=== PATIENT | female | born 1995 | race Caucasian/White ===

== ENCOUNTER 2018-01-15 12:19 | Emergency (ER) | payer BC, OTHER ==
[2018-01-15 12:23] VITALS: RESP 18
[2018-01-15] MEDS ORDERED: SODIUM CHLORIDE 0.9% 1,000 ML IV STA ×2 (13:16)
[2018-01-15] MEDS ORDERED: diphenhydrAMINE 50 MG/ML 1 ML VIAL IVP STA (13:16)
[2018-01-15] MEDS ORDERED: METOCLOPRAMIDE 5 MG/ML 2 ML VIAL IVP STA (13:16)
--- NOTE | 2018-01-15 13:16 | ED ---
General Adult HPI - General Chief complaint: Nausea/Vomiting/Diarrhea Stated complaint: vomiting Time Seen by Provider: 01/15/18 13:01 Source: patient, RN notes reviewed, old records reviewed Mode of arrival: wheelchair Limitations: no limitations - History of Present Illness Initial comments: Patient's 22-year-old female presents today with chief complaint of nausea and vomiting. She reports that she was diagnosed with gastroparesis and had an outpatient study with her certified peer specialist yesterday. She is here staying with her dad. Patient reports that she's been in the hospital almost daily for nausea and vomiting over the past few months at [facility]. Patient reports that she has been doing well of Reglan by mouth but she could not take this o this week when she was outpatient study. Patient states that she has follow-up with her GI specialist Dr. Hewitt.Patient denies any recent fever, chills, shortness of breath, chest pain, back pain, abdominal pain, numbness or tingling, dysuria or hematuria, constipation or diarrhea, headaches or visual changes, or any other current symptoms - Related Data Home Medications Medication Instructions Recorded Confirmed Metoclopramide [Reglan] 10 mg PO DAILY 06/02/14 01/15/18 Lansoprazole [Prevacid] 30 mg PO DAILY 01/15/18 01/15/18 Ondansetron [Zofran] 4 mg PO Q8HR PRN 01/15/18 01/15/18 Promethazine Suppository 25 mg RECTAL DAILY 01/15/18 01/15/18 [Phenergan] Previous Rx's Medication Instructions Recorded Metoclopramide [Reglan] 10 mg PO TID #12 tab 01/15/18 Ondansetron Odt [Zofran Odt] 4 mg PO Q8HR PRN #12 tab 01/15/18 Allergies Allergy/AdvReac Type Severity Reaction Status Date / Time latex Allergy Unknown Rash/Hives Verified 01/15/18 13:16 Review of Systems ROS Statement: Those systems with pertinent positive or pertinent negative responses have been documented in the HPI. ROS Other: All systems not noted in ROS Statement are negative. Past Medical History Past Medical History: No Reported History Additional Past Medical History / Comment(s): gastoparesis History of Any Multi-Drug Resistant Organisms: None Reported Past Surgical History: No Surgical Hx Reported Additional Past Surgical History / Comment(s): EXPLORATORY LAPAROSCOPY 2009 Past Anesthesia/Blood Transfusion Reactions: No Reported Reaction Past Psychological History: Anxiety Smoking Status: Current every day smoker Past Alcohol Use History: None Reported Past Drug Use History: Marijuana - Past Family History Mother Family Medical History: Diabetes Mellitus General Exam - General Exam Comments Initial Comments: 22-year-old female. Alert and oriented. No significant distress. Limitations: no limitations General appearance: alert, in no apparent distress Head exam: Present: atraumatic, normocephalic, normal inspection Eye exam: Present: normal appearance, PERRL, EOMI. Absent: scleral icterus, conjunctival injection, periorbital swelling ENT exam: Present: normal exam, mucous membranes moist Neck exam: Present: normal inspection. Absent: tenderness, meningismus, lymphadenopathy Respiratory exam: Present: normal lung sounds bilaterally. Absent: respiratory distress, wheezes, rales, rhonchi, stridor Cardiovascular Exam: Present: regular rate, normal rhythm, normal heart sounds. Absent: systolic murmur, diastolic murmur, rubs, gallop, clicks GI/Abdominal exam: Present: soft, normal bowel sounds. Absent: distended, tenderness, guarding, rebound, rigid Extremities exam: Present: normal inspection, full ROM, normal capillary refill. Absent: tenderness, pedal edema, joint swelling, calf tenderness Back exam: Present: normal inspection Neurological exam: Present: alert, oriented X3, CN II-XII intact Psychiatric exam: Present: normal affect, normal mood Skin exam: Present: warm, dry, intact, normal color. Absent: rash Course Vital Signs 01/15/18 12:21 Temperature 98.2 F Pulse Rate 117 H Respiratory 18 Rate Blood Pressure 145/75 O2 Sat by Pulse 99 Oximetry Medical Decision Making - Medical Decision Making Patient is a 22-year-old female. Presents or his arms today acutely nausea and vomiting over the past 24 hours. She's been at [facility] multiple times over the past month for evaluation. She has follow-up with GI specialist for outpatient just yesterday for gastroparesis. Patient states that she came here to be with her dad over the weekend and has had continuous nausea and vomiting. She is concerned for dehydration. At this time Patient was given IV fluids and lab work obtained. She has no rebound tenderness and otherwise appears well. Patient's labwork was reviewed and unremarkable. This image this over the area Reglan Benadryl and fluids. A discussion is follow-up with her PCP and gastro-neurologist. Patient history plan will comply. Return parameters were discussed. - Lab Data Result diagrams: 01/15/18 13:35 01/15/18 13:35 Lab Results 01/15/18 01/15/18 01/15/18 Range/Units 13:35 13:35 14:10 WBC 10.8 H (3.8-10.6) k/uL RBC 4.60 (3.80-5.40) m/uL Hgb 13.3 (11.4-16.0) gm/dL Hct 41.8 (34.0-46.0) % MCV 91.0 (80.0-100.0) fL MCH 29.0 (25.0-35.0) pg MCHC 31.8 (31.0-37.0) g/dL RDW 14.4 (11.5-15.5) % Plt Count 276 (150-450) k/uL Neutrophils % 89 % Lymphocytes % 9 % Monocytes % 1 % Eosinophils % 0 % Basophils % 0 % Neutrophils # 9.6 H (1.3-7.7) k/uL Lymphocytes # 0.9 L (1.0-4.8) k/uL Monocytes # 0.1 (0-1.0) k/uL Eosinophils # 0.0 (0-0.7) k/uL Basophils # 0.0 (0-0.2) k/uL Sodium 142 (137-145) mmol/L Potassium 4.1 (3.5-5.1) mmol/L Chloride 108 H (98-107) mmol/L Carbon Dioxide 19 L (22-30) mmol/L Anion Gap 15 mmol/L BUN 10 (7-17) mg/dL Creatinine 0.53 (0.52-1.04) mg/dL Est GFR (CKD-EPI)AfAm >90 (>60 ml/min/1.73 sqM) Est GFR (CKD-EPI)NonAf >90 (>60 ml/min/1.73 sqM) Glucose 106 H (74-99) mg/dL Calcium 10.1 (8.4-10.2) mg/dL Total Bilirubin 0.5 (0.2-1.3) mg/dL AST 20 (14-36) U/L ALT 22 (9-52) U/L Alkaline Phosphatase 66 (38-126) U/L Total Protein 8.0 (6.3-8.2) g/dL Albumin 4.7 (3.5-5.0) g/dL Amylase 47 (30-110) U/L Lipase 85 (23-300) U/L Urine Color Urine Appearance (Clear) Urine pH (5.0-8.0) Ur Specific [place] (1.001-1.035) Urine Protein (Negative) Urine Glucose (UA) (Negative) Urine Blood (Negative) Urine Nitrite (Negative) Urine Bilirubin (Negative) Urine Urobilinogen (<2.0) mg/dL Ur Leukocyte Esterase (Negative) Urine WBC (0-5) /hpf Ur Squamous Epith Cells (0-4) /hpf Urine Mucus (None) /hpf Urine HCG, Qual Not Detected (Not Detectd) 01/15/18 Range/Units 14:10 WBC (3.8-10.6) k/uL RBC (3.80-5.40) m/uL Hgb (11.4-16.0) gm/dL Hct (34.0-46.0) % MCV (80.0-100.0) fL MCH (25.0-35.0) pg MCHC (31.0-37.0) g/dL RDW (11.5-15.5) % Plt Count (150-450) k/uL Neutrophils % % Lymphocytes % % Monocytes % % Eosinophils % % Basophils % % Neutrophils # (1.3-7.7) k/uL Lymphocytes # (1.0-4.8) k/uL Monocytes # (0-1.0) k/uL Eosinophils # (0-0.7) k/uL Basophils # (0-0.2) k/uL Sodium (137-145) mmol/L Potassium (3.5-5.1) mmol/L Chloride (98-107) mmol/L Carbon Dioxide (22-30) mmol/L Anion Gap mmol/L BUN (7-17) mg/dL Creatinine (0.52-1.04) mg/dL Est GFR (CKD-EPI)AfAm (>60 ml/min/1.73 sqM) Est GFR (CKD-EPI)NonAf (>60 ml/min/1.73 sqM) Glucose (74-99) mg/dL Calcium (8.4-10.2) mg/dL Total Bilirubin (0.2-1.3) mg/dL AST (14-36) U/L ALT (9-52) U/L Alkaline Phosphatase (38-126) U/L Total Protein (6.3-8.2) g/dL Albumin (3.5-5.0) g/dL Amylase (30-110) U/L Lipase (23-300) U/L Urine Color Yellow Urine Appearance Cloudy H (Clear) Urine pH 8.5 H (5.0-8.0) Ur Specific [place] 1.022 (1.001-1.035) Urine Protein 1+ H (Negative) Urine Glucose (UA) Negative (Negative) Urine Blood Negative (Negative) Urine Nitrite Negative (Negative) Urine Bilirubin Negative (Negative) Urine Urobilinogen <2.0 (<2.0) mg/dL Ur Leukocyte Esterase Negative (Negative) Urine WBC 1 (0-5) /hpf Ur Squamous Epith Cells 5 H (0-4) /hpf Urine Mucus Many H (None) /hpf Urine HCG, Qual (Not Detectd) Disposition Clinical Impression: Nausea & vomiting, Dehydration Disposition: HOME SELF-CARE Condition: Good Instructions: Acute Nausea and Vomiting (ED) Additional Instructions: Patient has follow-up with your primary care physician. Return to the emergency department if any alarming signs or symptoms occur. Prescriptions: Metoclopramide [Reglan] 10 mg PO TID #12 tab Ondansetron Odt [Zofran Odt] 4 mg PO Q8HR PRN #12 tab PRN Reason: Nausea Is patient prescribed a controlled substance at d/c from ED?: No Referrals: Nonstaff,Physician [REFERRING] - 1-2 days Time of Disposition: 14:39
[2018-01-15 13:50] LABS: Basophils % (A) 0 %; Eosinophils % (A) 0 %; HCT 41.8 % (34.0-46.0); HGB 13.3 gm/dL (11.4-16.0); Lymphocytes # (A) 0.9 k/uL (1.0-4.8); Lymphocytes % (A) 9 %; MCHC 31.8 g/dL (31.0-37.0); Mean Platelet Volume 7.2; Monocytes # (A) 0.1 k/uL (0-1.0); Monocytes % (A) 1 %; Neutrophils # (A) 9.6 k/uL (1.3-7.7); Neutrophils % (A) 89 %; Platelet Count 276 k/uL (150-450); RDW 14.4 % (11.5-15.5); WBC 10.8 k/uL (3.8-10.6)
[2018-01-15 13:56] LABS: ALT 22 U/L (9-52); AST 20 U/L (14-36); Albumin 4.7 g/dL (3.5-5.0); Alkaline Phosphatase 66 U/L (38-126); Amylase 47 U/L (30-110); Anion Gap 15 mmol/L; Blood Urea Nitrogen 10 mg/dL (7-17); Calcium 10.1 mg/dL (8.4-10.2); Carbon Dioxide 19 mmol/L (22-30); Chloride 108 mmol/L (98-107); Glucose 106 mg/dL (74-99); Lipase 85 U/L (23-300); Potassium 4.1 mmol/L (3.5-5.1); Sodium 142 mmol/L (137-145); Total Bilirubin 0.5 mg/dL (0.2-1.3)
[2018-01-15 14:35] LABS: Appearance,Urine Cloudy (Clear); Bilirubin,Urine Negative (Negative); Blood,Urine Negative (Negative); Color,Urine Yellow; Glucose,Urine (UA) Negative (Negative); Ketones,Urine 3+ (Negative); Leukocyte Esterase,Urine Negative (Negative); Mucus,Urine Many /hpf; Nitrite,Urine Negative (Negative); PH, Urine 8.5 (5.0-8.0); Protein,Urine 1+ (Negative); Specific Gravity,Urine 1.022 (1.001-1.035); Squamous Epithelial Cell,Urine 5 /hpf (0-4); Urobilinogen,Urine <2.0 mg/dL (<2.0); WBC,Urine 1 /hpf (0-5)
[2018-01-15 15:00] VITALS: BP 130/71; PULSE 66; TEMP 98
== END 2018-01-15 15:00 | disposition home or self-care (01) ==
LOC: EC 12:19
DX: E86.0 Dehydration (principal); R11.2 Nausea with vomiting, unspecified; F17.200 Nicotine dependence, unspecified, uncomplicated; Z87.19 Personal history of other diseases of the digestive system; Z79.899 Other long term (current) drug therapy; Z91.040 Latex allergy status
CPT/HCPCS: 36415; 80053; 82150; 83690; 85025; 81001; 81025; 99284; 96374; 96375; 96361; J1200; J2765

== ENCOUNTER 2018-01-16 01:24 | Observation (INO) | payer OTHER ==
[2018-01-16] MEDS ORDERED: SODIUM CHLORIDE 0.9% 1,000 ML IV STA (01:40)
[2018-01-16] MEDS ORDERED: METOCLOPRAMIDE 5 MG/ML 2 ML VIAL IVP STA (01:40)
[2018-01-16] MEDS ORDERED: diphenhydrAMINE 50 MG/ML 1 ML VIAL IVP STA (01:40)
--- NOTE | 2018-01-16 02:11 | ED ---
Nausea/Vomiting/Diarrhea HPI - General Chief complaint: Nausea/Vomiting/Diarrhea Stated complaint: Vomiting Time Seen by Provider: 01/16/18 01:39 Source: patient Mode of arrival: wheelchair Limitations: no limitations - History of Present Illness Initial comments: Edilia is a 22-year-old female with a past medical history of frequent epigastric abdominal pain, nausea and vomiting for which she's been undergoing a thorough evaluation with her public health specialist in [place]. Patient had a previous gastric emptying study which was suggestive of gastroparesis, however due to her inability to complete the test there was no definitive diagnosis. Patient has been off of her Reglan recently for repeat GI emptying study which was completed earlier in this week. Again it was suggestive of gastroparesis however patient again was unable to complete the study and vomited contents of her stomach prior to the repeat evaluation. Patient's GI is concerned that she does have gastroparesis, she is currently on Reglan. Patient reports that she' s been having worsening abdominal pain nausea and vomiting. She was evaluated in our emergency department yesterday treated with IV fluids, IV Reglan with minimal improvement in her symptoms. She reports that she went home and has been attempting to keep down sips of water a small bites of food but has been unsuccessful. Patient returns ER with concern that she is again becoming dehydrated due to persistent nausea vomiting and inability tolerate by mouth intake. - Related Data Home Medications Medication Instructions Recorded Confirmed Metoclopramide [Reglan] 10 mg PO DAILY 06/02/14 01/15/18 Lansoprazole [Prevacid] 30 mg PO DAILY 01/15/18 01/15/18 Ondansetron [Zofran] 4 mg PO Q8HR PRN 01/15/18 01/15/18 Promethazine Suppository 25 mg RECTAL DAILY 01/15/18 01/15/18 [Phenergan] Previous Rx's Medication Instructions Recorded Metoclopramide [Reglan] 10 mg PO TID #12 tab 01/15/18 Ondansetron Odt [Zofran Odt] 4 mg PO Q8HR PRN #12 tab 01/15/18 Allergies Allergy/AdvReac Type Severity Reaction Status Date / Time latex Allergy Unknown Rash/Hives Verified 01/16/18 01:31 Review of Systems ROS Statement: Those systems with pertinent positive or pertinent negative responses have been documented in the HPI. ROS Other: All systems not noted in ROS Statement are negative. Past Medical History Past Medical History: No Reported History Additional Past Medical History / Comment(s): gastoparesis History of Any Multi-Drug Resistant Organisms: None Reported Past Surgical History: No Surgical Hx Reported Additional Past Surgical History / Comment(s): EXPLORATORY LAPAROSCOPY 2010. endoscopy. Past Anesthesia/Blood Transfusion Reactions: No Reported Reaction Past Psychological History: Anxiety Smoking Status: Current every day smoker Past Alcohol Use History: None Reported Past Drug Use History: Marijuana - Past Family History Mother Family Medical History: Diabetes Mellitus General Exam - General Exam Comments Initial Comments: Physical Exam GENERAL: Patient is chronically ill-appearing, pale, actively vomiting on evaluation HENT: Normocephalic, Atraumatic. EYES: PERRL, EOMI PULMONARY: Unlabored respirations. CARDIOVASCULAR: There is a regular rate and rhythm without any murmurs gallops or rubs. ABDOMEN: Minimal discomfort to palpation in epigastrium SKIN: Skin is pale, sickly appearance : Deferred NEUROLOGIC: Patient is alert and oriented x3. Moving all extremities spontaneously MUSCULOSKELETAL: Normal extremities with adequate strength and full range of motion. No lower extremity swelling or edema. No calf tenderness. PSYCHIATRIC: Normal psychiatric evaluation. Limitations: no limitations Limitations: no limitations Course Vital Signs 01/16/18 01:27 Temperature 98.6 F Pulse Rate 98 Respiratory 24 Rate Blood Pressure 124/78 O2 Sat by Pulse 99 Oximetry Medical Decision Making - Medical Decision Making The patient was seen and evaluated history is obtained from patient review of medical record Patient with chronic epigastric abdominal pain, nausea and vomiting undergoing a thorough outpatient evaluation patient was seen and evaluated in our emergency department yesterday treated with IV fluids and IV Reglan was able to be discharged home however since that time she has persistent nausea and vomiting. On initial evaluation the patient is actively vomiting, she is holding a basin of nonbloody vomitus Patient is chronically ill-appearing, sickly appearance plan to rehydrate the patient, treat with Reglan and placed in observation for further monitoring and rehydration - Lab Data Result diagrams: 01/16/18 02:22 01/16/18 02:22 Disposition Clinical Impression: Nausea & vomiting Disposition: ADMITTED IP TO THIS HOSP Condition: Stable Is patient prescribed a controlled substance at d/c from ED?: No
[2018-01-16] MEDS ORDERED: NALOXONE 0.4 MG/ML 1 ML VIAL IV PRN (02:18)
[2018-01-16 02:32] LABS: Basophils % (A) 0 %; Eosinophils # (A) 0.2 k/uL (0-0.7); Eosinophils % (A) 1 %; HCT 37.5 % (34.0-46.0); HGB 12.7 gm/dL (11.4-16.0); Lymphocytes # (A) 1.3 k/uL (1.0-4.8); Lymphocytes % (A) 11 %; MCH 29.8 pg (25.0-35.0); MCHC 33.8 g/dL (31.0-37.0); MCV 88.1 fL (80.0-100.0); Mean Platelet Volume 8.4; Monocytes # (A) 0.2 k/uL (0-1.0); Monocytes % (A) 2 %; Neutrophils # (A) 10.2 k/uL (1.3-7.7); Neutrophils % (A) 85 %; Platelet Count 280 k/uL (150-450); RBC 4.25 m/uL (3.80-5.40); RDW 14.6 % (11.5-15.5); WBC 11.9 k/uL (3.8-10.6)
[2018-01-16 02:43] LABS: ALT 23 U/L (9-52); AST 23 U/L (14-36); Albumin 4.7 g/dL (3.5-5.0); Alkaline Phosphatase 53 U/L (38-126); Anion Gap 14 mmol/L; Blood Urea Nitrogen 11 mg/dL (7-17); Calcium 9.7 mg/dL (8.4-10.2); Carbon Dioxide 20 mmol/L (22-30); Chloride 107 mmol/L (98-107); Glucose 115 mg/dL (74-99); Lipase 57 U/L (23-300); Potassium 4.1 mmol/L (3.5-5.1); Sodium 141 mmol/L (137-145); Total Bilirubin 0.6 mg/dL (0.2-1.3); Total Protein 7.9 g/dL (6.3-8.2)
[2018-01-16] MEDS: SODIUM CHLORIDE 0.9% 1,000 ML IV SCH ×2 (03:09→11:39)
[2018-01-16] MEDS ORDERED: FAMOTIDINE 20 MG/2 ML VIAL IV STA (03:19)
[2018-01-16 04:38] VITALS: BMI 28.3
[2018-01-16] MEDS: ONDANSETRON 4 MG/2 ML VIAL IVP PRN ×2 (04:45→09:48)
[2018-01-16] MEDS: LORazepam 2 MG/ML INJ IV PRN ×2 (04:45→12:29)
[2018-01-16 08:23] VITALS: PULSE 95; RESP 16
[2018-01-16] MEDS ORDERED: PANTOPRAZOLE 40 MG/10 ML VIAL IVP SCH (13:45)
[2018-01-16] MEDS ORDERED: METOCLOPRAMIDE 10 MG TAB PO SCH (16:00)
[2018-01-16 16:07] VITALS: BP 109/69; TEMP 98.2
--- NOTE | 2018-01-16 16:31 | P.HPIM ---
History of Present Illness Patient is a pleasant 42-year-old female with known history of gastroparesis etiology of gastroparesis is unknown had a gastric emptying studies in the past came in with nausea vomiting. Patient is able to call tolerate clear liquid diet patient stopped taking her Reglan for another gastric emptying study after which patient started having this intractable symptoms patient was resumed on 9 Reglan. Patient was later evaluated by gastroenterology with the patient follows as an outpatient. Later in the day patient was doing well wanted to be discharged and patient will be resumed on her home medications and will be discharged. Review of Systems REVIEW OF SYSTEMS: CONSTITUTIONAL: No fever, no malaise, no fatigue. HEENT: No recent visual problems or hearing problems. Denied any sore throat. CARDIOVASCULAR: No chest pain, orthopnea, PND, no palpitations, no syncope. PULMONARY: No shortness of breath, no cough, no hemoptysis. GASTROINTESTINAL: As mentioned in HPI NEUROLOGICAL: No headaches, no weakness, no numbness. HEMATOLOGICAL: Denies any bleeding or petechiae. GENITOURINARY: Denies any burning micturition, frequency, or urgency. MUSCULOSKELETAL/RHEUMATOLOGICAL: Denies any joint pain, swelling, or any muscle pain. ENDOCRINE: Denies any polyuria or polydipsia. The rest of the 14-point review of systems is negative. Past Medical History Past Medical History: No Reported History Additional Past Medical History / Comment(s): gastoparesis History of Any Multi-Drug Resistant Organisms: None Reported Past Surgical History: No Surgical Hx Reported Additional Past Surgical History / Comment(s): EXPLORATORY LAPAROSCOPY 2009. endoscopy 12/2017 Past Anesthesia/Blood Transfusion Reactions: No Reported Reaction Past Psychological History: Anxiety Smoking Status: Current every day smoker Past Alcohol Use History: None Reported Past Drug Use History: Marijuana - Past Family History Mother Family Medical History: Diabetes Mellitus Medications and Allergies Home Medications Medication Instructions Recorded Confirmed Type Lansoprazole [Prevacid] 30 mg PO DAILY 01/15/18 01/16/18 History Metoclopramide [Reglan] 10 mg PO TID #12 tab 01/15/18 01/16/18 Rx Ondansetron [Zofran] 4 mg PO Q8HR PRN 01/15/18 01/16/18 History Promethazine Suppository 25 mg RECTAL DAILY 01/15/18 01/16/18 History [Phenergan] Lactobacillus Acidophilus 460 mg PO DAILY 01/16/18 01/16/18 History [Florajen] Multivitamins, Thera [Multivitamin 1 tab PO DAILY 01/16/18 01/16/18 History (formulary)] Allergies Allergy/AdvReac Type Severity Reaction Status Date / Time latex Allergy Unknown Rash/Hives Verified 01/16/18 12:08 Physical Exam Vitals: Vital Signs Temp Pulse Pulse Resp BP BP Pulse Ox 01/16/18 16:00 98.2 F 95 16 109/69 95 01/16/18 08:00 98.7 F 95 16 108/66 96 01/16/18 04:15 98.4 F 99 18 102/59 96 01/16/18 04:00 18 01/16/18 03:30 98.7 F 83 16 125/68 97 01/16/18 01:27 98.6 F 98 24 124/78 99 Intake and Output 01/16/18 01/16/18 01/16/18 06:59 14:59 22:59 Intake Total 80 Balance 80 Intake: Oral 80 Other: Voiding Method Toilet Toilet # Voids 2 2 Weight 63.503 kg PHYSICAL EXAMINATION: GENERAL: The patient is alert and oriented x3, not in any acute distress. Well developed, well nourished. HEENT: Pupils are round and equally reacting to light. EOMI. No scleral icterus. No conjunctival pallor. Normocephalic, atraumatic. No pharyngeal erythema. No thyromegaly. CARDIOVASCULAR: S1 and S2 present. No murmurs, rubs, or gallops. PULMONARY: Chest is clear to auscultation, no wheezing or crackles. ABDOMEN: Soft, nontender, nondistended, normoactive bowel sounds. No palpable organomegaly. MUSCULOSKELETAL: No joint swelling or deformity. EXTREMITIES: No cyanosis, clubbing, or pedal edema. NEUROLOGICAL: Gross neurological examination did not reveal any focal deficits. SKIN: No rashes. Results CBC & Chem 7: 01/16/18 02:22 01/16/18 02:22 Labs: Abnormal Lab Results - Last 24 Hours (Table) 01/16/18 01/16/18 Range/Units 02:22 02:22 WBC 11.9 H (3.8-10.6) k/uL Neutrophils # 10.2 H (1.3-7.7) k/uL Carbon Dioxide 20 L (22-30) mmol/L Creatinine 0.44 L (0.52-1.04) mg/dL Glucose 115 H (74-99) mg/dL Thrombosis Risk Factor Assmnt - Choose All That Apply Any of the Below Risk Factors Present?: No Assessment and Plan Plan: -Nausea vomiting:: Secondary to gastroparesis if patient's symptoms of her patient will be discharged today. -Nicotine abuse: Counseling was provided
--- NOTE | 2018-01-16 16:32 | P.DS ---
Providers Date of admission: 01/16/18 02:20 Attending physician: Belem Don Consults: 01/16/18 13:38 Consult Physician Routine Consulting Provider: Darcie Herrera Consult Reason/Comments: gastroperesis Do you want consulting provider notified?: Yes Primary care physician: Lico Solano DO Hospital Course: As mentioned in HPI Patient Condition at Discharge: Stable Plan - Discharge Summary New Discharge Prescriptions: No Action Ondansetron [Zofran] 4 mg PO Q8HR PRN PRN Reason: Nausea Lansoprazole [Prevacid] 30 mg PO DAILY Promethazine Suppository [Phenergan] 25 mg RECTAL DAILY Metoclopramide [Reglan] 10 mg PO TID #12 tab Multivitamins, Thera [Multivitamin (formulary)] 1 tab PO DAILY Lactobacillus Acidophilus [Florajen] 460 mg PO DAILY Discharge Medication List Lansoprazole [Prevacid] 30 mg PO DAILY 01/15/18 [History] Metoclopramide [Reglan] 10 mg PO TID #12 tab 01/15/18 [Rx] Ondansetron [Zofran] 4 mg PO Q8HR PRN 01/15/18 [History] Promethazine Suppository [Phenergan] 25 mg RECTAL DAILY 01/15/18 [History] Lactobacillus Acidophilus [Florajen] 460 mg PO DAILY 01/16/18 [History] Multivitamins, Thera [Multivitamin (formulary)] 1 tab PO DAILY 01/16/18 [History ] Follow up Appointment(s)/Referral(s): Lico Solano DO [Primary Care Provider] - 3 Days Discharge Disposition: HOME SELF-CARE
[2018-01-17] MEDS ORDERED: PROMETHAZINE SUPPOSITORY 25 MG SUPP RECTAL SCH (09:00)
== END 2018-01-16 16:48 | disposition home or self-care (01) ==
LOC: EC 01:24 → 3OBS 02:20
PROVIDERS: ADMIT Hospitalist; ATTEND Hospitalist
DX: K31.84 Gastroparesis (principal); F41.9 Anxiety disorder, unspecified; F17.200 Nicotine dependence, unspecified, uncomplicated; Z79.899 Other long term (current) drug therapy; Z91.040 Latex allergy status; Z83.3 Family history of diabetes mellitus
CPT/HCPCS: 96361 ×2; 96375 ×2; 96376; 96374; 99284; 36415; 80053; 83690; 85025; G0378; J2060; J1200; J2765; J2405; C9113

== ENCOUNTER 2018-02-07 13:41 | Emergency (ER) | payer OTHER ==
[2018-02-07] MEDS ORDERED: KETOROLAC 30 MG/ML 1 ML VIAL IVP STA (14:20)
[2018-02-07] MEDS ORDERED: METOCLOPRAMIDE 5 MG/ML 2 ML VIAL IVP STA (14:20)
[2018-02-07] MEDS ORDERED: SODIUM CHLORIDE 0.9% 1,000 ML IV STA (14:20)
[2018-02-07] MEDS ORDERED: diphenhydrAMINE 50 MG/ML 1 ML VIAL IVP STA (14:20)
[2018-02-07] MEDS ORDERED: SODIUM CHLORIDE 0.9% 1,000 ML IV SCH (14:30)
--- NOTE | 2018-02-07 14:44 | ED ---
Nausea/Vomiting/Diarrhea HPI - General Chief complaint: Nausea/Vomiting/Diarrhea Stated complaint: N & V Time Seen by Provider: 02/07/18 13:58 Source: patient, RN notes reviewed, old records reviewed Mode of arrival: ambulatory Limitations: no limitations - History of Present Illness Initial comments: Patient is a 22-year-old female who presents emergency department today for evaluation for gastroparesis. Patient reports having nausea and vomiting of past 2 days. She reports that she's followed up outpatient only with a gastro- neurologist in [place]. Patient states that she's not had close follow-up with her should they gastric neurologist as of the country. Patient states she' s been taking Zofran and Reglan with little relief of her nausea and pain. Patient states that she's been having some diarrhea. She denies any chance of at this time. Patient states that she's had no fevers or chills. This pain feels similar to her previous gastroparesis pain. Patient denies any recent fever, chills, shortness of breath, chest pain, back pain, abdominal pain , nausea vomiting, numbness or tingling, dysuria or hematuria, constipation or diarrhea, headaches or visual changes, or any other current symptoms - Related Data Home Medications Medication Instructions Recorded Confirmed Lansoprazole [Prevacid] 30 mg PO DAILY 01/15/18 01/16/18 Ondansetron [Zofran] 4 mg PO Q8HR PRN 01/15/18 01/16/18 Promethazine Suppository 25 mg RECTAL DAILY 01/15/18 01/16/18 [Phenergan] Lactobacillus Acidophilus 460 mg PO DAILY 01/16/18 01/16/18 [Florajen] Multivitamins, Thera [Multivitamin 1 tab PO DAILY 01/16/18 01/16/18 (formulary)] Previous Rx's Medication Instructions Recorded Metoclopramide [Reglan] 10 mg PO TID #12 tab 01/15/18 Allergies Allergy/AdvReac Type Severity Reaction Status Date / Time latex Allergy Unknown Rash/Hives Verified 02/07/18 13:49 Review of Systems ROS Statement: Those systems with pertinent positive or pertinent negative responses have been documented in the HPI. ROS Other: All systems not noted in ROS Statement are negative. Past Medical History Past Medical History: No Reported History Additional Past Medical History / Comment(s): gastoparesis History of Any Multi-Drug Resistant Organisms: None Reported Past Surgical History: No Surgical Hx Reported Additional Past Surgical History / Comment(s): EXPLORATORY LAPAROSCOPY 2009. endoscopy 12/2017 Past Anesthesia/Blood Transfusion Reactions: No Reported Reaction Past Psychological History: Anxiety Smoking Status: Current every day smoker Past Alcohol Use History: None Reported Past Drug Use History: Marijuana - Past Family History Mother Family Medical History: Diabetes Mellitus General Exam - General Exam Comments Initial Comments: Rogelio is a 22-year-old female. Alert and oriented. Patient appears in no significant distress. Limitations: no limitations General appearance: alert, in no apparent distress Head exam: Present: atraumatic, normocephalic, normal inspection Eye exam: Present: normal appearance, PERRL, EOMI. Absent: scleral icterus, conjunctival injection, periorbital swelling ENT exam: Present: normal exam, mucous membranes moist Neck exam: Present: normal inspection. Absent: tenderness, meningismus, lymphadenopathy Respiratory exam: Present: normal lung sounds bilaterally. Absent: respiratory distress, wheezes, rales, rhonchi, stridor Cardiovascular Exam: Present: regular rate, normal rhythm, normal heart sounds. Absent: systolic murmur, diastolic murmur, rubs, gallop, clicks GI/Abdominal exam: Present: soft, normal bowel sounds. Absent: distended, tenderness, guarding, rebound, rigid Extremities exam: Present: normal inspection, full ROM, normal capillary refill. Absent: tenderness, pedal edema, joint swelling, calf tenderness Back exam: Present: normal inspection Neurological exam: Present: alert, oriented X3, CN II-XII intact Psychiatric exam: Present: normal affect, normal mood Skin exam: Present: warm, dry, intact, normal color. Absent: rash Course Vital Signs 02/07/18 13:47 Temperature 98.5 F Pulse Rate 102 H Respiratory 16 Rate Blood Pressure 122/89 O2 Sat by Pulse 99 Oximetry Medical Decision Making - Medical Decision Making Patient is 22-year-old female presents emergency department today with episode of gastroparesis. Patient's labwork was reviewed today and unremarkable. Patient continues to complain of nausea after Zofran and Reglan Benadryl. She complains of acid reflux like pain. She is given GI cocktail and Protonix. Patient has no CVA tenderness. Abdomen soft. Vital signs are stable. At this time Patient was given 2 L bolus discuss close follow-up with primary care physician. Return parameters were discussed. - Lab Data Result diagrams: 02/07/18 14:44 02/07/18 14:44 Lab Results 02/07/18 02/07/18 02/07/18 Range/Units 14:44 14:44 14:44 WBC 7.7 (3.8-10.6) k/uL RBC 4.32 (3.80-5.40) m/uL Hgb 12.9 (11.4-16.0) gm/dL Hct 38.8 (34.0-46.0) % MCV 89.9 (80.0-100.0) fL MCH 29.9 (25.0-35.0) pg MCHC 33.3 (31.0-37.0) g/dL RDW 14.7 (11.5-15.5) % Plt Count 282 (150-450) k/uL Neutrophils % 78 % Lymphocytes % 16 % Monocytes % 4 % Eosinophils % 1 % Basophils % 0 % Neutrophils # 6.0 (1.3-7.7) k/uL Lymphocytes # 1.3 (1.0-4.8) k/uL Monocytes # 0.3 (0-1.0) k/uL Eosinophils # 0.1 (0-0.7) k/uL Basophils # 0.0 (0-0.2) k/uL Sodium 139 (137-145) mmol/L Potassium 4.2 (3.5-5.1) mmol/L Chloride 107 (98-107) mmol/L Carbon Dioxide 22 (22-30) mmol/L Anion Gap 10 mmol/L BUN 8 (7-17) mg/dL Creatinine 0.53 (0.52-1.04) mg/dL Est GFR (CKD-EPI)AfAm >90 (>60 ml/min/1.73 sqM) Est GFR (CKD-EPI)NonAf >90 (>60 ml/min/1.73 sqM) Glucose 93 (74-99) mg/dL Calcium 9.5 (8.4-10.2) mg/dL Total Bilirubin 0.4 (0.2-1.3) mg/dL AST 17 (14-36) U/L ALT 18 (9-52) U/L Alkaline Phosphatase 58 (38-126) U/L Total Protein 7.6 (6.3-8.2) g/dL Albumin 4.4 (3.5-5.0) g/dL Amylase 42 (30-110) U/L Lipase 62 (23-300) U/L Urine Color Yellow Urine Appearance Cloudy H (Clear) Urine pH 7.5 (5.0-8.0) Ur Specific [place] 1.018 (1.001-1.035) Urine Protein Trace H (Negative) Urine Glucose (UA) Negative (Negative) Urine Ketones 2+ H (Negative) Urine Blood Negative (Negative) Urine Nitrite Negative (Negative) Urine Bilirubin Negative (Negative) Urine Urobilinogen 2.0 (<2.0) mg/dL Ur Leukocyte Esterase Trace H (Negative) Urine RBC 8 H (0-5) /hpf Urine WBC 2 (0-5) /hpf Ur Squamous Epith Cells 7 H (0-4) /hpf Urine Mucus Many H (None) /hpf Disposition Clinical Impression: Nausea & vomiting, Dehydration Disposition: HOME SELF-CARE Condition: Good Instructions: Acute Nausea and Vomiting (ED) Additional Instructions: Patient advised to follow-up with primary care physician. Return to emergency department if any alarming signs or symptoms occur. Is patient prescribed a controlled substance at d/c from ED?: No Referrals: Lico Solano DO [Primary Care Provider] - 1-2 days Time of Disposition: 16:22
[2018-02-07 14:57] LABS: Basophils % (A) 0 %; Eosinophils # (A) 0.1 k/uL (0-0.7); Eosinophils % (A) 1 %; HCT 38.8 % (34.0-46.0); HGB 12.9 gm/dL (11.4-16.0); Lymphocytes # (A) 1.3 k/uL (1.0-4.8); Lymphocytes % (A) 16 %; MCH 29.9 pg (25.0-35.0); MCHC 33.3 g/dL (31.0-37.0); MCV 89.9 fL (80.0-100.0); Mean Platelet Volume 7.3; Monocytes # (A) 0.3 k/uL (0-1.0); Monocytes % (A) 4 %; Neutrophils % (A) 78 %; Platelet Count 282 k/uL (150-450); RBC 4.32 m/uL (3.80-5.40); RDW 14.7 % (11.5-15.5); WBC 7.7 k/uL (3.8-10.6)
[2018-02-07 15:05] LABS: Appearance,Urine Cloudy (Clear); Bilirubin,Urine Negative (Negative); Blood,Urine Negative (Negative); Color,Urine Yellow; Glucose,Urine (UA) Negative (Negative); Ketones,Urine 2+ (Negative); Leukocyte Esterase,Urine Trace (Negative); Mucus,Urine Many /hpf; Nitrite,Urine Negative (Negative); PH, Urine 7.5 (5.0-8.0); Protein,Urine Trace (Negative); RBC,Urine 8 /hpf (0-5); Specific Gravity,Urine 1.018 (1.001-1.035); Squamous Epithelial Cell,Urine 7 /hpf (0-4); WBC,Urine 2 /hpf (0-5)
[2018-02-07 15:08] LABS: ALT 18 U/L (9-52); AST 17 U/L (14-36); Albumin 4.4 g/dL (3.5-5.0); Alkaline Phosphatase 58 U/L (38-126); Amylase 42 U/L (30-110); Anion Gap 10 mmol/L; Blood Urea Nitrogen 8 mg/dL (7-17); Calcium 9.5 mg/dL (8.4-10.2); Carbon Dioxide 22 mmol/L (22-30); Chloride 107 mmol/L (98-107); Glucose 93 mg/dL (74-99); Lipase 62 U/L (23-300); Potassium 4.2 mmol/L (3.5-5.1); Sodium 139 mmol/L (137-145); Total Bilirubin 0.4 mg/dL (0.2-1.3); Total Protein 7.6 g/dL (6.3-8.2)
[2018-02-07] MEDS ORDERED: PANTOPRAZOLE 40 MG/10 ML VIAL IVP STA (15:41)
[2018-02-07] MEDS ORDERED: MAG HYDROX/AL HYDROX/SIMETH 30 ML, HYOSCYAMINE ELIXIR 10 ML, CIMETIDINE HCL 300 MG, LID... PO STA ×4 (15:41)
[2018-02-07 16:49] VITALS: BP 99/52; PULSE 76; RESP 18; TEMP 99.5
== END 2018-02-07 16:51 | disposition home or self-care (01) ==
LOC: EC 13:41
DX: E86.0 Dehydration (principal); R11.2 Nausea with vomiting, unspecified; R19.7 Diarrhea, unspecified; K31.84 Gastroparesis; F17.200 Nicotine dependence, unspecified, uncomplicated; Z91.040 Latex allergy status; Z79.899 Other long term (current) drug therapy; Z53.8 Procedure and treatment not carried out for other reasons
CPT/HCPCS: 36415; 80053; 82150; 83690; 85025; 81001; 99284; 96374; 96375 ×3; 96361; J1200; J2765; J1885; C9113

== ENCOUNTER 2018-02-10 11:37 | Emergency (ER) | payer OTHER ==
[2018-02-10] MEDS ORDERED: METOCLOPRAMIDE 5 MG/ML 2 ML VIAL IVP STA (12:17)
[2018-02-10] MEDS: diphenhydrAMINE 50 MG/ML 1 ML VIAL IVP STA ×2 (12:41→13:16)
[2018-02-10 13:17] LABS: Basophils # (A) 0.1 k/uL (0-0.2); Basophils % (A) 0 %; Eosinophils % (A) 0 %; HCT 42.8 % (34.0-46.0); HGB 13.9 gm/dL (11.4-16.0); Lymphocytes # (A) 1.6 k/uL (1.0-4.8); Lymphocytes % (A) 13 %; MCH 29.8 pg (25.0-35.0); MCHC 32.5 g/dL (31.0-37.0); MCV 91.8 fL (80.0-100.0); Mean Platelet Volume 7.8; Monocytes # (A) 0.3 k/uL (0-1.0); Monocytes % (A) 2 %; Neutrophils # (A) 9.5 k/uL (1.3-7.7); Neutrophils % (A) 82 %; Platelet Count 327 k/uL (150-450); RBC 4.66 m/uL (3.80-5.40); RDW 14.5 % (11.5-15.5); WBC 11.6 k/uL (3.8-10.6)
[2018-02-10 13:23] LABS: Appearance,Urine Clear (Clear); Bilirubin,Urine Negative (Negative); Blood,Urine Large (Negative); Color,Urine Yellow; Glucose,Urine (UA) Negative (Negative); Ketones,Urine 2+ (Negative); Leukocyte Esterase,Urine Trace (Negative); Mucus,Urine Many /hpf; Nitrite,Urine Negative (Negative); Protein,Urine Trace (Negative); RBC,Urine >182 /hpf (0-5); Urobilinogen,Urine <2.0 mg/dL (<2.0); WBC,Urine 5 /hpf (0-5)
[2018-02-10 13:25] LABS: ALT 18 U/L (9-52); AST 18 U/L (14-36); Alkaline Phosphatase 69 U/L (38-126); Anion Gap 12 mmol/L; Blood Urea Nitrogen 9 mg/dL (7-17); Calcium 10.2 mg/dL (8.4-10.2); Carbon Dioxide 22 mmol/L (22-30); Chloride 107 mmol/L (98-107); Glucose 102 mg/dL (74-99); Potassium 4.7 mmol/L (3.5-5.1); Sodium 141 mmol/L (137-145); Total Bilirubin 0.5 mg/dL (0.2-1.3); Total Protein 8.4 g/dL (6.3-8.2)
--- NOTE | 2018-02-10 13:53 | ED ---
Nausea/Vomiting/Diarrhea HPI - General Chief complaint: Nausea/Vomiting/Diarrhea Stated complaint: vomiting Time Seen by Provider: 02/10/18 12:05 Source: patient Mode of arrival: ambulatory Limitations: no limitations - History of Present Illness Initial comments: 22-year-old female past medical history of gastroparesis and GERD presenting today for chief complaint of nausea and vomiting. Patient states that she was recently seen here for the same complaint, she states that since discharge she is able to tolerate by mouth intake and liquid form however she was unable to tolerate solids. She states that this has been going on for months and she has been evaluated extensively by gastroenterology, Dr. Glenda Hewitt. She had an endoscopy on the with findings concerning for gastroparesis. Patient states that her gastric emptying study that was performed a few days later revealed gastroparesis. Patient was started on Zofran and Reglan for her nausea and vomiting. Patient states that she does have a scheduled appointment with her tube buffer on Thursday, February 12, however she has not been able to keep down her Reglan today to control her nausea and vomiting. Patient states that she took 2 Zofran this morning which did not alleviate her symptoms. Patient does state that she has chronic diarrhea, however since she' s been taking her Reglan her stools performed. Patient denies any hematemesis, melena, hematochezia, fever, chills, night sweats, abdominal pain, chest pain, or shortness of breath. Patient does admit to some mild lower pelvic pain, however she states that she just her menstruation yesterday and this is consistent with her menses. Pt denies sexual activity, vaginal discharge or abdnormal vaginal bleeding. Pt denies . Upon arrival to the emergency department pt is stable VS within acceptable limits. Pt did have 1 episode of vomiting since arrival, no noted blood. - Related Data Home Medications Medication Instructions Recorded Confirmed Lansoprazole [Prevacid] 30 mg PO DAILY 01/15/18 02/10/18 Ondansetron [Zofran] 4 mg PO Q8HR PRN 01/15/18 02/10/18 Previous Rx's Medication Instructions Recorded Metoclopramide [Reglan] 10 mg PO TID #12 tab 01/15/18 Allergies Allergy/AdvReac Type Severity Reaction Status Date / Time latex Allergy Unknown Rash/Hives Verified 02/10/18 12:20 Review of Systems ROS Statement: Those systems with pertinent positive or pertinent negative responses have been documented in the HPI. ROS Other: All systems not noted in ROS Statement are negative. Constitutional: Denies: fever, night sweats ENT: Denies: ear pain, throat pain Respiratory: Denies: cough, dyspnea, wheezes, hemoptysis, stridor Cardiovascular: Denies: chest pain, palpitations, dyspnea on exertion Endocrine: Denies: fatigue Gastrointestinal: Reports: nausea, vomiting, diarrhea (on and off for months- none currently). Denies: abdominal pain, constipation, hematemesis, melena, hematochezia Genitourinary: Denies: urgency, dysuria, frequency, hematuria, discharge, abnormal menses Musculoskeletal: Denies: back pain Skin: Denies: rash, lesions Neurological: Denies: headache, weakness, numbness, paresthesias, confusion Past Medical History Past Medical History: GERD/Reflux Additional Past Medical History / Comment(s): gastoparesis History of Any Multi-Drug Resistant Organisms: None Reported Past Surgical History: No Surgical Hx Reported Additional Past Surgical History / Comment(s): EXPLORATORY LAPAROSCOPY 2009. endoscopy 12/2017 Past Anesthesia/Blood Transfusion Reactions: No Reported Reaction Past Psychological History: Anxiety Smoking Status: Current every day smoker Past Alcohol Use History: None Reported Past Drug Use History: Marijuana - Past Family History Mother Family Medical History: Diabetes Mellitus General Exam - General Exam Comments Initial Comments: General: The patient is awake and alert, in no distress, and does not appear acutely ill. Eye: Pupils are equal, round and reactive to light, extra-ocular movements are intact. No nystagmus. There is normal conjunctiva bilaterally. No signs of icterus. Ears, nose, mouth and throat: There are moist mucous membranes and no oral lesions. Neck: The neck is supple, there is no tenderness or JVD. Cardiovascular: There is a regular rate and rhythm. No murmur, rub or gallop is appreciated. Respiratory: Lungs are clear to auscultation, respirations are non-labored, breath sounds are equal. No wheezes, stridor, rales, or rhonchi. Gastrointestinal: No noted diaphoresis, jaundice, pallor, protecting postures or squirming. Symmetrical pigmentation of abdomen without signs of inflammation, scars, or striae. Umbilicus mildline, inverted without swelling. No dilated veins. No noted abdominal distention. No visible masses. No peristalsis, aortic pulsations , or ventral hernia. Bowel sounds audible in all 4 quadrants, unremarkable. No friction rubs or venous hums. No epigastic, hepatic or abdominal bruits. No tenderness to light or deep palpation. Liver edge, not palpable. Spleen edge, right and left kidney not palpable. Superior bladder margin non-tender. Special Testing: Negative [place], [place], McBurney, Josue, cutaneous hyperesthesia. Iliopsoas and obturator tests negative bilaterally. Negative Heel Jar test. No CVA tenderness. Digital rectal exam deferred. Negative sanford turners or cullens sign Musculoskeletal: Normal ROM, no tenderness. Strength 5/5. Sensation intact. Pulses equal bilaterally 2+. Neurological: A&O x 3. CN II-XII intact, There are no obvious motor or sensory deficits. Coordination appears grossly intact. Speech is normal. Skin: Skin is warm and dry and no rashes or lesions are noted. Psychiatric: Cooperative, appropriate mood & affect, normal judgment. Limitations: no limitations Course Vital Signs 02/10/18 02/10/18 11:39 14:30 Temperature 98.7 F 98.0 F Pulse Rate 89 74 Respiratory 16 18 Rate Blood Pressure 120/78 149/87 O2 Sat by Pulse 100 96 Oximetry Medical Decision Making - Medical Decision Making 22-year-old female history of gastroparesis who she is following closely with gastroenterology. I spoke with patient's gastrologist Dr. Hewitt who stated that patient should start drinking boost/ensure if she is able to tolerate PO intake. Pt was given reglan/benadryl IVP, pt tolerated PO water. Pt given IV fluid replacement. Pt appears well, nontoxic. Labs unremarkable. UA as noted above however pt is currently menstruating. Pt given reglan, zofran and benadryl for nausea. Pt requested protonix because she didnt take her GERD medication today. After discussing case with Dr. Palma we feel pt is stable for d /c she appears hydrated on exam, labs unremarkable. Pt states she has tolerated PO gatoraide at home. Pt discharged in stable condition. - Lab Data Result diagrams: 02/10/18 12:36 02/10/18 12:36 Lab Results 02/10/18 02/10/18 02/10/18 Range/Units 12:36 12:36 12:36 WBC 11.6 H (3.8-10.6) k/uL RBC 4.66 (3.80-5.40) m/uL Hgb 13.9 (11.4-16.0) gm/dL Hct 42.8 (34.0-46.0) % MCV 91.8 (80.0-100.0) fL MCH 29.8 (25.0-35.0) pg MCHC 32.5 (31.0-37.0) g/dL RDW 14.5 (11.5-15.5) % Plt Count 327 (150-450) k/uL Neutrophils % 82 % Lymphocytes % 13 % Monocytes % 2 % Eosinophils % 0 % Basophils % 0 % Neutrophils # 9.5 H (1.3-7.7) k/uL Lymphocytes # 1.6 (1.0-4.8) k/uL Monocytes # 0.3 (0-1.0) k/uL Eosinophils # 0.0 (0-0.7) k/uL Basophils # 0.1 (0-0.2) k/uL Sodium 141 (137-145) mmol/L Potassium 4.7 (3.5-5.1) mmol/L Chloride 107 (98-107) mmol/L Carbon Dioxide 22 (22-30) mmol/L Anion Gap 12 mmol/L BUN 9 (7-17) mg/dL Creatinine 0.62 (0.52-1.04) mg/dL Est GFR (CKD-EPI)AfAm >90 (>60 ml/min/1.73 sqM) Est GFR (CKD-EPI)NonAf >90 (>60 ml/min/1.73 sqM) Glucose 102 H (74-99) mg/dL Calcium 10.2 (8.4-10.2) mg/dL Total Bilirubin 0.5 (0.2-1.3) mg/dL AST 18 (14-36) U/L ALT 18 (9-52) U/L Alkaline Phosphatase 69 (38-126) U/L Total Protein 8.4 H (6.3-8.2) g/dL Albumin 5.0 (3.5-5.0) g/dL Urine Color Urine Appearance (Clear) Urine pH (5.0-8.0) Ur Specific [place] (1.001-1.035) Urine Protein (Negative) Urine Glucose (UA) (Negative) Urine Ketones (Negative) Urine Blood (Negative) Urine Nitrite (Negative) Urine Bilirubin (Negative) Urine Urobilinogen (<2.0) mg/dL Ur Leukocyte Esterase (Negative) Urine RBC (0-5) /hpf Urine WBC (0-5) /hpf Urine Mucus (None) /hpf Urine HCG, Qual Not Detected (Not Detectd) 02/10/18 Range/Units 12:36 WBC (3.8-10.6) k/uL RBC (3.80-5.40) m/uL Hgb (11.4-16.0) gm/dL Hct (34.0-46.0) % MCV (80.0-100.0) fL MCH (25.0-35.0) pg MCHC (31.0-37.0) g/dL RDW (11.5-15.5) % Plt Count (150-450) k/uL Neutrophils % % Lymphocytes % % Monocytes % % Eosinophils % % Basophils % % Neutrophils # (1.3-7.7) k/uL Lymphocytes # (1.0-4.8) k/uL Monocytes # (0-1.0) k/uL Eosinophils # (0-0.7) k/uL Basophils # (0-0.2) k/uL Sodium (137-145) mmol/L Potassium (3.5-5.1) mmol/L Chloride (98-107) mmol/L Carbon Dioxide (22-30) mmol/L Anion Gap mmol/L BUN (7-17) mg/dL Creatinine (0.52-1.04) mg/dL Est GFR (CKD-EPI)AfAm (>60 ml/min/1.73 sqM) Est GFR (CKD-EPI)NonAf (>60 ml/min/1.73 sqM) Glucose (74-99) mg/dL Calcium (8.4-10.2) mg/dL Total Bilirubin (0.2-1.3) mg/dL AST (14-36) U/L ALT (9-52) U/L Alkaline Phosphatase (38-126) U/L Total Protein (6.3-8.2) g/dL Albumin (3.5-5.0) g/dL Urine Color Yellow Urine Appearance Clear (Clear) Urine pH 8.0 (5.0-8.0) Ur Specific [place] 1.020 (1.001-1.035) Urine Protein Trace H (Negative) Urine Glucose (UA) Negative (Negative) Urine Ketones 2+ H (Negative) Urine Blood Large H (Negative) Urine Nitrite Negative (Negative) Urine Bilirubin Negative (Negative) Urine Urobilinogen <2.0 (<2.0) mg/dL Ur Leukocyte Esterase Trace H (Negative) Urine RBC >182 H (0-5) /hpf Urine WBC 5 (0-5) /hpf Urine Mucus Many H (None) /hpf Urine HCG, Qual (Not Detectd) Disposition Clinical Impression: Nausea & vomiting Disposition: HOME SELF-CARE Condition: Good Instructions: Gastroparesis (ED) Additional Instructions: Please use medication as discussed. Please follow-up with Dr. Hewitt as scheduled for this Thursday. Please return to emergency room if the symptoms increase or worsen or for any other concerns, as discussed. Please drink ensure/ boost supplements as instructed by tube buffer. Is patient prescribed a controlled substance at d/c from ED?: No Referrals: Lico Solano DO [Primary Care Provider] - 1-2 days Time of Disposition: 13:56
[2018-02-10] MEDS: PANTOPRAZOLE 40 MG TABLET PO STA ×2 (14:20→14:22)
[2018-02-10] MEDS ORDERED: ONDANSETRON ODT 4 MG TAB PO STA (14:26)
[2018-02-10] MEDS ORDERED: PANTOPRAZOLE 40 MG TABLET PO STA (14:26)
[2018-02-10 14:31] VITALS: BP 149/87; PULSE 74; RESP 18; TEMP 98
[2018-02-10] MEDS ORDERED: ONDANSETRON 4 MG/2 ML VIAL IVP STA (14:49)
== END 2018-02-10 15:20 | disposition home or self-care (01) ==
LOC: EC 11:37
DX: R11.2 Nausea with vomiting, unspecified (principal); R10.2 Pelvic and perineal pain; K21.9 Gastro-esophageal reflux disease without esophagitis; F17.200 Nicotine dependence, unspecified, uncomplicated; Z91.040 Latex allergy status; Z79.899 Other long term (current) drug therapy
CPT/HCPCS: 36415; 80053; 85025; 81001; 81025; 99284; 96374; 96375 ×2; J2765; J2405

== ENCOUNTER 2018-03-12 00:27 | Observation (INO) | payer OTHER ==
[2018-03-12] MEDS ORDERED: diphenhydrAMINE 50 MG/ML 1 ML VIAL IVP STA (00:51)
[2018-03-12] MEDS ORDERED: ONDANSETRON 4 MG/2 ML VIAL IVP STA ×2 (00:51→02:01)
[2018-03-12] MEDS ORDERED: SODIUM CHLORIDE 0.9% 1,000 ML IV STA (00:51)
[2018-03-12] MEDS ORDERED: METOCLOPRAMIDE 5 MG/ML 2 ML VIAL IVP STA (00:51)
[2018-03-12] MEDS ORDERED: PANTOPRAZOLE 40 MG/10 ML VIAL IVP STA (00:52)
[2018-03-12 01:38] LABS: Basophils % (A) 0 %; Eosinophils % (A) 0 %; HGB 12.8 gm/dL (11.4-16.0); Lymphocytes # (A) 1.6 k/uL (1.0-4.8); Lymphocytes % (A) 13 %; MCV 90.6 fL (80.0-100.0); Mean Platelet Volume 8.3; Monocytes # (A) 0.4 k/uL (0-1.0); Monocytes % (A) 3 %; Neutrophils # (A) 10.8 k/uL (1.3-7.7); Neutrophils % (A) 84 %; Platelet Count 267 k/uL (150-450); RBC 4.42 m/uL (3.80-5.40); RDW 14.6 % (11.5-15.5); WBC 12.9 k/uL (3.8-10.6)
--- NOTE | 2018-03-12 01:41 | CT ---
EXAMINATION TYPE: CT brain wo con DATE OF EXAM: 03/12/2018 COMPARISON: None HISTORY: nausea/vomitting CT DLP: 1089.4 mGycm. Automated Exposure Control for Dose Reduction was Utilized. TECHNIQUE: CT scan of the head is performed without contrast. FINDINGS: Ventricles and sulci appear normal. There is no mass effect nor midline shift. There is no sign of intracranial hemorrhage. There is mucosal thickening in the maxillary and ethmoid sinuses. Ca lvarium is intact. IMPRESSION: Negative CT scan of the brain. Sinusitis.
[2018-03-12 01:55] LABS: ALT 24 U/L (9-52); AST 18 U/L (14-36); Albumin 4.6 g/dL (3.5-5.0); Alkaline Phosphatase 63 U/L (38-126); Amylase 35 U/L (30-110); Anion Gap 15 mmol/L; Blood Urea Nitrogen 8 mg/dL (7-17); Calcium 9.5 mg/dL (8.4-10.2); Carbon Dioxide 19 mmol/L (22-30); Chloride 106 mmol/L (98-107); Glucose 114 mg/dL (74-99); Lipase 30 U/L (23-300); Potassium 3.9 mmol/L (3.5-5.1); Sodium 140 mmol/L (137-145); Total Bilirubin 0.4 mg/dL (0.2-1.3); Total Protein 7.7 g/dL (6.3-8.2)
[2018-03-12 02:13] LABS: Appearance,Urine Cloudy (Clear); Bilirubin,Urine Negative (Negative); Blood,Urine Negative (Negative); Color,Urine Yellow; Glucose,Urine (UA) Negative (Negative); Ketones,Urine 4+ (Negative); Leukocyte Esterase,Urine Negative (Negative); Mucus,Urine Many /hpf; Nitrite,Urine Negative (Negative); Protein,Urine 1+ (Negative); RBC,Urine 5 /hpf (0-5); Specific Gravity,Urine 1.027 (1.001-1.035); Squamous Epithelial Cell,Urine 6 /hpf (0-4); WBC,Urine 2 /hpf (0-5)
[2018-03-12] MEDS ORDERED: SODIUM CHLORIDE 0.9% 1,000 ML IV ONE (02:25)
--- NOTE | 2018-03-12 03:22 | ED ---
Nausea/Vomiting/Diarrhea HPI - General Source: patient Mode of arrival: ambulatory Limitations: no limitations <Ting Ramos - Last Filed: 03/12/18 03:03> <Michael Stoddard - Last Filed: 03/12/18 06:29> - General Chief complaint: Nausea/Vomiting/Diarrhea Stated complaint: Vomiting Time Seen by Provider: 03/12/18 00:36 - History of Present Illness Initial comments: 22-year-old female patient with history of gastroparesis and cyclic vomiting syndrome presents to the emergency department today for 2 day history of nausea and vomiting. Patient follows with Dr. Hartman outpatient for gastroenterology. States that she did recently have an appointment, states that he feels her symptoms are related to gastroparesis however recommended she see a neurologist for computed tomography scan of the brain to rule out neurologic causes of vomiting. Patient states that for the last 2 days she has been unable to keep down any food or fluids. States she has had several episodes of vomiting daily. States that she does have Zofran, Reglan, and Nexium at home but she is unable to keep down his medications. States that she is having some abdominal discomfort but feels it is more muscular related to frequent episodes of vomiting. She denies any ear or chills. States she has had some nasal congestion and cough and her children are sick with upper respiratory symptoms. She denies any hematuria, dysuria, urinary frequency, urinary urgency. She denies any back pain, vaginal bleeding, or vaginal discharge. Denies any chance of . Patient denies any recent rash, fever, chills, shortness breath, chest pain, numbness, tingling, dizziness, weakness, hematuria, dysuria, urinary urgency, urinary frequency, headache, visual changes, or any other complaints. (Ting Ramos) - Related Data Home Medications Medication Instructions Recorded Confirmed Lansoprazole [Prevacid] 30 mg PO DAILY 01/15/18 03/12/18 Ondansetron [Zofran] 4 mg PO Q8HR PRN 01/15/18 03/12/18 Previous Rx's Medication Instructions Recorded Metoclopramide [Reglan] 10 mg PO TID #12 tab 01/15/18 Allergies Allergy/AdvReac Type Severity Reaction Status Date / Time latex Allergy Unknown Rash/Hives Verified 03/12/18 00:34 Review of Systems ROS Other: All systems not noted in ROS Statement are negative. <Ting Ramos - Last Filed: 03/12/18 03:03> ROS Other: All systems not noted in ROS Statement are negative. <Michael Stoddard - Last Filed: 03/12/18 06:29> ROS Statement: Those systems with pertinent positive or pertinent negative responses have been documented in the HPI. Past Medical History Past Medical History: GERD/Reflux Additional Past Medical History / Comment(s): gastoparesis History of Any Multi-Drug Resistant Organisms: None Reported Past Surgical History: No Surgical Hx Reported Additional Past Surgical History / Comment(s): EXPLORATORY LAPAROSCOPY 2009. endoscopy 12/2017 Past Anesthesia/Blood Transfusion Reactions: No Reported Reaction Past Psychological History: Anxiety Smoking Status: Current every day smoker Past Alcohol Use History: None Reported Past Drug Use History: Marijuana - Past Family History Mother Family Medical History: Diabetes Mellitus <Ting Ramos - Last Filed: 03/12/18 03:03> General Exam Limitations: no limitations <Ting Ramos - Last Filed: 03/12/18 03:03> Vital Signs 03/12/18 03/12/18 03/12/18 00:31 01:01 02:00 Temperature 98.4 F 100.3 F H Pulse Rate 100 93 Respiratory 18 20 Rate Blood Pressure 150/81 139/75 O2 Sat by Pulse 96 97 Oximetry 03/12/18 03/12/18 03/12/18 02:51 04:00 06:00 Temperature 99 F 98.1 F 98 F Pulse Rate 87 70 72 Respiratory 18 20 20 Rate Blood Pressure 123/76 103/55 106/76 O2 Sat by Pulse 98 100 98 Oximetry Medical Decision Making - Lab Data Result diagrams: 03/12/18 00:57 03/12/18 00:57 <Ting Ramos - Last Filed: 03/12/18 03:03> - Lab Data Result diagrams: 03/12/18 00:57 03/12/18 00:57 <Michael Stoddard - Last Filed: 03/12/18 06:29> - Medical Decision Making I saw this patient in conjunction with the physician store administrative assistant. I performed independent history and physical exam. Agree with case management. (Michael Stoddard) - Lab Data Lab Results 03/12/18 03/12/1818 Range/Units 00:27 00:57 00:57 WBC 12.9 H (3.8-10.6) k/uL RBC 4.42 (3.80-5.40) m/uL Hgb 12.8 (11.4-16.0) gm/dL Hct 40.0 (34.0-46.0) % MCV 90.6 (80.0-100.0) fL MCH 29.0 (25.0-35.0) pg MCHC 32.0 (31.0-37.0) g/dL RDW 14.6 (11.5-15.5) % Plt Count 267 (150-450) k/uL Neutrophils % 84 % Lymphocytes % 13 % Monocytes % 3 % Eosinophils % 0 % Basophils % 0 % Neutrophils # 10.8 H (1.3-7.7) k/uL Lymphocytes # 1.6 (1.0-4.8) k/uL Monocytes # 0.4 (0-1.0) k/uL Eosinophils # 0.0 (0-0.7) k/uL Basophils # 0.0 (0-0.2) k/uL Sodium 140 (137-145) mmol/L Potassium 3.9 (3.5-5.1) mmol/L Chloride 106 (98-107) mmol/L Carbon Dioxide 19 L (22-30) mmol/L Anion Gap 15 mmol/L BUN 8 (7-17) mg/dL Creatinine 0.55 (0.52-1.04) mg/dL Est GFR (CKD-EPI)AfAm >90 (>60 ml/min/1.73 sqM) Est GFR (CKD-EPI)NonAf >90 (>60 ml/min/1.73 sqM) Glucose 114 H (74-99) mg/dL Plasma Lactic Acid Ede (0.7-2.0) mmol/L Calcium 9.5 (8.4-10.2) mg/dL Total Bilirubin 0.4 (0.2-1.3) mg/dL AST 18 (14-36) U/L ALT 24 (9-52) U/L Alkaline Phosphatase 63 (38-126) U/L Total Protein 7.7 (6.3-8.2) g/dL Albumin 4.6 (3.5-5.0) g/dL Amylase 35 (30-110) U/L Lipase 30 (23-300) U/L Urine Color Urine Appearance (Clear) Urine pH (5.0-8.0) Ur Specific [place] (1.001-1.035) Urine Protein (Negative) Urine Glucose (UA) (Negative) Urine Ketones (Negative) Urine Blood (Negative) Urine Nitrite (Negative) Urine Bilirubin (Negative) Urine Urobilinogen (<2.0) mg/dL Ur Leukocyte Esterase (Negative) Urine RBC (0-5) /hpf Urine WBC (0-5) /hpf Ur Squamous Epith Cells (0-4) /hpf Urine Mucus (None) /hpf Urine HCG, Qual (Not Detectd) Influenza Type A RNA Not Detected (Not Detectd) Influenza Type B (PCR) Not Detected (Not Detectd) 03/12/18 03/12/18 03/12/18 Range/Units 00:57 01:55 01:55 WBC (3.8-10.6) k/uL RBC (3.80-5.40) m/uL Hgb (11.4-16.0) gm/dL Hct (34.0-46.0) % MCV (80.0-100.0) fL MCH (25.0-35.0) pg MCHC (31.0-37.0) g/dL RDW (11.5-15.5) % Plt Count (150-450) k/uL Neutrophils % % Lymphocytes % % Monocytes % % Eosinophils % % Basophils % % Neutrophils # (1.3-7.7) k/uL Lymphocytes # (1.0-4.8) k/uL Monocytes # (0-1.0) k/uL Eosinophils # (0-0.7) k/uL Basophils # (0-0.2) k/uL Sodium (137-145) mmol/L Potassium (3.5-5.1) mmol/L Chloride (98-107) mmol/L Carbon Dioxide (22-30) mmol/L Anion Gap mmol/L BUN (7-17) mg/dL Creatinine (0.52-1.04) mg/dL Est GFR (CKD-EPI)AfAm (>60 ml/min/1.73 sqM) Est GFR (CKD-EPI)NonAf (>60 ml/min/1.73 sqM) Glucose (74-99) mg/dL Plasma Lactic Acid Ede 1.5 (0.7-2.0) mmol/L Calcium (8.4-10.2) mg/dL Total Bilirubin (0.2-1.3) mg/dL AST (14-36) U/L ALT (9-52) U/L Alkaline Phosphatase (38-126) U/L Total Protein (6.3-8.2) g/dL Albumin (3.5-5.0) g/dL Amylase (30-110) U/L Lipase (23-300) U/L Urine Color Yellow Urine Appearance Cloudy H (Clear) Urine pH 6.0 (5.0-8.0) Ur Specific [place] 1.027 (1.001-1.035) Urine Protein 1+ H (Negative) Urine Glucose (UA) Negative (Negative) Urine Ketones 4+ H (Negative) Urine Blood Negative (Negative) Urine Nitrite Negative (Negative) Urine Bilirubin Negative (Negative) Urine Urobilinogen 2.0 (<2.0) mg/dL Ur Leukocyte Esterase Negative (Negative) Urine RBC 5 (0-5) /hpf Urine WBC 2 (0-5) /hpf Ur Squamous Epith Cells 6 H (0-4) /hpf Urine Mucus Many H (None) /hpf Urine HCG, Qual Not Detected (Not Detectd) Influenza Type A RNA (Not Detectd) Influenza Type B (PCR) (Not Detectd) Disposition <Ting Ramos - Last Filed: 03/12/18 03:03> Is patient prescribed a controlled substance at d/c from ED?: No <Michael Stoddard - Last Filed: 03/12/18 06:29> Clinical Impression: Intractable vomiting Disposition: ADMITTED IP TO THIS HOSP Condition: Fair Referrals: Lico Solano DO [Primary Care Provider] - 1-2 days
[2018-03-12] MEDS ORDERED: DEXTROSE 5%-0.45% NACL 1,000 ML IV ONE (03:46)
[2018-03-12] MEDS ORDERED: TRIMETHOBENZAMIDE 100 MG/ML 2 ML VIAL IM STA (03:51)
[2018-03-12] MEDS ORDERED: DEXTROSE 5%-0.45% NACL 1,000 ML IV STA (05:26)
[2018-03-12] MEDS ORDERED: NALOXONE 0.4 MG/ML 1 ML VIAL IV PRN (06:25)
[2018-03-12] MEDS ORDERED: PROCHLORPERAZINE SUPPOSITORY 25 MG SUPP RECTAL PRN (06:25)
[2018-03-12] MEDS ORDERED: PROCHLORPERAZINE 5 MG TAB PO PRN (06:25)
[2018-03-12] MEDS: SODIUM CHLORIDE 0.9% 1,000 ML IV SCH ×2 (07:00→18:19)
[2018-03-12] MEDS ORDERED: PANTOPRAZOLE 40 MG TABLET PO SCH (07:30)
[2018-03-12 08:19] VITALS: BMI 26.2
[2018-03-12] MEDS: ONDANSETRON 4 MG/2 ML VIAL IVP PRN ×2 (10:16→18:14)
--- NOTE | 2018-03-12 11:49 | P.CONS ---
History of Present Illness - Reason for Consult Consult date: 03/12/18 Nausea vomiting Requesting physician: Belem Don - Chief Complaint Nausea vomiting - History of Present Illness 22-year-old female with a history of GERD, anxiety, nicotine cigarette dependency, cannabinoid usage, gastroparesis cyclic vomiting syndrome followed by district gauger Dr. Hernández admitted with intractable nausea vomiting. Denies gross hematemesis hematochezia melena. Patient unclear as to why she is a history of gastric paresis. She underwent EGD evaluation in [place] and [facility] with evidence of retained food in the stomach. She maintains her nausea vomiting with Zofran and PPI therapy. Nausea vomiting has been ongoing for the last 5 days. White count 12.9. Hemoglobin 12.8. BUN 8. Creatinine 0.5. LFTs amylase lipase within normal limits. HCG not detected. Influenza not detected. CT brain negative. Review of Systems Constitutional: Denies fever, chills, sweats, weight gain, or loss. HEENT: Negative for migraines, blurred vision or loss, earaches, drainage, tinnitus, oral mucosal lesions, dysphagia, or odynophagia. CARDIAC: Negative for chest pain, arrhythmias, or palpitation. RESPIRATORY: Negative for shortness of breath, hemoptysis, cough, or sputum production. GI: See HPI for pertinent findings. : Negative for hematuria, urgency, frequency, polyuria, or dysuria. GYNc: Denies possibility of . Negative vaginal discharge. MUSCULOSKELETAL: Negative for muscle aches, swelling, arthritis, and arthralgias. NEUROLOGIC: Negative for stroke or TIA. ENDOCRINE: Negative for thyroid problems. SKIN: Negative for rash or itching. PSYCHIATRIC: Negative history for depression and anxiety Past Medical History Past Medical History: GERD/Reflux Additional Past Medical History / Comment(s): gastoparesis History of Any Multi-Drug Resistant Organisms: None Reported Past Surgical History: No Surgical Hx Reported Additional Past Surgical History / Comment(s): EXPLORATORY LAPAROSCOPY 2009. endoscopy 12/2017 Past Anesthesia/Blood Transfusion Reactions: No Reported Reaction Past Psychological History: Anxiety Smoking Status: Current every day smoker Past Alcohol Use History: None Reported Past Drug Use History: Marijuana Additional Drug Use History / Comment(s): No marijuana use for the last 30 days - Past Family History Mother Family Medical History: Diabetes Mellitus Medications and Allergies Home Medications Medication Instructions Recorded Confirmed Type Lansoprazole [Prevacid] 30 mg PO DAILY 01/15/18 03/12/18 History Metoclopramide [Reglan] 10 mg PO TID #12 tab 01/15/18 03/12/18 Rx Ondansetron [Zofran] 4 mg PO Q8HR PRN 01/15/18 03/12/18 History Allergies Allergy/AdvReac Type Severity Reaction Status Date / Time latex Allergy Unknown Rash/Hives Verified 03/12/18 06:39 Physical Exam Vitals: Vital Signs Temp Pulse Pulse Resp BP BP Pulse Ox 03/12/18 08:00 69 16 03/12/18 06:51 98.2 F 69 16 106/67 98 03/12/18 06:00 98 F 72 20 106/76 98 03/12/18 04:00 98.1 F 70 20 103/55 100 03/12/18 02:51 99 F 87 18 123/76 98 03/12/18 02:00 93 20 139/75 97 03/12/18 01:01 100.3 F H 03/12/18 00:31 98.4 F 100 18 150/81 96 Intake and Output 03/11/18 03/12/18 03/12/18 22:59 06:59 14:59 Other: Voiding Method Toilet Weight 59.2 kg 58.967 kg General appearance: The patient is alert, oriented, in no acute distress. HET: Head is normocephalic and atraumatic. Pupils are equal and reactive. Oropharynx is clear without lesions. Neck: Supple without lymphadenopathy. Trachea midline. Heart: S1 S2. Regular rate and rhythm. Lungs: No crackles or wheezes are heard. Abdomen: Soft, nontender, nondistended with bowel sounds. No peritoneal signs. No palpable organomegaly or masses. Extremities: Normal skin color and turgor. No cyanosis, rash, ulceration, clubbing, or edema. Radial and pedal pulses are 2/4 bilaterally. Neurological: No focal deficits. Strength and sensation are grossly intact. Results CBC & Chem 7: 03/12/18 00:57 03/12/18 00:57 Labs: Abnormal Lab Results - Last 24 Hours (Table) 03/12/18 03/12/18 03/12/18 Range/Units 00:57 00:57 01:55 WBC 12.9 H (3.8-10.6) k/uL Neutrophils # 10.8 H (1.3-7.7) k/uL Carbon Dioxide 19 L (22-30) mmol/L Glucose 114 H (74-99) mg/dL Urine Appearance Cloudy H (Clear) Urine Protein 1+ H (Negative) Urine Ketones 4+ H (Negative) Ur Squamous Epith Cells 6 H (0-4) /hpf Urine Mucus Many H (None) /hpf Assessment and Plan (1) Cyclic vomiting syndrome Narrative/Plan: 22-year-old female with a history of cyclic vomiting syndrome gastroparesis followed by district gauger in the outpatient setting status post EGD November 2017 at [facility] with evidence of Gastroparesis retained food products. Current Visit: Yes Status: Acute Code(s): G43.A0 - CYCLICAL VOMITING, NOT INTRACTABLE SNOMED Code(s): 43157487 (2) Cigarette nicotine dependence Current Visit: Yes Status: Acute Code(s): F17.210 - NICOTINE DEPENDENCE, CIGARETTES, UNCOMPLICATED SNOMED Code(s): 50766261 (3) GERD (gastroesophageal reflux disease) Current Visit: Yes Status: Acute Code(s): K21.9 - GASTRO-ESOPHAGEAL REFLUX DISEASE WITHOUT ESOPHAGITIS SNOMED Code(s): 276211712 (4) Gastroparesis Current Visit: No Status: Acute Code(s): K31.84 - GASTROPARESIS SNOMED Code(s): 221555563 Plan: 1. Continue with PPI therapy IV twice daily. Scopolamine patch. Compazine suppositories 25 mg twice a day. Inpatient endoscopic exams not planned at this time. Patient was advised to follow her district gauger after discharge. Thank you for this kind referral and the opportunity to participate in the care of your patient. This consultation was discussed with Dr. Herrera. The impression and plan of care have been directed as dictated.
[2018-03-12] MEDS ORDERED: SCOPOLAMINE 1.5MG/72HR PATCH TRANSDERM SCH (12:00)
[2018-03-12] MEDS: PROCHLORPERAZINE SUPPOSITORY 25 MG SUPP RECTAL PRN (12:44)
--- NOTE | 2018-03-12 13:41 | P.HPIM ---
History of Present Illness 18-year-old female with history of gastroparesis and cyclical vomiting syndrome given with complaints of multiple episodes of nausea vomiting. Patient had any fever chills patient had any significant abdominal pain except for some discomfort from retching. Patient is presently on proton pump inhibitor had nausea vomiting has been going on for 5 days and patient is on 100 mL of normal saline creatinine and BUN within normal limits okay but does have some acidosis secondary to hyperchloremia Review of Systems REVIEW OF SYSTEMS: CONSTITUTIONAL: No fever, no malaise, no fatigue. HEENT: No recent visual problems or hearing problems. Denied any sore throat. CARDIOVASCULAR: No chest pain, orthopnea, PND, no palpitations, no syncope. PULMONARY: No shortness of breath, no cough, no hemoptysis. GASTROINTESTINAL: No diarrhea, NEUROLOGICAL: No headaches, no weakness, no numbness. HEMATOLOGICAL: Denies any bleeding or petechiae. GENITOURINARY: Denies any burning micturition, frequency, or urgency. MUSCULOSKELETAL/RHEUMATOLOGICAL: Denies any joint pain, swelling, or any muscle pain. ENDOCRINE: Denies any polyuria or polydipsia. The rest of the 14-point review of systems is negative. Past Medical History Past Medical History: GERD/Reflux Additional Past Medical History / Comment(s): gastoparesis History of Any Multi-Drug Resistant Organisms: None Reported Past Surgical History: No Surgical Hx Reported Additional Past Surgical History / Comment(s): EXPLORATORY LAPAROSCOPY 2009. endoscopy 12/2017 Past Anesthesia/Blood Transfusion Reactions: No Reported Reaction Past Psychological History: Anxiety Smoking Status: Current every day smoker Past Alcohol Use History: None Reported Past Drug Use History: Marijuana Additional Drug Use History / Comment(s): No marijuana use for the last 30 days - Past Family History Mother Family Medical History: Diabetes Mellitus Medications and Allergies Home Medications Medication Instructions Recorded Confirmed Type Lansoprazole [Prevacid] 30 mg PO DAILY 01/15/18 03/12/18 History Metoclopramide [Reglan] 10 mg PO TID #12 tab 01/15/18 03/12/18 Rx Ondansetron [Zofran] 4 mg PO Q8HR PRN 01/15/18 03/12/18 History Allergies Allergy/AdvReac Type Severity Reaction Status Date / Time latex Allergy Unknown Rash/Hives Verified 03/12/18 06:39 Physical Exam Vitals: Vital Signs Temp Pulse Pulse Resp BP BP Pulse Ox 03/12/18 12:00 69 16 03/12/18 08:00 69 16 03/12/18 06:51 98.2 F 69 16 106/67 98 03/12/18 06:00 98 F 72 20 106/76 98 03/12/18 04:00 98.1 F 70 20 103/55 100 03/12/18 02:51 99 F 87 18 123/76 98 03/12/18 02:00 93 20 139/75 97 03/12/18 01:01 100.3 F H 03/12/18 00:31 98.4 F 100 18 150/81 96 Intake and Output 03/11/18 03/12/18 03/12/18 22:59 06:59 14:59 Other: Voiding Method Toilet Weight 59.2 kg 58.967 kg PHYSICAL EXAMINATION: GENERAL: The patient is alert and oriented x3, patient is in distress because of nausea HEENT: Pupils are round and equally reacting to light. EOMI. No scleral icterus. No conjunctival pallor. Normocephalic, atraumatic. No pharyngeal erythema. No thyromegaly. CARDIOVASCULAR: S1 and S2 present. No murmurs, rubs, or gallops. PULMONARY: Chest is clear to auscultation, no wheezing or crackles. ABDOMEN: Soft, nontender, nondistended, normoactive bowel sounds. No palpable organomegaly. MUSCULOSKELETAL: No joint swelling or deformity. EXTREMITIES: No cyanosis, clubbing, or pedal edema. NEUROLOGICAL: Gross neurological examination did not reveal any focal deficits. SKIN: No rashes. Results CBC & Chem 7: 03/12/18 00:57 03/12/18 00:57 Labs: Abnormal Lab Results - Last 24 Hours (Table) 03/12/18 03/12/18 03/12/18 Range/Units 00:57 00:57 01:55 WBC 12.9 H (3.8-10.6) k/uL Neutrophils # 10.8 H (1.3-7.7) k/uL Carbon Dioxide 19 L (22-30) mmol/L Glucose 114 H (74-99) mg/dL Urine Appearance Cloudy H (Clear) Urine Protein 1+ H (Negative) Urine Ketones 4+ H (Negative) Ur Squamous Epith Cells 6 H (0-4) /hpf Urine Mucus Many H (None) /hpf Thrombosis Risk Factor Assmnt - Choose All That Apply Any of the Below Risk Factors Present?: Yes Each Factor Represents 1 point: Obesity (BMI >25) Other Risk Factors: No Other congenital or acquired thrombophilia - If yes, enter type in comment: No Thrombosis Risk Factor Assessment Total Risk Factor Score: 1 Thrombosis Risk Factor Assessment Level: Low Risk Assessment and Plan Plan: -Gastroparesis: Nondiabetic gastroparesis patient appears to have cyclical vomiting syndrome as well symptomatic management patient on multiple medications for nausea vomiting continue with IV fluids. I'll also add promotility agent -Non-anion gap metabolic acidosis secondary to hyperchloremia continue with IV fluids because of nausea vomiting . -Nicotine dependence: Counseling was provided
[2018-03-12] MEDS: METOCLOPRAMIDE 5 MG/ML 2 ML VIAL IVP SCH ×3 (14:57→22:53)
[2018-03-12] MEDS: PANTOPRAZOLE 40 MG/10 ML VIAL IVP SCH (20:10)
[2018-03-13] MEDS: PROCHLORPERAZINE SUPPOSITORY 25 MG SUPP RECTAL PRN ×2 (01:52→14:42)
[2018-03-13] MEDS: ONDANSETRON 4 MG/2 ML VIAL IVP PRN ×3 (04:02→18:49)
[2018-03-13] MEDS: METOCLOPRAMIDE 5 MG/ML 2 ML VIAL IVP SCH ×3 (05:56→17:52)
[2018-03-13] MEDS: SODIUM CHLORIDE 0.9% 1,000 ML IV SCH ×3 (05:56→17:52)
[2018-03-13] MEDS: PANTOPRAZOLE 40 MG/10 ML VIAL IVP SCH (08:50)
--- NOTE | 2018-03-13 12:46 | PN ---
PROGRESS NOTE DATE OF DICTATION: 03/13/2018 Patient is a 22-year-old pleasant white female admitted to the hospital with severe nausea and vomiting for the last few days' duration. She has been having intermittent episodes since November of this year. She is followed by Dr. Hewitt in [place] for cyclic vomiting syndrome/gastroparesis and has been maintained on Zofran, Reglan as well as Prevacid on an outpatient basis. Since being in the hospital she has been receiving Compazine, Reglan and Zofran alternating with each other and still remains symptomatic. This morning she has intense nausea. She is not been able to tolerate any liquids yet and has vague abdominal pain. PHYSICAL EXAMINATION: She appears comfortable, no apparent distress. VITAL SIGNS: Stable. Blood pressure 131/74, pulse rate 72, temperature 98.2. HEENT EXAMINATION: Unremarkable. Conjunctivae pink, sclerae anicteric, oral cavity no lesions. NECK: No JVD or lymph node enlargement. Chest was clear to auscultation. HEART: Regular rate and rhythm. ABDOMEN: Soft. Bowel sounds are positive. No organomegaly. EXTREMITIES: No pedal edema. SKIN: No rashes. NEUROLOGIC: Alert and oriented x3. No focal deficits. LABS: Labs from yesterday showed WBC 12.9, but the rest of the labs were within normal limits. IMPRESSION: This is a lady with history of cyclical vomiting syndrome and gastroparesis who presents to the hospital with persistent nausea and vomiting for the last few days' duration. Currently on IV Protonix twice daily, Compazine every 8 hours as needed, Zofran every 8 hours as needed, as well as Reglan 10 mg every 6 hours. She still remains symptomatic. RECOMMENDATIONS: 1. Continue with antiemetics and PPIs. 2. Clear liquid diet. 3. No need for any endoscopic intervention. 4. Will follow her closely during her hospital stay. MMODL / IJN: [id number] /
[2018-03-13] MEDS ORDERED: NICOTINE 14MG/24HR PATCH TRANSDERM SCH (14:30)
--- NOTE | 2018-03-13 15:30 | P.PN ---
Subjective 22-year-old admitted for gastroparesis and 6 cyclical vomiting syndrome continues to have significant symptoms no changes in medications are being made continue with IV fluids and the antinausea medications including Reglan. Order basic metabolic profile tomorrow Constitutional: Denied any fatigue denied any fever. Cardio vascular: denied any chest pain, palpitations Gastrointestinal as mentioned in HPI Pulmonary: Denied any shortness of breath cough Neurologic denied any new focal deficits All inpatient medications were reviewed and appropriate changes in these medications as dictated in the interval history and assessment and plan. Objective - Vital Signs Vital signs: Vital Signs Temp 97.8 F 03/13/18 08:00 Pulse 61 03/13/18 08:00 Resp 18 03/13/18 08:00 BP 164/77 03/13/18 08:00 Pulse Ox 100 03/13/18 08:00 Intake & Output 03/12/18 03/13/18 03/13/18 18:59 06:59 18:59 Intake Total 118 1600 200 Output Total 60 Balance 118 1540 200 Weight 58.967 kg Intake: Intake, IV Titration 1600 Amount Sodium Chloride 0.9% 1, 1600 000 ml @ 100 mls/hr IV . Q10H [facility] Rx#:[id number] Oral 118 200 Output: Emesis 60 Other: Voiding Method Toilet Toilet Toilet # Voids 2 2 - Exam PHYSICAL EXAMINATION: GENERAL: The patient is alert and oriented x3, patient is in distress because of nausea HEENT: Pupils are round and equally reacting to light. EOMI. No scleral icterus. No conjunctival pallor. Normocephalic, atraumatic. No pharyngeal erythema. No thyromegaly. CARDIOVASCULAR: S1 and S2 present. No murmurs, rubs, or gallops. PULMONARY: Chest is clear to auscultation, no wheezing or crackles. ABDOMEN: Soft, nontender, nondistended, normoactive bowel sounds. No palpable organomegaly. MUSCULOSKELETAL: No joint swelling or deformity. EXTREMITIES: No cyanosis, clubbing, or pedal edema. NEUROLOGICAL: Gross neurological examination did not reveal any focal deficits. SKIN: No rashes. - Labs CBC & Chem 7: 03/12/18 00:57 12 00:57 Labs: Microbiology - Last 24 Hours (Table) 03/12/18 00:57 Blood Culture - Preliminary Blood No Growth after 24 hours Assessment and Plan Plan: -Gastroparesis: Nondiabetic gastroparesis patient appears to have cyclical vomiting syndrome as well symptomatic management patient on multiple medications for nausea vomiting continue with IV fluids. I'll also add promotility agent -Non-anion gap metabolic acidosis secondary to hyperchloremia continue with IV fluids because of nausea vomiting . -Nicotine dependence: Counseling was provided
[2018-03-13 16:08] VITALS: BP 130/73; PULSE 66; RESP 16; TEMP 98.4
== END 2018-03-13 19:50 | disposition left against medical advice (07) ==
LOC: EC 00:27 → 1SOBS 06:25
PROVIDERS: ADMIT Hospitalist; ATTEND Hospitalist
DX: K31.84 Gastroparesis (principal); G43.A0 Cyclical vomiting, in migraine, not intractable; E87.2 Acidosis; E87.8 Other disorders of electrolyte and fluid balance, not elsewhere classified; K21.9 Gastro-esophageal reflux disease without esophagitis; F41.9 Anxiety disorder, unspecified; R09.81 Nasal congestion; R05 Cough; F17.210 Nicotine dependence, cigarettes, uncomplicated; E66.9 Obesity, unspecified; Z68.26 Body mass index [BMI] 26.0-26.9, adult; Z79.899 Other long term (current) drug therapy; Z91.040 Latex allergy status; Z83.3 Family history of diabetes mellitus
CPT/HCPCS: 96361 ×2; 96376 ×2; 96372; 96374; 96375; 99285; 36415; 80053; 82150; 83605; 83690; 85025; 81001; 81025; 87040; 87502; 70450; G0378 ×2; S4990; J1200; J2765 ×2; J3250; J2405 ×2; C9113 ×2

== ENCOUNTER 2018-03-31 20:39 | Observation (INO) | payer OTHER ==
[2018-03-31] MEDS ORDERED: SODIUM CHLORIDE 0.9% 500 ML 500 ML IV STA (22:17)
[2018-03-31] MEDS ORDERED: ONDANSETRON 4 MG/2 ML VIAL IVP STA (22:17)
--- NOTE | 2018-03-31 22:49 | ED ---
Nausea/Vomiting/Diarrhea HPI - General Chief complaint: Nausea/Vomiting/Diarrhea Stated complaint: Vomiting Time Seen by Provider: 03/31/18 22:17 Source: patient Mode of arrival: ambulatory Limitations: no limitations - History of Present Illness Initial comments: This patient is a 22-year-old woman, she states she has history of suspected gastroparesis, and she presents with 2 days of nausea and vomiting. She states this is typical of the flareups that she gets. She has tried treating at home with her medications but continues to have vomiting and is not tolerating any oral intake. The patient denies any associated abdominal pain. No fever or chills. No other symptoms. She does state that her urination has decreased and she thinks she is getting a bit dehydrated. Patient is not having diarrhea , she states her last bowel movement was probably 3-4 days ago. MD complaint: nausea, vomiting Onset/Timin -: days(s) Description of Vomiting: watery Associated Abdominal Pain: No Associated Symptoms: denies other symptoms - Related Data Home Medications Medication Instructions Recorded Confirmed Lansoprazole [Prevacid] 30 mg PO DAILY 01/15/18 03/31/18 Ondansetron [Zofran] 4 mg PO Q8HR PRN 01/15/18 03/31/18 Metoclopramide [Reglan] 10 mg PO TID PRN 03/31/18 03/31/18 Allergies Allergy/AdvReac Type Severity Reaction Status Date / Time latex Allergy Unknown Rash/Hives Verified 03/31/18 22:19 Review of Systems ROS Statement: Those systems with pertinent positive or pertinent negative responses have been documented in the HPI. ROS Other: All systems not noted in ROS Statement are negative. Constitutional: Denies: fever, chills, weakness Respiratory: Denies: cough, dyspnea Cardiovascular: Denies: chest pain, palpitations, syncope Gastrointestinal: Reports: nausea, vomiting. Denies: abdominal pain, diarrhea, constipation, melena, hematochezia Genitourinary: Denies: dysuria, hematuria Musculoskeletal: Denies: back pain Skin: Denies: rash Neurological: Denies: headache, weakness, numbness Past Medical History Past Medical History: GERD/Reflux Additional Past Medical History / Comment(s): gastoparesis? History of Any Multi-Drug Resistant Organisms: None Reported Past Surgical History: No Surgical Hx Reported Additional Past Surgical History / Comment(s): EXPLORATORY LAPAROSCOPY 2009. endoscopy 12/2017 Past Anesthesia/Blood Transfusion Reactions: No Reported Reaction Past Psychological History: Anxiety Smoking Status: Current every day smoker Past Alcohol Use History: None Reported Past Drug Use History: Marijuana - Past Family History Mother Family Medical History: Diabetes Mellitus General Exam Limitations: no limitations General appearance: alert, in no apparent distress Head exam: Present: atraumatic, normocephalic Eye exam: Present: normal appearance. Absent: scleral icterus, conjunctival injection ENT exam: Present: mucous membranes dry Respiratory exam: Present: normal lung sounds bilaterally. Absent: respiratory distress, wheezes, rales, rhonchi, stridor Cardiovascular Exam: Present: regular rate, normal rhythm, normal heart sounds. Absent: systolic murmur, diastolic murmur, rubs, gallop GI/Abdominal exam: Present: soft. Absent: distended, tenderness, guarding, rebound, rigid, mass Extremities exam: Present: normal inspection, normal capillary refill. Absent: pedal edema, calf tenderness Back exam: Present: normal inspection. Absent: CVA tenderness (R), CVA tenderness (L) Neurological exam: Present: alert Skin exam: Present: warm, dry, intact, normal color. Absent: rash Course Vital Signs 03/31/18 03/31/18 04/01/18 21:18 23:50 01:25 Temperature 98.2 F 97.9 F Pulse Rate 70 88 91 Respiratory 16 20 20 Rate Blood Pressure 119/74 114/64 130/88 O2 Sat by Pulse 98 99 97 Oximetry 04/01/18 04/01/18 03:00 04:46 Temperature 98.6 F Pulse Rate 62 73 Respiratory 20 18 Rate Blood Pressure 119/74 111/72 O2 Sat by Pulse 99 93 L Oximetry Medical Decision Making - Lab Data Result diagrams: 03/31/18 23:15 03/31/18 23:15 Lab Results 03/31/18 03/31/18 03/31/18 Range/Units 23:09 23:09 23:15 WBC (3.8-10.6) k/uL RBC (3.80-5.40) m/uL Hgb (11.4-16.0) gm/dL Hct (34.0-46.0) % MCV (80.0-100.0) fL MCH (25.0-35.0) pg MCHC (31.0-37.0) g/dL RDW (11.5-15.5) % Plt Count (150-450) k/uL Neutrophils % % Lymphocytes % % Monocytes % % Eosinophils % % Basophils % % Neutrophils # (1.3-7.7) k/uL Lymphocytes # (1.0-4.8) k/uL Monocytes # (0-1.0) k/uL Eosinophils # (0-0.7) k/uL Basophils # (0-0.2) k/uL Sodium 138 (137-145) mmol/L Potassium 3.6 (3.5-5.1) mmol/L Chloride 96 L (98-107) mmol/L Carbon Dioxide 26 (22-30) mmol/L Anion Gap 16 mmol/L BUN 11 (7-17) mg/dL Creatinine 0.44 L (0.52-1.04) mg/dL Est GFR (CKD-EPI)AfAm >90 (>60 ml/min/1.73 sqM) Est GFR (CKD-EPI)NonAf >90 (>60 ml/min/1.73 sqM) Glucose 101 H (74-99) mg/dL Calcium 10.2 (8.4-10.2) mg/dL Total Bilirubin 0.7 (0.2-1.3) mg/dL AST 20 (14-36) U/L ALT 16 (9-52) U/L Alkaline Phosphatase 55 (38-126) U/L Total Protein 8.4 H (6.3-8.2) g/dL Albumin 5.1 H (3.5-5.0) g/dL Amylase 49 (30-110) U/L Lipase 59 (23-300) U/L Urine Color Yellow Urine Appearance Cloudy H (Clear) Urine pH 6.5 (5.0-8.0) Ur Specific [place] 1.030 (1.001-1.035) Urine Protein 2+ H (Negative) Urine Glucose (UA) Negative (Negative) Urine Ketones 4+ H (Negative) Urine Blood Small H (Negative) Urine Nitrite Negative (Negative) Urine Bilirubin Negative (Negative) Urine Urobilinogen 3.0 (<2.0) mg/dL Ur Leukocyte Esterase Negative (Negative) Urine RBC 13 H (0-5) /hpf Urine WBC 3 (0-5) /hpf Ur Squamous Epith Cells 1 (0-4) /hpf Urine Mucus Many H (None) /hpf Urine HCG, Qual Not Detected (Not Detectd) 03/31/18 Range/Units 23:15 WBC 15.4 H (3.8-10.6) k/uL RBC 4.63 (3.80-5.40) m/uL Hgb 14.4 (11.4-16.0) gm/dL Hct 41.3 (34.0-46.0) % MCV 89.2 (80.0-100.0) fL MCH 31.0 (25.0-35.0) pg MCHC 34.8 (31.0-37.0) g/dL RDW 14.6 (11.5-15.5) % Plt Count 247 (150-450) k/uL Neutrophils % 82 % Lymphocytes % 12 % Monocytes % 5 % Eosinophils % 0 % Basophils % 0 % Neutrophils # 12.6 H (1.3-7.7) k/uL Lymphocytes # 1.9 (1.0-4.8) k/uL Monocytes # 0.7 (0-1.0) k/uL Eosinophils # 0.1 (0-0.7) k/uL Basophils # 0.0 (0-0.2) k/uL Sodium (137-145) mmol/L Potassium (3.5-5.1) mmol/L Chloride (98-107) mmol/L Carbon Dioxide (22-30) mmol/L Anion Gap mmol/L BUN (7-17) mg/dL Creatinine (0.52-1.04) mg/dL Est GFR (CKD-EPI)AfAm (>60 ml/min/1.73 sqM) Est GFR (CKD-EPI)NonAf (>60 ml/min/1.73 sqM) Glucose (74-99) mg/dL Calcium (8.4-10.2) mg/dL Total Bilirubin (0.2-1.3) mg/dL AST (14-36) U/L ALT (9-52) U/L Alkaline Phosphatase (38-126) U/L Total Protein (6.3-8.2) g/dL Albumin (3.5-5.0) g/dL Amylase (30-110) U/L Lipase (23-300) U/L Urine Color Urine Appearance (Clear) Urine pH (5.0-8.0) Ur Specific [place] (1.001-1.035) Urine Protein (Negative) Urine Glucose (UA) (Negative) Urine Ketones (Negative) Urine Blood (Negative) Urine Nitrite (Negative) Urine Bilirubin (Negative) Urine Urobilinogen (<2.0) mg/dL Ur Leukocyte Esterase (Negative) Urine RBC (0-5) /hpf Urine WBC (0-5) /hpf Ur Squamous Epith Cells (0-4) /hpf Urine Mucus (None) /hpf Urine HCG, Qual (Not Detectd) Disposition Clinical Impression: Cyclic vomiting syndrome, Intractable vomiting, Gastroparesis Disposition: ADMITTED IP TO THIS [facility] Condition: Fair Referrals: Lico Solano DO [Primary Care Provider] - 1-2 days
[2018-03-31] MEDS ORDERED: PROMETHAZINE INJ 25 MG in SODIUM CHLORIDE 0.9% 50 ML IVPB ONE (23:00)
[2018-03-31 23:25] LABS: Appearance,Urine Cloudy (Clear); Bilirubin,Urine Negative (Negative); Blood,Urine Small (Negative); Color,Urine Yellow; Glucose,Urine (UA) Negative (Negative); Ketones,Urine 4+ (Negative); Leukocyte Esterase,Urine Negative (Negative); Mucus,Urine Many /hpf; Nitrite,Urine Negative (Negative); PH, Urine 6.5 (5.0-8.0); Protein,Urine 2+ (Negative); RBC,Urine 13 /hpf (0-5); Squamous Epithelial Cell,Urine 1 /hpf (0-4); WBC,Urine 3 /hpf (0-5)
[2018-03-31 23:57] LABS: Basophils % (A) 0 %; Eosinophils # (A) 0.1 k/uL (0-0.7); Eosinophils % (A) 0 %; HCT 41.3 % (34.0-46.0); HGB 14.4 gm/dL (11.4-16.0); Lymphocytes # (A) 1.9 k/uL (1.0-4.8); Lymphocytes % (A) 12 %; MCHC 34.8 g/dL (31.0-37.0); MCV 89.2 fL (80.0-100.0); Monocytes # (A) 0.7 k/uL (0-1.0); Monocytes % (A) 5 %; Neutrophils # (A) 12.6 k/uL (1.3-7.7); Neutrophils % (A) 82 %; Platelet Count 247 k/uL (150-450); RBC 4.63 m/uL (3.80-5.40); RDW 14.6 % (11.5-15.5); WBC 15.4 k/uL (3.8-10.6)
[2018-04-01 00:05] LABS: ALT 16 U/L (9-52); AST 20 U/L (14-36); Albumin 5.1 g/dL (3.5-5.0); Alkaline Phosphatase 55 U/L (38-126); Amylase 49 U/L (30-110); Anion Gap 16 mmol/L; Blood Urea Nitrogen 11 mg/dL (7-17); Calcium 10.2 mg/dL (8.4-10.2); Carbon Dioxide 26 mmol/L (22-30); Chloride 96 mmol/L (98-107); Glucose 101 mg/dL (74-99); Lipase 59 U/L (23-300); Potassium 3.6 mmol/L (3.5-5.1); Sodium 138 mmol/L (137-145); Total Bilirubin 0.7 mg/dL (0.2-1.3); Total Protein 8.4 g/dL (6.3-8.2)
[2018-04-01] MEDS ORDERED: DEXTROSE 5%-0.45% NACL 1,000 ML IV ONE ×2 (00:08→03:51)
[2018-04-01] MEDS ORDERED: TRIMETHOBENZAMIDE 100 MG/ML 2 ML VIAL IM STA (03:51)
[2018-04-01] MEDS ORDERED: PROCHLORPERAZINE 5 MG TAB PO ONE (04:00)
[2018-04-01] MEDS ORDERED: NALOXONE 0.4 MG/ML 1 ML VIAL IV PRN (05:43)
[2018-04-01] MEDS ORDERED: PROCHLORPERAZINE SUPPOSITORY 25 MG SUPP RECTAL PRN (05:43)
[2018-04-01] MEDS ORDERED: PANTOPRAZOLE 40 MG TABLET PO SCH (07:30)
[2018-04-01] MEDS: DEXTROSE 5%-0.45% NACL 1,000 ML IV SCH ×2 (08:57→20:47)
[2018-04-01] MEDS: ONDANSETRON 4 MG/2 ML VIAL IVP PRN ×2 (12:45→20:32)
[2018-04-01 13:09] VITALS: BMI 26.2
[2018-04-01] MEDS: TRIMETHOBENZAMIDE 300 MG CAP PO SCH ×2 (17:40→17:44)
[2018-04-01] MEDS: PANTOPRAZOLE 40 MG/10 ML VIAL IVP SCH (20:33)
--- NOTE | 2018-04-01 22:13 | P.CONS ---
History of Present Illness - Reason for Consult Consult date: 04/01/18 Gastroparesis Requesting physician: Omari E Sheet - Chief Complaint Nausea and vomiting - History of Present Illness 22-year-old female with a medical history significant for gastroesophageal reflux disease, idiopathic gastroparesis, tobacco dependency and marijuana use who presents to the hospital with complaints of nausea and vomiting but the patient she had 2 days of nausea and vomiting prior to presentation, productive of non-bloody, nonbilious emesis. The patient believes that this recent episode began in relation to her menses, but has required multiple hospitalizations in the past for similar complaints. The patient follows up with the gastroenterology service in the outpatient setting and reports that her condition was diagnosed this past summer when an EGD showed retained food in the gastric emptying study showed 84% retained food at 4 hours. She is on treatment with Prevacid for PPI therapy, Reglan and Zofran in the outpatient setting. She came to the hospital on this admission due to decreased oral intake in association with her nausea and vomiting. The patient does use marijuana but as stated in the past that she began using is for treatment of gastroparesis which are ready existed and not prior to the symptoms developing. She denies any hematemesis, melena, hematochezia or change in bowel habits. No abdominal pain reported. Review of Systems REVIEW OF SYSTEMS: CARDIO: Denies any chest pain or palpitations. PULMONARY: Denies any shortness of breath or wheezing. GENITOURINARY: No dysuria or hematuria. MUSCULOSKELETAL: No weakness reported. SKIN: Denies any new rashes or lesions, jaundice or pallor. PSYCHIATRIC: Denies any depression or anxiety. NEUROLOGY: Denies headache, denies any new focal deficits. EARS: No tinnitus, discharge or new hearing loss. NOSE: No discharge or congestion. EYES: No pain in eyes or change in vision. CONSTITUTIONAL: No recent weight loss. No fever, chills, night sweats. Past Medical History Past Medical History: GERD/Reflux Additional Past Medical History / Comment(s): gastoparesis? History of Any Multi-Drug Resistant Organisms: None Reported Past Surgical History: No Surgical Hx Reported Additional Past Surgical History / Comment(s): EXPLORATORY LAPAROSCOPY 2009. endoscopy 12/2017 Past Anesthesia/Blood Transfusion Reactions: No Reported Reaction Past Psychological History: Anxiety Smoking Status: Current every day smoker Past Alcohol Use History: None Reported Past Drug Use History: Marijuana - Past Family History Mother Family Medical History: Diabetes Mellitus Medications and Allergies Home Medications Medication Instructions Recorded Confirmed Type Lansoprazole [Prevacid] 30 mg PO DAILY 01/15/18 03/31/18 History Ondansetron [Zofran] 4 mg PO Q8HR PRN 01/15/18 03/31/18 History Metoclopramide [Reglan] 10 mg PO TID PRN 03/31/18 03/31/18 History Allergies Allergy/AdvReac Type Severity Reaction Status Date / Time latex Allergy Unknown Rash/Hives Verified 04/01/18 10:46 Physical Exam Vitals: Vital Signs Temp Pulse Pulse Resp BP BP Pulse Ox 04/01/18 20:25 98.5 F 82 24 116/76 95 04/01/18 16:33 98.8 F 80 16 113/74 97 04/01/18 11:35 98.1 F 97 16 114/84 96 04/01/18 07:20 97.7 F 74 19 126/82 97 04/01/18 06:46 98.6 F 92 18 107/75 94 L 04/01/18 04:46 98.6 F 73 18 111/72 93 L 04/01/18 03:00 62 20 119/74 99 04/01/18 01:25 91 20 130/88 97 03/31/18 23:50 97.9 F 88 20 114/64 99 Intake and Output 04/01/18 04/01/18 04/01/18 06:59 14:59 22:59 Output Total 200 Balance -200 Output: Emesis 200 Other: # Voids 3 # Emeses 1 Weight 58.967 kg On physical examination, patient appears comfortable in no apparent distress. HEAD: Normocephalic, atraumatic. EYES: No scleral icterus. No conjunctival injection. MOUTH: No lesions, tongue midline. NECK: Trachea midline, no gross abnormalities. CHEST: Clear to auscultation with no wheezing or rhonchi appreciated. HEART: Regular rate and rhythm. ABDOMEN: Soft, obese. Bowel sounds are positive. No organomegaly. No guarding or rigidity. EXTREMITIES: No pedal edema. SKIN: No rashes, no jaundice. NEUROLOGIC: Alert and oriented x3. No focal deficits. Results CBC & Chem 7: 03/31/18 23:15 03/31/18 23:15 Labs: Abnormal Lab Results - Last 24 Hours (Table) 03/31/18 03/31/18 03/31/18 Range/Units 23:09 23:15 23:15 WBC 15.4 H (3.8-10.6) k/uL Neutrophils # 12.6 H (1.3-7.7) k/uL Chloride 96 L (98-107) mmol/L Creatinine 0.44 L (0.52-1.04) mg/dL Glucose 101 H (74-99) mg/dL Total Protein 8.4 H (6.3-8.2) g/dL Albumin 5.1 H (3.5-5.0) g/dL Urine Appearance Cloudy H (Clear) Urine Protein 2+ H (Negative) Urine Ketones 4+ H (Negative) Urine Blood Small H (Negative) Urine RBC 13 H (0-5) /hpf Urine Mucus Many H (None) /hpf Assessment and Plan (1) Gastroparesis Narrative/Plan: The patient notes a history of gastroparesis made after retained food was found on upper endoscopy and gastric emptying study was significant for a 4% retained food 4 hours. She follows up in the outpatient setting with the gastroenterology service and is currently maintained on treatment with Zofran, Prevacid and Reglan. She presents to the hospital with 2 days of intractable nausea and vomiting with associated decreased oral intake. Current Visit: Yes Status: Acute Code(s): K31.84 - GASTROPARESIS SNOMED Code(s): 089323897 (2) Intractable vomiting Current Visit: Yes Status: Acute Code(s): R11.10 - VOMITING, UNSPECIFIED SNOMED Code(s): 010423821 (3) Cigarette nicotine dependence Current Visit: No Status: Acute Code(s): F17.210 - NICOTINE DEPENDENCE, CIGARETTES, UNCOMPLICATED SNOMED Code(s): 93917564 (4) GERD (gastroesophageal reflux disease) Current Visit: No Status: Acute Code(s): K21.9 - GASTRO-ESOPHAGEAL REFLUX DISEASE WITHOUT ESOPHAGITIS SNOMED Code(s): 113168055 Plan: Supportive care Diet as tolerated Continue fluid hydration Continue antiemetic therapy with Zofran and Tigan Continue Protonix twice daily Thank you for allowing us to participate in the care of this patient we will continue to follow
[2018-04-02] MEDS: TRIMETHOBENZAMIDE 300 MG CAP PO SCH ×5 (03:13→22:30)
[2018-04-02] MEDS: ONDANSETRON 4 MG/2 ML VIAL IVP PRN ×2 (04:42→12:29)
[2018-04-02 07:15] LABS: Basophils % (A) 0 %; Eosinophils # (A) 0.1 k/uL (0-0.7); Eosinophils % (A) 1 %; HCT 37.5 % (34.0-46.0); HGB 12.3 gm/dL (11.4-16.0); Lymphocytes # (A) 2.7 k/uL (1.0-4.8); Lymphocytes % (A) 36 %; MCH 29.5 pg (25.0-35.0); MCHC 32.8 g/dL (31.0-37.0); MCV 90.2 fL (80.0-100.0); Mean Platelet Volume 8.3; Monocytes # (A) 0.5 k/uL (0-1.0); Monocytes % (A) 7 %; Neutrophils # (A) 3.9 k/uL (1.3-7.7); Neutrophils % (A) 54 %; Platelet Count 197 k/uL (150-450); RBC 4.15 m/uL (3.80-5.40); RDW 14.6 % (11.5-15.5); WBC 7.3 k/uL (3.8-10.6)
[2018-04-02 07:37] LABS: Anion Gap 8 mmol/L; Blood Urea Nitrogen 4 mg/dL (7-17); Carbon Dioxide 27 mmol/L (22-30); Chloride 104 mmol/L (98-107); Glucose 101 mg/dL (74-99); Potassium 3.1 mmol/L (3.5-5.1); Sodium 139 mmol/L (137-145)
[2018-04-02] MEDS: DEXTROSE 5%-0.45% NACL 1,000 ML IV SCH ×2 (09:36→22:30)
[2018-04-02] MEDS: PANTOPRAZOLE 40 MG/10 ML VIAL IVP SCH ×2 (09:36→20:37)
[2018-04-02] MEDS: HEPARIN SODIUM,PORCINE 5,000 UNIT/ML 1 ML VIAL SQ SCH ×2 (09:38→20:37)
[2018-04-02] MEDS ORDERED: POTASSIUM CHLORIDE 20 MEQ in WATER FOR INJECTION 1 100ML.BAG IVPB STA (11:41)
--- NOTE | 2018-04-02 11:43 | P.PN ---
Subjective The whole encounter including physical examination done in the presence of the aidvivien Yanez This is a pleasant 22 years old female with past medical history of GERD, possible cyclic vomiting syndrome/gastroparesis and she follow up with Dr. Hewitt in [place] with Zofran, Reglan as well as Prevacid. Presents with the same think of recurrent nausea and vomiting for the last 4 days, she follows about 20 times per day and stop to some low blood in her vomitus, she complains from some sore throat but she denies abdominal pain or tenderness. She does not have bowel movements over the last 3 days and she is not passing flatus. She's been recently hospitalized from earlier this month for the same complaint however she signed leaving AMA. She was treated at that time with Protonix twice a day, Compazine every 8 hours when necessary and Zofran every 8 hours when necessary as well as Reglan 10 mg every 6 hours . On admission she has mild leukocytosis of 15.4 K, compared to 12.9 k earlier this month. Vitas looks stable. Patient received antiemetic medication and fluids in the emergency room. continue with D5NS at 75 ml/hr Patient states she has menstrual period currently. 04/02/2018 Patient still has nausea and vomiting but it's improving, she vomited 2-3 times last night however she was able to keep some water down his she's only on liquid diet. Patient is passing gases only with no bowel movement. GI evaluation is appreciated. We will increase the frequency of tigan to 4 times daily , we will add erythromycin her WBC is back to normal at 7.3K. She has low potassium at 3.1, replace potassium and check magnesium level Objective - Vital Signs Vital signs: Vital Signs Temp 98.4 F 04/02/18 07:00 Pulse 76 04/02/18 07:00 Resp 12 04/02/18 08:00 BP 99/62 04/02/18 07:00 Pulse Ox 97 04/02/18 07:00 Intake & Output 04/01/18 04/02/18 04/02/18 18:59 06:59 18:59 Intake Total 600 Output Total 200 Balance 400 Intake: Intake, IV Titration 600 Amount Dextrose 5%-0.45% NaCl 1, 600 000 ml @ 75 mls/hr IV . [id number] [facility] Rx#:[id number] Output: Emesis 200 Other: # Voids 3 1 # Emeses 1 - Exam GENERAL: The patient is alert and oriented x3, not in any acute distress. Well developed, well nourished. HEENT: Pupils are round and equally reacting to light. EOMI. No scleral icterus. No conjunctival pallor. Normocephalic, atraumatic. No pharyngeal erythema. No thyromegaly. CARDIOVASCULAR: S1 and S2 present. No murmurs, rubs, or gallops. PULMONARY: Chest is clear to auscultation, no wheezing or crackles. ABDOMEN: Soft, nontender, nondistended, normoactive bowel sounds. No palpable organomegaly. MUSCULOSKELETAL: No joint swelling or deformity. EXTREMITIES: No cyanosis, clubbing, or pedal edema. NEUROLOGICAL: Gross neurological examination did not reveal any focal deficits. SKIN: No rashes. - Labs CBC & Chem 7: 04/02/18 06:55 04/02/18 06:55 Labs: Abnormal Lab Results - Last 24 Hours (Table) 04/02/18 Range/Units 06:55 Potassium 3.1 L (3.5-5.1) mmol/L BUN 4 L (7-17) mg/dL Glucose 101 H (74-99) mg/dL Assessment and Plan Assessment: Possible cyclic vomiting syndrome/gastroparesis , recurrent History of GERD Dehydration Leukocytosis Plan: This is a pleasant 22 years old female who presents with recurrent nausea vomiting, continue with IV fluids, continue with antiemetic and antiacid medication. Call GI consult. Labs and medication were reviewed.. Continue same treatment. Continue with symptomatic treatment. Resume home medication. Monitor lytes and vitals. DVT and GI prophylaxis. Further recommendations of the clinical course of the patient DVT prophylaxis: Subcutaneous heparin GI Prophylaxis: Pepcid PT/OT: Pending Prognosis is guarded
[2018-04-02] MEDS: ERYTHROMYCIN 250 MG TAB PO SCH ×2 (12:28→17:26)
[2018-04-02] MEDS: POTASSIUM CHLORIDE ER 20 MEQ TAB.ER PO SCH ×2 (12:36→17:26)
[2018-04-03] MEDS: ERYTHROMYCIN 250 MG TAB PO SCH ×3 (00:38→08:12)
[2018-04-03 07:36] LABS: Anion Gap 7 mmol/L; Blood Urea Nitrogen 4 mg/dL (7-17); Calcium 8.9 mg/dL (8.4-10.2); Carbon Dioxide 26 mmol/L (22-30); Chloride 107 mmol/L (98-107); Glucose 96 mg/dL (74-99); Magnesium 2.1 mg/dL (1.6-2.3); Potassium 3.5 mmol/L (3.5-5.1); Sodium 140 mmol/L (137-145)
[2018-04-03] MEDS ORDERED: POTASSIUM CHLORIDE ER 20 MEQ TAB.ER PO STA (07:46)
[2018-04-03] MEDS: PANTOPRAZOLE 40 MG/10 ML VIAL IVP SCH (08:11)
[2018-04-03] MEDS: HEPARIN SODIUM,PORCINE 5,000 UNIT/ML 1 ML VIAL SQ SCH (08:11)
[2018-04-03] MEDS: TRIMETHOBENZAMIDE 300 MG CAP PO SCH ×2 (08:12→12:25)
[2018-04-03 08:16] VITALS: RESP 16
--- NOTE | 2018-04-03 11:16 | P.PN ---
Subjective Progress Note Date: 04/02/18 Principal diagnosis: Nausea and vomiting, gastroparesis Patient feeling much better today. Tolerating her diet. No further nausea or vomiting. Objective - Vital Signs Vital signs: Vital Signs Temp 98.1 F 04/02/18 20:06 Pulse 68 04/02/18 20:06 Resp 16 04/02/18 20:06 BP 119/79 04/02/18 20:06 Pulse Ox 96 04/02/18 20:06 Intake & Output 04/02/18 04/02/18 04/03/18 06:59 18:59 06:59 Intake Total 600 950 600 Output Total 200 Balance 400 950 600 Intake: Intake, IV Titration 600 450 Amount Dextrose 5%-0.45% NaCl 1, 600 450 000 ml @ 75 mls/hr IV . [id number] [facility] Rx#:[id number] Oral 500 600 Output: Emesis 200 Other: Voiding Method Toilet # Voids 1 1 # Emeses 1 - Exam On physical examination, patient appears comfortable in no apparent distress. HEAD: Normocephalic, atraumatic. EYES: No scleral icterus. No conjunctival injection. MOUTH: No lesions, tongue midline. NECK: Trachea midline, no gross abnormalities. CHEST: Clear to auscultation with no wheezing or rhonchi appreciated. HEART: Regular rate and rhythm. ABDOMEN: Soft, obese. Bowel sounds are positive. No organomegaly. No guarding or rigidity. EXTREMITIES: No pedal edema. SKIN: No rashes, no jaundice. NEUROLOGIC: Alert and oriented x3. No focal deficits. - Labs CBC & Chem 7: 04/02/18 06:55 04/03/18 06:52 Labs: Abnormal Lab Results - Last 24 Hours (Table) 04/02/18 Range/Units 06:55 Potassium 3.1 L (3.5-5.1) mmol/L BUN 4 L (7-17) mg/dL Glucose 101 H (74-99) mg/dL Assessment and Plan (1) Gastroparesis Narrative/Plan: The patient notes a history of gastroparesis made after retained food was found on upper endoscopy and gastric emptying study was significant for a 4% retained food 4 hours. She follows up in the outpatient setting with the gastroenterology service and is currently maintained on treatment with Zofran, Prevacid and Reglan. She presents to the hospital with 2 days of intractable nausea and vomiting with associated decreased oral intake. Current Visit: Yes Status: Acute Code(s): K31.84 - GASTROPARESIS SNOMED Code(s): 165049671 (2) Intractable vomiting Current Visit: Yes Status: Acute Code(s): R11.10 - VOMITING, UNSPECIFIED SNOMED Code(s): 788075127 (3) Cigarette nicotine dependence Current Visit: No Status: Acute Code(s): F17.210 - NICOTINE DEPENDENCE, CIGARETTES, UNCOMPLICATED SNOMED Code(s): 52511084 (4) GERD (gastroesophageal reflux disease) Current Visit: No Status: Acute Code(s): K21.9 - GASTRO-ESOPHAGEAL REFLUX DISEASE WITHOUT ESOPHAGITIS SNOMED Code(s): 633898728 Plan: Supportive care Diet as tolerated Continue fluid hydration Continue antiemetic therapy with Zofran and Tigan Continue Protonix twice daily Thank you for allowing us to participate in the care of this patient we will continue to follow
[2018-04-03] MEDS: DEXTROSE 5%-0.45% NACL 1,000 ML IV SCH (12:26)
[2018-04-03 14:38] VITALS: BP 110/77; PULSE 72; TEMP 98.5
--- NOTE | 2018-04-03 18:50 | P.DS ---
Providers Date of admission: 04/01/18 05:44 Attending physician: Omari Riley MD Consults: 04/01/18 10:55 Consult Physician Urgent Consulting Provider: Darcie Herrera Consult Reason/Comments: n/v Do you want consulting provider notified?: Yes Primary care physician: Lico Solano DO Hospital Course: This is a pleasant 22 years old female with past medical history of GERD, cyclic vomiting syndrome/gastroparesis and she follow up with Dr. Hewitt in [place] with Zofran, Reglan as well as Prevacid. Presents with the same symptoms of recurrent nausea and vomiting for 4 days, She was treated at that time with Protonix twice a day, Compazine every 8 hours when necessary and Zofran every 8 hours when necessary as well as Reglan 10 mg every 6 hours . With partial improvement, patient felt better after I didn't Tigan and erythromycin. On the day of discharge did not have vomiting for 24 hours , she was able to tolerate diet with no more vomiting she has mild nausea which she states that's persistence always there. No abdominal pain and she hasn't passing gases. Abdominal exam was completely soft and benign. Patient was happy and smiling that her symptoms been controlled and resolved. And since morning patient wanted to leave. Patient kept laughter known for monitoring and she remained stable. Discussed the case with the GI team and they cleared her for discharge for more pills of Tigan and PPI which she states she have it at home. Prescription for Tigan is a provided for the patient. Also On admission she has mild leukocytosis of 15.4 K, came down to normal at 7.3K. Vitas looks stable. Her dehydration was improved with IV fluids and creatinine within discharge is 0.51 Problems and management plan was discussed with the patient and she verbalized understanding and acceptance Patient found stable and can be discharged home however she needs follow-up as an outpatient. Patient agrees to call and make appointments with her PCP and GI as recommended in one week Gen: patient is a AAOx3, no distress CVS: S1-S2, RRR, no murmur Lungs: B/L CTA, no wheezing Abdomen: soft, no distention, no tenderness, positive bowel sounds Extremity: no leg edema or induration Time spent more than 35 minutes Patient Condition at Discharge: Fair Plan - Discharge Summary Discharge Rx Participant: No New Discharge Prescriptions: New Pantoprazole Sodium [Protonix] 40 mg PO BID-W/MEALS 10 Days #30 tablet. Trimethobenzamide [Tigan] 300 mg PO QID PRN 7 Days #25 cap PRN Reason: Nausea And Vomiting Discontinued Ondansetron [Zofran] 4 mg PO Q8HR PRN PRN Reason: Nausea Lansoprazole [Prevacid] 30 mg PO DAILY Metoclopramide [Reglan] 10 mg PO TID PRN PRN Reason: Nausea Discharge Medication List Pantoprazole Sodium [Protonix] 40 mg PO BID-W/MEALS 10 Days #30 tablet. [Rx] Trimethobenzamide [Tigan] 300 mg PO QID PRN 7 Days #25 cap 04/03/18 [Rx] Follow up Appointment(s)/Referral(s): Lico Solano DO [Primary Care Provider] - 1-2 days Pasquale Maynard MD [STAFF PHYSICIAN] - 1 Week (gastro-enterologist ) Activity/Diet/Wound Care/Special Instructions: resume previous diet , as tolerated activity as tolerated Discharge Disposition: HOME SELF-CARE
== END 2018-04-03 15:12 | disposition home or self-care (01) ==
LOC: EC 20:39 → 6PED 04-01 05:44 → 4SSUR 04-02 05:26
PROVIDERS: ADMIT Internal Medicine; ATTEND Internal Medicine
DX: G43.A0 Cyclical vomiting, in migraine, not intractable (principal); K21.9 Gastro-esophageal reflux disease without esophagitis; F17.210 Nicotine dependence, cigarettes, uncomplicated; E86.0 Dehydration; D72.829 Elevated white blood cell count, unspecified; K31.84 Gastroparesis; F41.9 Anxiety disorder, unspecified; Z83.3 Family history of diabetes mellitus; Z79.899 Other long term (current) drug therapy; Z91.040 Latex allergy status
CPT/HCPCS: 96376 ×3; 96361 ×4; 96365; 96366; 96375 ×2; 96372; 99285; 36415; 80053; 80048 ×2; 82150; 83690; 83735 ×2; 85025 ×2; 81001; 81025; G0378 ×3; S0183; J2550; J3250; J3480; J2405 ×3; C9113 ×3

== ENCOUNTER 2018-04-20 19:33 | Inpatient (IN) | payer OTHER ==
[2018-04-20] MEDS ORDERED: SODIUM CHLORIDE 0.9% 2,000 ML IV STA (20:07)
[2018-04-20] MEDS ORDERED: diphenhydrAMINE 50 MG/ML 1 ML VIAL IVP STA (20:07)
[2018-04-20] MEDS ORDERED: PANTOPRAZOLE 40 MG/10 ML VIAL IVP STA (20:08)
[2018-04-20] MEDS ORDERED: PROMETHAZINE INJ 25 MG in SODIUM CHLORIDE 0.9% 50 ML IVPB STA (20:11)
--- NOTE | 2018-04-20 20:23 | ED ---
Nausea/Vomiting/Diarrhea HPI - General Source: patient, RN notes reviewed Mode of arrival: wheelchair Limitations: no limitations <Guillermo Shrestha - Last Filed: 04/20/18 22:07> <Meet Grey - Last Filed: 04/20/18 22:10> - General Chief complaint: Nausea/Vomiting/Diarrhea Stated complaint: Vomiting Time Seen by Provider: 04/20/18 20:02 - History of Present Illness Initial comments: 22-year-old female presents emergency Department chief complaint nausea vomiting. Patient states she's had this recurrent issue since December. Patient states they've been a bleeding she has gastroparesis. Patient states that she has diffuse abdominal discomfort. Patient states she's had problems with her electrolytes from the nausea vomiting in the past. She has been admitted several times. Patient's had a prior EGD. Patient states she is on Prevacid and Tigan at home. Patient states that while Reglan was not helping in the past. (Guillermo Shrestha) - Related Data Previous Rx's Medication Instructions Recorded Pantoprazole Sodium [Protonix] 40 mg PO BID-W/MEALS 10 Days #30 04/03/18 tablet. Trimethobenzamide [Tigan] 300 mg PO QID PRN 7 Days #25 cap 04/03/18 Allergies Allergy/AdvReac Type Severity Reaction Status Date / Time latex Allergy Unknown Rash/Hives Verified 04/20/18 20:29 Review of Systems ROS Other: All systems not noted in ROS Statement are negative. <Guillermo Shrestha - Last Filed: 04/20/18 22:07> ROS Other: All systems not noted in ROS Statement are negative. <Meet Grey - Last Filed: 04/20/18 22:10> ROS Statement: Those systems with pertinent positive or pertinent negative responses have been documented in the HPI. Past Medical History Past Medical History: GERD/Reflux Additional Past Medical History / Comment(s): gastoparesis?, History of Any Multi-Drug Resistant Organisms: None Reported Past Surgical History: No Surgical Hx Reported Additional Past Surgical History / Comment(s): EXPLORATORY LAPAROSCOPY 2009. endoscopy 12/2017 Past Anesthesia/Blood Transfusion Reactions: No Reported Reaction Past Psychological History: Anxiety Smoking Status: Current every day smoker Past Alcohol Use History: None Reported Past Drug Use History: Marijuana - Past Family History Mother Family Medical History: Diabetes Mellitus <Guillermo Shrestha - Last Filed: 04/20/18 22:07> General Exam Limitations: no limitations General appearance: alert, in no apparent distress Head exam: Present: atraumatic, normocephalic, normal inspection Neck exam: Present: normal inspection. Absent: tenderness, meningismus, lymphadenopathy Respiratory exam: Present: normal lung sounds bilaterally. Absent: respiratory distress, wheezes, rales, rhonchi, stridor Cardiovascular Exam: Present: regular rate, normal rhythm, normal heart sounds. Absent: systolic murmur, diastolic murmur, rubs, gallop, clicks GI/Abdominal exam: Present: soft, normal bowel sounds. Absent: distended, tenderness, guarding, rebound, rigid Back exam: Absent: CVA tenderness (R), CVA tenderness (L) Skin exam: Present: warm, dry, intact, normal color. Absent: rash <Guillermo Shrestha - Last Filed: 04/20/18 22:07> Vital Signs 04/20/18 19:51 Temperature 97.5 F L Pulse Rate 84 Respiratory 18 Rate Blood Pressure 133/84 O2 Sat by Pulse 97 Oximetry Medical Decision Making - Lab Data Result diagrams: 04/20/18 20:02 04/20/18 20:02 <Guillermo Shrestha - Last Filed: 04/20/18 22:07> - Lab Data Result diagrams: 04/20/18 20:02 04/20/18 20:02 <Meet Grey - Last Filed: 04/20/18 22:10> - Medical Decision Making 22-year-old female presented for nausea vomiting. Patient has chronic issues with this has been diagnosed with gastroparesis. She may have cyclic vomiting syndrome related to marijuana use as she does admit to marijuana use. Patient has been given 2 L of fluid, Phenergan, Zofran, Ativan, Benadryl, Protonix and continues to have emesis in the room. Patient will be admitted for IV hydration for dehydration and intractable nausea vomiting (Guillermo Shrestha) Case was discussed with practitioner fermin. Patient has recurrent symptoms despite multiple medications. Results reviewed. Chart reviewed. I do agree with PA findings. This includes all diagnostic interpretations and treatment plan. Case was discussed in detail with Dr. Pratt, covering for hospital call , who will admit he does not want any consults at this time. (Meet Grey) - Lab Data Lab Results 04/20/18 04/20/18 04/20/18 Range/Units 20:02 20:02 21:10 WBC 13.7 H (3.8-10.6) k/uL RBC 4.68 (3.80-5.40) m/uL Hgb 14.2 (11.4-16.0) gm/dL Hct 42.8 (34.0-46.0) % MCV 91.4 (80.0-100.0) fL MCH 30.4 (25.0-35.0) pg MCHC 33.2 (31.0-37.0) g/dL RDW 14.9 (11.5-15.5) % Plt Count 211 (150-450) k/uL Neutrophils % 91 % Lymphocytes % 6 % Monocytes % 2 % Eosinophils % 0 % Basophils % 0 % Neutrophils # 12.6 H (1.3-7.7) k/uL Lymphocytes # 0.9 L (1.0-4.8) k/uL Monocytes # 0.2 (0-1.0) k/uL Eosinophils # 0.0 (0-0.7) k/uL Basophils # 0.0 (0-0.2) k/uL Sodium 143 (137-145) mmol/L Potassium 4.1 (3.5-5.1) mmol/L Chloride 107 (98-107) mmol/L Carbon Dioxide 21 L (22-30) mmol/L Anion Gap 15 mmol/L BUN 10 (7-17) mg/dL Creatinine 0.58 (0.52-1.04) mg/dL Est GFR (CKD-EPI)AfAm >90 (>60 ml/min/1.73 sqM) Est GFR (CKD-EPI)NonAf >90 (>60 ml/min/1.73 sqM) Glucose 129 H (74-99) mg/dL Calcium 9.9 (8.4-10.2) mg/dL Magnesium 2.0 (1.6-2.3) mg/dL Total Bilirubin 0.6 (0.2-1.3) mg/dL AST 16 (14-36) U/L ALT 17 (9-52) U/L Alkaline Phosphatase 52 (38-126) U/L Total Protein 7.9 (6.3-8.2) g/dL Albumin 5.0 (3.5-5.0) g/dL Lipase 35 (23-300) U/L Urine Color Yellow Urine Appearance Cloudy H (Clear) Urine pH 6.0 (5.0-8.0) Ur Specific [place] 1.026 (1.001-1.035) Urine Protein 1+ H (Negative) Urine Glucose (UA) Negative (Negative) Urine Ketones 4+ H (Negative) Urine Blood Trace H (Negative) Urine Nitrite Negative (Negative) Urine Bilirubin Negative (Negative) Urine Urobilinogen 2.0 (<2.0) mg/dL Ur Leukocyte Esterase Negative (Negative) Urine RBC 6 H (0-5) /hpf Urine WBC <1 (0-5) /hpf Ur Squamous Epith Cells 8 H (0-4) /hpf Urine Mucus Moderate H (None) /hpf Disposition <Guillermo Shrestha - Last Filed: 04/20/18 22:07> <Meet Grey - Last Filed: 04/20/18 22:10> Clinical Impression: Intractable vomiting, Cyclic vomiting syndrome, Dehydration Disposition: ADMITTED IP TO THIS [facility] Condition: Fair Referrals: Lico Solano DO [Primary Care Provider] - 1-2 days
[2018-04-20 20:26] LABS: Basophils % (A) 0 %; Eosinophils % (A) 0 %; HCT 42.8 % (34.0-46.0); HGB 14.2 gm/dL (11.4-16.0); Lymphocytes # (A) 0.9 k/uL (1.0-4.8); Lymphocytes % (A) 6 %; MCH 30.4 pg (25.0-35.0); MCHC 33.2 g/dL (31.0-37.0); MCV 91.4 fL (80.0-100.0); Mean Platelet Volume 8.4; Monocytes # (A) 0.2 k/uL (0-1.0); Monocytes % (A) 2 %; Neutrophils # (A) 12.6 k/uL (1.3-7.7); Neutrophils % (A) 91 %; Platelet Count 211 k/uL (150-450); RBC 4.68 m/uL (3.80-5.40); RDW 14.9 % (11.5-15.5); WBC 13.7 k/uL (3.8-10.6)
[2018-04-20 20:38] LABS: ALT 17 U/L (9-52); AST 16 U/L (14-36); Alkaline Phosphatase 52 U/L (38-126); Anion Gap 15 mmol/L; Blood Urea Nitrogen 10 mg/dL (7-17); Calcium 9.9 mg/dL (8.4-10.2); Carbon Dioxide 21 mmol/L (22-30); Chloride 107 mmol/L (98-107); Glucose 129 mg/dL (74-99); Lipase 35 U/L (23-300); Potassium 4.1 mmol/L (3.5-5.1); Sodium 143 mmol/L (137-145); Total Bilirubin 0.6 mg/dL (0.2-1.3); Total Protein 7.9 g/dL (6.3-8.2)
[2018-04-20] MEDS ORDERED: LORazepam 2 MG/ML INJ IV STA (21:08)
[2018-04-20] MEDS ORDERED: ONDANSETRON 4 MG/2 ML VIAL IVP STA (21:09)
[2018-04-20 21:32] LABS: Appearance,Urine Cloudy (Clear); Bilirubin,Urine Negative (Negative); Blood,Urine Trace (Negative); Color,Urine Yellow; Glucose,Urine (UA) Negative (Negative); Ketones,Urine 4+ (Negative); Leukocyte Esterase,Urine Negative (Negative); Mucus,Urine Moderate /hpf; Nitrite,Urine Negative (Negative); Protein,Urine 1+ (Negative); RBC,Urine 6 /hpf (0-5); Specific Gravity,Urine 1.026 (1.001-1.035); Squamous Epithelial Cell,Urine 8 /hpf (0-4); WBC,Urine <1 /hpf (0-5)
[2018-04-20] MEDS ORDERED: NALOXONE 0.4 MG/ML 1 ML VIAL IV PRN (22:08)
[2018-04-20 22:57] VITALS: BMI 25.2
[2018-04-20] MEDS: SODIUM CHLORIDE 0.9% 1,000 ML IV SCH (23:11)
[2018-04-21] MEDS ORDERED: TRIMETHOBENZAMIDE 300 MG CAP PO PRN (00:23)
--- NOTE | 2018-04-21 00:33 | P.HPIM ---
History of Present Illness H&P Date: 04/21/18 Chief Complaint: Intractable nausea vomiting 22-year-old female with history of GERD and cyclical vomiting syndrome. Patient has been suffering from attacks of cyclical vomiting syndrome since December 2017 where she had an EGD done. Over the past 2 days she noticed loose bowel movements and repeated vomiting, denies any fevers or chills reports some abdominal discomfort more of generalized colicky discomfort 5-6 out of 10 in severity no specific aggravating or relieving factors nonradiating. She described as her vomiting is yellowish to clear liquids stomach contents nonbloody nonbilious. She also reported some loose bowel movement denies any sick contacts or recent traveling. She reports that she is compliant with her medications at home Tigan and Protonix. However she continues to smoke marijuana and cigarettes. She was diagnosed with gastroparesis in the past Presented the hospital due to intractable nausea and vomiting and inability to keep anything down with decreased by mouth intake and decreased urine output. Denies any hematuria or dysuria, denies any chest pain trouble breathing, denies any focal neurologic deficits Review of Systems Pertinent positives as noted in HPI. All other systems were reviewed and are negative Past Medical History Past Medical History: GERD/Reflux Additional Past Medical History / Comment(s): gastoparesis?, History of Any Multi-Drug Resistant Organisms: None Reported Past Surgical History: No Surgical Hx Reported Additional Past Surgical History / Comment(s): EXPLORATORY LAPAROSCOPY 2009. endoscopy 12/2017 Past Anesthesia/Blood Transfusion Reactions: No Reported Reaction Past Psychological History: Anxiety Smoking Status: Current every day smoker Past Alcohol Use History: None Reported Past Drug Use History: Marijuana - Past Family History Mother Family Medical History: Diabetes Mellitus Medications and Allergies Home Medications Medication Instructions Recorded Confirmed Type Pantoprazole Sodium [Protonix] 40 mg PO BID-W/MEALS 10 Days #30 04/03/18 Rx tablet. Trimethobenzamide [Tigan] 300 mg PO QID PRN 7 Days #25 cap 04/03/18 04/20/18 Rx Allergies Allergy/AdvReac Type Severity Reaction Status Date / Time latex Allergy Unknown Rash/Hives Verified 04/20/18 20:29 Physical Exam Vitals: Vital Signs Temp Pulse Resp BP Pulse Ox 04/20/18 22:21 77 16 99/79 98 04/20/18 19:51 97.5 F L 84 18 133/84 97 Intake and Output 04/20/18 04/20/18 04/21/18 14:59 22:59 06:59 Other: Weight 56.69 kg Constitutional: No acute distress, conversant, pleasant Eyes: Anicteric sclerae, moist conjunctiva, no lid-lag Pupils equal round reactive to light ENMT: NC/AT Oropharynx clear, no erythema, exudates Neck: Supple, FROM, no masses, or JVD No carotid bruits No thyromegaly Lungs: Clear to auscultation Clear to percussion Normal respiratory effort, no accessory muscle use Cardiovascular: Heart regular in rate and rhythm, No murmurs, gallops, or rubs No peripheral edema Abdominal: Soft Nontender, no guarding, rebound or rigidity Abdomen moving with respiration Normoactive bowel sounds No hepatomegaly, No splenomegaly No palpable mass No abdominal wall hernia noted Skin: Normal temperature, tone, texture, turgor No induration No subcutaneous nodules No rash, lesions No ulcers Extremities: No digital cyanosis No clubbing Pedal pulses intact and symmetrical Radial pulses intact and symmetrical No calf tenderness Psychiatric: Alert and oriented to person, place and time Appropriate affect fair judgment Neuro Muscles Strength 5/5 in all 4 extremities Sensation to light touch grossly present throughout Cranial nerves II-XII grossly intact No focal sensory deficits Lymphatics: no palpable cervical or supraclavicular , or inguinal lymph nodes Results CBC & Chem 7: 04/20/18 20:02 04/20/18 20:02 Labs: Abnormal Lab Results - Last 24 Hours (Table) 04/20/18 04/20/18 04/20/18 Range/Units 20:02 20:02 21:10 WBC 13.7 H (3.8-10.6) k/uL Neutrophils # 12.6 H (1.3-7.7) k/uL Lymphocytes # 0.9 L (1.0-4.8) k/uL Carbon Dioxide 21 L (22-30) mmol/L Glucose 129 H (74-99) mg/dL Urine Appearance Cloudy H (Clear) Urine Protein 1+ H (Negative) Urine Ketones 4+ H (Negative) Urine Blood Trace H (Negative) Urine RBC 6 H (0-5) /hpf Ur Squamous Epith Cells 8 H (0-4) /hpf Urine Mucus Moderate H (None) /hpf Thrombosis Risk Factor Assmnt - Choose All That Apply Any of the Below Risk Factors Present?: No Assessment and Plan Assessment: 22-year-old female with history of GERD, gastroparesis, cyclical vomiting syndrome admitted as observation with anticipated length of stay less than 48 hours due to intractable nausea vomiting for symptomatic control. Patient suspected to have cyclical vomiting syndrome versus gastroenteritis. Plan: Intractable nausea and vomiting secondary to cyclical vomiting syndrome versus gastroenteritis History of gastroparesis History of GERD Supportive care Continue with Tigan, Zofran Protonic IV fluid hydration Symptomatic control Clear liquid diet Leukocytosis most likely secondary to above No focus of infection at this time Continue to monitor Tobacco smoking abuse Patient counseled to quit smoking Nicotine replacement therapy Marijuana smoking this could be in part resulting in cyclical vomiting syndrome attacks Patient counseled to attempt to quit DVT prophylaxis heparin subcu 3 times a day Surrogate decision-maker: Patient CODE STATUS: Full code Discussed with: Patient, ER, RN Anticipated discharge: <[address]: Home A total of 55 minutes was spent on the care of this complex patient more than 50 % of the time was spent in counseling and care coordination.
[2018-04-21] MEDS: ONDANSETRON 4 MG/2 ML VIAL IVP PRN ×2 (03:27→10:18)
[2018-04-21] MEDS ORDERED: PANTOPRAZOLE 40 MG TABLET PO SCH (07:30)
[2018-04-21] MEDS: HEPARIN SODIUM,PORCINE 5,000 UNIT/ML 1 ML VIAL SQ SCH ×3 (08:53→23:06)
[2018-04-21] MEDS: SODIUM CHLORIDE 0.9% 1,000 ML IV SCH ×3 (08:54→23:10)
[2018-04-21] MEDS ORDERED: PANTOPRAZOLE 40 MG/10 ML VIAL IV SCH (09:00)
[2018-04-21] MEDS: PANTOPRAZOLE 40 MG/10 ML VIAL IVP SCH ×2 (09:10→21:21)
[2018-04-21 10:03] LABS: Basophils % (A) 0 %; Eosinophils % (A) 0 %; HCT 38.6 % (34.0-46.0); HGB 12.6 gm/dL (11.4-16.0); Lymphocytes # (A) 1.6 k/uL (1.0-4.8); Lymphocytes % (A) 13 %; MCH 30.2 pg (25.0-35.0); MCHC 32.7 g/dL (31.0-37.0); MCV 92.4 fL (80.0-100.0); Mean Platelet Volume 8.8; Monocytes # (A) 0.4 k/uL (0-1.0); Monocytes % (A) 3 %; Neutrophils % (A) 83 %; Platelet Count 163 k/uL (150-450); RBC 4.18 m/uL (3.80-5.40); RDW 14.9 % (11.5-15.5); WBC 12.1 k/uL (3.8-10.6)
[2018-04-21 10:20] LABS: ALT 17 U/L (9-52); AST 14 U/L (14-36); Albumin 4.3 g/dL (3.5-5.0); Alkaline Phosphatase 48 U/L (38-126); Anion Gap 11 mmol/L; Blood Urea Nitrogen 3 mg/dL (7-17); Carbon Dioxide 20 mmol/L (22-30); Chloride 108 mmol/L (98-107); Glucose 108 mg/dL (74-99); Potassium 3.7 mmol/L (3.5-5.1); Sodium 139 mmol/L (137-145); Total Bilirubin 0.6 mg/dL (0.2-1.3); Total Protein 6.8 g/dL (6.3-8.2)
--- NOTE | 2018-04-21 11:05 | P.PN ---
Subjective Progress Note Date: 04/21/18 The patient was seen and examined at the bedside. She continues to have nausea with vomiting and has been unable to tolerate food. She denied any fever, chills , dizziness, cough, chest pain, or dizziness. Objective - Vital Signs Vital signs: Vital Signs Temp 98.1 F 04/21/18 06:57 Pulse 87 04/21/18 06:57 Resp 16 04/21/18 06:57 BP 109/58 04/21/18 06:57 Pulse Ox 99 04/21/18 06:57 Intake & Output 04/20/18 04/21/18 04/21/18 18:59 06:59 18:59 Weight 56.69 kg - Exam General: Non-toxic, in NAD, appears stated age HEENT: NC/AT, anicteric sclerae, moist conjunctiva, no lid-lag, PERRLA Cardiovascular: S1/S2 wnl, no murmurs, rubs, or gallops Lungs: Clear to auscultation, normal respiratory effort, no accessory muscle use Abdominal: Soft, mild epigastric tenderness, non-distended, no guarding, rebound , or rigidity Skin: Warm, dry Extremities: No edema or contractures Psychiatric: Alert and oriented to person, place and time, appropriate affect, Intact judgment Neuro: CN II-XII grossly intact, Strength 5/5 in all 4 extremities, Speech intact, Sensation to light touch grossly intact throughout - Labs CBC & Chem 7: 04/21/18 09:24 04/21/18 09:24 Labs: Abnormal Lab Results - Last 24 Hours (Table) 04/20/18 04/20/18 04/20/18 Range/Units 20:02 20:02 21:10 WBC 13.7 H (3.8-10.6) k/uL Neutrophils # 12.6 H (1.3-7.7) k/uL Lymphocytes # 0.9 L (1.0-4.8) k/uL Chloride (98-107) mmol/L Carbon Dioxide 21 L (22-30) mmol/L BUN (7-17) mg/dL Creatinine (0.52-1.04) mg/dL Glucose 129 H (74-99) mg/dL Urine Appearance Cloudy H (Clear) Urine Protein 1+ H (Negative) Urine Ketones 4+ H (Negative) Urine Blood Trace H (Negative) Urine RBC 6 H (0-5) /hpf Ur Squamous Epith Cells 8 H (0-4) /hpf Urine Mucus Moderate H (None) /hpf 04/21/18 04/21/18 Range/Units 09:24 09:24 WBC 12.1 H (3.8-10.6) k/uL Neutrophils # 10.0 H (1.3-7.7) k/uL Lymphocytes # (1.0-4.8) k/uL Chloride 108 H (98-107) mmol/L Carbon Dioxide 20 L (22-30) mmol/L BUN 3 L (7-17) mg/dL Creatinine 0.48 L (0.52-1.04) mg/dL Glucose 108 H (74-99) mg/dL Urine Appearance (Clear) Urine Protein (Negative) Urine Ketones (Negative) Urine Blood (Negative) Urine RBC (0-5) /hpf Ur Squamous Epith Cells (0-4) /hpf Urine Mucus (None) /hpf Assessment and Plan Plan: Intractable nausea and vomiting, couldn't complete gastric emptying study in the past -Pt notes she was previously smoking marijuana but quit for 2 months but continued getting her symptoms -Episodes occur twice a month and last a few days at a time -Will consult GI -C/w supportive care with IV hydration -C/w Zofran, Tigan -Clear liquid diet Leukocytosis, likely reactive -Improved Tobacco abuse -Nicotine patch Marijuana abuse -Counseled patient on importance of quitting DVT//GI prophylaxis - Heparin - Protonix Discussed with: patient Anticipated discharge date: 04/23/[address]: Home A total of 35 minutes was spent on the care of this complex patient more than 50 % of the time was spent in counseling and care coordination.
--- NOTE | 2018-04-21 13:28 | P.CONS ---
History of Present Illness - Reason for Consult Consult date: 04/21/18 Nausea vomiting history of cyclic vomiting syndrome Requesting physician: Sabas Owusu - Chief Complaint Nausea vomiting - History of Present Illness 22-year-old female with a past medical history of gastroparesis cyclic vomiting syndrome followed by a specialist [facility] admitted with intractable nausea vomiting. No fever chills hematemesis hematochezia melena. EGD December 2017 unremarkable per patient report performed at [place]. Patient takes Tigan PPI therapy and marijuana at home to control her symptoms. White count 12.1-13.7. Hemoglobin 12.6-14.7. Sodium 139. Potassium 3.7. LFTs lipase within normal limits. Vomiting has subsided today but nausea is intermittent. Mild midepigastric discomfort. Review of Systems Constitutional: Denies fever, chills, sweats, weight gain, or loss. HEENT: Negative for migraines, blurred vision or loss, earaches, drainage, tinnitus, oral mucosal lesions, dysphagia, or odynophagia. CARDIAC: Negative for chest pain, arrhythmias, or palpitation. RESPIRATORY: Negative for shortness of breath, hemoptysis, cough, or sputum production. GI: See HPI for pertinent findings. : Negative for hematuria, urgency, frequency, polyuria, or dysuria. GYNc: Denies possibility of . Negative vaginal discharge. MUSCULOSKELETAL: Negative for muscle aches, swelling, arthritis, and arthralgias. NEUROLOGIC: Negative for stroke or TIA. ENDOCRINE: Negative for thyroid problems. SKIN: Negative for rash or itching. PSYCHIATRIC: Negative history for depression and anxietye Past Medical History Past Medical History: GERD/Reflux Additional Past Medical History / Comment(s): gastoparesis?, History of Any Multi-Drug Resistant Organisms: None Reported Past Surgical History: No Surgical Hx Reported Additional Past Surgical History / Comment(s): EXPLORATORY LAPAROSCOPY 2009. endoscopy 12/2017 Past Anesthesia/Blood Transfusion Reactions: No Reported Reaction Past Psychological History: Anxiety Smoking Status: Current every day smoker Past Alcohol Use History: None Reported Past Drug Use History: Marijuana - Past Family History Mother Family Medical History: Diabetes Mellitus Medications and Allergies Home Medications Medication Instructions Recorded Confirmed Type Pantoprazole Sodium [Protonix] 40 mg PO BID-W/MEALS 10 Days #30 04/03/18 Rx tablet. Trimethobenzamide [Tigan] 300 mg PO QID PRN 7 Days #25 cap 04/03/18 04/20/18 Rx Allergies Allergy/AdvReac Type Severity Reaction Status Date / Time latex Allergy Unknown Rash/Hives Verified 04/20/18 20:29 Physical Exam Vitals: Vital Signs Temp Pulse Pulse Resp BP BP Pulse Ox 04/21/18 06:57 98.1 F 87 16 109/58 99 04/20/18 22:21 77 16 99/79 98 04/20/18 19:51 97.5 F L 84 18 133/84 97 Intake and Output 04/20/18 04/21/18 04/21/18 22:59 06:59 14:59 Other: Weight 56.69 kg General appearance: The patient is alert, oriented, in no acute distress. HET: Head is normocephalic and atraumatic. Pupils are equal and reactive. Oropharynx is clear without lesions. Neck: Supple without lymphadenopathy. Trachea midline. Heart: S1 S2. Regular rate and rhythm. Lungs: No crackles or wheezes are heard. Abdomen: Soft, nontender, nondistended with bowel sounds. No peritoneal signs. No palpable organomegaly or masses. Extremities: Normal skin color and turgor. No cyanosis, rash, ulceration, clubbing, or edema. Radial and pedal pulses are 2/4 bilaterally. Neurological: No focal deficits. Strength and sensation are grossly intact. Results CBC & Chem 7: 04/21/18 09:24 04/21/18 09:24 Labs: Abnormal Lab Results - Last 24 Hours (Table) 04/20/18 04/20/18 04/20/18 Range/Units 20:02 20:02 21:10 WBC 13.7 H (3.8-10.6) k/uL Neutrophils # 12.6 H (1.3-7.7) k/uL Lymphocytes # 0.9 L (1.0-4.8) k/uL Chloride (98-107) mmol/L Carbon Dioxide 21 L (22-30) mmol/L BUN (7-17) mg/dL Creatinine (0.52-1.04) mg/dL Glucose 129 H (74-99) mg/dL Urine Appearance Cloudy H (Clear) Urine Protein 1+ H (Negative) Urine Ketones 4+ H (Negative) Urine Blood Trace H (Negative) Urine RBC 6 H (0-5) /hpf Ur Squamous Epith Cells 8 H (0-4) /hpf Urine Mucus Moderate H (None) /hpf 04/21/18 04/21/18 Range/Units 09:24 09:24 WBC 12.1 H (3.8-10.6) k/uL Neutrophils # 10.0 H (1.3-7.7) k/uL Lymphocytes # (1.0-4.8) k/uL Chloride 108 H (98-107) mmol/L Carbon Dioxide 20 L (22-30) mmol/L BUN 3 L (7-17) mg/dL Creatinine 0.48 L (0.52-1.04) mg/dL Glucose 108 H (74-99) mg/dL Urine Appearance (Clear) Urine Protein (Negative) Urine Ketones (Negative) Urine Blood (Negative) Urine RBC (0-5) /hpf Ur Squamous Epith Cells (0-4) /hpf Urine Mucus (None) /hpf Assessment and Plan (1) Cyclic vomiting syndrome Narrative/Plan: Exacerbation of cyclic vomiting syndrome possible underlying gastroenteritis Current Visit: Yes Status: Acute Code(s): G43.A0 - CYCLICAL VOMITING, NOT INTRACTABLE SNOMED Code(s): 12401575 (2) Intractable vomiting Current Visit: Yes Status: Acute Code(s): R11.10 - VOMITING, UNSPECIFIED SNOMED Code(s): 816167090 (3) Gastroparesis Current Visit: No Status: Acute Code(s): K31.84 - GASTROPARESIS SNOMED Code(s): 830899684 Plan: 1. Zofran 4 mg every 6 hours. 2. Tigan 300 mg 4 times a day as needed. 3. Compazine suppositories 25 mg twice daily. 4. Clear liquid diet and advance as tolerated. 5. Inpatient endoscopic exams not planned at this time EGD December 2017 and [facility] reported as normal. Thank you for this kind referral and the opportunity to participate in the care of your patient. This consultation was discussed with Dr. Maynard. The impression and plan of care have been directed as dictated.
[2018-04-21] MEDS: PROCHLORPERAZINE SUPPOSITORY 25 MG SUPP RECTAL PRN (14:49)
[2018-04-21] MEDS: ONDANSETRON 4 MG/2 ML VIAL IVP SCH ×2 (16:20→23:06)
[2018-04-22] MEDS: ONDANSETRON 4 MG/2 ML VIAL IVP SCH ×4 (05:17→23:31)
[2018-04-22] MEDS: SODIUM CHLORIDE 0.9% 1,000 ML IV SCH ×3 (05:19→23:32)
[2018-04-22] MEDS: TRIMETHOBENZAMIDE 100 MG/ML 2 ML VIAL IM PRN (09:01)
[2018-04-22] MEDS: HEPARIN SODIUM,PORCINE 5,000 UNIT/ML 1 ML VIAL SQ SCH ×3 (09:01→23:31)
[2018-04-22] MEDS: PROCHLORPERAZINE SUPPOSITORY 25 MG SUPP RECTAL PRN (09:04)
[2018-04-22] MEDS: PANTOPRAZOLE 40 MG/10 ML VIAL IVP SCH ×2 (09:26→20:22)
--- NOTE | 2018-04-22 14:21 | P.PN ---
Subjective Progress Note Date: 04/22/18 Principal diagnosis: intractable nausea vomiting history of cyclic vomiting syndrome Few emesis today but improved from yesterday. HCG not detected. Afebrile. Denies abdominal pain. Objective - Vital Signs Vital signs: Vital Signs Temp 98.3 F 04/22/18 07:00 Pulse 71 04/22/18 07:00 Resp 16 04/22/18 09:00 BP 130/83 04/22/18 07:00 Pulse Ox 96 04/22/18 07:00 Intake & Output 04/21/18 04/22/18 04/22/18 18:59 06:59 18:59 Intake Total 1225 Output Total 5 Balance -5 1225 Weight 56.69 kg Intake: Intake, IV Titration 1125 Amount Sodium Chloride 0.9% 1, 1125 000 ml @ 125 mls/hr IV . Q8H TRISTAN Rx#:[id number] Oral 100 Output: Emesis 5 Other: Voiding Method Toilet # Voids 1 0 # Emeses 1 - Exam General appearance: The patient is alert, oriented, in no acute distress. HET: Head is normocephalic and atraumatic. Pupils are equal and reactive. Oropharynx is clear without lesions. Neck: Supple without lymphadenopathy. Trachea midline. Heart: S1 S2. Regular rate and rhythm. Lungs: No crackles or wheezes are heard. Abdomen: Soft, nontender, nondistended with bowel sounds. No peritoneal signs. No palpable organomegaly or masses. Extremities: Normal skin color and turgor. No cyanosis, rash, ulceration, clubbing, or edema. Radial and pedal pulses are 2/4 bilaterally. Neurological: No focal deficits. Strength and sensation are grossly intact. - Labs CBC & Chem 7: 04/21/18 09:24 04/21/18 09:24 Assessment and Plan (1) Cyclic vomiting syndrome Narrative/Plan: Exacerbation of cyclic vomiting syndrome possible underlying gastroenteritis Current Visit: Yes Status: Acute Code(s): G43.A0 - CYCLICAL VOMITING, NOT INTRACTABLE SNOMED Code(s): 73165302 (2) Intractable vomiting Current Visit: Yes Status: Acute Code(s): R11.10 - VOMITING, UNSPECIFIED SNOMED Code(s): 854790031 (3) Gastroparesis Current Visit: No Status: Acute Code(s): K31.84 - GASTROPARESIS SNOMED Code(s): 245184915 Plan: 1. Zofran 4 mg every 6 hours. Scopolamine patch provided. 2. Tigan 300 mg 4 times a day as needed. 3. Compazine suppositories 25 mg twice daily. 4. Clear liquid diet and advance as tolerated. 5. Inpatient endoscopic exams not planned at this time EGD December 2017 and [facility] reported as normal. Assessment and plan a care discussed with Dr. Maynard
[2018-04-22] MEDS ORDERED: SCOPOLAMINE 1.5MG/72HR PATCH TRANSDERM SCH (15:00)
--- NOTE | 2018-04-22 17:04 | P.PN ---
Subjective Progress Note Date: 04/22/18 The patient was seen and examined at the bedside. She continues to have nausea with vomiting and has been unable to tolerate food other than small amounts of liquids. She denied fever, chills, chest pain, SOB, or dysuria. Objective - Vital Signs Vital signs: Vital Signs Temp 97.4 F L 04/22/18 15:00 Pulse 57 L 04/22/18 15:00 Resp 16 04/22/18 15:00 BP 128/81 04/22/18 15:00 Pulse Ox 96 04/22/18 15:00 Intake & Output 04/21/18 04/22/18 04/22/18 18:59 06:59 18:59 Intake Total 1225 Output Total 5 Balance -5 1225 Weight 56.69 kg Intake: Intake, IV Titration 1125 Amount Sodium Chloride 0.9% 1, 1125 000 ml @ 125 mls/hr IV . Q8H TRISTAN Rx#:[id number] Oral 100 Output: Emesis 5 Other: Voiding Method Toilet # Voids 1 0 3 # Emeses 1 - Exam General: Non-toxic, in NAD, appears stated age HEENT: NC/AT, anicteric sclerae, moist conjunctiva, no lid-lag, PERRLA Cardiovascular: S1/S2 wnl, no murmurs, rubs, or gallops Lungs: Clear to auscultation, normal respiratory effort, no accessory muscle use Abdominal: Soft, mild epigastric tenderness, non-distended, no guarding, rebound , or rigidity Skin: Warm, dry Extremities: No edema or contractures Psychiatric: Alert and oriented to person, place and time, appropriate affect, Intact judgment Neuro: CN II-XII grossly intact, Strength 5/5 in all 4 extremities, Speech intact, Sensation to light touch grossly intact throughout - Labs CBC & Chem 7: 04/21/18 09:24 04/21/18 09:24 Assessment and Plan Plan: Intractable nausea and vomiting, couldn't complete gastric emptying study in the past -GI recs appreciated -C/w supportive care with IV hydration -C/w Zofran, Tigan, Scopolamine patch -Clear liquid diet Leukocytosis, likely reactive -Improved Tobacco abuse -Nicotine patch Marijuana abuse -Counseled patient on importance of quitting DVT//GI prophylaxis - Heparin - Protonix Discussed with: patient Anticipated discharge date: 04/23/[address]: Home A total of 35 minutes was spent on the care of this complex patient more than 50 % of the time was spent in counseling and care coordination.
[2018-04-23] MEDS: TRIMETHOBENZAMIDE 100 MG/ML 2 ML VIAL IM PRN ×3 (04:12→17:06)
[2018-04-23] MEDS: ONDANSETRON 4 MG/2 ML VIAL IVP SCH ×3 (05:34→18:45)
--- NOTE | 2018-04-23 08:13 | P.PN ---
Subjective Progress Note Date: 04/23/18 The patient seen and examined at the bedside. She continues to have nausea with vomiting and has been unable to tolerate anything by mouth. GI is following and recommended scopolamine patch chest yesterday which provided minimal relief as per the patient. The patient otherwise denied fever, chills, chest pain, shortness of breath, diarrhea, or dysuria. Objective - Vital Signs Vital signs: Vital Signs Temp 98.0 F 04/23/18 06:33 Pulse 62 04/23/18 06:33 Resp 18 04/23/18 06:33 BP 122/72 04/23/18 06:33 Pulse Ox 96 04/23/18 06:33 Intake & Output 04/22/18 04/23/18 04/23/18 18:59 06:59 18:59 Intake Total 1000 Balance 1000 Weight 56.69 kg Intake: Oral 1000 Other: Voiding Method Toilet Toilet # Voids 3 1 - Exam General: Non-toxic, in NAD, appears stated age HEENT: NC/AT, anicteric sclerae, moist conjunctiva, no lid-lag, PERRLA Cardiovascular: S1/S2 wnl, no murmurs, rubs, or gallops Lungs: Clear to auscultation, normal respiratory effort, no accessory muscle use Abdominal: Soft, epigastric tenderness, non-distended, no guarding, rebound, or rigidity Skin: Warm, dry Extremities: No edema or contractures Psychiatric: Alert and oriented to person, place and time, appropriate affect, Intact judgment Neuro: CN II-XII grossly intact, Strength 5/5 in all 4 extremities, Speech intact, Sensation to light touch grossly intact throughout - Labs CBC & Chem 7: 04/21/18 09:24 04/21/18 09:24 Assessment and Plan Plan: Intractable nausea and vomiting -GI recs appreciated -C/w supportive care with IV hydration -C/w Zofran, Tigan, Scopolamine patch -Clear liquid diet Leukocytosis, likely reactive -Improved Tobacco abuse -Nicotine patch Marijuana abuse -Counseled patient on importance of quitting DVT//GI prophylaxis - Heparin - Protonix Discussed with: patient Anticipated discharge date: 04/24/[address]: Home A total of 30 minutes was spent on the care of this complex patient more than 50 % of the time was spent in counseling and care coordination.
[2018-04-23] MEDS: PANTOPRAZOLE 40 MG/10 ML VIAL IVP SCH ×2 (08:37→22:08)
[2018-04-23] MEDS: HEPARIN SODIUM,PORCINE 5,000 UNIT/ML 1 ML VIAL SQ SCH ×2 (08:37→17:32)
[2018-04-23] MEDS: SODIUM CHLORIDE 0.9% 1,000 ML IV SCH ×2 (08:37→17:36)
--- NOTE | 2018-04-23 09:27 | P.PN ---
Subjective Progress Note Date: 04/23/18 Principal diagnosis: intractable nausea vomiting history of cyclic vomiting syndrome Still having emesis unable to advance diet. Patient receiving antiemetics around the clock as well as suppositories and scopolamine patch. Afebrile. Denies abdominal pain. Objective - Vital Signs Vital signs: Vital Signs Temp 98.0 F 04/23/18 06:33 Pulse 62 04/23/18 06:33 Resp 18 04/23/18 06:33 BP 122/72 04/23/18 06:33 Pulse Ox 96 04/23/18 06:33 Intake & Output 04/22/18 04/23/18 04/23/18 18:59 06:59 18:59 Intake Total 1000 Balance 1000 Weight 56.69 kg Intake: Oral 1000 Other: Voiding Method Toilet Toilet # Voids 3 1 - Exam General appearance: The patient is alert, oriented, in no acute distress. HET: Head is normocephalic and atraumatic. Pupils are equal and reactive. Oropharynx is clear without lesions. Neck: Supple without lymphadenopathy. Trachea midline. Heart: S1 S2. Regular rate and rhythm. Lungs: No crackles or wheezes are heard. Abdomen: Soft, nontender, nondistended with bowel sounds. No peritoneal signs. No palpable organomegaly or masses. Extremities: Normal skin color and turgor. No cyanosis, rash, ulceration, clubbing, or edema. Radial and pedal pulses are 2/4 bilaterally. Neurological: No focal deficits. Strength and sensation are grossly intact. - Labs CBC & Chem 7: 04/21/18 09:24 04/21/18 09:24 Assessment and Plan (1) Cyclic vomiting syndrome Narrative/Plan: Exacerbation of cyclic vomiting syndrome possible underlying gastroenteritis Current Visit: Yes Status: Acute Code(s): G43.A0 - CYCLICAL VOMITING, NOT INTRACTABLE SNOMED Code(s): 20847250 (2) Intractable vomiting Current Visit: Yes Status: Acute Code(s): R11.10 - VOMITING, UNSPECIFIED SNOMED Code(s): 403664518 (3) Gastroparesis Current Visit: No Status: Acute Code(s): K31.84 - GASTROPARESIS SNOMED Code(s): 229205080 (4) Marijuana use Current Visit: Yes Status: Chronic Code(s): F12.90 - CANNABIS USE, UNSPECIFIED, UNCOMPLICATED SNOMED Code(s): 296041585 Plan: 1. Zofran 4 mg every 6 hours. Will add erythromycin 250 mg 4 times a day; IV on back order will try oral. Patient requesting marinol; defer to attending. 2. Tigan 300 mg 4 times a day as needed. 3. Compazine suppositories 25 mg twice daily. 4. Clear liquid diet and advance as tolerated. 5. Inpatient endoscopic exams not planned at this time EGD December 2017 and [facility] reported as normal. 6. We'll continue to follow closely with you. Assessment and plan a care discussed with Dr. Maynard
[2018-04-23] MEDS: PROCHLORPERAZINE SUPPOSITORY 25 MG SUPP RECTAL PRN (10:08)
[2018-04-23] MEDS: ERYTHROMYCIN 250 MG TAB PO SCH ×3 (11:40→16:16)
--- NOTE | 2018-04-23 14:21 | P.CN ---
Psychiatric Consult - . Consult date: 04/23/18 Consult:: 04/23/18 13:13 Depression Assessment and Plan Assessment: 22-year-old female with history of GERD and cyclical vomiting syndrome. Patient has been suffering from attacks of cyclical vomiting syndrome since December 2017 where she had an EGD done. Over the past 2 days she noticed loose bowel movements and repeated vomiting, denies any fevers or chills reports some abdominal discomfort more of generalized colicky discomfort 5-6 out of 10 in severity no specific aggravating or relieving factors nonradiating. She described as her vomiting is yellowish to clear liquids stomach contents nonbloody nonbilious. She also reported some loose bowel movement denies any sick contacts or recent traveling. She reports that she is compliant with her medications at home Tigan and Protonix. However she continues to smoke marijuana and cigarettes. She was diagnosed with gastroparesis in the past Presented the hospital due to intractable nausea and vomiting and inability to keep anything down with decreased by mouth intake and decreased urine output. Denies any hematuria or dysuria, denies any chest pain trouble breathing, denies any focal neurologic deficits Past Medical History Past Medical History: GERD/Reflux Additional Past Medical History / Comment(s): gastoparesis?, History of Any Multi-Drug Resistant Organisms: None Reported Past Surgical History: No Surgical Hx Reported Additional Past Surgical History / Comment(s): EXPLORATORY LAPAROSCOPY 2009. endoscopy 12/2017 Past Anesthesia/Blood Transfusion Reactions: No Reported Reaction Past Psychological History: Anxiety Smoking Status: Current every day smoker Past Alcohol Use History: None Reported Past Drug Use History: Marijuana - Past Family History Mother Family Medical History: Diabetes Mellitus Medications and Allergies Home Medications Medication Instructions Recorded Confirmed Type Pantoprazole Sodium [Protonix] 40 mg PO BID-W/MEALS 10 Days #30 04/03/18 Rx tablet. Trimethobenzamide [Tigan] 300 mg PO QID PRN 7 Days #25 cap 04/03/18 04/20/18 Rx Allergies Allergy/AdvReac Type Severity Reaction Status Date / Time latex Allergy Unknown Rash/Hives Verified 04/20/18 20:29 Mental Status Examination - this is a 22-year-old female with 2 children age 1 and 4 who comes in complaints of nausea and I was asked to see the patient regarding whether this could be depression versus anxiety versus conversion disorder. She smokes medical marijuana from her friend and feels that is okay. Her insight is somewhat limited. She had depression a year ago and had to have resolved. General Appearance: [ casual, , appears stated age Speech/Language: [spontaneous soft, ] Attitude/Behavior: [cooperative, guarded, irritable, withdrawn, indifferent, other] Mood: [euthymic anxious related to vomiting, Affect: [full range Orientation: [time, person, place situation] Thought Content: [wnl, denies delusions, obsessions, phobias, other] Risk Factors: [Denies suicidal (ideations, plan), and/or Homicidal (ideations, plan), other] Perception: [wnl, denies hallucinations (auditory, visual, tactile), other] Thought Processes: [goal-oriented Concentration/Attention Span: [wnl] [Per observation and interview with the patient] Recent Memory: [wnl,] Remote Memory: [wnl] [past events, as related history] Intelligence: [below average] [based on history, based on vocabulary, syntax, grammar, and content] Judgement: [ fair] [per patient's behavior/history of present illness] Insight: [ fair] [understanding severity of illness/history of present illness] Psychiatric impression: There could be several explanations for this #1 is widely held knowledge that marijuana will decrease nausea however has been shown numerous cases now case presentation at [facility] may be a side effect of the marijuana. #2 adjustment disorder with mixed emotions and feelings #3 history of depression currently not depressed or suicidal Psychiatric recommendation: I have noticed that she has been tried on Compazine you may want to try Thorazine low dose which has always been shown to have antiemetic qualities and decrease anxiety. Thank you for the consult Ney Wong D.O. PhD (1) Intractable vomiting Current Visit: Yes Status: Acute Priority: High Code(s): R11.10 - VOMITING , UNSPECIFIED SNOMED Code(s): 163739127 (2) Marijuana use Current Visit: Yes Status: Chronic Priority: High Code(s): F12.90 - CANNABIS USE, UNSPECIFIED, UNCOMPLICATED SNOMED Code(s): 690767417 Time with Patient: Less than 30
[2018-04-23 15:23] VITALS: RESP 16
[2018-04-23] MEDS ORDERED: CALCIUM CARBONATE 500 MG CHEWABLE PO PRN (17:27)
[2018-04-23 22:49] VITALS: BP 139/68; PULSE 64; TEMP 98.8
== END 2018-04-23 22:56 | disposition left against medical advice (07) | DRG 392 ==
LOC: EC 19:33 → 4MS4W 22:08 → OBSVTOIN 04-22 19:41
PROVIDERS: ADMIT Internal Medicine; ATTEND Internal Medicine
DX: K31.84 Gastroparesis (principal); E86.0 Dehydration; K21.9 Gastro-esophageal reflux disease without esophagitis; F17.210 Nicotine dependence, cigarettes, uncomplicated; F41.9 Anxiety disorder, unspecified; F43.23 Adjustment disorder with mixed anxiety and depressed mood; D72.829 Elevated white blood cell count, unspecified; Z79.899 Other long term (current) drug therapy; Z91.040 Latex allergy status; Z83.3 Family history of diabetes mellitus; Z71.6 Tobacco abuse counseling
CPT/HCPCS: 36415; 80053; 81001; 81025; 83690; 83735; 85025; 96361; 96365; 96375; 99284

== ENCOUNTER 2019-02-24 20:24 | Emergency (ER) | payer OTHER ==
[2019-02-24 20:40] VITALS: RESP 16
[2019-02-24] MEDS ORDERED: diphenhydrAMINE 50 MG/ML 1 ML VIAL IVP STA (20:55)
[2019-02-24] MEDS ORDERED: ONDANSETRON 4 MG/2 ML VIAL IVP STA (20:55)
[2019-02-24] MEDS ORDERED: SODIUM CHLORIDE 0.9% 1,000 ML IV STA (20:55)
--- NOTE | 2019-02-24 21:12 | ED ---
Nausea/Vomiting/Diarrhea HPI - General Chief complaint: Nausea/Vomiting/Diarrhea Stated complaint: vomiting/fever Time Seen by Provider: 02/24/19 20:44 Source: patient, family Mode of arrival: ambulatory Limitations: no limitations - History of Present Illness Initial comments: 23-year-old female patient presents to the emergency department today for gildardo luation of nausea and vomiting. Patient states she has been vomiting for the last 12 hours. States she's been unable to keep down any food or fluids. States she is now dry heaving. Reports vomit is nonbilious and non-bloody. Reports generalized abdominal soreness but denies any cramping or pain. States she has had one to 2 episodes of diarrhea today. Denies any hematochezia or melena. Denies any recent travel or sick contacts. Denies any new medications. Denies fever or chills with this. Patient denies any recent rash, shortness breath, chest pain, back pain, numbness, tingling, dizziness, weakness, hematuria, dysuria, urinary urgency, urinary frequency, headache, visual changes, or any other complaints. - Related Data Previous Rx's Medication Instructions Recorded Pantoprazole Sodium [Protonix] 40 mg PO BID-W/MEALS 10 Days #30 04/03/18 tablet. Trimethobenzamide [Tigan] 300 mg PO QID PRN 7 Days #25 cap 04/03/18 Ondansetron [Zofran ODT] 4 mg PO Q8HR PRN #10 tab 02/24/19 Allergies Allergy/AdvReac Type Severity Reaction Status Date / Time latex Allergy Unknown Rash/Hives Verified 02/24/19 20:38 Review of Systems ROS Statement: Those systems with pertinent positive or pertinent negative responses have been documented in the HPI. ROS Other: All systems not noted in ROS Statement are negative. Past Medical History Past Medical History: GERD/Reflux Additional Past Medical History / Comment(s): gastoparesis?, History of Any Multi-Drug Resistant Organisms: None Reported Past Surgical History: No Surgical Hx Reported Additional Past Surgical History / Comment(s): EXPLORATORY LAPAROSCOPY 2009. endoscopy 12/2017 Past Anesthesia/Blood Transfusion Reactions: No Reported Reaction Past Psychological History: Anxiety Smoking Status: Current every day smoker Past Alcohol Use History: None Reported Past Drug Use History: Marijuana - Past Family History Mother Family Medical History: Diabetes Mellitus General Exam Limitations: no limitations General appearance: alert, in no apparent distress, other (This is a well- developed, well-nourished adult female patient in no acute distress. Vital signs upon presentation are temperature 98.4F, pulse 80, respirations 16, blood pressure 123/78, pulse ox 96% on room air.) Eye exam: Present: normal appearance, PERRL, EOMI. Absent: scleral icterus, conjunctival injection, periorbital swelling ENT exam: Present: normal exam, normal oropharynx, mucous membranes moist Respiratory exam: Present: normal lung sounds bilaterally. Absent: respiratory distress, wheezes, rales, rhonchi, stridor Cardiovascular Exam: Present: regular rate, normal rhythm, normal heart sounds. Absent: systolic murmur, diastolic murmur, rubs, gallop, clicks GI/Abdominal exam: Present: soft, normal bowel sounds. Absent: distended, tenderness, guarding, rebound, rigid Back exam: Absent: CVA tenderness (R), CVA tenderness (L) Neurological exam: Present: alert, oriented X3, CN II-XII intact Psychiatric exam: Present: normal affect, normal mood Skin exam: Present: warm, dry, intact, normal color. Absent: rash Course Vital Signs 02/24/19 20:38 Temperature 98.4 F Pulse Rate 80 Respiratory 16 Rate Blood Pressure 123/78 O2 Sat by Pulse 96 Oximetry Medical Decision Making - Medical Decision Making 23-year-old female patient presents to the emergency department today for evaluation of vomiting 12 hours. Physical examination revealed soft nontender abdomen. Labs reviewed and did reveal elevated white blood cell, or otherwise unremarkable. Urinalysis is negative for infection, hCG negative for . She is afebrile with reassuring vital signs. Patient is feeling improved after receiving antiemetics and fluids here in the emergency department. She'll be discharged home with prescription for Zofran. She is instructed follow up with her primary care physician for recheck in 1-2 days. Return parameters were discussed in detail. She verbalizes understanding and agrees with this plan. - Lab Data Result diagrams: 02/24/19 21:15 02/24/19 21:15 Lab Results 02/24/19 02/24/19 02/24/19 Range/Units 21:15 21:15 21:55 WBC 14.2 H (3.8-10.6) k/uL RBC 4.54 (3.80-5.40) m/uL Hgb 14.6 (11.4-16.0) gm/dL Hct 43.1 (34.0-46.0) % MCV 94.8 (80.0-100.0) fL MCH 32.1 (25.0-35.0) pg MCHC 33.9 (31.0-37.0) g/dL RDW 13.6 (11.5-15.5) % Plt Count 270 (150-450) k/uL Neutrophils % 92 % Lymphocytes % 6 % Monocytes % 2 % Eosinophils % 0 % Basophils % 0 % Neutrophils # 13.0 H (1.3-7.7) k/uL Lymphocytes # 0.8 L (1.0-4.8) k/uL Monocytes # 0.3 (0-1.0) k/uL Eosinophils # 0.0 (0-0.7) k/uL Basophils # 0.0 (0-0.2) k/uL Sodium 139 (137-145) mmol/L Potassium 4.4 (3.5-5.1) mmol/L Chloride 107 (98-107) mmol/L Carbon Dioxide 21 L (22-30) mmol/L Anion Gap 11 mmol/L BUN 13 (7-17) mg/dL Creatinine 0.50 L (0.52-1.04) mg/dL Est GFR (CKD-EPI)AfAm >90 (>60 ml/min/1.73 sqM) Est GFR (CKD-EPI)NonAf >90 (>60 ml/min/1.73 sqM) Glucose 129 H (74-99) mg/dL Calcium 9.4 (8.4-10.2) mg/dL Total Bilirubin 0.6 (0.2-1.3) mg/dL AST 26 (14-36) U/L ALT 19 (9-52) U/L Alkaline Phosphatase 64 (38-126) U/L Total Protein 7.5 (6.3-8.2) g/dL Albumin 4.5 (3.5-5.0) g/dL Lipase 74 (23-300) U/L Urine Color Yellow Urine Appearance Clear (Clear) Urine pH 6.0 (5.0-8.0) Ur Specific [place] 1.028 (1.001-1.035) Urine Protein 1+ H (Negative) Urine Glucose (UA) Negative (Negative) Urine Ketones 1+ H (Negative) Urine Blood Trace H (Negative) Urine Nitrite Negative (Negative) Urine Bilirubin Negative (Negative) Urine Urobilinogen <2.0 (<2.0) mg/dL Ur Leukocyte Esterase Negative (Negative) Urine RBC 2 (0-5) /hpf Urine WBC 1 (0-5) /hpf Ur Squamous Epith Cells 2 (0-4) /hpf Hyaline Casts 1 (0-2) /lpf Urine Mucus Few H (None) /hpf Urine HCG, Qual (Not Detectd) 02/24/19 Range/Units 21:55 WBC (3.8-10.6) k/uL RBC (3.80-5.40) m/uL Hgb (11.4-16.0) gm/dL Hct (34.0-46.0) % MCV (80.0-100.0) fL MCH (25.0-35.0) pg MCHC (31.0-37.0) g/dL RDW (11.5-15.5) % Plt Count (150-450) k/uL Neutrophils % % Lymphocytes % % Monocytes % % Eosinophils % % Basophils % % Neutrophils # (1.3-7.7) k/uL Lymphocytes # (1.0-4.8) k/uL Monocytes # (0-1.0) k/uL Eosinophils # (0-0.7) k/uL Basophils # (0-0.2) k/uL Sodium (137-145) mmol/L Potassium (3.5-5.1) mmol/L Chloride (98-107) mmol/L Carbon Dioxide (22-30) mmol/L Anion Gap mmol/L BUN (7-17) mg/dL Creatinine (0.52-1.04) mg/dL Est GFR (CKD-EPI)AfAm (>60 ml/min/1.73 sqM) Est GFR (CKD-EPI)NonAf (>60 ml/min/1.73 sqM) Glucose (74-99) mg/dL Calcium (8.4-10.2) mg/dL Total Bilirubin (0.2-1.3) mg/dL AST (14-36) U/L ALT (9-52) U/L Alkaline Phosphatase (38-126) U/L Total Protein (6.3-8.2) g/dL Albumin (3.5-5.0) g/dL Lipase (23-300) U/L Urine Color Urine Appearance (Clear) Urine pH (5.0-8.0) Ur Specific [place] (1.001-1.035) Urine Protein (Negative) Urine Glucose (UA) (Negative) Urine Ketones (Negative) Urine Blood (Negative) Urine Nitrite (Negative) Urine Bilirubin (Negative) Urine Urobilinogen (<2.0) mg/dL Ur Leukocyte Esterase (Negative) Urine RBC (0-5) /hpf Urine WBC (0-5) /hpf Ur Squamous Epith Cells (0-4) /hpf Hyaline Casts (0-2) /lpf Urine Mucus (None) /hpf Urine HCG, Qual Not Detected (Not Detectd) - Radiology Data Radiology results: report reviewed, image reviewed 2 views of the abdomen are obtained. Report was reviewed in its entirety. Impression by Dr. Mendiola shows nonacute abdomen. Disposition Clinical Impression: Vomiting Disposition: HOME SELF-CARE Condition: Good Instructions (If sedation given, give patient instructions): Acute Nausea and Vomiting (ED) Additional Instructions: Take medication as directed. Start with clear liquid diet and advance as tolerated. Follow-up through primary care physician for recheck in 1-2 days. Return to the emergency department immediately for any new, worsening, or concerning symptoms. Prescriptions: Ondansetron [Zofran ODT] 4 mg PO Q8HR PRN #10 tab PRN Reason: Nausea Is patient prescribed a controlled substance at d/c from ED?: No Referrals: None,Stated [Primary Care Provider] - 1-2 days Time of Disposition: 23:29
[2019-02-24 21:25] LABS: Basophils % (A) 0 %; Eosinophils % (A) 0 %; HCT 43.1 % (34.0-46.0); HGB 14.6 gm/dL (11.4-16.0); Lymphocytes # (A) 0.8 k/uL (1.0-4.8); Lymphocytes % (A) 6 %; MCH 32.1 pg (25.0-35.0); MCHC 33.9 g/dL (31.0-37.0); MCV 94.8 fL (80.0-100.0); Mean Platelet Volume 6.7; Monocytes # (A) 0.3 k/uL (0-1.0); Monocytes % (A) 2 %; Neutrophils % (A) 92 %; Platelet Count 270 k/uL (150-450); RBC 4.54 m/uL (3.80-5.40); RDW 13.6 % (11.5-15.5); WBC 14.2 k/uL (3.8-10.6)
[2019-02-24 21:37] LABS: ALT 19 U/L (9-52); AST 26 U/L (14-36); African American GFR (CKD) >90 (>60 ml/min/1.73 sqM); Albumin 4.5 g/dL (3.5-5.0); Alkaline Phosphatase 64 U/L (38-126); Anion Gap 11 mmol/L; Blood Urea Nitrogen 13 mg/dL (7-17); Calcium 9.4 mg/dL (8.4-10.2); Carbon Dioxide 21 mmol/L (22-30); Chloride 107 mmol/L (98-107); Glucose 129 mg/dL (74-99); Non-African American GFR(CKD) >90 (>60 ml/min/1.73 sqM); Potassium 4.4 mmol/L (3.5-5.1); Sodium 139 mmol/L (137-145); Total Bilirubin 0.6 mg/dL (0.2-1.3); Total Protein 7.5 g/dL (6.3-8.2)
[2019-02-24 22:09] LABS: Appearance,Urine Clear (Clear); Bilirubin,Urine Negative (Negative); Blood,Urine Trace (Negative); Color,Urine Yellow; Glucose,Urine (UA) Negative (Negative); Hyaline Casts,Urine 1 /lpf (0-2); Ketones,Urine 1+ (Negative); Leukocyte Esterase,Urine Negative (Negative); Mucus,Urine Few /hpf; Nitrite,Urine Negative (Negative); Protein,Urine 1+ (Negative); RBC,Urine 2 /hpf (0-5); Specific Gravity,Urine 1.028 (1.001-1.035); Squamous Epithelial Cell,Urine 2 /hpf (0-4); Urobilinogen,Urine <2.0 mg/dL (<2.0); WBC,Urine 1 /hpf (0-5)
--- NOTE | 2019-02-24 22:25 | XR ---
EXAMINATION TYPE: XR KUB DATE OF EXAM: 02/24/2019 COMPARISON: NONE HISTORY: Nausea and vomiting TECHNIQUE: 2 views upright FINDINGS: Bowel gas pattern is normal. There is no sign of intestinal obstruction or pneumoperitoneum . Fecal pattern is normal. There is no evidence of a mass. There are no pathologic calcifications ove r the kidneys. Lung bases are clear. IMPRESSION: Nonacute abdomen.
[2019-02-24] MEDS ORDERED: METOCLOPRAMIDE 5 MG/ML 2 ML VIAL IVP STA (22:32)
[2019-02-24] MEDS ORDERED: SODIUM CHLORIDE 0.9% 500 ML 500 ML IV ONE (22:32)
[2019-02-24] MEDS ORDERED: ONDANSETRON 4 MG ODT STARTER PACK 2 TAB BTL PO STA (23:28)
[2019-02-24 23:44] VITALS: BP 90/52; PULSE 95; TEMP 99
== END 2019-02-24 23:44 | disposition home or self-care (01) ==
LOC: EC 20:24
DX: R11.2 Nausea with vomiting, unspecified (principal); D72.829 Elevated white blood cell count, unspecified; F17.200 Nicotine dependence, unspecified, uncomplicated; Z91.040 Latex allergy status
CPT/HCPCS: 36415; 80053; 83690; 85025; 81001; 81025; 74018; 99284; 96374; 96375 ×2; 96361; J1200; J2765; J2405; S0119

== ENCOUNTER 2019-03-16 23:57 | Emergency (ER) | payer OTHER ==
[2019-03-17 00:11] VITALS: TEMP 98.1
[2019-03-17] MEDS ORDERED: ONDANSETRON 4 MG/2 ML VIAL IVP STA (01:16)
[2019-03-17] MEDS ORDERED: SODIUM CHLORIDE 0.9% 500 ML 500 ML IV STA (01:16)
[2019-03-17] MEDS ORDERED: SODIUM CHLORIDE 0.9% 1,000 ML IV STA (01:16)
--- NOTE | 2019-03-17 01:36 | ED ---
General Adult HPI - General Chief complaint: Nausea/Vomiting/Diarrhea Stated complaint: Vomiting Time Seen by Provider: 03/17/19 00:39 Source: patient Mode of arrival: ambulatory Limitations: no limitations - History of Present Illness Initial comments: 23-year-old female patient presents to the emergency department today for evaluation of nausea and vomiting. Patient states this started around 0500 this morning. Patient denies any abdominal pain. States she has had a couple episodes of diarrhea. She denies fever or chills. States she has had upper scalp surgery age 14 but no other abdominal surgeries. States there is a chance she could be . Patient states she does have history of frequent episodes of nausea and vomiting but has been feeling better lately. Patient denies any recent rash, shortness breath, chest pain, constipation, back pain, numbness, tingling, dizziness, weakness, hematuria, dysuria, urinary urgency, urinary frequency, headache, visual changes, or any other complaints. - Related Data Previous Rx's Medication Instructions Recorded Pantoprazole Sodium [Protonix] 40 mg PO BID-W/MEALS 10 Days #30 04/03/18 tablet. Trimethobenzamide [Tigan] 300 mg PO QID PRN 7 Days #25 cap 04/03/18 Ondansetron [Zofran ODT] 4 mg PO Q8HR PRN #10 tab 02/24/19 Ondansetron [Zofran ODT] 4 mg PO Q8HR PRN #20 tab 03/17/19 Allergies Allergy/AdvReac Type Severity Reaction Status Date / Time latex Allergy Unknown Rash/Hives Verified 02/24/19 20:38 Review of Systems ROS Statement: Those systems with pertinent positive or pertinent negative responses have been documented in the HPI. ROS Other: All systems not noted in ROS Statement are negative. Past Medical History Past Medical History: GERD/Reflux Additional Past Medical History / Comment(s): gastoparesis History of Any Multi-Drug Resistant Organisms: None Reported Past Surgical History: No Surgical Hx Reported Additional Past Surgical History / Comment(s): EXPLORATORY LAPAROSCOPY 2009. endoscopy 12/2017 Past Anesthesia/Blood Transfusion Reactions: No Reported Reaction Past Psychological History: Anxiety Smoking Status: Current every day smoker Past Alcohol Use History: None Reported Past Drug Use History: Marijuana - Past Family History Mother Family Medical History: Diabetes Mellitus General Exam Limitations: no limitations General appearance: alert, in no apparent distress, other (This is a well- developed, well-nourished adult female patient in no acute distress. Vital signs upon presentation are temperature 98.1F, pulse 75, respirations 18, blood pressure 142/83, pulse ox 100% on room air.) Eye exam: Present: normal appearance, PERRL, EOMI. Absent: scleral icterus, conjunctival injection, periorbital swelling ENT exam: Present: normal exam, normal oropharynx, mucous membranes moist Respiratory exam: Present: normal lung sounds bilaterally. Absent: respiratory distress, wheezes, rales, rhonchi, stridor Cardiovascular Exam: Present: regular rate, normal rhythm, normal heart sounds. Absent: systolic murmur, diastolic murmur, rubs, gallop, clicks GI/Abdominal exam: Present: soft, normal bowel sounds. Absent: distended, tenderness, guarding, rebound, rigid Neurological exam: Present: alert, oriented X3, CN II-XII intact Psychiatric exam: Present: normal affect, normal mood Skin exam: Present: warm, dry, intact, normal color. Absent: rash Course Vital Signs 03/17/19 00:08 Temperature 98.1 F Pulse Rate 75 Respiratory 18 Rate Blood Pressure 142/83 O2 Sat by Pulse 100 Oximetry Medical Decision Making - Medical Decision Making 23-year-old female patient presents to the emergency department today for evaluation of vomiting since 0500 this morning. Physical examination reveals a soft nontender abdomen. She is afebrile normal vital signs. Labs reviewed and did reveal mildly elevated white blood cell count felt to be reactive from vomiting. She was given Zofran and IV fluids. Upon reevaluation she does report improvement of symptoms. She does have history of similar episodes. She is instructed to follow-up the primary care physician for recheck in 1-2 days., One has been recommended for her. Return parameters discussed in detail. She verbalizes understanding and agrees with this plan. - Lab Data Result diagrams: 03/17/19 01:30 03/17/19 01:30 Lab Results 03/17/19 03/17/19 03/17/19 Range/Units 01:30 01:30 03:10 WBC 13.6 H (3.8-10.6) k/uL RBC 4.66 (3.80-5.40) m/uL Hgb 14.6 (11.4-16.0) gm/dL Hct 44.0 (34.0-46.0) % MCV 94.5 (80.0-100.0) fL MCH 31.3 (25.0-35.0) pg MCHC 33.1 (31.0-37.0) g/dL RDW 13.3 (11.5-15.5) % Plt Count 177 (150-450) k/uL Neutrophils % 88 % Lymphocytes % 9 % Monocytes % 3 % Eosinophils % 0 % Basophils % 0 % Neutrophils # 11.9 H (1.3-7.7) k/uL Lymphocytes # 1.2 (1.0-4.8) k/uL Monocytes # 0.4 (0-1.0) k/uL Eosinophils # 0.0 (0-0.7) k/uL Basophils # 0.0 (0-0.2) k/uL Sodium 140 (137-145) mmol/L Potassium 4.7 (3.5-5.1) mmol/L Chloride 107 (98-107) mmol/L Carbon Dioxide 20 L (22-30) mmol/L Anion Gap 13 mmol/L BUN 15 (7-17) mg/dL Creatinine 0.64 (0.52-1.04) mg/dL Est GFR (CKD-EPI)AfAm >90 (>60 ml/min/1.73 sqM) Est GFR (CKD-EPI)NonAf >90 (>60 ml/min/1.73 sqM) Glucose 119 H (74-99) mg/dL Calcium 9.8 (8.4-10.2) mg/dL Total Bilirubin 0.8 (0.2-1.3) mg/dL AST 22 (14-36) U/L ALT 14 (9-52) U/L Alkaline Phosphatase 54 (38-126) U/L Total Protein 8.4 H (6.3-8.2) g/dL Albumin 5.0 (3.5-5.0) g/dL Lipase 34 (23-300) U/L Urine Color Yellow Urine Appearance Cloudy H (Clear) Urine pH 5.5 (5.0-8.0) Ur Specific [place] 1.031 (1.001-1.035) Urine Protein 1+ H (Negative) Urine Glucose (UA) Negative (Negative) Urine Blood Negative (Negative) Urine Nitrite Negative (Negative) Urine Bilirubin Negative (Negative) Urine Urobilinogen <2.0 (<2.0) mg/dL Ur Leukocyte Esterase Negative (Negative) Urine RBC 3 (0-5) /hpf Urine WBC 4 (0-5) /hpf Ur Squamous Epith Cells 8 H (0-4) /hpf Urine Bacteria Rare H (None) /hpf Hyaline Casts 4 H (0-2) /lpf Urine Mucus Many H (None) /hpf Urine HCG, Qual (Not Detectd) 03/17/19 Range/Units 03:10 WBC (3.8-10.6) k/uL RBC (3.80-5.40) m/uL Hgb (11.4-16.0) gm/dL Hct (34.0-46.0) % MCV (80.0-100.0) fL MCH (25.0-35.0) pg MCHC (31.0-37.0) g/dL RDW (11.5-15.5) % Plt Count (150-450) k/uL Neutrophils % % Lymphocytes % % Monocytes % % Eosinophils % % Basophils % % Neutrophils # (1.3-7.7) k/uL Lymphocytes # (1.0-4.8) k/uL Monocytes # (0-1.0) k/uL Eosinophils # (0-0.7) k/uL Basophils # (0-0.2) k/uL Sodium (137-145) mmol/L Potassium (3.5-5.1) mmol/L Chloride (98-107) mmol/L Carbon Dioxide (22-30) mmol/L Anion Gap mmol/L BUN (7-17) mg/dL Creatinine (0.52-1.04) mg/dL Est GFR (CKD-EPI)AfAm (>60 ml/min/1.73 sqM) Est GFR (CKD-EPI)NonAf (>60 ml/min/1.73 sqM) Glucose (74-99) mg/dL Calcium (8.4-10.2) mg/dL Total Bilirubin (0.2-1.3) mg/dL AST (14-36) U/L ALT (9-52) U/L Alkaline Phosphatase (38-126) U/L Total Protein (6.3-8.2) g/dL Albumin (3.5-5.0) g/dL Lipase (23-300) U/L Urine Color Urine Appearance (Clear) Urine pH (5.0-8.0) Ur Specific [place] (1.001-1.035) Urine Protein (Negative) Urine Glucose (UA) (Negative) Urine Blood (Negative) Urine Nitrite (Negative) Urine Bilirubin (Negative) Urine Urobilinogen (<2.0) mg/dL Ur Leukocyte Esterase (Negative) Urine RBC (0-5) /hpf Urine WBC (0-5) /hpf Ur Squamous Epith Cells (0-4) /hpf Urine Bacteria (None) /hpf Hyaline Casts (0-2) /lpf Urine Mucus (None) /hpf Urine HCG, Qual Not Detected (Not Detectd) Disposition Clinical Impression: Vomiting Disposition: HOME SELF-CARE Condition: Good Instructions (If sedation given, give patient instructions): Acute Nausea and Vomiting (ED) Additional Instructions: Start with clear liquid diet. Take zofran every 6 hours as needed for vomiting. Follow up with your primary care physician for recheck in 1-2 days. Return to the emergency department for any new, worsening, or concerning symptoms. Prescriptions: Ondansetron [Zofran ODT] 4 mg PO Q8HR PRN #20 tab PRN Reason: Nausea Is patient prescribed a controlled substance at d/c from ED?: No Referrals: Dee An MD [STAFF PHYSICIAN] - 1-2 days Time of Disposition: 03:54
[2019-03-17 01:51] LABS: Basophils % (A) 0 %; Eosinophils % (A) 0 %; HGB 14.6 gm/dL (11.4-16.0); Lymphocytes # (A) 1.2 k/uL (1.0-4.8); Lymphocytes % (A) 9 %; MCH 31.3 pg (25.0-35.0); MCHC 33.1 g/dL (31.0-37.0); MCV 94.5 fL (80.0-100.0); Mean Platelet Volume 8.2; Monocytes # (A) 0.4 k/uL (0-1.0); Monocytes % (A) 3 %; Neutrophils # (A) 11.9 k/uL (1.3-7.7); Neutrophils % (A) 88 %; Platelet Count 177 k/uL (150-450); RBC 4.66 m/uL (3.80-5.40); RDW 13.3 % (11.5-15.5); WBC 13.6 k/uL (3.8-10.6)
[2019-03-17 02:22] LABS: ALT 14 U/L (9-52); AST 22 U/L (14-36); African American GFR (CKD) >90 (>60 ml/min/1.73 sqM); Alkaline Phosphatase 54 U/L (38-126); Anion Gap 13 mmol/L; Blood Urea Nitrogen 15 mg/dL (7-17); Calcium 9.8 mg/dL (8.4-10.2); Carbon Dioxide 20 mmol/L (22-30); Chloride 107 mmol/L (98-107); Glucose 119 mg/dL (74-99); Non-African American GFR(CKD) >90 (>60 ml/min/1.73 sqM); Potassium 4.7 mmol/L (3.5-5.1); Sodium 140 mmol/L (137-145); Total Bilirubin 0.8 mg/dL (0.2-1.3); Total Protein 8.4 g/dL (6.3-8.2)
[2019-03-17 03:44] LABS: Appearance,Urine Cloudy (Clear); Bacteria,Urine Rare /hpf; Bilirubin,Urine Negative (Negative); Blood,Urine Negative (Negative); Color,Urine Yellow; Glucose,Urine (UA) Negative (Negative); Hyaline Casts,Urine 4 /lpf (0-2); Ketones,Urine 3+ (Negative); Leukocyte Esterase,Urine Negative (Negative); Mucus,Urine Many /hpf; Nitrite,Urine Negative (Negative); PH, Urine 5.5 (5.0-8.0); Protein,Urine 1+ (Negative); RBC,Urine 3 /hpf (0-5); Specific Gravity,Urine 1.031 (1.001-1.035); Squamous Epithelial Cell,Urine 8 /hpf (0-4); Urobilinogen,Urine <2.0 mg/dL (<2.0); WBC,Urine 4 /hpf (0-5)
[2019-03-17] MEDS ORDERED: ONDANSETRON 4 MG ODT STARTER PACK 2 TAB BTL PO STA (03:55)
[2019-03-17 05:51] VITALS: BP 117/77; PULSE 70; RESP 16
== END 2019-03-17 04:15 | disposition home or self-care (01) ==
LOC: EC 23:57
DX: R11.2 Nausea with vomiting, unspecified (principal); D72.829 Elevated white blood cell count, unspecified; R19.7 Diarrhea, unspecified; F17.200 Nicotine dependence, unspecified, uncomplicated; Z91.040 Latex allergy status; Z87.19 Personal history of other diseases of the digestive system
CPT/HCPCS: 36415; 80053; 83690; 85025; 81001; 81025; 99284; 96374; 96361 ×2; J2405; S0119

== ENCOUNTER 2019-03-18 12:46 | Emergency (ER) | payer OTHER ==
--- NOTE | 2019-03-18 14:07 | ED ---
Nausea/Vomiting/Diarrhea HPI - General Chief complaint: Nausea/Vomiting/Diarrhea Stated complaint: Vomiting Time Seen by Provider: 03/18/19 13:55 Source: patient Mode of arrival: ambulatory Limitations: no limitations - History of Present Illness Initial comments: patient is a 23-year-old female presenting to emergency Department with a chief complaint of nausea vomiting diarrhea. Patient reports she was in the ED yesterday and was diagnosed with gastroenteritis. She was discharged with Zofran which she states it does not work for her. Patient reports the symptoms began about 3 days ago. Patient denies any recent international travel or eating. There has been exposed to in temperature for prolonged periods of time. Patient denies fevers but does report chills. Denies any abdominal pain at this time. Patient reports decreased appetite. She denies any urinary symptoms. Patient denies hematuria, hematochezia or melena. Denies taking any other medication to alleviate his symptoms. - Related Data Previous Rx's Medication Instructions Recorded Pantoprazole Sodium [Protonix] 40 mg PO BID-W/MEALS 10 Days #30 04/03/18 tablet. Trimethobenzamide [Tigan] 300 mg PO QID PRN 7 Days #25 cap 04/03/18 Ondansetron [Zofran ODT] 4 mg PO Q8HR PRN #10 tab 02/24/19 Ondansetron [Zofran ODT] 4 mg PO Q8HR PRN #20 tab 03/17/19 Metoclopramide [Reglan] 10 mg PO TID PRN #15 tab 03/18/19 Allergies Allergy/AdvReac Type Severity Reaction Status Date / Time latex Allergy Unknown Rash/Hives Verified 03/18/19 13:05 Review of Systems ROS Statement: Those systems with pertinent positive or pertinent negative responses have been documented in the HPI. ROS Other: All systems not noted in ROS Statement are negative. Past Medical History Past Medical History: GERD/Reflux Additional Past Medical History / Comment(s): gastoparesis History of Any Multi-Drug Resistant Organisms: None Reported Past Surgical History: No Surgical Hx Reported Additional Past Surgical History / Comment(s): EXPLORATORY LAPAROSCOPY 2009. endoscopy 12/2017 Past Anesthesia/Blood Transfusion Reactions: No Reported Reaction Past Psychological History: Anxiety Smoking Status: Current every day smoker Past Alcohol Use History: None Reported Past Drug Use History: Marijuana - Past Family History Mother Family Medical History: Diabetes Mellitus General Exam Limitations: no limitations General appearance: alert, in no apparent distress Head exam: Present: atraumatic, normocephalic, normal inspection Eye exam: Present: normal appearance Pupils: Present: normal accommodation ENT exam: Present: normal exam, mucous membranes moist Neck exam: Present: normal inspection, full ROM Respiratory exam: Present: normal lung sounds bilaterally Cardiovascular Exam: Present: regular rate, bradycardia, normal heart sounds GI/Abdominal exam: Present: soft, tenderness (mild left upper quadrant and epigastric abdominal pain.). Absent: distended, guarding, rebound Extremities exam: Present: normal inspection, full ROM Back exam: Present: normal inspection, full ROM. Absent: CVA tenderness (R), CVA tenderness (L) Neurological exam: Present: alert, oriented X3 Psychiatric exam: Present: normal affect, normal mood Skin exam: Present: warm, dry, intact, normal color Course Vital Signs 03/18/19 03/18/19 13:04 16:02 Temperature 97.9 F 99.4 F Pulse Rate 49 L 90 Respiratory 16 18 Rate Blood Pressure 168/77 114/64 O2 Sat by Pulse 97 99 Oximetry Medical Decision Making - Medical Decision Making patient is a 23-year-old female presenting to the emergency department with a chief complaint of nausea vomiting and diarrhea. The patient was recently diagnosed with gastroenteritis and she continues to have the symptoms. She is having nausea vomiting and diarrhea. No hematemesis, hematuria, hematochezia or melena. On exam patient does have dry mucous membranes and some left upper quadrant abdominal pain which I suspect is secondary to the multiple episodes of vomiting. Urine shows +2 ketones and otherwise no signs of UTI. Patient does appear dehydrated. Patient given a liter of fluids. IV access was easily established but IV fluids were not flowing accordingly. Thus, it took a long time for the fluids to be administered. Patient was also given Protonix. She does report improvement in her symptoms especially from the fluids. I gave the patient Zofran initially and the nausea continued. I gave her Benadryl and Reglan with improvement. Patient was able to eat a popsicle without any vomiting. Patient advised to follow a BRAT diet. Patient also given Reglan. Patient rested take the medication with the usual to prevent any extraparametal symptoms. Strict return parameters were thoroughly discussed the patient is understanding and agreeable. Case discussed with physician. - Lab Data Result diagrams: 03/18/19 14:25 03/18/19 14:25 Lab Results 03/18/19 03/18/19 03/18/19 Range/Units 14:25 14:25 16:00 WBC 6.6 (3.8-10.6) k/uL RBC 4.27 (3.80-5.40) m/uL Hgb 13.6 (11.4-16.0) gm/dL Hct 39.8 (34.0-46.0) % MCV 93.2 (80.0-100.0) fL MCH 31.9 (25.0-35.0) pg MCHC 34.2 (31.0-37.0) g/dL RDW 13.1 (11.5-15.5) % Plt Count 162 (150-450) k/uL Neutrophils % 76 % Lymphocytes % 18 % Monocytes % 4 % Eosinophils % 0 % Basophils % 0 % Neutrophils # 5.0 (1.3-7.7) k/uL Lymphocytes # 1.2 (1.0-4.8) k/uL Monocytes # 0.3 (0-1.0) k/uL Eosinophils # 0.0 (0-0.7) k/uL Basophils # 0.0 (0-0.2) k/uL Sodium 139 (137-145) mmol/L Potassium 3.9 (3.5-5.1) mmol/L Chloride 108 H (98-107) mmol/L Carbon Dioxide 21 L (22-30) mmol/L Anion Gap 10 mmol/L BUN 13 (7-17) mg/dL Creatinine 0.63 (0.52-1.04) mg/dL Est GFR (CKD-EPI)AfAm >90 (>60 ml/min/1.73 sqM) Est GFR (CKD-EPI)NonAf >90 (>60 ml/min/1.73 sqM) Glucose 99 (74-99) mg/dL Calcium 9.3 (8.4-10.2) mg/dL Total Bilirubin 1.0 (0.2-1.3) mg/dL AST 20 (14-36) U/L ALT 13 (4-34) U/L Alkaline Phosphatase 48 (38-126) U/L Total Protein 7.2 (6.3-8.2) g/dL Albumin 4.3 (3.5-5.0) g/dL Amylase 40 (30-110) U/L Lipase 77 (23-300) U/L Urine Color Urine Appearance (Clear) Urine pH (5.0-8.0) Ur Specific [place] (1.001-1.035) Urine Protein (Negative) Urine Glucose (UA) (Negative) Urine Ketones (Negative) Urine Blood (Negative) Urine Nitrite (Negative) Urine Bilirubin (Negative) Urine Urobilinogen (<2.0) mg/dL Ur Leukocyte Esterase (Negative) Ur Squamous Epith Cells (0-4) /hpf Amorphous Sediment (None) /hpf Urine Mucus (None) /hpf Urine HCG, Qual Not Detected (Not Detectd) 03/18/19 Range/Units 16:00 WBC (3.8-10.6) k/uL RBC (3.80-5.40) m/uL Hgb (11.4-16.0) gm/dL Hct (34.0-46.0) % MCV (80.0-100.0) fL MCH (25.0-35.0) pg MCHC (31.0-37.0) g/dL RDW (11.5-15.5) % Plt Count (150-450) k/uL Neutrophils % % Lymphocytes % % Monocytes % % Eosinophils % % Basophils % % Neutrophils # (1.3-7.7) k/uL Lymphocytes # (1.0-4.8) k/uL Monocytes # (0-1.0) k/uL Eosinophils # (0-0.7) k/uL Basophils # (0-0.2) k/uL Sodium (137-145) mmol/L Potassium (3.5-5.1) mmol/L Chloride (98-107) mmol/L Carbon Dioxide (22-30) mmol/L Anion Gap mmol/L BUN (7-17) mg/dL Creatinine (0.52-1.04) mg/dL Est GFR (CKD-EPI)AfAm (>60 ml/min/1.73 sqM) Est GFR (CKD-EPI)NonAf (>60 ml/min/1.73 sqM) Glucose (74-99) mg/dL Calcium (8.4-10.2) mg/dL Total Bilirubin (0.2-1.3) mg/dL AST (14-36) U/L ALT (4-34) U/L Alkaline Phosphatase (38-126) U/L Total Protein (6.3-8.2) g/dL Albumin (3.5-5.0) g/dL Amylase (30-110) U/L Lipase (23-300) U/L Urine Color Yellow Urine Appearance Turbid H (Clear) Urine pH 7.5 (5.0-8.0) Ur Specific [place] 1.027 (1.001-1.035) Urine Protein 1+ H (Negative) Urine Glucose (UA) Negative (Negative) Urine Ketones 2+ H (Negative) Urine Blood Negative (Negative) Urine Nitrite Negative (Negative) Urine Bilirubin Negative (Negative) Urine Urobilinogen 3.0 (<2.0) mg/dL Ur Leukocyte Esterase Negative (Negative) Ur Squamous Epith Cells 11 H (0-4) /hpf Amorphous Sediment Moderate H (None) /hpf Urine Mucus Many H (None) /hpf Urine HCG, Qual (Not Detectd) Disposition Clinical Impression: Gastroenteritis Disposition: HOME SELF-CARE Condition: Stable Instructions (If sedation given, give patient instructions): Gastroenteritis (DC) Additional Instructions: Please drink lots of fluids. Please take prescribed medication as directed. eat a BRAT diet. Return to emergency department if symptoms worsen. Is patient prescribed a controlled substance at d/c from ED?: No Referrals: None,Stated [Primary Care Provider] - 1-2 days Time of Disposition: 16:29
[2019-03-18] MEDS: ONDANSETRON 4 MG/2 ML VIAL IVP STA (14:27)
[2019-03-18] MEDS: SODIUM CHLORIDE 0.9% 1,000 ML IV STA ×2 (14:27→15:45)
[2019-03-18] MEDS: PANTOPRAZOLE 40 MG/10 ML VIAL IVP STA (14:28)
[2019-03-18 14:49] LABS: Basophils % (A) 0 %; Eosinophils % (A) 0 %; HCT 39.8 % (34.0-46.0); HGB 13.6 gm/dL (11.4-16.0); Lymphocytes # (A) 1.2 k/uL (1.0-4.8); Lymphocytes % (A) 18 %; MCH 31.9 pg (25.0-35.0); MCHC 34.2 g/dL (31.0-37.0); MCV 93.2 fL (80.0-100.0); Mean Platelet Volume 8.7; Monocytes # (A) 0.3 k/uL (0-1.0); Monocytes % (A) 4 %; Neutrophils % (A) 76 %; Platelet Count 162 k/uL (150-450); RBC 4.27 m/uL (3.80-5.40); RDW 13.1 % (11.5-15.5); WBC 6.6 k/uL (3.8-10.6)
[2019-03-18 15:05] LABS: ALT 13 U/L (4-34); AST 20 U/L (14-36); African American GFR (CKD) >90 (>60 ml/min/1.73 sqM); Albumin 4.3 g/dL (3.5-5.0); Alkaline Phosphatase 48 U/L (38-126); Amylase 40 U/L (30-110); Anion Gap 10 mmol/L; Blood Urea Nitrogen 13 mg/dL (7-17); Calcium 9.3 mg/dL (8.4-10.2); Carbon Dioxide 21 mmol/L (22-30); Chloride 108 mmol/L (98-107); Glucose 99 mg/dL (74-99); Non-African American GFR(CKD) >90 (>60 ml/min/1.73 sqM); Potassium 3.9 mmol/L (3.5-5.1); Sodium 139 mmol/L (137-145); Total Protein 7.2 g/dL (6.3-8.2)
[2019-03-18] MEDS: diphenhydrAMINE 50 MG/ML 1 ML VIAL IVP STA (15:44)
[2019-03-18] MEDS: METOCLOPRAMIDE 5 MG/ML 2 ML VIAL IVP STA (15:44)
[2019-03-18 16:04] VITALS: BP 114/64; PULSE 90; RESP 18; TEMP 99.4
[2019-03-18 16:17] LABS: Amorphous Sediment,Urine Moderate /hpf; Appearance,Urine Turbid (Clear); Bilirubin,Urine Negative (Negative); Blood,Urine Negative (Negative); Color,Urine Yellow; Glucose,Urine (UA) Negative (Negative); Ketones,Urine 2+ (Negative); Leukocyte Esterase,Urine Negative (Negative); Mucus,Urine Many /hpf; Nitrite,Urine Negative (Negative); PH, Urine 7.5 (5.0-8.0); Protein,Urine 1+ (Negative); Specific Gravity,Urine 1.027 (1.001-1.035); Squamous Epithelial Cell,Urine 11 /hpf (0-4)
== END 2019-03-18 16:45 | disposition home or self-care (01) ==
LOC: EC 12:46
DX: K52.9 Noninfective gastroenteritis and colitis, unspecified (principal); E86.0 Dehydration; R00.1 Bradycardia, unspecified; F17.200 Nicotine dependence, unspecified, uncomplicated; Z91.040 Latex allergy status; Z87.19 Personal history of other diseases of the digestive system
CPT/HCPCS: 36415; 80053; 81001; 81025; 82150; 83690; 85025; 96361; 96374; 96375; 99284

== ENCOUNTER 2019-07-06 13:01 | Emergency (ER) | payer BC, OTHER ==
[2019-07-06 13:07] VITALS: RESP 20
[2019-07-06] MEDS ORDERED: SODIUM CHLORIDE 0.9% 1,000 ML IV STA (13:12)
[2019-07-06] MEDS ORDERED: SODIUM CHLORIDE 0.9% 500 ML 500 ML IV STA (13:12)
[2019-07-06] MEDS ORDERED: PROMETHAZINE INJ 25 MG in SODIUM CHLORIDE 0.9% 50 ML IVPB STA (13:12)
[2019-07-06] MEDS ORDERED: diphenhydrAMINE 50 MG/ML 1 ML VIAL IVP STA (13:12)
[2019-07-06] MEDS ORDERED: KETOROLAC 30 MG/ML 1 ML VIAL IVP STA (13:12)
--- NOTE | 2019-07-06 14:06 | ED ---
Abdominal Pain HPI - General Source: patient, RN notes reviewed Mode of arrival: ambulatory Limitations: no limitations <Guillermo Shrestha - Last Filed: 07/06/19 14:54> <Markus Alex - Last Filed: 07/06/19 16:16> - General Chief Complaint: Abdominal Pain Stated Complaint: Vomiting Time Seen by Provider: 07/06/19 13:10 - History of Present Illness Initial Comments: This is a 23-year-old female presents emergency Department with chief complaint of nausea vomiting abdominal pain. Patient was seen by PCP last week diagnosed with kidney stones. Patient states that she became very nauseated and having medications at home. Patient states that she cannot keep anything down. Patient does admit that she has some underlying anorexia and they have question gastroparesis in the past. Patient states she believes this is just related to her eating disorder. Patient denies any fevers or chills she states she has mild left flank pain this time. Patient denies any chest pain, cough or chest congestion. Patient has no complaints of diarrhea constipation. (Guillermo Shrestha) - Related Data Previous Rx's Medication Instructions Recorded Pantoprazole Sodium [Protonix] 40 mg PO BID-W/MEALS 10 Days #30 04/03/18 tablet. Trimethobenzamide [Tigan] 300 mg PO QID PRN 7 Days #25 cap 04/03/18 Ondansetron [Zofran ODT] 4 mg PO Q8HR PRN #10 tab 02/24/19 Ondansetron [Zofran ODT] 4 mg PO Q8HR PRN #20 tab 03/17/19 Metoclopramide [Reglan] 10 mg PO TID PRN #15 tab 03/18/19 Ondansetron Odt [Zofran Odt] 4 mg PO Q8HR PRN #14 tab 07/06/19 Allergies Allergy/AdvReac Type Severity Reaction Status Date / Time latex Allergy Unknown Rash/Hives Verified 07/06/19 13:07 Review of Systems ROS Other: All systems not noted in ROS Statement are negative. <Guillermo Shrestha - Last Filed: 07/06/19 14:54> ROS Other: All systems not noted in ROS Statement are negative. <Markus Alex - Last Filed: 07/06/19 16:16> ROS Statement: Those systems with pertinent positive or pertinent negative responses have been documented in the HPI. Past Medical History Past Medical History: GERD/Reflux Additional Past Medical History / Comment(s): gastoparesis, kidney stones History of Any Multi-Drug Resistant Organisms: None Reported Past Surgical History: No Surgical Hx Reported Additional Past Surgical History / Comment(s): EXPLORATORY LAPAROSCOPY 2009. endoscopy 12/2017 Past Anesthesia/Blood Transfusion Reactions: No Reported Reaction Past Psychological History: Anxiety Smoking Status: Current every day smoker Past Alcohol Use History: None Reported Past Drug Use History: Marijuana - Past Family History Mother Family Medical History: Diabetes Mellitus <Guillermo Shrestha - Last Filed: 07/06/19 14:54> General Exam Limitations: no limitations General appearance: alert, in no apparent distress Head exam: Present: atraumatic, normocephalic, normal inspection Eye exam: Present: normal appearance, PERRL, EOMI. Absent: scleral icterus, conjunctival injection, periorbital swelling ENT exam: Present: normal exam, normal oropharynx, mucous membranes moist Neck exam: Present: normal inspection, full ROM. Absent: tenderness, meningismus, lymphadenopathy Respiratory exam: Present: normal lung sounds bilaterally. Absent: respiratory distress, wheezes, rales, rhonchi, stridor Cardiovascular Exam: Present: regular rate, normal rhythm, normal heart sounds. Absent: systolic murmur, diastolic murmur, rubs, gallop, clicks GI/Abdominal exam: Present: soft, tenderness (Mild suprapubic), normal bowel sounds. Absent: distended, guarding, rebound, rigid Back exam: Absent: CVA tenderness (R), CVA tenderness (L) Neurological exam: Present: alert, oriented X3, CN II-XII intact Skin exam: Present: warm, dry, intact, normal color. Absent: rash <Guillermo Shrestha M - Last Filed: 07/06/19 14:54> Course Vital Signs 07/06/19 13:03 Temperature 98.1 F Pulse Rate 69 Respiratory 20 Rate Blood Pressure 123/72 O2 Sat by Pulse 100 Oximetry Medical Decision Making - Lab Data Result diagrams: 07/06/19 13:45 07/06/19 13:45 <Guillermo Shrestha - Last Filed: 07/06/19 14:54> - Lab Data Result diagrams: 07/06/19 13:45 07/06/19 13:45 <Markus Alex P - Last Filed: 07/06/19 16:16> - Medical Decision Making 23-year-old female presented for nausea vomiting. She is greatly improved after IV fluids, antiemetics. Labs reviewed no acute abnormality. Patient does not have underlying eating disorder, possible gastroparesis. Patient we discharged with antiemetics. Patient will follow-up with PCP and return for any worsening symptoms. (Guillermo Shrestha) Patient found to have 4+ ketones. was given fluid bolus. Discussed inpatient versus outpatient management. Patient is tolerating oral intake here and has not had any additional episodes of vomiting. At this time she prefers to be outpatient given the current Covid 19 pandemic and concern for exposure. I did discuss returning if she has any worsening symptoms which she did agree. Patient has a ride home. (Markus Alex) - Lab Data Lab Results 07/06/19 07/06/19 07/06/19 Range/Units 13:45 13:45 15:26 WBC 10.1 (3.8-10.6) k/uL RBC 4.40 (3.80-5.40) m/uL Hgb 14.0 (11.4-16.0) gm/dL Hct 41.3 (34.0-46.0) % MCV 93.9 (80.0-100.0) fL MCH 31.8 (25.0-35.0) pg MCHC 33.9 (31.0-37.0) g/dL RDW 12.8 (11.5-15.5) % Plt Count 183 (150-450) k/uL Neutrophils % 84 % Lymphocytes % 11 % Monocytes % 4 % Eosinophils % 0 % Basophils % 0 % Neutrophils # 8.5 H (1.3-7.7) k/uL Lymphocytes # 1.1 (1.0-4.8) k/uL Monocytes # 0.4 (0-1.0) k/uL Eosinophils # 0.0 (0-0.7) k/uL Basophils # 0.0 (0-0.2) k/uL Sodium 139 (137-145) mmol/L Potassium 4.0 (3.5-5.1) mmol/L Chloride 103 (98-107) mmol/L Carbon Dioxide 24 (22-30) mmol/L Anion Gap 12 mmol/L BUN 20 H (7-17) mg/dL Creatinine 0.66 (0.52-1.04) mg/dL Est GFR (CKD-EPI)AfAm >90 (>60 ml/min/1.73 sqM) Est GFR (CKD-EPI)NonAf >90 (>60 ml/min/1.73 sqM) Glucose 114 H (74-99) mg/dL Calcium 9.3 (8.4-10.2) mg/dL Total Bilirubin 0.5 (0.2-1.3) mg/dL AST 23 (14-36) U/L ALT 20 (4-34) U/L Alkaline Phosphatase 49 (38-126) U/L Total Protein 7.7 (6.3-8.2) g/dL Albumin 4.8 (3.5-5.0) g/dL Amylase 41 (30-110) U/L Lipase 38 (23-300) U/L Urine Color Yellow Urine Appearance Cloudy H (Clear) Urine pH 6.0 (5.0-8.0) Ur Specific [place] 1.043 H (1.001-1.035) Urine Protein 1+ H (Negative) Urine Glucose (UA) Negative (Negative) Urine Ketones 4+ H (Negative) Urine Blood Moderate H (Negative) Urine Nitrite Negative (Negative) Urine Bilirubin Negative (Negative) Urine Urobilinogen <2.0 (<2.0) mg/dL Ur Leukocyte Esterase Small H (Negative) Urine RBC 12 H (0-5) /hpf Urine WBC 10 H (0-5) /hpf Ur Squamous Epith Cells 2 (0-4) /hpf Urine Bacteria Rare H (None) /hpf Urine Mucus Many H (None) /hpf Urine HCG, Qual (Not Detectd) 07/06/19 Range/Units 15:26 WBC (3.8-10.6) k/uL RBC (3.80-5.40) m/uL Hgb (11.4-16.0) gm/dL Hct (34.0-46.0) % MCV (80.0-100.0) fL MCH (25.0-35.0) pg MCHC (31.0-37.0) g/dL RDW (11.5-15.5) % Plt Count (150-450) k/uL Neutrophils % % Lymphocytes % % Monocytes % % Eosinophils % % Basophils % % Neutrophils # (1.3-7.7) k/uL Lymphocytes # (1.0-4.8) k/uL Monocytes # (0-1.0) k/uL Eosinophils # (0-0.7) k/uL Basophils # (0-0.2) k/uL Sodium (137-145) mmol/L Potassium (3.5-5.1) mmol/L Chloride (98-107) mmol/L Carbon Dioxide (22-30) mmol/L Anion Gap mmol/L BUN (7-17) mg/dL Creatinine (0.52-1.04) mg/dL Est GFR (CKD-EPI)AfAm (>60 ml/min/1.73 sqM) Est GFR (CKD-EPI)NonAf (>60 ml/min/1.73 sqM) Glucose (74-99) mg/dL Calcium (8.4-10.2) mg/dL Total Bilirubin (0.2-1.3) mg/dL AST (14-36) U/L ALT (4-34) U/L Alkaline Phosphatase (38-126) U/L Total Protein (6.3-8.2) g/dL Albumin (3.5-5.0) g/dL Amylase (30-110) U/L Lipase (23-300) U/L Urine Color Urine Appearance (Clear) Urine pH (5.0-8.0) Ur Specific [place] (1.001-1.035) Urine Protein (Negative) Urine Glucose (UA) (Negative) Urine Ketones (Negative) Urine Blood (Negative) Urine Nitrite (Negative) Urine Bilirubin (Negative) Urine Urobilinogen (<2.0) mg/dL Ur Leukocyte Esterase (Negative) Urine RBC (0-5) /hpf Urine WBC (0-5) /hpf Ur Squamous Epith Cells (0-4) /hpf Urine Bacteria (None) /hpf Urine Mucus (None) /hpf Urine HCG, Qual Not Detected (Not Detectd) Disposition Is patient prescribed a controlled substance at d/c from ED?: No Time of Disposition: 14:55 <Guillermo Shrestha - Last Filed: 07/06/19 14:54> Is patient prescribed a controlled substance at d/c from ED?: No <Markus Alex P - Last Filed: 07/06/19 16:16> Clinical Impression: Dehydration, Nausea & vomiting Disposition: HOME SELF-CARE Condition: Stable Instructions (If sedation given, give patient instructions): Acute Nausea and Vomiting (ED) Additional Instructions: Please return to the Emergency Department if symptoms worsen or any other concerns. Follow up to ensure that you have resolution of blood in urine. Prescriptions: Ondansetron Odt [Zofran Odt] 4 mg PO Q8HR PRN #14 tab PRN Reason: Nausea Referrals: Molly Villasenor DO [Primary Care Provider] - 1-2 days
[2019-07-06 14:17] LABS: Basophils % (A) 0 %; Eosinophils % (A) 0 %; HCT 41.3 % (34.0-46.0); Lymphocytes # (A) 1.1 k/uL (1.0-4.8); Lymphocytes % (A) 11 %; MCH 31.8 pg (25.0-35.0); MCHC 33.9 g/dL (31.0-37.0); MCV 93.9 fL (80.0-100.0); Mean Platelet Volume 8.7; Monocytes # (A) 0.4 k/uL (0-1.0); Monocytes % (A) 4 %; Neutrophils # (A) 8.5 k/uL (1.3-7.7); Neutrophils % (A) 84 %; Platelet Count 183 k/uL (150-450); RDW 12.8 % (11.5-15.5); WBC 10.1 k/uL (3.8-10.6)
[2019-07-06 14:26] LABS: ALT 20 U/L (4-34); AST 23 U/L (14-36); African American GFR (CKD) >90 (>60 ml/min/1.73 sqM); Albumin 4.8 g/dL (3.5-5.0); Alkaline Phosphatase 49 U/L (38-126); Amylase 41 U/L (30-110); Anion Gap 12 mmol/L; Blood Urea Nitrogen 20 mg/dL (7-17); Calcium 9.3 mg/dL (8.4-10.2); Carbon Dioxide 24 mmol/L (22-30); Chloride 103 mmol/L (98-107); Glucose 114 mg/dL (74-99); Non-African American GFR(CKD) >90 (>60 ml/min/1.73 sqM); Sodium 139 mmol/L (137-145); Total Bilirubin 0.5 mg/dL (0.2-1.3); Total Protein 7.7 g/dL (6.3-8.2)
--- NOTE | 2019-07-06 14:29 | XR ---
EXAMINATION TYPE: XR KUB DATE OF EXAM: 07/06/2019 2:23 PM CLINICAL HISTORY: Gross hematuria. History of bilateral nephrolithiasis. TECHNIQUE: Single upright image of the abdomen is obtained. COMPARISON: X-ray dated 02/24/2019. FINDINGS: Mild levoscoliosis of the thoracolumbar spine. Scattered gas is seen in non-distended small bowel loops. Gas and fecal material is seen in non-distended colon. There is no gross evidence of vi sceromegaly, pneumoperitoneum, or abnormal calcification appreciated. The lung bases are clear and th e osseous structures are intact. IMPRESSION: Nonobstructive bowel gas pattern. No sizable renal calculi are seen, unchanged from 02/24.
[2019-07-06] MEDS ORDERED: ONDANSETRON 4 MG/2 ML VIAL IVP STA (14:30)
[2019-07-06 15:38] LABS: Appearance,Urine Cloudy (Clear); Bacteria,Urine Rare /hpf; Bilirubin,Urine Negative (Negative); Blood,Urine Moderate (Negative); Color,Urine Yellow; Glucose,Urine (UA) Negative (Negative); Ketones,Urine 4+ (Negative); Leukocyte Esterase,Urine Small (Negative); Mucus,Urine Many /hpf; Nitrite,Urine Negative (Negative); Protein,Urine 1+ (Negative); RBC,Urine 12 /hpf (0-5); Specific Gravity,Urine 1.043 (1.001-1.035); Squamous Epithelial Cell,Urine 2 /hpf (0-4); Urobilinogen,Urine <2.0 mg/dL (<2.0); WBC,Urine 10 /hpf (0-5)
[2019-07-06 16:54] VITALS: BP 124/75; PULSE 18; TEMP 98.4
== END 2019-07-06 16:53 | disposition home or self-care (01) ==
LOC: EC 13:01
DX: E86.0 Dehydration (principal); R11.2 Nausea with vomiting, unspecified; R10.9 Unspecified abdominal pain; F17.200 Nicotine dependence, unspecified, uncomplicated; Z91.040 Latex allergy status; Z87.19 Personal history of other diseases of the digestive system
CPT/HCPCS: 36415; 80053; 82150; 83690; 85025; 81001; 81025; 74018; 99284; 96374; 96375 ×3; 96361 ×2; J1200; J2550; J2405; J1885

== ENCOUNTER → 2019-10-11 | Outpatient (CLI) | payer OTHER | END | disposition home or self-care (01) | LOC: LABWHC1 12:55 | PROVIDERS: ATTEND Internal Medicine Gastroenterology | DX: E55.9 Vitamin D deficiency, unspecified (principal) | CPT/HCPCS: 36415; 82306; 82652 ==

== ENCOUNTER 2019-10-13 04:22 | Emergency (ER) | payer OTHER ==
[2019-10-13] MEDS ORDERED: diphenhydrAMINE 50 MG/ML 1 ML VIAL IVP STA (04:32)
[2019-10-13] MEDS ORDERED: METOCLOPRAMIDE 5 MG/ML 2 ML VIAL IVP STA (04:32)
[2019-10-13] MEDS ORDERED: SODIUM CHLORIDE 0.9% 500 ML 500 ML IV STA (04:32)
[2019-10-13] MEDS ORDERED: FAMOTIDINE 20 MG/2 ML VIAL IV STA (04:33)
--- NOTE | 2019-10-13 04:34 | ED ---
General Adult HPI - General Chief complaint: Nausea/Vomiting/Diarrhea Stated complaint: vomiting Time Seen by Provider: 10/13/19 04:32 Source: patient Mode of arrival: ambulatory Limitations: no limitations - History of Present Illness Initial comments: Edilia is a 23-year-old female with a history of frequent episodes of nausea and vomiting is currently being worked up by gastroenterology for possible gastroparesis. Patient presents the ER today reporting vomiting since Thursday. Patient reports she has not been able to tolerate much oral intake. Denies any significant abdominal pain. Denies any possibility of . States that she is currently menstruating. States that she is concerned that she is dehydrated and cannot recall last time she urinated. - Related Data Previous Rx's Medication Instructions Recorded Pantoprazole Sodium [Protonix] 40 mg PO BID-W/MEALS 10 Days #30 04/03/18 tablet. Trimethobenzamide [Tigan] 300 mg PO QID PRN 7 Days #25 cap 04/03/18 Ondansetron [Zofran ODT] 4 mg PO Q8HR PRN #10 tab 02/24/19 Ondansetron [Zofran ODT] 4 mg PO Q8HR PRN #20 tab 03/17/19 Metoclopramide [Reglan] 10 mg PO TID PRN #15 tab 03/18/19 Ondansetron Odt [Zofran Odt] 4 mg PO Q8HR PRN #14 tab 07/06/19 Prochlorperazine Suppository 25 mg RECTAL BID #12 supp 10/13/19 [Compazine] Allergies Allergy/AdvReac Type Severity Reaction Status Date / Time latex Allergy Unknown Rash/Hives Verified 10/13/19 04:29 Review of Systems ROS Statement: Those systems with pertinent positive or pertinent negative responses have been documented in the HPI. ROS Other: All systems not noted in ROS Statement are negative. Past Medical History Past Medical History: GERD/Reflux Additional Past Medical History / Comment(s): gastoparesis, kidney stones History of Any Multi-Drug Resistant Organisms: None Reported Past Surgical History: No Surgical Hx Reported Additional Past Surgical History / Comment(s): EXPLORATORY LAPAROSCOPY 2009. endoscopy 12/2017 Past Anesthesia/Blood Transfusion Reactions: No Reported Reaction Past Psychological History: Anxiety Smoking Status: Current every day smoker Past Alcohol Use History: None Reported Past Drug Use History: Marijuana - Past Family History Mother Family Medical History: Diabetes Mellitus General Exam - General Exam Comments Initial Comments: Physical Exam GENERAL: Patient is well-developed and well-nourished. Patient is nontoxic and well-hydrated and is in no distress. HENT: Normocephalic, Atraumatic. EYES: PERRL, EOMI PULMONARY: Unlabored respirations. CARDIOVASCULAR: RRR Warm and well perfused extremities ABDOMEN: Non-distended SKIN: No rashes or bruising : Deferred NEUROLOGIC: Alert and oriented Normal speech Normal gait MUSCULOSKELETAL: Moving all extremities with no apparent injury PSYCHIATRIC: No SI/HI Course Vital Signs 10/13/19 10/13/19 04:27 06:27 Temperature 97.6 F 98.4 F Pulse Rate 66 75 Respiratory 18 16 Rate Blood Pressure 142/100 94/59 O2 Sat by Pulse 96 97 Oximetry Medical Decision Making - Medical Decision Making The patient was seen and evaluated history is obtained from patient this is a 23-year-old female with a history of likely gastroparesis on Zofran at home is been vomiting since Thursday Physical exam relatively unremarkable Patient was given Reglan and Benadryl CBC and CMP are unremarkable Patient reports feeling better after medications lab results were discussed with the patient. This time she is comfortable with plan for discharge home. Patient reports she is taking Compazine in the past with resolution of her nausea, I advised that I will give Compazine suppositories in case she is not able tolerate oral. Patient's comfortable with this plan. All questions pertaining care were answered need for follow-up with gastroenterology was discussed and patient was discharged home in stable condition. - Lab Data Result diagrams: 10/13/19 05:03 10/13/19 04:48 Lab Results 10/13/19 10/13/19 Range/Units 04:48 05:03 WBC 9.1 (3.8-10.6) k/uL RBC 4.44 (3.80-5.40) m/uL Hgb 14.6 (11.4-16.0) gm/dL Hct 43.2 (34.0-46.0) % MCV 97.2 (80.0-100.0) fL MCH 32.9 (25.0-35.0) pg MCHC 33.9 (31.0-37.0) g/dL RDW 13.2 (11.5-15.5) % Plt Count 260 (150-450) k/uL Neutrophils % 73 % Lymphocytes % 22 % Monocytes % 3 % Eosinophils % 1 % Basophils % 1 % Neutrophils # 6.6 (1.3-7.7) k/uL Lymphocytes # 2.0 (1.0-4.8) k/uL Monocytes # 0.3 (0-1.0) k/uL Eosinophils # 0.1 (0-0.7) k/uL Basophils # 0.1 (0-0.2) k/uL Sodium 138 (137-145) mmol/L Potassium 4.2 (3.5-5.1) mmol/L Chloride 105 (98-107) mmol/L Carbon Dioxide 22 (22-30) mmol/L Anion Gap 11 mmol/L BUN 12 (7-17) mg/dL Creatinine 0.59 (0.52-1.04) mg/dL Est GFR (CKD-EPI)AfAm >90 (>60 ml/min/1.73 sqM) Est GFR (CKD-EPI)NonAf >90 (>60 ml/min/1.73 sqM) Glucose 156 H (74-99) mg/dL Calcium 9.8 (8.4-10.2) mg/dL Magnesium 2.1 (1.6-2.3) mg/dL Total Bilirubin 0.6 (0.2-1.3) mg/dL AST 20 (14-36) U/L ALT 10 (4-34) U/L Alkaline Phosphatase 58 (38-126) U/L Total Protein 7.8 (6.3-8.2) g/dL Albumin 4.9 (3.5-5.0) g/dL Lipase 118 (23-300) U/L Disposition Clinical Impression: Nausea & vomiting Disposition: HOME SELF-CARE Condition: Stable Instructions (If sedation given, give patient instructions): Acute Nausea and Vomiting (ED) Prescriptions: Prochlorperazine Suppository [Compazine] 25 mg RECTAL BID #12 supp Is patient prescribed a controlled substance at d/c from ED?: No Referrals: None,Stated [Primary Care Provider] - 1-2 days
[2019-10-13] MEDS ORDERED: SODIUM CHLORIDE 0.9% 1,000 ML IV ONE (05:00)
[2019-10-13 05:38] LABS: Basophils # (A) 0.1 k/uL (0-0.2); Basophils % (A) 1 %; Eosinophils # (A) 0.1 k/uL (0-0.7); Eosinophils % (A) 1 %; HCT 43.2 % (34.0-46.0); HGB 14.6 gm/dL (11.4-16.0); Lymphocytes % (A) 22 %; MCH 32.9 pg (25.0-35.0); MCHC 33.9 g/dL (31.0-37.0); MCV 97.2 fL (80.0-100.0); Mean Platelet Volume 8.7; Monocytes # (A) 0.3 k/uL (0-1.0); Monocytes % (A) 3 %; Neutrophils # (A) 6.6 k/uL (1.3-7.7); Neutrophils % (A) 73 %; Platelet Count 260 k/uL (150-450); RBC 4.44 m/uL (3.80-5.40); RDW 13.2 % (11.5-15.5); WBC 9.1 k/uL (3.8-10.6)
[2019-10-13 06:02] LABS: ALT 10 U/L (4-34); AST 20 U/L (14-36); African American GFR (CKD) >90 (>60 ml/min/1.73 sqM); Albumin 4.9 g/dL (3.5-5.0); Alkaline Phosphatase 58 U/L (38-126); Anion Gap 11 mmol/L; Blood Urea Nitrogen 12 mg/dL (7-17); Calcium 9.8 mg/dL (8.4-10.2); Carbon Dioxide 22 mmol/L (22-30); Chloride 105 mmol/L (98-107); Glucose 156 mg/dL (74-99); Magnesium 2.1 mg/dL (1.6-2.3); Non-African American GFR(CKD) >90 (>60 ml/min/1.73 sqM); Potassium 4.2 mmol/L (3.5-5.1); Sodium 138 mmol/L (137-145); Total Bilirubin 0.6 mg/dL (0.2-1.3); Total Protein 7.8 g/dL (6.3-8.2)
[2019-10-14 09:51] VITALS: BP 94/59; PULSE 75; RESP 16; TEMP 98.4
== END 2019-10-13 06:48 | disposition home or self-care (01) ==
LOC: EC 04:22
DX: R11.2 Nausea with vomiting, unspecified (principal); F17.200 Nicotine dependence, unspecified, uncomplicated; Z91.040 Latex allergy status; Z87.19 Personal history of other diseases of the digestive system; Z87.442 Personal history of urinary calculi
CPT/HCPCS: 36415; 80053; 83690; 83735; 85025; 96361; 96374; 96375; 99284

== ENCOUNTER → 2019-10-21 | Outpatient (CLI) | payer OTHER ==
--- NOTE | 2019-10-23 13:25 | XR ---
EXAMINATION TYPE: XR abdomen complete w decub DATE OF EXAM: 10/21/2019 COMPARISON: 07/06/2019 HISTORY: 23-year-old female constipation TECHNIQUE: Supine, upright, and left side down lateral decubitus views of the abdomen are obtained. FINDINGS: Lung bases are clear. No evidence for free intraperitoneal air. S-shaped scoliotic curvature. Mild to moderate scattered stool, particularly in the cecum. No dilated small bowel or air-fluid levels. No suspicious calcifications seen. IMPRESSION: No evidence for free air or bowel obstruction. Moderate stool particularly in the cecum.
== END | disposition home or self-care (01) ==
LOC: RADXRMAIN 15:22
PROVIDERS: ATTEND Internal Medicine Gastroenterology
DX: K59.00 Constipation, unspecified (principal)
CPT/HCPCS: 74021

== ENCOUNTER 2019-11-23 00:18 | Emergency (ER) | payer OTHER ==
[2019-11-23 00:23] VITALS: TEMP 98.6
[2019-11-23] MEDS ORDERED: diphenhydrAMINE 50 MG/ML 1 ML VIAL IVP STA (00:35)
[2019-11-23] MEDS ORDERED: SODIUM CHLORIDE 0.9% 1,000 ML IV STA (00:35)
[2019-11-23] MEDS ORDERED: METOCLOPRAMIDE 5 MG/ML 2 ML VIAL IVP STA (00:37)
[2019-11-23 01:07] LABS: Basophils % (A) 0 %; Eosinophils # (A) 0.1 k/uL (0-0.7); Eosinophils % (A) 0 %; HCT 43.4 % (34.0-46.0); HGB 14.3 gm/dL (11.4-16.0); Lymphocytes % (A) 6 %; MCH 31.3 pg (25.0-35.0); MCHC 32.8 g/dL (31.0-37.0); MCV 95.3 fL (80.0-100.0); Mean Platelet Volume 8.6; Monocytes # (A) 0.2 k/uL (0-1.0); Monocytes % (A) 1 %; Neutrophils # (A) 16.4 k/uL (1.3-7.7); Neutrophils % (A) 93 %; Platelet Count 198 k/uL (150-450); RBC 4.56 m/uL (3.80-5.40); RDW 12.8 % (11.5-15.5); WBC 17.7 k/uL (3.8-10.6)
[2019-11-23 01:16] LABS: ALT 14 U/L (4-34); AST 22 U/L (14-36); African American GFR (CKD) >90 (>60 ml/min/1.73 sqM); Alkaline Phosphatase 52 U/L (38-126); Anion Gap 12 mmol/L; Blood Urea Nitrogen 12 mg/dL (7-17); Calcium 9.6 mg/dL (8.4-10.2); Carbon Dioxide 19 mmol/L (22-30); Chloride 109 mmol/L (98-107); Glucose 151 mg/dL (74-99); Non-African American GFR(CKD) >90 (>60 ml/min/1.73 sqM); Potassium 4.3 mmol/L (3.5-5.1); Sodium 140 mmol/L (137-145); Total Bilirubin 0.5 mg/dL (0.2-1.3); Total Protein 7.7 g/dL (6.3-8.2)
[2019-11-23 01:18] LABS: Appearance,Urine Clear (Clear); Bilirubin,Urine Negative (Negative); Blood,Urine Small (Negative); Color,Urine Yellow; Glucose,Urine (UA) Trace (Negative); Hyaline Casts,Urine 9 /lpf (0-2); Ketones,Urine 4+ (Negative); Leukocyte Esterase,Urine Negative (Negative); Mucus,Urine Many /hpf; Nitrite,Urine Negative (Negative); Protein,Urine 1+ (Negative); RBC,Urine 26 /hpf (0-5); Specific Gravity,Urine 1.036 (1.001-1.035); Squamous Epithelial Cell,Urine 4 /hpf (0-4); Urobilinogen,Urine <2.0 mg/dL (<2.0); WBC,Urine 16 /hpf (0-5)
[2019-11-23] MEDS ORDERED: FAMOTIDINE 20 MG/2 ML VIAL IV STA (01:58)
[2019-11-23] MEDS ORDERED: SODIUM CHLORIDE 0.9% 500 ML 500 ML IV ONE (01:58)
--- NOTE | 2019-11-23 02:40 | ED ---
Nausea/Vomiting/Diarrhea HPI - General Chief complaint: Nausea/Vomiting/Diarrhea Stated complaint: vomiting Time Seen by Provider: 11/23/19 00:24 Source: patient, EMS Mode of arrival: EMS Limitations: no limitations - History of Present Illness Initial comments: 24 year-old female patient presents to the emergency department today for evaluation of nausea and vomiting. Patient states she is unable to keep down any food or fluids for the last 2 days. Patient states she did have a positive home test 2 days ago. Patient states she did take a test a week ago which was negative. Patient denies any abdominal pain with this. Patient states she does have some dysuria. Denies urinary urgency or frequency. Denies abnormal vaginal bleeding or discharge. Denies fever or chills. Denies any flank pain. Patient does have a history of gastroparesis and does often have episodes of vomiting. Patient did have hyperemesis gravidarum with her last . Patient states she did take a Compazine suppository and Zofran at home without relief. Was unable to keep down her antacid medication today. She has informed her PLAY LEADER of her , has not yet had ultrasound. Patient denies any recent rash, cough, shortness of breath, chest pain, numbness, tingling, dizziness, weakness, headache, visual changes, or any other complaints. - Related Data Previous Rx's Medication Instructions Recorded Pantoprazole Sodium [Protonix] 40 mg PO BID-W/MEALS 10 Days #30 04/03/18 tablet. Trimethobenzamide [Tigan] 300 mg PO QID PRN 7 Days #25 cap 04/03/18 Ondansetron [Zofran ODT] 4 mg PO Q8HR PRN #10 tab 02/24/19 Ondansetron [Zofran ODT] 4 mg PO Q8HR PRN #20 tab 03/17/19 Metoclopramide [Reglan] 10 mg PO TID PRN #15 tab 03/18/19 Ondansetron Odt [Zofran Odt] 4 mg PO Q8HR PRN #14 tab 07/06/19 Prochlorperazine Suppository 25 mg RECTAL BID #12 supp 10/13/19 [Compazine] Cephalexin [Keflex] 500 mg PO BID #14 cap 11/23/19 Prochlorperazine Suppository 25 mg RECTAL BID #12 supp 11/23/19 [Compazine] Allergies Allergy/AdvReac Type Severity Reaction Status Date / Time latex Allergy Unknown Rash/Hives Verified 10/13/19 04:29 Review of Systems ROS Statement: Those systems with pertinent positive or pertinent negative responses have been documented in the HPI. ROS Other: All systems not noted in ROS Statement are negative. Past Medical History Past Medical History: GERD/Reflux Additional Past Medical History / Comment(s): gastoparesis, kidney stones History of Any Multi-Drug Resistant Organisms: None Reported Past Surgical History: No Surgical Hx Reported Additional Past Surgical History / Comment(s): EXPLORATORY LAPAROSCOPY 2009. endoscopy 12/2017 Past Anesthesia/Blood Transfusion Reactions: No Reported Reaction Past Psychological History: Anxiety Smoking Status: Light tobacco smoker Past Alcohol Use History: None Reported Past Drug Use History: Marijuana - Past Family History Mother Family Medical History: Diabetes Mellitus General Exam Limitations: no limitations General appearance: alert, in no apparent distress, other (This is a well- developed, well-nourished adult female patient in mild distress due to frequent vomiting. Vital signs upon presentation are temperature 98.6F, pulse 70, respirations 18, blood pressure 138/81, pulse ox 100% on room air per) Eye exam: Present: normal appearance, PERRL, EOMI. Absent: scleral icterus, conjunctival injection, periorbital swelling Respiratory exam: Present: normal lung sounds bilaterally. Absent: respiratory distress, wheezes, rales, rhonchi, stridor Cardiovascular Exam: Present: regular rate, normal rhythm, normal heart sounds. Absent: systolic murmur, diastolic murmur, rubs, gallop, clicks GI/Abdominal exam: Present: soft, normal bowel sounds. Absent: distended, tenderness, guarding, rebound, rigid Back exam: Absent: CVA tenderness (R), CVA tenderness (L) Neurological exam: Present: alert, oriented X3, CN II-XII intact Psychiatric exam: Present: normal affect, normal mood Skin exam: Present: warm, dry, intact, normal color. Absent: rash Course Vital Signs 11/23/19 11/23/19 00:19 02:43 Temperature 98.6 F Pulse Rate 70 101 H Respiratory 18 16 Rate Blood Pressure 138/81 104/54 O2 Sat by Pulse 100 98 Oximetry Medical Decision Making - Medical Decision Making 24 old female patient presents to the emergency department today for evaluation of vomiting for the last 2 days. Patient states she's been unable to keep down any food or fluids. Physical examination revealed a soft nontender abdomen. Patient denies abdominal pain, abnormal vaginal bleeding or discharge. She did report some mild dysuria. Labs reviewed and did reveal elevated white blood cell count at 17,000 most likely reactive from vomiting. HCG level is 157. Urinalysis shows white blood cells and red blood cells in the urine. We'll treat for urinary tract infection. Her HCG is low. She had negative test one week ago. This is consistent with early . We will give pre scription for repeat hCG in 2 days. Patient states that she had hyperemesis gravidarum with her last and was given Compazine by her PLAY LEADER, we'll refill this medication. She also has Zofran at home. She is instructed to follow-up with her primary care physician and [facility] for recheck as soon as possible. Return parameters were discussed in detail. She verbalizes understanding and agrees with this plan. - Lab Data Result diagrams: 11/23/19 00:58 11/23/19 00:58 Lab Results 11/23/19 11/23/19 11/23/19 Range/Units 00:58 00:58 00:58 WBC 17.7 H (3.8-10.6) k/uL RBC 4.56 (3.80-5.40) m/uL Hgb 14.3 (11.4-16.0) gm/dL Hct 43.4 (34.0-46.0) % MCV 95.3 (80.0-100.0) fL MCH 31.3 (25.0-35.0) pg MCHC 32.8 (31.0-37.0) g/dL RDW 12.8 (11.5-15.5) % Plt Count 198 (150-450) k/uL Neutrophils % 93 % Lymphocytes % 6 % Monocytes % 1 % Eosinophils % 0 % Basophils % 0 % Neutrophils # 16.4 H (1.3-7.7) k/uL Lymphocytes # 1.0 (1.0-4.8) k/uL Monocytes # 0.2 (0-1.0) k/uL Eosinophils # 0.1 (0-0.7) k/uL Basophils # 0.0 (0-0.2) k/uL Sodium 140 (137-145) mmol/L Potassium 4.3 (3.5-5.1) mmol/L Chloride 109 H (98-107) mmol/L Carbon Dioxide 19 L (22-30) mmol/L Anion Gap 12 mmol/L BUN 12 (7-17) mg/dL Creatinine 0.53 (0.52-1.04) mg/dL Est GFR (CKD-EPI)AfAm >90 (>60 ml/min/1.73 sqM) Est GFR (CKD-EPI)NonAf >90 (>60 ml/min/1.73 sqM) Glucose 151 H (74-99) mg/dL Calcium 9.6 (8.4-10.2) mg/dL Total Bilirubin 0.5 (0.2-1.3) mg/dL AST 22 (14-36) U/L ALT 14 (4-34) U/L Alkaline Phosphatase 52 (38-126) U/L Total Protein 7.7 (6.3-8.2) g/dL Albumin 5.0 (3.5-5.0) g/dL Lipase 29 (23-300) U/L HCG, Quant 157.0 mIU/mL Urine Color Yellow Urine Appearance Clear (Clear) Urine pH 6.0 (5.0-8.0) Ur Specific [place] 1.036 H (1.001-1.035) Urine Protein 1+ H (Negative) Urine Glucose (UA) Trace H (Negative) Urine Ketones 4+ H (Negative) Urine Blood Small H (Negative) Urine Nitrite Negative (Negative) Urine Bilirubin Negative (Negative) Urine Urobilinogen <2.0 (<2.0) mg/dL Ur Leukocyte Esterase Negative (Negative) Urine RBC 26 H (0-5) /hpf Urine WBC 16 H (0-5) /hpf Ur Squamous Epith Cells 4 (0-4) /hpf Hyaline Casts 9 H (0-2) /lpf Urine Mucus Many H (None) /hpf Disposition Clinical Impression: Vomiting, Positive test Disposition: HOME SELF-CARE Condition: Good Instructions (If sedation given, give patient instructions): (ED), Acute Nausea and Vomiting (ED) Additional Instructions: Take medications as directed. Follow-up with your PLAY LE[employer]ER for recheck as soon as possible. If you develop pelvic or abdominal pain you should return to the emergency department immediately. Have repeat hCG/ hormone level drawn in 2 days. Return to the emergency department for any other new, worsening, or concerning symptoms. Prescriptions: Prochlorperazine Suppository [Compazine] 25 mg RECTAL BID #12 supp Cephalexin [Keflex] 500 mg PO BID #14 cap Is patient prescribed a controlled substance at d/c from ED?: No Referrals: Molly Villasenor DO [Primary Care Provider] - 1-2 days Time of Disposition: 02:40
[2019-11-23] MEDS ORDERED: cefTRIAXone IN SWFI 1,000 MG/10 ML SYRINGE IVP ONE (03:00)
[2019-11-23 08:06] VITALS: BP 104/54; PULSE 101; RESP 16
== END 2019-11-23 03:19 | disposition home or self-care (01) ==
LOC: EC 00:18
DX: Z32.01 Encounter for pregnancy test, result positive (principal); R11.2 Nausea with vomiting, unspecified; R30.0 Dysuria; D72.829 Elevated white blood cell count, unspecified; F17.210 Nicotine dependence, cigarettes, uncomplicated; Z91.040 Latex allergy status; Z87.19 Personal history of other diseases of the digestive system; Z98.890 Other specified postprocedural states
CPT/HCPCS: 36415; 80053; 83690; 85025; 81001; 84702; 87086; 87077; 87186; 99284; 96374; 96375 ×3; 96361; J1200; J2765; J0696

== ENCOUNTER 2019-11-23 05:49 | Inpatient (IN) | payer OTHER ==
[2019-11-23] MEDS ORDERED: METOCLOPRAMIDE 5 MG/ML 2 ML VIAL IVP ONE (07:00)
[2019-11-23] MEDS ORDERED: DEXTROSE 5%-0.45% NACL 1,000 ML IV ONE (07:00)
[2019-11-23 07:53] LABS: Appearance,Urine Clear (Clear); Bilirubin,Urine Negative (Negative); Blood,Urine Trace (Negative); Color,Urine Yellow; Glucose,Urine (UA) 2+ (Negative); Ketones,Urine Trace (Negative); Leukocyte Esterase,Urine Trace (Negative); Mucus,Urine Many /hpf; Nitrite,Urine Negative (Negative); Protein,Urine Trace (Negative); RBC,Urine 2 /hpf (0-5); Squamous Epithelial Cell,Urine 10 /hpf (0-4); Urobilinogen,Urine <2.0 mg/dL (<2.0); WBC,Urine 4 /hpf (0-5)
[2019-11-23] MEDS ORDERED: cefTRIAXone IN SWFI 1,000 MG/10 ML SYRINGE IVP STA (07:55)
--- NOTE | 2019-11-23 08:06 | ED ---
Nausea/Vomiting/Diarrhea HPI - General Source: patient Mode of arrival: ambulatory Limitations: language barrier - History of Present Illness MD complaint: nausea, vomiting -: days(s) Description of Vomiting: food contents, watery Associated Abdominal Pain: No Consistency: constant Improves with: none Worsens with: eating Context: other () Associated Symptoms: denies other symptoms <Michael Stoddard - Last Filed: 11/23/19 07:06> <Sary Taveras - Last Filed: 11/23/19 08:47> - General Chief complaint: Nausea/Vomiting/Diarrhea Stated complaint: vomiting - History of Present Illness Initial comments: Patient is 24-year-old woman who returns with complaints she has had recurrent vomiting. Patient does have history of severe hyperemesis gravidarum with previous and was told she is again she may need to have feeding tube placed. In addition, patient seen earlier today, found to have mild urinary tract infection and has not been able to tolerate oral antibiotic. No fever or chills. No flank pain. (Michael Stoddard) - Related Data Home Medications Medication Instructions Recorded Confirmed Mirtazapine [Remeron] 15 mg PO HS 11/23/19 11/23/19 Omeprazole 40 mg PO DAILY 11/23/19 11/23/19 Prochlorperazine Suppository 25 mg RECTAL BID PRN 11/23/19 11/23/19 [Compazine] Scopolamine 1.5MG/72Hr Patch 1 patch TRANSDERM Q72H 11/23/19 11/23/19 [Transderm-Scop 1.5MG/72Hr Patch] lamoTRIgine [LaMICtal] 50 mg PO DAILY 11/23/19 11/23/19 Previous Rx's Medication Instructions Recorded Ondansetron Odt [Zofran Odt] 4 mg PO Q8HR PRN #14 tab 07/06/19 Cephalexin [Keflex] 500 mg PO BID #14 cap 11/23/19 Allergies Allergy/AdvReac Type Severity Reaction Status Date / Time latex Allergy Unknown Rash/Hives Verified 11/23/19 08:19 Review of Systems ROS Other: All systems not noted in ROS Statement are negative. Constitutional: Denies: fever, chills Respiratory: Denies: cough, dyspnea Cardiovascular: Denies: chest pain, palpitations, edema Gastrointestinal: Reports: nausea, vomiting. Denies: abdominal pain, diarrhea, constipation, hematemesis, melena, hematochezia Genitourinary: Denies: dysuria, frequency, hematuria, discharge Musculoskeletal: Denies: back pain Skin: Denies: rash Neurological: Denies: headache, weakness <Michael Stoddard - Last Filed: 11/23/19 07:06> ROS Other: All systems not noted in ROS Statement are negative. <Sary Taveras - Last Filed: 11/23/19 08:47> ROS Statement: Those systems with pertinent positive or pertinent negative responses have been documented in the HPI. Past Medical History Past Medical History: GERD/Reflux Additional Past Medical History / Comment(s): gastoparesis, kidney stones History of Any Multi-Drug Resistant Organisms: None Reported Past Surgical History: No Surgical Hx Reported Additional Past Surgical History / Comment(s): EXPLORATORY LAPAROSCOPY 2009. endoscopy 12/2017 Past Anesthesia/Blood Transfusion Reactions: No Reported Reaction Past Psychological History: Anxiety Smoking Status: Light tobacco smoker Past Alcohol Use History: None Reported Past Drug Use History: Marijuana - Past Family History Mother Family Medical History: Diabetes Mellitus <Michael Stoddard - Last Filed: 11/23/19 07:06> General Exam Limitations: language barrier General appearance: alert, in no apparent distress Head exam: Present: atraumatic, normocephalic Eye exam: Present: normal appearance. Absent: scleral icterus, conjunctival injection ENT exam: Present: normal oropharynx Respiratory exam: Present: normal lung sounds bilaterally. Absent: respiratory distress, wheezes, rales, rhonchi, stridor Cardiovascular Exam: Present: regular rate, normal rhythm, normal heart sounds. Absent: systolic murmur, diastolic murmur, rubs, gallop GI/Abdominal exam: Present: soft. Absent: distended, tenderness, guarding, rebound, rigid, mass Extremities exam: Present: normal inspection, normal capillary refill. Absent: pedal edema, calf tenderness Back exam: Present: normal inspection. Absent: CVA tenderness (R), CVA tenderness (L) Neurological exam: Present: alert Skin exam: Present: warm, dry, intact, normal color. Absent: rash <Michael Stoddard - Last Filed: 11/23/19 07:06> Course Vital Signs 11/23/19 11/23/19 05:55 07:20 Temperature 98.0 F 98.1 F Pulse Rate 70 75 Respiratory 16 16 Rate Blood Pressure 121/82 96/63 O2 Sat by Pulse 99 99 Oximetry Medical Decision Making <Sary Taveras - Last Filed: 11/23/19 08:47> - Medical Decision Making The patient was signed out to me. She is with history of gastroparesis and hyperemesis. Sees Dr. Benson for her previous pregnancies. Patient has regular menstrual cycles and recently found that she was . She was seen in the emergency department yesterday for nausea and vomiting. 4+ ketones in her urine. Patient was given fluids and antinausea medications and discharged home. Patient reports that she was unable to even hold on a popsicle and therefore sign back into the emergency department. She received dextrose and antiemetics by Dr. Nichols. She is reevaluated and continues to complain of nausea with inability to tolerate any by mouth intake. Urinalysis is much improved with only trace ketonuria. At this time the patient will be admitted to the hospital for fluids and antiemetics. I discussed case with Dr. Jimenez who agreed to admit the patient. Patient has previously seen Dr. Langston and therefore she will be consult did for the patient's care (Sary Taveras) - Lab Data Lab Results 11/23/19 Range/Units 07:28 Urine Color Yellow Urine Appearance Clear (Clear) Urine pH 6.0 (5.0-8.0) Ur Specific [place] 1.030 (1.001-1.035) Urine Protein Trace H (Negative) Urine Glucose (UA) 2+ H (Negative) Urine Ketones Trace H (Negative) Urine Blood Trace H (Negative) Urine Nitrite Negative (Negative) Urine Bilirubin Negative (Negative) Urine Urobilinogen <2.0 (<2.0) mg/dL Ur Leukocyte Esterase Trace H (Negative) Urine RBC 2 (0-5) /hpf Urine WBC 4 (0-5) /hpf Ur Squamous Epith Cells 10 H (0-4) /hpf Urine Mucus Many H (None) /hpf Disposition <Michael Stoddard - Last Filed: 11/23/19 07:06> Is patient prescribed a controlled substance at d/c from ED?: No Decision to Admit Reason: Admit from EC Decision Date: 11/23/19 Decision Time: 08:17 <Sary Taveras - Last Filed: 11/23/19 08:47> Clinical Impression: Intractable vomiting, Gastroparesis, Dehydration, Positive test Disposition: ADMITTED IP TO THIS [facility] Condition: Stable
[2019-11-23] MEDS ORDERED: NALOXONE 0.4 MG/ML 1 ML VIAL IV PRN (08:22)
[2019-11-23] MEDS: DEXTROSE 5%-0.45% NACL 1,000 ML IV SCH ×2 (08:56→22:40)
[2019-11-23] MEDS ORDERED: PYRIDOXINE 100 MG/ML 1 ML VIAL IVP SCH (09:15)
[2019-11-23] MEDS: METOCLOPRAMIDE 5 MG/ML 2 ML VIAL IVP PRN ×2 (15:03→22:38)
--- NOTE | 2019-11-23 17:27 | P.HPOB ---
History of Present Illness H&P Date: 11/23/19 Chief Complaint: Hyperemesis 24 year old presents early in (cg is 157) complaining of N/V. She has had hyperemesis with all her pregnancies. she started with N/V yesterday and has not stopped. She is only on reglan so far. i will add protonix IV, she take oral at home for gastroparesis. I will also add zofran IV after having the discussion of risks and benefits. Review of Systems All systems: negative Constitutional: Reports chills, Denies fever Eyes: denies blurred vision, denies pain Ears, nose, mouth and throat: Denies headache, Denies sore throat Cardiovascular: Denies chest pain, Denies shortness of breath Respiratory: Denies cough Gastrointestinal: Reports nausea, Reports vomiting, Denies abdominal pain, Denies diarrhea Genitourinary: Denies dysuria, Denies hematuria Musculoskeletal: Denies myalgias Integumentary: Denies pruritus, Denies rash Neurological: Denies numbness, Denies weakness Psychiatric: Denies anxiety, Denies depression Endocrine: Denies fatigue, Denies weight change Past Medical History Past Medical History: GERD/Reflux Additional Past Medical History / Comment(s): , severe hyperemesis gravidarum, cyclic vomiting syndrome, gastroparesis, Cordon's esophagus, hemorrhoids. History of Any Multi-Drug Resistant Organisms: None Reported Past Surgical History: No Surgical Hx Reported Additional Past Surgical History / Comment(s): EXPLORATORY LAPAROSCOPY 2009, EGD Past Anesthesia/Blood Transfusion Reactions: No Reported Reaction Smoking Status: Current every day smoker - Past Family History Mother History Unknown: Yes Family Medical History: Diabetes Mellitus Additional Family Medical History / Comment(s): Pt states she does not know mother's medical hx. Father History Unknown: Yes Additional Family Medical History / Comment(s): Pt states she does not know father's medical hx. Medications and Allergies Home Medications Medication Instructions Recorded Confirmed Type Ondansetron Odt [Zofran Odt] 4 mg PO Q8HR PRN #14 tab 07/06/19 11/23/19 Rx Cephalexin [Keflex] 500 mg PO BID #14 cap 11/23/19 11/23/19 Rx Omeprazole 40 mg PO DAILY 11/23/19 11/23/19 History Prochlorperazine Suppository 25 mg RECTAL BID PRN 11/23/19 11/23/19 History [Compazine] Scopolamine 1.5MG/72Hr Patch 1 patch TRANSDERM Q72H 11/23/19 11/23/19 History [Transderm-Scop 1.5MG/72Hr Patch] Allergies Allergy/AdvReac Type Severity Reaction Status Date / Time latex Allergy Unknown Rash/Hives Verified 11/23/19 08:19 Exam Osteopathic Statement: *. No significant issues noted on an osteopathic structural exam other than those noted in the History and Physical/Consult. Vital Signs Temp Pulse Pulse Resp BP BP Pulse Ox 11/23/19 11:25 98.4 F 71 16 128/84 96 11/23/19 10:56 98.7 F 87 16 111/49 97 11/23/19 07:20 98.1 F 75 16 96/63 99 11/23/19 05:55 98.0 F 70 16 121/82 99 Intake and Output 11/23/19 11/23/19 11/23/19 06:59 14:59 22:59 Output Total 400 300 Balance -400 -300 Output: Urine 100 100 Emesis 300 200 Other: Weight 40.823 kg 40.823 kg Heart: RRR Lungs: CTAB Abdomen: soft, nontender Extremeties: neg nuzhat's Results Abnormal Lab Results - Last 24 Hours (Table) 11/23/19 Range/Units 07:28 Urine Protein Trace H (Negative) Urine Glucose (UA) 2+ H (Negative) Urine Ketones Trace H (Negative) Urine Blood Trace H (Negative) Ur Leukocyte Esterase Trace H (Negative) Ur Squamous Epith Cells 10 H (0-4) /hpf Urine Mucus Many H (None) /hpf Assessment and Plan (1) Positive test Current Visit: Yes Status: Acute Code(s): Z32.01 - ENCOUNTER FOR TEST, RESULT POSITIVE SNOMED Code(s): 075633205 (2) Intractable vomiting Current Visit: Yes Status: Acute Priority: High Code(s): R11.10 - VOMITING, UNSPECIFIED SNOMED Code(s): 061683836 (3) Gastroparesis Current Visit: Yes Status: Acute Code(s): K31.84 - GASTROPARESIS SNOMED Code(s): 940629241 (4) Hyperemesis Current Visit: Yes Status: Acute Code(s): R11.10 - VOMITING, UNSPECIFIED SNOMED Code(s): 926776256 Plan: 1. check TSH 2. bhcg 48 hours after first-ordered 3. zofran and protonix IV 4. IV fluids
[2019-11-23] MEDS: ONDANSETRON 4 MG/2 ML VIAL IVP PRN (17:39)
[2019-11-23] MEDS: PANTOPRAZOLE 40 MG/10 ML VIAL IVP SCH (20:47)
--- NOTE | 2019-11-23 22:06 | P.HPIM ---
History of Present Illness H&P Date: 11/23/19 Chief Complaint: hyperemesis Luann Molina s a 24 yo who presented to the ED complaining of severe nausea and vomiting over the past few days. She states she had hyperemesis with her previous pregnancies, feels this is somewhat worse. She states is unable to keep anything down and has vomited multiple times daily. She has not followed with a regular OB. Review of Systems All systems: negative Constitutional: Reports malaise, Denies chills, Denies fever Eyes: denies blurred vision, denies pain Ears, nose, mouth and throat: Denies headache, Denies sore throat Cardiovascular: Denies chest pain, Denies shortness of breath Respiratory: Denies cough Gastrointestinal: Reports as per HPI, Reports nausea, Reports vomiting, Denies abdominal pain, Denies diarrhea Genitourinary: Denies dysuria, Denies hematuria Musculoskeletal: Denies myalgias Integumentary: Denies pruritus, Denies rash Neurological: Denies numbness, Denies weakness Psychiatric: Denies anxiety, Denies depression Endocrine: Denies fatigue, Denies weight change Past Medical History Past Medical History: GERD/Reflux Additional Past Medical History / Comment(s): , severe hyperemesis gravidarum, cyclic vomiting syndrome, gastroparesis, Cordon's esophagus, hemorrhoids. History of Any Multi-Drug Resistant Organisms: None Reported Past Surgical History: No Surgical Hx Reported Additional Past Surgical History / Comment(s): EXPLORATORY LAPAROSCOPY 2009, EGD Past Anesthesia/Blood Transfusion Reactions: No Reported Reaction Smoking Status: Current every day smoker - Past Family History Mother History Unknown: Yes Family Medical History: Diabetes Mellitus Additional Family Medical History / Comment(s): Pt states she does not know mother's medical hx. Father History Unknown: Yes Additional Family Medical History / Comment(s): Pt states she does not know father's medical hx. Medications and Allergies Home Medications Medication Instructions Recorded Confirmed Type Ondansetron Odt [Zofran Odt] 4 mg PO Q8HR PRN #14 tab 07/06/19 11/23/19 Rx Cephalexin [Keflex] 500 mg PO BID #14 cap 11/23/19 11/23/19 Rx Omeprazole 40 mg PO DAILY 11/23/19 11/23/19 History Prochlorperazine Suppository 25 mg RECTAL BID PRN 11/23/19 11/23/19 History [Compazine] Scopolamine 1.5MG/72Hr Patch 1 patch TRANSDERM Q72H 11/23/19 11/23/19 History [Transderm-Scop 1.5MG/72Hr Patch] Allergies Allergy/AdvReac Type Severity Reaction Status Date / Time latex Allergy Unknown Rash/Hives Verified 11/23/19 08:19 Physical Exam Vitals: Vital Signs Temp Pulse Pulse Resp BP BP Pulse Ox 11/23/19 11:25 98.4 F 71 16 128/84 96 11/23/19 10:56 98.7 F 87 16 111/49 97 11/23/19 07:20 98.1 F 75 16 96/63 99 11/23/19 05:55 98.0 F 70 16 121/82 99 Intake and Output 11/23/19 11/23/19 11/23/19 06:59 14:59 22:59 Output Total 400 700 Balance -400 -700 Output: Urine 100 300 Emesis 300 400 Other: Weight 40.823 kg 40.823 kg General: well nourished, well developed, NAD. Vitals reviewed Eyes: PERRL, EOMI, conjunctiva normal HENT: normocephalic, mucus membranes moist Neck: supple, no JVD Lungs: normal respiratory effort, no wheezes or rales CV: Regular rate and rhythm, no murmur. Peripheral pulses 2+ Abdomen: soft, nondistended, no organomegaly Lymph: no cervical or axillary LAD Skin: warm and dry. Neuro: A&Ox3, normal mood and affect Results Labs: Abnormal Lab Results - Last 24 Hours (Table) 11/23/19 Range/Units 07:28 Urine Protein Trace H (Negative) Urine Glucose (UA) 2+ H (Negative) Urine Ketones Trace H (Negative) Urine Blood Trace H (Negative) Ur Leukocyte Esterase Trace H (Negative) Ur Squamous Epith Cells 10 H (0-4) /hpf Urine Mucus Many H (None) /hpf Thrombosis Risk Factor Assmnt - Choose All That Apply Any of the Below Risk Factors Present?: Yes Each Factor Represents 1 point: or Other Risk Factors: No Other congenital or acquired thrombophilia - If yes, enter type in comment: No Thrombosis Risk Factor Assessment Total Risk Factor Score: 1 Thrombosis Risk Factor Assessment Level: Low Risk Assessment and Plan (1) Hyperemesis gravidarum Current Visit: Yes Status: Acute Code(s): O21.0 - MILD HYPEREMESIS GRAVIDARUM SNOMED Code(s): 23743290 (2) Gastroparesis Current Visit: Yes Status: Acute Code(s): K31.84 - GASTROPARESIS SNOMED Code(s): 651677642 Plan: 1. Hyperemesis. Consult CRIMINAL LAWYER. IV pyridoxine. Zofran and reglan prn. Follow hCG
[2019-11-23] MEDS: diphenhydrAMINE 50 MG/ML 1 ML VIAL IVP PRN (22:38)
[2019-11-24] MEDS: ONDANSETRON 4 MG/2 ML VIAL IVP PRN ×3 (02:47→17:23)
[2019-11-24 06:14] LABS: Basophils % (A) 0 %; Eosinophils % (A) 0 %; HCT 36.8 % (34.0-46.0); Lymphocytes # (A) 2.3 k/uL (1.0-4.8); Lymphocytes % (A) 22 %; MCHC 32.8 g/dL (31.0-37.0); MCV 94.5 fL (80.0-100.0); Mean Platelet Volume 8.6; Monocytes # (A) 0.5 k/uL (0-1.0); Monocytes % (A) 5 %; Neutrophils # (A) 7.4 k/uL (1.3-7.7); Neutrophils % (A) 71 %; Platelet Count 169 k/uL (150-450); RBC 3.89 m/uL (3.80-5.40); RDW 12.7 % (11.5-15.5); WBC 10.4 k/uL (3.8-10.6)
[2019-11-24 06:33] LABS: African American GFR (CKD) >90 (>60 ml/min/1.73 sqM); Anion Gap 4 mmol/L; Blood Urea Nitrogen 6 mg/dL (7-17); Calcium 8.6 mg/dL (8.4-10.2); Carbon Dioxide 26 mmol/L (22-30); Chloride 107 mmol/L (98-107); Glucose 107 mg/dL (74-99); Non-African American GFR(CKD) >90 (>60 ml/min/1.73 sqM); Potassium 3.5 mmol/L (3.5-5.1); Sodium 137 mmol/L (137-145)
[2019-11-24] MEDS: METOCLOPRAMIDE 5 MG/ML 2 ML VIAL IVP PRN ×2 (08:19→17:23)
[2019-11-24] MEDS ORDERED: PYRIDOXINE 50 MG TAB PO SCH (09:00)
[2019-11-24] MEDS: PANTOPRAZOLE 40 MG/10 ML VIAL IVP SCH ×2 (09:38→21:35)
[2019-11-24] MEDS: DEXTROSE 5%-0.45% NACL 1,000 ML IV SCH (11:11)
[2019-11-24 11:41] VITALS: BMI 17.5
--- NOTE | 2019-11-24 14:07 | P.PN ---
Subjective Progress Note Date: 11/24/19 Luann Molina s a 24 yo who presented to the ED complaining of severe nausea and vomiting over the past few days. She states she had hyperemesis with her previous pregnancies, feels this is somewhat worse. She states is unable to keep anything down and has vomited multiple times daily. She has not followed with a regular OB. 11/24/2019 evaluated by OCEAN FREIGHT MANAGER with recommendations noted and appreci ated.maintained on IV fluid hydration, continues to have significant nausea,vomiting on Zofran, Reglan. Denies chest pain, shortness of breath. Denies lightheadedness, dizziness, or focal deficits. Objective - Vital Signs Vital signs: Vital Signs Temp 98.8 F 11/24/19 12:50 Pulse 61 11/24/19 12:50 Resp 16 11/24/19 12:50 BP 93/51 11/24/19 12:50 Pulse Ox 98 11/24/19 12:50 Intake & Output 11/23/19 11/24/19 11/24/19 18:59 06:59 18:59 Output Total 1100 1100 Balance -1100 -1100 Weight 40.823 kg 40.823 kg Output: Urine 400 900 Emesis 700 200 Other: # Voids 2 - Exam General: Sitting up in bed, no acute distress, teary-eyed Eyes: PERRL, EOMI, conjunctiva normal HENT: normocephalic, mucus membranes moist Neck: supple, no JVD Lungs: normal respiratory effort, no wheezes or rales CV: Regular rate and rhythm, no murmur. Peripheral pulses 2+ Abdomen: soft, nondistended, no organomegaly, positive bowel sounds Skin: warm and dry. Neuro: A&Ox3, normal mood and affect - Labs CBC & Chem 7: 11/24/19 05:40 11/24/19 05:40 Labs: Abnormal Lab Results - Last 24 Hours (Table) 11/24/19 Range/Units 05:40 BUN 6 L (7-17) mg/dL Creatinine 0.45 L (0.52-1.04) mg/dL Glucose 107 H (74-99) mg/dL Assessment and Plan Assessment: (1) Hyperemesis gravidarum Current Visit: Yes Status: Acute Code(s): O21.0 - MILD HYPEREMESIS GRAVID ARUM SNOMED Code(s): 22795364 (2) Gastroparesis Current Visit: Yes Status: Acute Code(s): K31.84 - GASTROPARESIS SNOMED Code(s): 021873477 Plan: Continue on current medication regime ,monitoring and symptomatically treatment. Recommend Zofran, Reglan and Phenergan to be administered every 6 hours scheduled together. Recommend vitamin B6 50 mg IV twice a day.BRAT diet. Maintain IV fluid hydration. Monitor hCG / Follow closely with OCEAN FREIGHT MANAGER. The impression and plan of care has been dictated as directed. : I performed a history and examination of this patient, discussed the same with the dictator. I agree with the dictator's note ,documented as a scribe. Any additional findings or plans will be noted.
[2019-11-24] MEDS: PROMETHAZINE INJ 12.5 MG in SODIUM CHLORIDE 0.9% 50 ML IVPB SCH ×2 (14:58→21:35)
[2019-11-24] MEDS: PYRIDOXINE 100 MG/ML 1 ML VIAL IVP SCH (21:38)
[2019-11-25] MEDS: DEXTROSE 5%-0.45% NACL 1,000 ML IV SCH ×2 (00:29→15:58)
[2019-11-25] MEDS: PROMETHAZINE INJ 12.5 MG in SODIUM CHLORIDE 0.9% 50 ML IVPB SCH ×4 (02:07→20:52)
[2019-11-25] MEDS: ONDANSETRON 4 MG/2 ML VIAL IVP PRN ×3 (07:28→19:35)
[2019-11-25] MEDS: diphenhydrAMINE 50 MG/ML 1 ML VIAL IVP PRN ×3 (08:00→19:35)
[2019-11-25] MEDS: METOCLOPRAMIDE 5 MG/ML 2 ML VIAL IVP PRN ×2 (08:02→15:58)
[2019-11-25] MEDS: PYRIDOXINE 100 MG/ML 1 ML VIAL IVP SCH ×2 (08:32→22:13)
[2019-11-25] MEDS: PANTOPRAZOLE 40 MG/10 ML VIAL IVP SCH ×2 (08:32→20:52)
--- NOTE | 2019-11-25 09:52 | P.PN ---
Subjective Progress Note Date: 11/25/19 Luann Molina s a 24 yo who presented to the ED complaining of severe nausea and vomiting over the past few days. She states she had hyperemesis with her previous pregnancies, feels this is somewhat worse. She states is unable to keep anything down and has vomited multiple times daily. She has not followed with a regular OB. 11/24/2019 evaluated by SALES SERVICE COORDINATOR with recommendations noted and appreci ated.maintained on IV fluid hydration, continues to have significant nausea,vomiting on Zofran, Reglan. Denies chest pain, shortness of breath. Denies lightheadedness, dizziness, or focal deficits. 11/25/2019 maintained on IV fluid hydration, Zofran, Reglan, Phenergan, vitamin B6 with improvement in nausea and emesis. Reports she was able tolerate protein shakes and some broth last night without further emesis. Mild nausea this morning. Denies chest pain, palpitations or shortness of breath. HCG 435.8. Afebrile. Objective - Vital Signs Vital signs: Vital Signs Temp 98.1 F 11/25/19 08:15 Pulse 67 11/25/19 08:15 Resp 16 11/25/19 08:15 BP 147/83 11/25/19 08:15 Pulse Ox 99 11/25/19 08:15 Intake & Output 11/24/19 11/25/19 11/25/19 18:59 06:59 18:59 Intake Total 240 800 Balance 240 800 Weight 40.823 kg Intake: Oral 240 800 Other: # Voids 3 - Exam General: Sitting up in bed, no acute distress Eyes: PERRL, EOMI, conjunctiva normal HENT: normocephalic, mucus membranes moist Neck: supple, no JVD Lungs: normal respiratory effort, no wheezes or rales CV: Regular rate and rhythm, no murmur. Peripheral pulses 2+ Abdomen: soft, nondistended, no organomegaly, positive bowel sounds Skin: warm and dry. Neuro: A&Ox3, normal mood and affect - Labs CBC & Chem 7: 11/24/19 05:40 11/24/19 05:40 Assessment and Plan Assessment: (1) Hyperemesis gravidarum Current Visit: Yes Status: Acute Code(s): O21.0 - MILD HYPEREMESIS GRAVIDARUM SNOMED Code(s): 89678990 (2) Gastroparesis Current Visit: Yes Status: Acute Code(s): K31.84 - GASTROPARESIS SNOMED Code(s): 305146438 Plan: Continue on current medication regime ,monitoring and symptomatically treatment. Maintain IV fluid hydration, antiemetic regimen. BRAT diet, advance as tolerated. Follow closely with SALES SERVICE COORDINATOR. Discussed discharge planning in progress for tomorrow, on oral Reglan and Zofran ,Phenergan rectal suppositories. The impression and plan of care has been dictated as directed. : I performed a history and examination of this patient, discussed the same with the dictator. I agree with the dictator's note ,documented as a scribe. Any additional findings or plans will be noted.
--- NOTE | 2019-11-25 20:55 | P.PN ---
Progress Note - Text Progress Note Date: 11/25/19 24 year old admitted for intractable N/V. Her bhcg did rise from 157 to 435 in the last 48 hours. This is more than double and shows likely a normal is forming. It is still too early for ultrasound. With this level of bhcg it is exceedingly rare for her to suffer from hyperemesis gravidarum. i would more likely assume her N/V and diarrhea now, are from withdrawl of medications or her gastroparesis. She says the protonix helped some, she is taking zofran, phenergan and reglan around the clock and still throwing up. If this were hyperemesis, steroids could help and may be considered.
--- NOTE | 2019-11-25 23:05 | CONS ---
CONSULTATION DATE OF SERVICE: November 25, 2019. REASON FOR CONSULTATION: Persistent nausea, vomiting. HISTORY OF PRESENT ILLNESS: The patient is a 24-year-old pleasant white female admitted to hospital with persistent nausea, vomiting for the last 2 days duration. She is 4 weeks . The patient states that during her prior 3 years ago she had similar episodes and she had hyperemesis throughout her . However, this episode seems to be worse. She threw up at least 10 times yesterday. On an outpatient basis, she was treated with Zofran, scopolamine patch, Phenergan and no help. Currently receiving IV Zofran, IV Reglan and still remains symptomatic. She is hardly able to tolerate any liquids. She had some epigastric discomfort but she believes that her excessive retching and throwing. PAST MEDICAL HISTORY: Hyperemesis during prior pregnancies, gastroesophageal reflux disease. PAST SURGICAL HISTORY: Diagnostic arthroscopy, EGD in the past. SOCIAL HISTORY: No smoking. No alcohol use. FAMILY HISTORY: Mother diabetes mellitus, father healthy. MEDICATIONS: Medications at home include Zofran, Keflex, omeprazole, Compazine, scopolamine patch. ALLERGIES: LATEX. REVIEW OF SYSTEMS: CARDIOPULMONARY: No chest pain or shortness of breath. : No dysuria or hematuria. MUSCULOSKELETAL unremarkable. SKIN unremarkable. ENDOCRINE unremarkable. PSYCHIATRIC unremarkable. NEUROLOGY unremarkable. ENT/VISION: Unremarkable. CONSTITUTIONAL: No recent weight loss. No fever, chills, night sweats. PHYSICAL EXAMINATION: She appears comfortable. No apparent distress. Vital signs stable. Blood pressure is 118/62, pulse rate 71, temperature 98.4. HEENT examination unremarkable. Conjunctivae pink. Sclerae anicteric. Oral cavity no lesions. NECK no JVD or lymph node enlargement. CHEST was clear to auscultation. HEART: Regular rate and rhythm. ABDOMEN: Soft. Bowel sounds are positive. Minimal tenderness in the lower abdominal area. EXTREMITIES: No pedal edema. SKIN no rashes. NEUROLOGIC: Alert and oriented x3. No focal deficits. LABS: WBC 10.4, hemoglobin 12, platelets normal. Basic metabolic panel is within normal limits. Rest of the labs are within normal limits. Hcg 435. IMPRESSION: Persistent nausea and vomiting for the last 4 days duration in this lady who is 4 weeks . She had severe hyperemesis during her prior . Her current symptoms have been going on for the last 4 days and failed outpatient therapy. Currently on IV Zofran, IV Reglan, IV Protonix and still remains symptomatic. RECOMMENDATIONS: 1. Continue with symptomatic and supportive care. 2. Alternate Zofran with Reglan so that she receives antiemetics every 3 hours. 3. Await GRADUATE TEACHING ASSISTANT recommendations. 4. No plans for any endoscopy intervention at the present time. 5. Continue Protonix daily. 6. We will follow with you closely. Thank you for this consultation. MMCOREYL / IJN: [id number] /
[2019-11-26] MEDS: METOCLOPRAMIDE 5 MG/ML 2 ML VIAL IVP PRN (00:17)
[2019-11-26] MEDS: ONDANSETRON 4 MG/2 ML VIAL IVP PRN (01:39)
[2019-11-26] MEDS: diphenhydrAMINE 50 MG/ML 1 ML VIAL IVP PRN (01:39)
[2019-11-26] MEDS: PROMETHAZINE INJ 12.5 MG in SODIUM CHLORIDE 0.9% 50 ML IVPB SCH ×3 (03:07→13:52)
[2019-11-26] MEDS: DEXTROSE 5%-0.45% NACL 1,000 ML IV SCH (03:08)
[2019-11-26] MEDS: PANTOPRAZOLE 40 MG/10 ML VIAL IVP SCH (08:10)
[2019-11-26] MEDS: PYRIDOXINE 100 MG/ML 1 ML VIAL IVP SCH (08:10)
[2019-11-26 08:19] LABS: African American GFR (CKD) >90 (>60 ml/min/1.73 sqM); Anion Gap 9 mmol/L; Blood Urea Nitrogen 6 mg/dL (7-17); Calcium 8.6 mg/dL (8.4-10.2); Carbon Dioxide 25 mmol/L (22-30); Chloride 102 mmol/L (98-107); Glucose 93 mg/dL (74-99); Non-African American GFR(CKD) >90 (>60 ml/min/1.73 sqM); Sodium 136 mmol/L (137-145)
--- NOTE | 2019-11-26 12:19 | PN ---
PROGRESS NOTE DATE OF DICTATION: November 26, 2019. REQUESTING PHYSICIAN: Dr. Molly Villasenor. BRIEF HISTORY: Patient is a 24-year-old pleasant white female admitted to hospital with severe intractable nausea, vomiting for the last 4-5 days duration. She is 5 weeks and she had similar symptoms during her prior . She is presently on Phenergan and Zofran and is feeling much better this morning. She still has some nausea, was able to eat some soft diet this morning without any complaints. She is complaining of some low back pain. PHYSICAL EXAMINATION: Appears comfortable, no apparent distress. Vital signs stable. Blood pressure 112/82, pulse rate 86, temperature 98. HEENT examination unremarkable. Conjunctive pink. Sclerae anicteric. Oral cavity no lesions. Neck no JVD. No lymph node enlargement. CHEST was clear to auscultation. HEART: Regular rate and rhythm. ABDOMEN: Soft. Bowel sounds are positive. No organomegaly. EXTREMITIES: No pedal edema. SKIN no rashes. NEUROLOGIC: Alert and oriented x3. No focal deficits. LABS: From today, basic metabolic panel, sodium is 136, potassium 3.9 with a BUN and creatinine are within normal limits. IMPRESSION: 1. Severe intractable nausea, vomiting for the last 5 days duration. Presently on Phenergan, Zofran as well as Protonix. She is feeling much better today. She was also started on metoclopramide in the ER, which she has not received much so far. Overall, she is doing better. 2. Five weeks of gestation. RECOMMENDATIONS: 1. Continue with Phenergan 12.5 mg every 6 hours as needed. 2. Zofran alternating with Phenergan if needed. 3. Continue Protonix 40 mg twice daily. 4. Advance to a regular diet, but patient was advised on a low-fat and was briefly educated about anti-reflux measures. If she is able to tolerate her lunch , she can be discharged home with outpatient followup as needed. Thank you for this consultation. MMODL / IJN: [id number] /
[2019-11-26] MEDS ORDERED: POTASSIUM CHLORIDE ER 10 MEQ TAB.ER.PRT PO STA (12:20)
[2019-11-26] MEDS ORDERED: POTASSIUM BICARBONATE/CIT AC 20 MEQ TABLET.EFF PO STA (12:35)
[2019-11-26 13:07] VITALS: BP 120/65; RESP 16; TEMP 97.8
[2019-11-26 15:08] VITALS: PULSE 80
--- NOTE | 2019-11-26 16:54 | P.PN ---
Subjective Progress Note Date: 11/26/19 Principal diagnosis: Major depression recurrent moderate Early normal Subjective: The patient says that she never said anything by killing herself but that somebody didn't do something and this went on for week after week she would probably become suicidal. She denies now or in the past ever having had any manic episodes or any psychotic symptoms. She says she was placed on the Lamictal at 25 twice a day but is never had moods she was told that might help with anxiety.(Lamictal works well for the depressive component of bipolar at 100-400 mg it seldom does anything it 50 a day) she was also on mirtazapine at 15 mg a day which helped both with appetite and with sleep. And she has relatively positive feeling about that his special he since it is a category C in terms of . She says that it has helped some with concentration motivation but not as much as she would like. (Mirtazapine normally requires 30-45 mg to work the fact that is helping some and 15 is encouraging and it tends to have fewer side effects at higher doses so I don't think that increasing it would cause any trouble) Objective patient is pleasant and cooperative good eye contact quicker response times without being pressured no signs of hilaria no evidence of psychosis she d enies any no suicidal or homicidal thoughts. Gait and station are normal self- care is adequate she has a realistic plan is to where to go and what to do. She is oriented to person place time and circumstance. She does complain of some difficulty with anxiety and sadness concentration and difficulty enjoying things. Assessment she does have enough depression to benefit from medication and seems to be motivated to get into better supports whether it's going to [facility] and participating are going to counseling and she is positive about the mirtazapine. Suggest that she increase her mirtazapine to 30 mg and discontinue the Lamictal which she has not been taking should have to titrate all over again and I don't think is indicated for her symptoms. It's okay for her to go home I don't see h er as a danger to self or others she does not need to be admitted to the psychiatric unit. I did review with her how Remeron works what his Prozac and cons are a long it takes till she sees benefit the fact that is not addicting. And also that extreme importance of working on what it is that cause her to be stressed out in counseling and not just take medications. Objective - Vital Signs Vital signs: Vital Signs Temp 97.8 F 11/26/19 13:06 Pulse 80 11/26/19 15:06 Resp 16 11/26/19 15:06 BP 120/65 11/26/19 13:06 Pulse Ox 97 11/26/19 13:06 Intake & Output 11/25/19 11/26/19 11/26/19 18:59 06:59 18:59 Intake Total 1560 Output Total 100 300 Balance -100 1260 Weight 45 kg Intake: Intake, IV Titration 600 Amount Dextrose 5%-0.45% NaCl 1, 600 000 ml @ 75 mls/hr IV . [id number] [facility] Rx#:[id number] Oral 960 Output: Urine 300 Emesis 100 Other: Voiding Method Toilet Toilet # Voids 1 3 # Bowel Movements 3 - Labs CBC & Chem 7: 11/24/19 05:40 11/26/19 07:41 Labs: Abnormal Lab Results - Last 24 Hours (Table) 11/26/19 Range/Units 07:41 Sodium 136 L (137-145) mmol/L Potassium 3.0 L (3.5-5.1) mmol/L BUN 6 L (7-17) mg/dL
--- NOTE | 2019-11-30 09:00 | P.DS ---
Providers Date of admission: 11/25/19 09:57 Attending physician: Joselito Freeman MD Consults: 11/23/19 08:25 Consult Physician Urgent Consulting Provider: Radha Langston Consult Reason/Comments: first trimester , hyperemesis Do you want consulting provider notified?: Yes 11/25/19 13:48 Consult Physician Stat Consulting Provider: Karis Bejarano Consult Reason/Comments: 4 weeks , suicidal ideation Do you want consulting provider notified?: Yes 11/25/19 13:50 Consult Physician Stat Consulting Provider: Darcie Herrera Consult Reason/Comments: hyperemisis, hx of gastroparesis Do you want consulting provider notified?: Yes Primary care physician: [facility] Course: Luann Molina s a 24 yo who presented to the ED complaining of severe nausea and vomiting over the past few days. She states she had hyperemesis with her previous pregnancies, feels this is somewhat worse. She states is unable to keep anything down and has vomited multiple times daily. She has not followed with a regular OB. 11/24/2019 evaluated by CERTIFIED NURSES AIDE with recommendations noted and appreciated.maintained on IV fluid hydration, continues to have significant nausea,vomiting on Zofran, Reglan. Denies chest pain, shortness of breath. Denies lightheadedness, dizziness, or focal deficits. Plan: Continue on current medication regime ,monitoring and symptomatically treatment. Recommend Zofran, Reglan and Phenergan to be administered every 6 hours scheduled together. Recommend vitamin B6 50 mg IV twice a day.BRAT diet. Maintain IV fluid hydration. Monitor hCG / Follow closely with CERTIFIED NURSES AIDE. 11/25/2019 maintained on IV fluid hydration, Zofran, Reglan, Phenergan, vitamin B6 with improvement in nausea and emesis. Reports she was able tolerate protein shakes and some broth last night without further emesis. Mild nausea this morning. Denies chest pain, palpitations or shortness of breath. HCG 435.8. Afebrile. patient remained stable and was nj'ed home Patient Condition at Discharge: Stable Plan - Discharge Summary Discharge Rx Participant: No New Discharge Prescriptions: Continue Ondansetron Odt [Zofran ODT] 4 mg PO Q8HR PRN #14 tab PRN Reason: Nausea Cephalexin [Keflex] 500 mg PO BID #14 cap Scopolamine 1.5MG/72Hr Patch [TransDerm Scop] 1 patch TRANSDERM Q72H Omeprazole 40 mg PO DAILY Prochlorperazine Suppository [Compazine] 25 mg RECTAL BID PRN PRN Reason: Vomiting Discharge Medication List Ondansetron Odt [Zofran ODT] 4 mg PO Q8HR PRN #14 tab 07/06/19 [Rx] Cephalexin [Keflex] 500 mg PO BID #14 cap 11/23/19 [Rx] Omeprazole 40 mg PO DAILY 11/23/19 [History] Prochlorperazine Suppository [Compazine] 25 mg RECTAL BID PRN 11/23/19 [History] Scopolamine 1.5MG/72Hr Patch [TransDerm Scop] 1 patch TRANSDERM Q72H 11/23/19 [History] Follow up Appointment(s)/Referral(s): Julienne Benson MD [REFERRING] - 1 Week Molly Villasenor DO [Primary Care Provider] - 1-2 days Patient Instructions/Handouts: Metoclopramide (By mouth), Pyridoxine (By mouth), Hyperemesis Gravidarum (GEN) Discharge Disposition: HOME SELF-CARE
== END 2019-11-26 16:45 | disposition home or self-care (01) | DRG 832 ==
LOC: EC 05:49 → 6PED 08:22 → OBSVTOIN 11-25 09:57 → 5NMEDONC 11-25 18:06
PROVIDERS: ADMIT Family Medicine; ATTEND Family Medicine
DX: O21.0 Mild hyperemesis gravidarum (principal); O23.41 Unspecified infection of urinary tract in pregnancy, first trimester; E86.0 Dehydration; O99.281 Endocrine, nutritional and metabolic diseases complicating pregnancy, first trimester; O99.611 Diseases of the digestive system complicating pregnancy, first trimester; K31.84 Gastroparesis; K21.9 Gastro-esophageal reflux disease without esophagitis; K22.70 Barrett's esophagus without dysplasia; O99.331 Smoking (tobacco) complicating pregnancy, first trimester; M54.5 Low back pain; F17.200 Nicotine dependence, unspecified, uncomplicated; Z3A.01 Less than 8 weeks gestation of pregnancy; Z79.899 Other long term (current) drug therapy; Z91.040 Latex allergy status; Z87.442 Personal history of urinary calculi; Z98.890 Other specified postprocedural states; Z86.59 Personal history of other mental and behavioral disorders; Z62.810 Personal history of physical and sexual abuse in childhood; Z91.5 Personal history of self-harm; Z91.419 Personal history of unspecified adult abuse; Z83.3 Family history of diabetes mellitus
CPT/HCPCS: 80048; 81001; 84443; 84702; 85025; 96361; 96374; 96375; 99284

== ENCOUNTER 2020-09-18 09:54 | Inpatient (IN) | payer MEDICAID, OTHER ==
[2020-09-18] MEDS ORDERED: ONDANSETRON 4 MG/2 ML VIAL IVP STA ×2 (10:11→13:18)
[2020-09-18] MEDS ORDERED: SODIUM CHLORIDE 0.9% 500 ML 500 ML IV STA (10:11)
[2020-09-18] MEDS ORDERED: FAMOTIDINE 20 MG/2 ML VIAL IV STA (10:12)
--- NOTE | 2020-09-18 10:13 | ED ---
General Adult HPI - General Chief complaint: Psychiatric Symptoms Stated complaint: mental health Time Seen by Provider: 09/18/20 10:06 Source: patient, RN notes reviewed Mode of arrival: ambulatory Limitations: no limitations - History of Present Illness Initial comments: Patient is a pleasant 24-year-old female presenting to the emergency Department with concerns regarding her mental health. Patient has a history of anorexia since age 10. Patient states she is trying to eat more recently however has been vomiting. Patient does feel nauseous. No fevers. No constipation or diarrhea. Patient does feel depressed. Patient does have suicidal thoughts and has had a plan of driving her vehicle into a stationary object or off a bridge. No homicidal thoughts. No hallucinations. No alcohol use. Occasional marijuana use. - Related Data Home Medications Medication Instructions Recorded Confirmed Calcium Carbonate [Tums] 500 mg PO DAILY PRN 09/18/20 09/18/20 Allergies Allergy/AdvReac Type Severity Reaction Status Date / Time latex Allergy Unknown Rash/Hives Verified 09/18/20 10:51 Review of Systems ROS Statement: Those systems with pertinent positive or pertinent negative responses have been documented in the HPI. ROS Other: All systems not noted in ROS Statement are negative. Constitutional: Denies: fever Eyes: Denies: eye pain ENT: Denies: ear pain Respiratory: Denies: cough Cardiovascular: Denies: chest pain Endocrine: Denies: fatigue Gastrointestinal: Reports: nausea, vomiting. Denies: abdominal pain, diarrhea, constipation Genitourinary: Denies: dysuria Musculoskeletal: Denies: back pain Skin: Denies: rash Neurological: Denies: weakness Psychiatric: Reports: anxiety, depression, suicidal thoughts. Denies: auditory hallucinations, visual hallucinations, homicidal thoughts Past Medical History Past Medical History: GERD/Reflux Additional Past Medical History / Comment(s): , severe hyperemesis gravidarum, cyclic vomiting syndrome, gastroparesis, Cordon's esophagus, hemorrhoids. History of Any Multi-Drug Resistant Organisms: None Reported Past Surgical History: No Surgical Hx Reported Additional Past Surgical History / Comment(s): EXPLORATORY LAPAROSCOPY 2009, EGD Past Anesthesia/Blood Transfusion Reactions: No Reported Reaction Past Psychological History: Anxiety, Depression Smoking Status: Current every day smoker Past Alcohol Use History: None Reported Past Drug Use History: Marijuana - Past Family History Mother History Unknown: Yes Family Medical History: Diabetes Mellitus Additional Family Medical History / Comment(s): Pt states she does not know mother's medical hx. Father History Unknown: Yes Additional Family Medical History / Comment(s): Pt states she does not know father's medical hx. General Exam Limitations: no limitations General appearance: alert, in no apparent distress Head exam: Present: normocephalic Eye exam: Present: normal appearance Neck exam: Present: normal inspection Respiratory exam: Present: normal lung sounds bilaterally Cardiovascular Exam: Present: regular rate, normal rhythm GI/Abdominal exam: Present: soft. Absent: tenderness Extremities exam: Present: normal inspection Neurological exam: Present: alert Psychiatric exam: Present: depressed, anxious Skin exam: Present: normal color Course Vital Signs 09/18/20 09:57 Temperature 98.0 F Pulse Rate 69 Respiratory 18 Rate Blood Pressure 126/87 O2 Sat by Pulse 99 Oximetry Medical Decision Making - Medical Decision Making Patient was seen by mental health services with plans for admission. - Lab Data Result diagrams: 09/18/20 10:20 09/18/20 10:20 Lab Results 09/18/20 09/18/20 09/18/20 Range/Units 10:20 10:20 10:20 WBC 6.5 (3.8-10.6) k/uL RBC 4.50 (3.80-5.40) m/uL Hgb 13.6 (11.4-16.0) gm/dL Hct 40.0 (34.0-46.0) % MCV 88.9 (80.0-100.0) fL MCH 30.3 (25.0-35.0) pg MCHC 34.1 (31.0-37.0) g/dL RDW 14.5 (11.5-15.5) % Plt Count 207 (150-450) k/uL MPV 8.3 Neutrophils % 68 % Lymphocytes % 26 % Monocytes % 4 % Eosinophils % 1 % Basophils % 1 % Neutrophils # 4.4 (1.3-7.7) k/uL Lymphocytes # 1.7 (1.0-4.8) k/uL Monocytes # 0.2 (0-1.0) k/uL Eosinophils # 0.1 (0-0.7) k/uL Basophils # 0.0 (0-0.2) k/uL Sodium 142 (137-145) mmol/L Potassium 3.9 (3.5-5.1) mmol/L Chloride 107 (98-107) mmol/L Carbon Dioxide 24 (22-30) mmol/L Anion Gap 11 mmol/L BUN 13 (7-17) mg/dL Creatinine 0.59 (0.52-1.04) mg/dL Est GFR (CKD-EPI)AfAm >90 (>60 ml/min/1.73 sqM) Est GFR (CKD-EPI)NonAf >90 (>60 ml/min/1.73 sqM) Glucose 112 H (74-99) mg/dL Calcium 9.9 (8.4-10.2) mg/dL Total Bilirubin 0.6 (0.2-1.3) mg/dL AST 23 (14-36) U/L ALT 12 (4-34) U/L Alkaline Phosphatase 55 (38-126) U/L Total Protein 7.5 (6.3-8.2) g/dL Albumin 4.9 (3.5-5.0) g/dL Amylase 47 (30-110) U/L Lipase 96 (23-300) U/L HCG, Quant <2.4 mIU/mL Urine Color Yellow Urine Appearance Cloudy H (Clear) Urine pH 8.5 H (5.0-8.0) Ur Specific [place] 1.025 (1.001-1.035) Urine Protein 2+ H (Negative) Urine Glucose (UA) Negative (Negative) Urine Ketones 2+ H (Negative) Urine Blood Negative (Negative) Urine Nitrite Negative (Negative) Urine Bilirubin Negative (Negative) Urine Urobilinogen <2.0 (<2.0) mg/dL Ur Leukocyte Esterase Negative (Negative) Urine RBC 2 (0-5) /hpf Ur Squamous Epith Cells 1 (0-4) /hpf Amorphous Sediment Rare H (None) /hpf Urine Bacteria Moderate H (None) /hpf Urine Mucus Many H (None) /hpf Urine Opiates Screen Not Detected (NotDetected) Ur Oxycodone Screen Not Detected (NotDetected) Urine Methadone Screen Not Detected (NotDetected) Ur Propoxyphene Screen Not Detected (NotDetected) Ur Barbiturates Screen Not Detected (NotDetected) U Tricyclic Antidepress Not Detected (NotDetected) Ur Phencyclidine Scrn Not Detected (NotDetected) Ur Amphetamines Screen Not Detected (NotDetected) U Methamphetamines Scrn Not Detected (NotDetected) U Benzodiazepines Scrn Not Detected (NotDetected) Urine Cocaine Screen Not Detected (NotDetected) U Marijuana (THC) Screen Detected H (NotDetected) Disposition Clinical Impression: Depression, Suicidal ideation Disposition: TRANSFER TO PSYCH HOSP/UNIT Is patient prescribed a controlled substance at d/c from ED?: No Referrals: None,Stated [Primary Care Provider] - 1-2 days Decision Time: 14:40
[2020-09-18 10:51] LABS: ALT 12 U/L (4-34); AST 23 U/L (14-36); African American GFR (CKD) >90 (>60 ml/min/1.73 sqM); Albumin 4.9 g/dL (3.5-5.0); Alkaline Phosphatase 55 U/L (38-126); Amylase 47 U/L (30-110); Anion Gap 11 mmol/L; Blood Urea Nitrogen 13 mg/dL (7-17); Calcium 9.9 mg/dL (8.4-10.2); Carbon Dioxide 24 mmol/L (22-30); Chloride 107 mmol/L (98-107); Glucose 112 mg/dL (74-99); Lipase 96 U/L (23-300); Non-African American GFR(CKD) >90 (>60 ml/min/1.73 sqM); Potassium 3.9 mmol/L (3.5-5.1); Sodium 142 mmol/L (137-145); Total Bilirubin 0.6 mg/dL (0.2-1.3); Total Protein 7.5 g/dL (6.3-8.2)
[2020-09-18 10:53] LABS: Basophils % (A) 1 %; Eosinophils # (A) 0.1 k/uL (0-0.7); Eosinophils % (A) 1 %; HGB 13.6 gm/dL (11.4-16.0); Lymphocytes # (A) 1.7 k/uL (1.0-4.8); Lymphocytes % (A) 26 %; MCH 30.3 pg (25.0-35.0); MCHC 34.1 g/dL (31.0-37.0); MCV 88.9 fL (80.0-100.0); Mean Platelet Volume 8.3; Monocytes # (A) 0.2 k/uL (0-1.0); Monocytes % (A) 4 %; Neutrophils # (A) 4.4 k/uL (1.3-7.7); Neutrophils % (A) 68 %; Platelet Count 207 k/uL (150-450); RDW 14.5 % (11.5-15.5); WBC 6.5 k/uL (3.8-10.6)
[2020-09-18 11:07] LABS: HCG,Quantitative Serum <2.4 mIU/mL
[2020-09-18 12:41] LABS: Amorphous Sediment,Urine Rare /hpf; Appearance,Urine Cloudy (Clear); Bacteria,Urine Moderate /hpf; Bilirubin,Urine Negative (Negative); Blood,Urine Negative (Negative); Color,Urine Yellow; Glucose,Urine (UA) Negative (Negative); Ketones,Urine 2+ (Negative); Leukocyte Esterase,Urine Negative (Negative); Mucus,Urine Many /hpf; Nitrite,Urine Negative (Negative); PH, Urine 8.5 (5.0-8.0); Protein,Urine 2+ (Negative); RBC,Urine 2 /hpf (0-5); Specific Gravity,Urine 1.025 (1.001-1.035); Squamous Epithelial Cell,Urine 1 /hpf (0-4); Urobilinogen,Urine <2.0 mg/dL (<2.0)
[2020-09-18 12:42] LABS: Amphetamine Screen,Urine Not Detected (NotDetected); Barbiturate Screen,Urine Not Detected (NotDetected); Benzodiazepines Screen,Urine Not Detected (NotDetected); Cocaine Screen,Urine Not Detected (NotDetected); Methadone Screen, Urine Not Detected (NotDetected); Opiate Screen,Urine Not Detected (NotDetected); Oxycodone Screen, Urine Not Detected (NotDetected); Phencyclidine Screen,Urine Not Detected (NotDetected); Tricyclic Antidepressant,Urine Not Detected (NotDetected); Urn Cannabinoid Scrn Detected (NotDetected)
[2020-09-18] MEDS ORDERED: ONDANSETRON 4 MG TAB PO PRN (18:05)
[2020-09-18] MEDS ORDERED: MAGNESIUM HYDROXIDE 2,400 MG/10 ML CUP PO PRN (18:08)
[2020-09-18] MEDS ORDERED: MAG HYDROX/AL HYDROX/SIMETH 30 ML CUP PO PRN (18:08)
[2020-09-18] MEDS ORDERED: ACETAMINOPHEN TAB 325 MG TAB PO PRN (18:08)
--- NOTE | 2020-09-19 02:56 | P.MDCNMH ---
History of Present Illness H&P Date: 09/19/20 Chief Complaint: repeated vomiting 24 year old female with history of cyclical vomiting syndrome , anorexia nervosa, history of Cordon's esophagus Interview and exam done with RN in the room patient comes in due to depression and suicidal ideation she discussed with me , how she wants to gain weight and trying to eat more, she is couple months post . however, every time she eats she vomits, and that she has poor apetite , she has been trying to eat close to 2000 trinh per day per her claims. Patient is known to have cyclical vomiting syndrome and anorexia. She was evaluated by GI in the past who recommended no further endoscopies which been negative in the past, and recommended that she follows up with Dr. [facility] Patient otherwise denies any fevers chills chest pain or abdominal pain denies any coughing. Review of Systems Pertinent positives as noted in HPI. All other systems were reviewed and are negative Past Medical History Past Medical History: GERD/Reflux Additional Past Medical History / Comment(s): cyclic vomiting syndrome, maria t roparesis, Cordon's esophagus, hemorrhoids. History of Any Multi-Drug Resistant Organisms: None Reported Past Surgical History: No Surgical Hx Reported Additional Past Surgical History / Comment(s): EXPLORATORY LAPAROSCOPY 2009, EGD Past Anesthesia/Blood Transfusion Reactions: No Reported Reaction Past Psychological History: Anxiety, Depression Smoking Status: Current every day smoker Past Alcohol Use History: None Reported Past Drug Use History: Marijuana - Past Family History Mother History Unknown: Yes Family Medical History: Diabetes Mellitus Additional Family Medical History / Comment(s): Pt states she does not know mother's medical hx. Father History Unknown: Yes Additional Family Medical History / Comment(s): Pt states she does not know father's medical hx. Medications and Allergies Home Medications Medication Instructions Recorded Confirmed Type Calcium Carbonate [Tums] 500 mg PO DAILY PRN 09/18/20 09/18/20 History Allergies Allergy/AdvReac Type Severity Reaction Status Date / Time latex Allergy Unknown Rash/Hives Verified 09/18/20 10:51 Physical Exam Vitals: Vital Signs Temp Pulse Resp BP Pulse Ox 09/18/20 09:57 98.0 F 69 18 126/87 99 Intake and Output 09/18/20 09/18/20 09/19/20 14:59 22:59 06:59 Other: Weight 45.359 kg Constitutional: No acute distress, conversant, pleasant Eyes: Anicteric sclerae, moist conjunctiva, Pupils equal round reactive to light ENMT: NC/AT Oropharynx clear, no erythema, or exudates Neck: Supple, FROM, no masses, or JVD No carotid bruits No thyromegaly Lungs: Clear to auscultation Clear to percussion Normal respiratory effort, no accessory muscle use Cardiovascular: Heart regular in rate and rhythm, No murmurs, gallops, or rubs No peripheral edema Abdominal: Soft Nontender, no guarding, rebound or rigidity Abdomen moving with respiration Normoactive bowel sounds No hepatomegaly, No splenomegaly No palpable mass No abdominal wall hernia noted Skin: Normal temperature, tone, texture, turgor No induration No subcutaneous nodules No rash, lesions No ulcers Extremities: No digital cyanosis No clubbing Pedal pulses intact and symmetrical Radial pulses intact and symmetrical No calf tenderness Psychiatric: Alert and oriented to person, place and time Appropriate affect fair judgement Neuro Muscles Strength 5/5 in all 4 extremities Sensation to light touch grossly present throughout Cranial nerves II-XII grossly intact No focal sensory deficits Lymphatics: no palpable cervical or supraclavicular , or inguinal lymph nodes Cranial Nerve Examination - Cranial Nerves Cranial Nerve II- Optic: Intact Cranial Nerve III- Oculomotor: Intact Cranial Nerve IV- Trochlear: Intact Cranial Nerve V- Trigeminal: Intact Cranial Nerve - Abducens: Intact Cranial Nerve VII- Facial: Intact Cranial Nerve VIII- Auditory: Intact Cranial Nerve IX- Glossopharyngeal: Intact Cranial Nerve X- Vagus: Intact Cranial Nerve XI- Accessory: Intact Cranial Nerve XII- Hypoglossal: Intact Results CBC & Chem 7: 09/18/20 10:20 09/18/20 10:20 Labs: Abnormal Lab Results - Last 24 Hours (Table) 09/18/20 09/18/20 Range/Units 10:20 10:20 Glucose 112 H (74-99) mg/dL Urine Appearance Cloudy H (Clear) Urine pH 8.5 H (5.0-8.0) Urine Protein 2+ H (Negative) Urine Ketones 2+ H (Negative) Amorphous Sediment Rare H (None) /hpf Urine Bacteria Moderate H (None) /hpf Urine Mucus Many H (None) /hpf U Marijuana (THC) Screen Detected H (NotDetected) Assessment and Plan Assessment: Repeated vomiting Patient with history of cyclical vomiting syndrome Anorexia Depression and suicidal ideation Plan Symptomatic control, Reglan every 6 hours Encouraged by mouth intake with liquid diet Encourage protein shakes Check phosphorus magnesium calcium potassium to monitor for refeeding syndrome patient claims that she has not been eating lately Psych evaluation Suicide precautions Follow-up labs Thank you for allowing us to participate in the care of this patient. We will follow peripherally. Do not hesitate to contact us with questions. Someone can be reached from the [facility] hospitalist group at all hours of the day at [phone].
[2020-09-19] MEDS: METOCLOPRAMIDE 5 MG/ML 2 ML VIAL IM PRN ×2 (03:09→09:44)
[2020-09-19 07:06] LABS: African American GFR (CKD) >90 (>60 ml/min/1.73 sqM); Anion Gap 8 mmol/L; Blood Urea Nitrogen 13 mg/dL (7-17); Calcium 9.1 mg/dL (8.4-10.2); Carbon Dioxide 27 mmol/L (22-30); Chloride 105 mmol/L (98-107); Glucose 85 mg/dL (74-99); Magnesium 2.3 mg/dL (1.6-2.3); Non-African American GFR(CKD) >90 (>60 ml/min/1.73 sqM); Phosphorus 4.2 mg/dL (2.5-4.5); Potassium 4.2 mmol/L (3.5-5.1); Sodium 140 mmol/L (137-145)
[2020-09-19] MEDS: PANTOPRAZOLE 40 MG TABLET PO SCH ×2 (10:27→17:42)
[2020-09-19] MEDS ORDERED: VENLAFAXINE HCL ER 75 MG CAP PO STA (11:14)
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
[2020-09-19] MEDS: ONDANSETRON ODT 4 MG TAB PO PRN (13:13)
[2020-09-19 14:29] VITALS: BMI 20.2
[2020-09-19] MEDS ORDERED: MIRTAZAPINE 15 MG TAB PO SCH (21:00)
[2020-09-20] MEDS: METOCLOPRAMIDE 5 MG/ML 2 ML VIAL IM PRN (04:48)
[2020-09-20] MEDS: PANTOPRAZOLE 40 MG TABLET PO SCH ×2 (08:34→17:09)
[2020-09-20] MEDS: ONDANSETRON ODT 4 MG TAB PO PRN ×2 (09:34→17:10)
[2020-09-20] MEDS ORDERED: ONDANSETRON ODT 4 MG TAB PO STA (09:45)
--- NOTE | 2020-09-20 10:52 | P.PN ---
Progress Note - Text Progress Note Date: 09/20/20 Interval History: Patient was seen in her room and was directable and agreeable to speak with the scientific technical writer in her room. The patient stresses that she is experiencing significant nausea and vomiting this morning. She does report that with the Remeron she noticed some benefit. She is endorsing suicidal ideation stating that "I keep feeling like this there is no point for me to live." She was not endorsing homicidal ideation, intention, and/or plan. She denies any auditory or visual hallucinations. She reports no paranoia or delusions. She does state that she has had difficulty sleeping last night, reporting that her sleep was "on and off." She does report that she is otherwise tolerating the medications. She did not take her effexor this morning due to the nausea. Mental Status Exam: General Appearance: Patient appears to be stated age is alert, directable, and cooperative. She appears to be thin and frail and dressed in hospital gown. Behavior: Patient is lying in bed without any agitated behavior. Eye contact is fair. Speech: Patient's speech is fluent, nonpressured, spontaneous, monotone, and low in volume. Mood/Affect: Mood is "I feel sick," affect is congruent and malaised. Suicidality/Homicidality: Patient endorses suicidal ideation but no homicidal ideation, intent, and/or plan. Perceptions: Patient denies any visual hallucinations and denies any auditory hallucinations Though content/process: There is no evidence of any delusional thought content and thought process is linear and goal-directed. Memory and concentration: AOX3, grossly intact for the purposes of this session Judgment and insight: Improving mildly Vital Signs Temp 97.7 F 09/20/20 04:47 Pulse 61 09/20/20 06:12 Resp 16 09/20/20 06:12 BP 156/98 09/20/20 06:12 Pulse Ox 99 09/18/20 09:57 Intake & Output 09/19/20 09/20/20 09/20/20 18:59 06:59 18:59 Weight 45.359 kg Assessment Major depressive disorder, recurrent, severe Cyclical vomiting syndrome Unspecified eating disorder Posttraumatic stress disorder Cannabis use disorder Plan: -Patient continues to meet criteria for inpatient psychiatric admission for symptom stabilization and safety. Patient has signed adult voluntary form and medication consent and was placed in patient's chart. -Medications: Continue Effexor XR 75 mg by mouth daily for depression/anxiety/PTSD Increase remeron to 15 mg by mouth at bedtime for insomn ia/appetite/nausea/depression Increase Zofran to 8 mg ODT q8H prn for nausea -EKG reviewed. QTc WNL. -When necessary Ativan and Haldol for agitation/aggression. -SW on board for discharge planning. Encouraged the patient to participate in milieu.
[2020-09-20] MEDS: VENLAFAXINE HCL ER 75 MG CAP PO SCH (11:37)
[2020-09-20] MEDS: MIRTAZAPINE 15 MG TAB PO SCH (21:23)
[2020-09-21] MEDS: VENLAFAXINE HCL ER 75 MG CAP PO SCH (07:57)
[2020-09-21] MEDS: PANTOPRAZOLE 40 MG TABLET PO SCH ×2 (07:57→17:44)
[2020-09-21] MEDS: ONDANSETRON ODT 4 MG TAB PO PRN ×2 (07:57→18:34)
--- NOTE | 2020-09-21 09:52 | P.PN ---
Progress Note - Text Progress Note Date: 09/21/20 Interval History: Patient was seen in her room and was directable and agreeable to speak with the principal technical writer in the office. The patient reports that she is feeling "slightly better." She is currently not reporting any suicidal or homicidal ideation, intention, and/or plan. He is not reporting any auditory or visual hallucinations. Denies any paranoia or other delusions. She does report that her nausea is mildly improved. She does express some side effects of her Effexor. She reports that Effexor is causing her to feel flushed and diaphoretic. She is otherwise tolerating the increase in Remeron and Zofran. The patient denies any chest pain, shortness of breath, or lightheadedness. She reports that her sleep went well. She does report mild improvement in appetite. Mental Status Exam: General Appearance: Patient appears to be stated age is alert, directable, and cooperative. She appears to be thin and frail and dressed in hospital gown. Behavior: Patient is seated upright in the chair without any agitated behavior. Psychomotor activity is normal. Eye contact is appropriate. Speech: Spontaneous, monotone, and low in volume. Mood/Affect: Mood is "I'm feeling a little better," affect is constricted in range and somewhat anxious. Suicidality/Homicidality: Patient denies any suicidal or homicidal ideation, intention, and/or plan. Perceptions: Patient denies any visual hallucinations and denies any auditory hallucinations Though content/process: There is no evidence of any delusional thought content and thought process is linear and goal-directed. Memory and concentration: AOX3, grossly intact for the purposes of this session Judgment and insight: Improving mildly Vital Signs Temp 97.5 F L 09/21/20 06:37 Pulse 96 09/21/20 06:37 Resp 16 09/21/20 06:37 BP 124/64 09/21/20 06:37 Pulse Ox 99 09/18/20 09:57 Intake & Output 09/20/20 09/21/20 09/21/20 18:59 06:59 18:59 Intake Total 238 Balance 238 Intake: Oral 238 Assessment Major depressive disorder, recurrent, severe Cyclical vomiting syndrome Unspecified eating disorder Posttraumatic stress disorder Cannabis use disorder Plan: -Patient continues to meet criteria for inpatient psychiatric admission for symptom stabilization and safety. Patient has signed adult voluntary form and medication consent and was placed in patient's chart. -Medications: Discontinue Effexor due to side effects Continue Remeron 15 mg by mouth at bedtime for insomnia/ appetite/nausea/depression. Increase to 30 mg over the weekend. Continue Zofran 8 mg ODT q8H prn for nausea -EKG reviewed. QTc WNL. -When necessary Ativan and Haldol for agitation/aggression. -SW on board for discharge planning. Encouraged the patient to participate in milieu.
[2020-09-21] MEDS: METOCLOPRAMIDE 5 MG/ML 2 ML VIAL IM PRN ×2 (12:11→21:31)
[2020-09-21] MEDS: MIRTAZAPINE 15 MG TAB PO SCH (21:17)
[2020-09-22] MEDS: LORazepam 1 MG TAB PO PRN ×3 (01:07→17:48)
[2020-09-22 06:55] VITALS: RESP 16
[2020-09-22] MEDS: PANTOPRAZOLE 40 MG TABLET PO SCH ×2 (08:33→16:25)
[2020-09-22] MEDS: OLANZapine 5 MG TAB PO SCH ×2 (17:28→21:00)
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
[2020-09-22] MEDS: MIRTAZAPINE 15 MG TAB PO SCH (20:59)
[2020-09-23] MEDS: PANTOPRAZOLE 40 MG TABLET PO SCH ×2 (08:39→17:12)
[2020-09-23] MEDS: OLANZapine 5 MG TAB PO SCH ×3 (08:39→21:27)
--- NOTE | 2020-09-23 11:14 | PN ---
PROGRESS NOTE DATE OF SERVICE: 09/23/2020 CHIEF COMPLAINT: The patient has struggled with anorexia. She was having mood swings, eating struggles and anxiety since of her 4th child in July. INTERVAL HISTORY: Patient has been doing fairly well. She had a quiet day yesterday. She comes out on the unit. She interacts with others. She tends to have a quiet, reserved manner though seems comfortable in the milieu. She attended groups yesterday and seemed to get good benefit from that. She said that she took extra group handouts and has been working on various group assignments beyond what has been covered in the groups. She slept fairly well last night. Today she has been up. She has been socializing with others. She feels that the group activities have been helpful and she sees them as a positive. She does feel that the Zyprexa has been helpful where she feels a little calmer and a little clearer in her head. She notes that her weight has gone up a little since admission which is a positive for her. She tolerates psychotropic medications. MENTAL STATUS: Patient sat without restlessness. Eye contact was fairly good. She answered questions with brief responses. She was not too spontaneous, though she was somewhat interactive. Her affect was a little blunted though she had a friendly, quiet manner. Her mood was reserved, though not down or depressed. She did not appear to be significantly distressed. There was no indication of thought disorder. She was oriented and alert. ASSESSMENT: I will continue the current diagnosis and treatment plan. We will continue psychotropic medications the same. I reviewed medication issues at length including long-term treatment issues relating to a second generation antipsychotic. We discussed the option of a progressive tapering if she continues to do well. I also reviewed long- term concerns related to metabolics and movement disorder issues as something she should be aware of. She does seem to be making progress. I would anticipate discharge early in the week. We discussed followup options. It will be important to set up a referral for her for individual psychotherapy. In addition to that, given her more complicated and long-term problems with eating disorder, that it would be beneficial for her to follow up with a psychiatrist. We will focus on stabilization and discharge planning. MMKELVIN / TIMOTHYN: [id number] /
[2020-09-23] MEDS: LORazepam 1 MG TAB PO PRN ×2 (11:49→19:37)
[2020-09-23] MEDS: MIRTAZAPINE 15 MG TAB PO SCH (21:26)
[2020-09-24 06:56] VITALS: TEMP 96
[2020-09-24] MEDS: PANTOPRAZOLE 40 MG TABLET PO SCH (08:06)
[2020-09-24] MEDS: OLANZapine 5 MG TAB PO SCH (08:06)
[2020-09-24] MEDS: LORazepam 1 MG TAB PO PRN (09:31)
[2020-09-24 09:33] VITALS: BP 141/83; PULSE 129
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
== END 2020-09-24 12:47 | disposition home or self-care (01) | DRG 885 ==
LOC: EC 09:54 → 3MHU 16:54
PROVIDERS: ADMIT Psychiatry & Neurology Psychiatry; ATTEND Psychiatry & Neurology Psychiatry
DX: F33.2 Major depressive disorder, recurrent severe without psychotic features (principal); G25.9 Extrapyramidal and movement disorder, unspecified; R45.851 Suicidal ideations; F12.10 Cannabis abuse, uncomplicated; F17.200 Nicotine dependence, unspecified, uncomplicated; F43.10 Post-traumatic stress disorder, unspecified; F50.9 Eating disorder, unspecified; K22.70 Barrett's esophagus without dysplasia; K31.84 Gastroparesis; Z81.8 Family history of other mental and behavioral disorders; Z83.3 Family history of diabetes mellitus; Z86.59 Personal history of other mental and behavioral disorders; Z91.410 Personal history of adult physical and sexual abuse; Z91.5 Personal history of self-harm; Z20.822 Contact with and (suspected) exposure to COVID-19
CPT/HCPCS: 36415; 80048; 80053; 80306; 81001; 82075; 82150; 83690; 83735; 84100; 84443; 84702; 85025; 87635; 93005

== ENCOUNTER 2020-12-21 14:32 | Observation (INO) | payer OTHER ==
[2020-12-21] MEDS ORDERED: METOCLOPRAMIDE 5 MG/ML 2 ML VIAL IVP STA (16:17)
[2020-12-21] MEDS ORDERED: diphenhydrAMINE 50 MG/ML 1 ML VIAL IVP STA (16:17)
[2020-12-21] MEDS ORDERED: SODIUM CHLORIDE 0.9% 1,000 ML IV STA (16:17)
[2020-12-21] MEDS ORDERED: SODIUM CHLORIDE 0.9% 500 ML 500 ML IV STA (16:17)
--- NOTE | 2020-12-21 16:22 | ED ---
Nausea/Vomiting/Diarrhea HPI - General Chief complaint: Nausea/Vomiting/Diarrhea Stated complaint: Vomiting Time Seen by Provider: 12/21/20 15:59 Source: patient Mode of arrival: wheelchair Limitations: no limitations - History of Present Illness Initial comments: 25-year-old female, , 11 weeks , with history of gastroparesis and cyclical vomiting syndrome presenting to emergency Department with a chief complaint nausea or vomiting. Mother reports the patient has been experiencing extensive morning sickness with multiple episodes of nonbilious and nonbloody vomiting. She reports she has been vomiting for the past several days and is quite dehydrated. Patient reports she cannot keep any orals down including fluids. She denies any abdominal discomfort, pain. Denies any urinary symptoms including dysuria or increased urgency or frequency. Denies any vaginal discharge, bleeding, foul smell or itching. Denies any back pain chest pain shortness of breath. Denies any fevers or chills. States morning sickness was typical with her other pregnancies as well. - Related Data Previous Rx's Medication Instructions Recorded Mirtazapine [Remeron] 30 mg PO HS #30 tab 09/24/20 OLANZapine [ZyPREXA] 5 mg PO TID #90 tab 09/24/20 Pantoprazole [Protonix] 40 mg PO AC-BID tablet. 09/24/20 Allergies Allergy/AdvReac Type Severity Reaction Status Date / Time latex Allergy Unknown Rash/Hives Verified 12/21/20 14:57 Review of Systems ROS Statement: Those systems with pertinent positive or pertinent negative responses have been documented in the HPI. ROS Other: All systems not noted in ROS Statement are negative. Past Medical History Past Medical History: GERD/Reflux Additional Past Medical History / Comment(s): cyclic vomiting syndrome, gastroparesis, Cordon's esophagus, hemorrhoids. History of Any Multi-Drug Resistant Organisms: None Reported Past Surgical History: No Surgical Hx Reported Additional Past Surgical History / Comment(s): EXPLORATORY LAPAROSCOPY 2009, EGD Past Anesthesia/Blood Transfusion Reactions: No Reported Reaction Past Psychological History: Anxiety, Depression Smoking Status: Current every day smoker Past Alcohol Use History: None Reported Past Drug Use History: Marijuana - Past Family History Mother History Unknown: Yes Family Medical History: Diabetes Mellitus Additional Family Medical History / Comment(s): Pt states she does not know mother's medical hx. Father History Unknown: Yes Additional Family Medical History / Comment(s): Pt states she does not know father's medical hx. General Exam Limitations: no limitations General appearance: alert, in no apparent distress Head exam: Present: atraumatic, normocephalic, normal inspection Eye exam: Present: normal appearance, PERRL Pupils: Present: normal accommodation ENT exam: Present: normal exam, normal oropharynx, mucous membranes dry Neck exam: Present: normal inspection, full ROM. Absent: tenderness Respiratory exam: Present: normal lung sounds bilaterally. Absent: respiratory distress, wheezes, rales, rhonchi, stridor, chest wall tenderness, accessory muscle use Cardiovascular Exam: Present: regular rate, normal rhythm, normal heart sounds. Absent: systolic murmur, diastolic murmur GI/Abdominal exam: Present: soft. Absent: distended, tenderness, guarding Extremities exam: Present: normal inspection, full ROM, normal capillary refill. Absent: tenderness, pedal edema, joint swelling Back exam: Present: normal inspection, full ROM. Absent: tenderness, CVA tenderness (R), CVA tenderness (L) Neurological exam: Present: alert, oriented X3 Psychiatric exam: Present: normal affect, normal mood Skin exam: Present: warm, dry, intact, normal color Course Vital Signs 12/21/20 12/21/20 14:54 19:01 Temperature 97.9 F 99.7 F H Pulse Rate 62 Respiratory 20 Rate Blood Pressure 130/75 O2 Sat by Pulse 97 Oximetry Medical Decision Making - Medical Decision Making 25-year-old female, , 11 weeks , with history of gastroparesis and cyclical vomiting syndrome presenting to emergency Department with a chief complaint nausea or vomiting. On physical examination, patient has clinical signs of dehydration. Dry mucous membranes. CBC reveals leukocytosis which I suspect is secondary to the vomiting. UA shows plus+4 ketones. Patient was given IV fluids and anti-medics including Reglan, Benadryl, Zofran. On reeva luation, she reports no significant improvement of symptoms. I contacted Dr. Abernathy who recommended addition of Pepcid. She would like to be on consult. I spoke to be admitted physician Dr. Suarez who will admit. Case discussed with Dr. Yancey. - Lab Data Result diagrams: 12/21/20 16:34 12/21/20 16:34 Lab Results 12/21/20 12/21/20 12/21/20 Range/Units 16:34 16:34 17:45 WBC 14.8 H (3.8-10.6) k/uL RBC 4.33 (3.80-5.40) m/uL Hgb 13.7 (11.4-16.0) gm/dL Hct 39.7 (34.0-46.0) % MCV 91.7 (80.0-100.0) fL MCH 31.6 (25.0-35.0) pg MCHC 34.5 (31.0-37.0) g/dL RDW 13.5 (11.5-15.5) % Plt Count 284 (150-450) k/uL MPV 7.8 Neutrophils % 83 % Lymphocytes % 13 % Monocytes % 3 % Eosinophils % 1 % Basophils % 0 % Neutrophils # 12.3 H (1.3-7.7) k/uL Lymphocytes # 1.9 (1.0-4.8) k/uL Monocytes # 0.4 (0-1.0) k/uL Eosinophils # 0.1 (0-0.7) k/uL Basophils # 0.0 (0-0.2) k/uL Sodium 136 L (137-145) mmol/L Potassium 3.7 (3.5-5.1) mmol/L Chloride 101 (98-107) mmol/L Carbon Dioxide 19 L (22-30) mmol/L Anion Gap 16 mmol/L BUN 13 (7-17) mg/dL Creatinine 0.42 L (0.52-1.04) mg/dL Est GFR (CKD-EPI)AfAm >90 (>60 ml/min/1.73 sqM) Est GFR (CKD-EPI)NonAf >90 (>60 ml/min/1.73 sqM) Glucose 125 H (74-99) mg/dL Calcium 9.4 (8.4-10.2) mg/dL Total Bilirubin 0.6 (0.2-1.3) mg/dL AST 25 (14-36) U/L ALT 15 (4-34) U/L Alkaline Phosphatase 50 (38-126) U/L Total Protein 7.7 (6.3-8.2) g/dL Albumin 4.7 (3.5-5.0) g/dL Urine Color Yellow Urine Appearance Cloudy H (Clear) Urine pH 6.5 (5.0-8.0) Ur Specific [place] 1.039 H (1.001-1.035) Urine Protein 2+ H (Negative) Urine Glucose (UA) Trace H (Negative) Urine Ketones 4+ H (Negative) Urine Blood Negative (Negative) Urine Nitrite Negative (Negative) Urine Bilirubin Negative (Negative) Urine Urobilinogen 2.0 (<2.0) mg/dL Ur Leukocyte Esterase Negative (Negative) Urine RBC 1 (0-5) /hpf Urine WBC 1 (0-5) /hpf Ur Squamous Epith Cells 12 H (0-4) /hpf Urine Bacteria Rare H (None) /hpf Urine Mucus Many H (None) /hpf Disposition Clinical Impression: Intractable nausea and vomiting Disposition: ADMITTED IP TO THIS HOSP Condition: Fair Is patient prescribed a controlled substance at d/c from ED?: No Referrals: Joselito Freeman MD [Primary Care Provider] - 1-2 days Time of Disposition: 19:07
[2020-12-21 16:44] LABS: Basophils % (A) 0 %; Eosinophils # (A) 0.1 k/uL (0-0.7); Eosinophils % (A) 1 %; HCT 39.7 % (34.0-46.0); HGB 13.7 gm/dL (11.4-16.0); Lymphocytes # (A) 1.9 k/uL (1.0-4.8); Lymphocytes % (A) 13 %; MCH 31.6 pg (25.0-35.0); MCHC 34.5 g/dL (31.0-37.0); MCV 91.7 fL (80.0-100.0); Mean Platelet Volume 7.8; Monocytes # (A) 0.4 k/uL (0-1.0); Monocytes % (A) 3 %; Neutrophils # (A) 12.3 k/uL (1.3-7.7); Neutrophils % (A) 83 %; Platelet Count 284 k/uL (150-450); RBC 4.33 m/uL (3.80-5.40); RDW 13.5 % (11.5-15.5); WBC 14.8 k/uL (3.8-10.6)
[2020-12-21 16:55] LABS: ALT 15 U/L (4-34); AST 25 U/L (14-36); African American GFR (CKD) >90 (>60 ml/min/1.73 sqM); Albumin 4.7 g/dL (3.5-5.0); Alkaline Phosphatase 50 U/L (38-126); Anion Gap 16 mmol/L; Blood Urea Nitrogen 13 mg/dL (7-17); Calcium 9.4 mg/dL (8.4-10.2); Carbon Dioxide 19 mmol/L (22-30); Chloride 101 mmol/L (98-107); Glucose 125 mg/dL (74-99); Non-African American GFR(CKD) >90 (>60 ml/min/1.73 sqM); Potassium 3.7 mmol/L (3.5-5.1); Sodium 136 mmol/L (137-145); Total Bilirubin 0.6 mg/dL (0.2-1.3); Total Protein 7.7 g/dL (6.3-8.2)
[2020-12-21] MEDS ORDERED: ONDANSETRON 4 MG/2 ML VIAL IVP STA (17:49)
[2020-12-21 18:04] LABS: Appearance,Urine Cloudy (Clear); Bacteria,Urine Rare /hpf; Bilirubin,Urine Negative (Negative); Blood,Urine Negative (Negative); Color,Urine Yellow; Glucose,Urine (UA) Trace (Negative); Ketones,Urine 4+ (Negative); Leukocyte Esterase,Urine Negative (Negative); Mucus,Urine Many /hpf; Nitrite,Urine Negative (Negative); PH, Urine 6.5 (5.0-8.0); Protein,Urine 2+ (Negative); RBC,Urine 1 /hpf (0-5); Specific Gravity,Urine 1.039 (1.001-1.035); Squamous Epithelial Cell,Urine 12 /hpf (0-4); WBC,Urine 1 /hpf (0-5)
[2020-12-21] MEDS ORDERED: FAMOTIDINE 20 MG/2 ML VIAL IV STA (18:58)
[2020-12-21] MEDS ORDERED: ONDANSETRON 4 MG/2 ML VIAL IVP PRN ×2 (19:03→21:25)
[2020-12-21] MEDS ORDERED: NALOXONE 0.4 MG/ML 1 ML VIAL IV PRN (19:03)
[2020-12-21] MEDS ORDERED: ACETAMINOPHEN TAB 325 MG TAB PO PRN (19:03)
[2020-12-21] MEDS ORDERED: SODIUM CHLORIDE 0.9% 1,000 ML IV SCH (19:15)
[2020-12-21] MEDS ORDERED: METOCLOPRAMIDE 5 MG/ML 2 ML VIAL IVP PRN (21:26)
[2020-12-21] MEDS ORDERED: diphenhydrAMINE 50 MG/ML 1 ML VIAL IVP PRN (21:27)
[2020-12-21] MEDS ORDERED: PROMETHAZINE SUPPOSITORY 25 MG SUPP RECTAL PRN (22:00)
[2020-12-21] MEDS: SODIUM CHLORIDE 0.9% 1,000 ML IV SCH (22:32)
[2020-12-22 01:50] VITALS: TEMP 98.3
[2020-12-22] MEDS: SODIUM CHLORIDE 0.9% 1,000 ML IV SCH ×2 (05:51→12:45)
[2020-12-22 08:54] VITALS: BP 94/55; PULSE 72; RESP 16
[2020-12-22] MEDS ORDERED: FAMOTIDINE 20 MG/2 ML VIAL IV SCH (09:00)
--- NOTE | 2020-12-22 10:22 | P.OBCN ---
History of Present Illness Consult date: 12/22/20 Reason for consult: other (hyperemesis ) Chief complaint: N/V 11 weeks History of present illness: 5-year-old presents at 11 weeks gestation complaining of nausea and vomiting. She's been dealing with this at home for several days including using some Phenergan suppositories which were not helping. She was admitted for IV fluids and antiemetics. She was given Pepcid IV twice a day which really help with her burning in her esophagus, Reglan and Zofran. She's been able to keep down juice and applesauce this morning feeling a lot better. She would like to go home and I don't see a reason why she can't. Follow-up with Dr. Blas on the . Review of Systems All systems: negative Constitutional: Denies chills, Denies fever Eyes: denies blurred vision, denies pain Ears, nose, mouth and throat: Denies headache, Denies sore throat Cardiovascular: Denies chest pain, Denies shortness of breath Respiratory: Denies cough Gastrointestinal: Denies abdominal pain, Denies diarrhea, Denies nausea, Denies vomiting Genitourinary: Denies dysuria, Denies hematuria Musculoskeletal: Denies myalgias Integumentary: Denies pruritus, Denies rash Neurological: Denies numbness, Denies weakness Psychiatric: Denies anxiety, Denies depression Endocrine: Denies fatigue, Denies weight change Past Medical History Past Medical History: GERD/Reflux Additional Past Medical History / Comment(s): cyclic vomiting syndrome, gastroparesis, Cordon's esophagus, hemorrhoids. History of Any Multi-Drug Resistant Organisms: None Reported Past Surgical History: No Surgical Hx Reported Additional Past Surgical History / Comment(s): EXPLORATORY LAPAROSCOPY 2009, EGD Past Anesthesia/Blood Transfusion Reactions: No Reported Reaction Past Psychological History: Anxiety, Depression Smoking Status: Current every day smoker Past Alcohol Use History: None Reported Past Drug Use History: Marijuana - Past Family History Mother History Unknown: Yes Family Medical History: Diabetes Mellitus Additional Family Medical History / Comment(s): Pt states she does not know mother's medical hx. Father History Unknown: Yes Additional Family Medical History / Comment(s): Pt states she does not know father's medical hx. Medications and Allergies Home Medications Medication Instructions Recorded Confirmed Type Doxylamine/Pyridoxine HCl (B6) 1 tab PO DIRECTED 12/21/20 12/21/20 History [Herb Pascual 10-10 mg Tablet] Phenergan Suppository(Unknown) 1 supp RECTAL ONCE PRN 12/21/20 12/21/20 History Rhe-Cjyg-Uersn Acid 1 cap PO DAILY 12/21/20 12/21/20 History [-U Capsule (formulary)] Allergies Allergy/AdvReac Type Severity Reaction Status Date / Time latex Allergy Unknown Rash/Hives Verified 12/21/20 20:37 Exam Osteopathic Statement: *. No significant issues noted on an osteopathic structural exam other than those noted in the History and Physical/Consult. Vital Signs Temp Pulse Pulse Pulse Resp BP BP 12/22/20 08:27 98.3 F 72 16 94/55 12/22/20 01:48 98.3 F 76 18 12/21/20 20:30 98.2 F 80 17 12/21/20 19:01 99.7 F H 12/21/20 18:56 98.2 F 72 17 12/21/20 14:54 97.9 F 62 20 130/75 BP Pulse Ox 12/22/20 08:27 97 12/22/20 01:48 96/55 98 12/21/20 20:30 135/79 98 12/21/20 19:01 12/21/20 18:56 135/79 97 12/21/20 14:54 97 Intake and Output 12/21/20 12/22/20 12/22/20 22:59 06:59 14:59 Intake Total 900 240 Output Total 200 Balance 900 40 Intake: Intake, IV Titration 900 Amount Sodium Chloride 0.9% 1, 900 000 ml @ 150 mls/hr IV . Q6H40M [facility] Rx#:[id number] Oral 240 Output: Urine 200 Other: Weight 54.431 kg Heart: Regular rate and rhythm Lungs: Clear to auscultation bilaterally Abdomen: Soft, nontender Extremities: Negative Homans sign Results Result Diagrams: 12/21/20 16:34 12/21/20 16:34 Abnormal Lab Results - Last 24 Hours (Table) 12/21/20 12/21/20 12/21/20 Range/Units 16:34 16:34 17:45 WBC 14.8 H (3.8-10.6) k/uL Neutrophils # 12.3 H (1.3-7.7) k/uL Sodium 136 L (137-145) mmol/L Carbon Dioxide 19 L (22-30) mmol/L Creatinine 0.42 L (0.52-1.04) mg/dL Glucose 125 H (74-99) mg/dL Urine Appearance Cloudy H (Clear) Ur Specific [place] 1.039 H (1.001-1.035) Urine Protein 2+ H (Negative) Urine Glucose (UA) Trace H (Negative) Urine Ketones 4+ H (Negative) Ur Squamous Epith Cells 12 H (0-4) /hpf Urine Bacteria Rare H (None) /hpf Urine Mucus Many H (None) /hpf Assessment and Plan (1) Intractable nausea and vomiting Current Visit: Yes Status: Acute Code(s): R11.2 - NAUSEA WITH VOMITING, UNSPECIFIED SNOMED Code(s): 231873233 (2) GERD (gastroesophageal reflux disease) Current Visit: No Status: Acute Code(s): K21.9 - GASTRO-ESOPHAGEAL REFLUX DISEASE WITHOUT ESOPHAGITIS SNOMED Code(s): 480351681 (3) 11 weeks gestation of Current Visit: Yes Status: Acute Code(s): Z3A.11 - 11 WEEKS GESTATION OF SNOMED Code(s): 66542104 Plan: 1. I would recommend discharge home for her to follow-up with Dr. Naranjo a few days.
[2020-12-22 10:59] VITALS: BMI 23.4
[2020-12-22 11:46] LABS: Basophils % (A) 0 %; Eosinophils # (A) 0.1 k/uL (0-0.7); Eosinophils % (A) 1 %; HCT 35.5 % (34.0-46.0); HGB 11.8 gm/dL (11.4-16.0); Lymphocytes # (A) 3.2 k/uL (1.0-4.8); Lymphocytes % (A) 32 %; MCHC 33.3 g/dL (31.0-37.0); MCV 93.2 fL (80.0-100.0); Mean Platelet Volume 7.8; Monocytes # (A) 0.5 k/uL (0-1.0); Monocytes % (A) 5 %; Neutrophils # (A) 6.1 k/uL (1.3-7.7); Neutrophils % (A) 60 %; Platelet Count 238 k/uL (150-450); RBC 3.81 m/uL (3.80-5.40); RDW 13.5 % (11.5-15.5); WBC 10.1 k/uL (3.8-10.6)
[2020-12-22 12:03] LABS: African American GFR (CKD) >90 (>60 ml/min/1.73 sqM); Anion Gap 6 mmol/L; Blood Urea Nitrogen 8 mg/dL (7-17); Calcium 8.3 mg/dL (8.4-10.2); Carbon Dioxide 22 mmol/L (22-30); Chloride 105 mmol/L (98-107); Glucose 91 mg/dL (74-99); Non-African American GFR(CKD) >90 (>60 ml/min/1.73 sqM); Potassium 3.5 mmol/L (3.5-5.1); Sodium 133 mmol/L (137-145)
--- NOTE | 2021-01-05 09:16 | P.HPIM ---
History of Present Illness H&P Date: 12/22/20 Chief Complaint: Nausea/vomiting/diarrhea 25-year-old female, , 11 weeks , with history of gastroparesis and cyclical vomiting syndrome presenting to emergency Department with a chief complaint nausea or vomiting. Mother reports the patient has been experiencing extensive morning sickness with multiple episodes of nonbilious and nonbloody vomiting. She reports she has been vomiting for the past several days and is quite dehydrated. Patient reports she cannot keep any orals down including fluids. She denies any abdominal discomfort, pain. Denies any urinary symptoms including dysuria or increased urgency or frequency. Denies any vaginal discharge, bleeding, foul smell or itching. Denies any back pain chest pain shortness of breath. Denies any fevers or chills. States morning sickness was typical with her other pregnancies as well. Review of Systems REVIEW OF SYSTEMS: CONSTITUTIONAL: No fever, no malaise, no fatigue. HEENT: No recent visual problems or hearing problems. Denied any sore throat. CARDIOVASCULAR: No chest pain, orthopnea, PND, no palpitations, no syncope. PULMONARY: No shortness of breath, no cough, no hemoptysis. GASTROINTESTINAL: diarrhea, nausea, vomiting, no abdominal pain. NEUROLOGICAL: No headaches, no weakness, no numbness. HEMATOLOGICAL: Denies any bleeding or petechiae. GENITOURINARY: Denies any burning micturition, frequency, or urgency. MUSCULOSKELETAL/RHEUMATOLOGICAL: Denies any joint pain, swelling, or any muscle pain. ENDOCRINE: Denies any polyuria or polydipsia. The rest of the 14-point review of systems is negative. Past Medical History Past Medical History: GERD/Reflux Additional Past Medical History / Comment(s): cyclic vomiting syndrome, gastroparesis, Cordon's esophagus, hemorrhoids. History of Any Multi-Drug Resistant Organisms: None Reported Past Surgical History: No Surgical Hx Reported Additional Past Surgical History / Comment(s): EXPLORATORY LAPAROSCOPY 2009, EGD Past Anesthesia/Blood Transfusion Reactions: No Reported Reaction Past Psychological History: Anxiety, Depression Smoking Status: Current every day smoker Past Alcohol Use History: None Reported Past Drug Use History: Marijuana - Past Family History Mother History Unknown: Yes Family Medical History: Diabetes Mellitus Additional Family Medical History / Comment(s): Pt states she does not know mother's medical hx. Father History Unknown: Yes Additional Family Medical History / Comment(s): Pt states she does not know father's medical hx. Medications and Allergies Home Medications Medication Instructions Recorded Confirmed Type Doxylamine/Pyridoxine HCl (B6) 1 tab PO DIRECTED 12/21/20 12/21/20 History [Herb Pascual 10-10 mg Tablet] Phenergan Suppository(Unknown) 1 supp RECTAL ONCE PRN 12/21/20 12/21/20 History Xaz-Urfx-Edqnh Acid 1 cap PO DAILY 12/21/20 12/21/20 History [-U Capsule (formulary)] Allergies Allergy/AdvReac Type Severity Reaction Status Date / Time latex Allergy Unknown Rash/Hives Verified 12/21/20 20:37 Physical Exam Vitals: Vital Signs Temp Pulse Pulse Pulse Resp BP BP 12/22/20 08:27 98.3 F 72 16 94/55 12/22/20 01:48 98.3 F 76 18 12/21/20 20:30 98.2 F 80 17 12/21/20 19:01 99.7 F H 12/21/20 18:56 98.2 F 72 17 12/21/20 14:54 97.9 F 62 20 130/75 BP Pulse Ox 12/22/20 08:27 97 12/22/20 01:48 96/55 98 12/21/20 20:30 135/79 98 12/21/20 19:01 12/21/20 18:56 135/79 97 12/21/20 14:54 97 Intake and Output 12/21/20 12/22/20 12/22/20 22:59 06:59 14:59 Intake Total 900 Balance 900 Intake: Intake, IV Titration 900 Amount Sodium Chloride 0.9% 1, 900 000 ml @ 150 mls/hr IV . Q6H40M [facility] Rx#:[id number] Other: Weight 54.431 kg - Constitutional General appearance: Present: average body habitus, cooperative, no acute distress - EENT Eyes: Present: anicteric sclerae, EOMI, PERRLA, normal appearance ENT: Present: hearing grossly normal, normal oropharynx Ears: bilateral: normal - Neck Neck: Present: normal ROM. Absent: lymphadenopathy, rigidity, thyromegaly Carotids: negative: bruit present Thyroid: bilateral: normal size, negative: enlarged, nodule - Respiratory Respiratory: bilateral: CTA, negative: rales, rhonchi, wheezing - Cardiovascular Rhythm: regular Heart sounds: normal: S1, S2 Abnormal Heart Sounds: Absent: systolic murmur, diastolic murmur - Gastrointestinal General gastrointestinal: Present: normal bowel sounds, soft. Absent: distended, organomegaly, tenderness - Genitourinary Genitourinary Comment(s): deferred - Integumentary Integumentary: Present: normal turgor. Absent: jaundiced, rash, ulcer - Neurologic Neurologic: Present: CNII-XII intact. Absent: focal deficits - Musculoskeletal Musculoskeletal: Present: gait normal, strength equal bilaterally - Psychiatric Psychiatric: Present: A&O x's 3, appropriate affect, intact judgment & insight Results CBC & Chem 7: 12/22/20 11:30 12/22/20 11:30 Labs: Abnormal Lab Results - Last 24 Hours (Table) 12/21/20 12/21/20 12/21/20 Range/Units 16:34 16:34 17:45 WBC 14.8 H (3.8-10.6) k/uL Neutrophils # 12.3 H (1.3-7.7) k/uL Sodium 136 L (137-145) mmol/L Carbon Dioxide 19 L (22-30) mmol/L Creatinine 0.42 L (0.52-1.04) mg/dL Glucose 125 H (74-99) mg/dL Urine Appearance Cloudy H (Clear) Ur Specific [place] 1.039 H (1.001-1.035) Urine Protein 2+ H (Negative) Urine Glucose (UA) Trace H (Negative) Urine Ketones 4+ H (Negative) Ur Squamous Epith Cells 12 H (0-4) /hpf Urine Bacteria Rare H (None) /hpf Urine Mucus Many H (None) /hpf Thrombosis Risk Factor Assmnt - Choose All That Apply Any of the Below Risk Factors Present?: Yes Each Factor Represents 1 point: or Other Risk Factors: No Other congenital or acquired thrombophilia - If yes, enter type in comment: No Thrombosis Risk Factor Assessment Total Risk Factor Score: 1 Thrombosis Risk Factor Assessment Level: Low Risk Assessment and Plan Assessment: 1. Intractable nausea and vomiting/dehydration - We will continue with IV fluids in form of normal saline at rate of 130 mL an hour; we will monitor strict LILY's and renal function and electrolytes - We will consult [employer] for further recommendations - Patient will receive IV Reglan, Benadryl, Zofran along with Pepcid 2. Gastroparesis/cyclic vomiting syndrome; antirheumatic therapy as indicated above; IV Reglan 3. Leukocytosis; possibly reactive; we will monitor CBC and make further recommendations as indicated 4. ; patient is , 11 weeks ; [employer] consulted and recommendations are pending DVT prophylaxis; SCDs CODE STATUS; full code
--- NOTE | 2021-01-05 09:17 | P.DS ---
Providers Date of admission: 12/21/20 18:56 Expected date of discharge: 12/22/20 Attending physician: Beau Suarez MD Consults: 12/21/20 19:04 Consult Physician Routine Consulting Provider: Padmaja Abernathy Consult Reason/Comments: Intractable nausea and vomiting, 11 weeks Do you want consulting provider notified?: Yes Primary care physician: Joselito Freeman MD Hospital Course: 25-year-old female, , 11 weeks , with history of gastroparesis and cyclical vomiting syndrome presenting to emergency Department with a chief complaint nausea or vomiting. Mother reports the patient has been experiencing extensive morning sickness with multiple episodes of nonbilious and nonbloody vomiting. She reports she has been vomiting for the past several days and is quite dehydrated. Patient reports she cannot keep any orals down including fluids. She denies any abdominal discomfort, pain. Denies any urinary symptoms including dysuria or increased urgency or frequency. Denies any vaginal discharge, bleeding, foul smell or itching. Denies any back pain chest pain shortness of breath. Denies any fevers or chills. States morning sickness was typical with her other pregnancies as well. 1. Intractable nausea and vomiting/dehydration - We will continue with IV fluids in form of normal saline at rate of 130 mL an hour; we will monitor strict LILY's and renal function and electrolytes - We will consult INTERNAL SPECIALIST for further recommendations - Patient will receive IV Reglan, Benadryl, Zofran along with Pepcid 2. Gastroparesis/cyclic vomiting syndrome; antirheumatic therapy as indicated above; IV Reglan 3. Leukocytosis; possibly reactive; we will monitor CBC and make further recommendations as indicated 4. ; patient is , 11 weeks ; INTERNAL SPECIALIST consulted and recommendations are pending Patient responded well to above treatment without any complications; she was evaluated by gynecology and was deemed stable for discharge Patient Condition at Discharge: Fair Plan - Discharge Summary Discharge Rx Participant: Yes New Discharge Prescriptions: Continue Zpr-Lnys-Fpffr Acid [-U Capsule (formulary)] 1 cap PO DAILY Phenergan Suppository(Unknown) 1 supp RECTAL ONCE PRN PRN Reason: Nausea And Vomiting Doxylamine/Pyridoxine HCl (B6) [Herb Pascual 10-10 mg Tablet] 1 tab PO DIRECTED Discharge Medication List Doxylamine/Pyridoxine HCl (B6) [Herb Pascual 10-10 mg Tablet] 1 tab PO DIRECTED 12/21/20 [History] Phenergan Suppository(Unknown) 1 supp RECTAL ONCE PRN 12/21/20 [History] Meu-Oczz-Wlhgj Acid [-U Capsule (formulary)] 1 cap PO DAILY 12/21/20 [History] Follow up Appointment(s)/Referral(s): Joselito Freeman MD [Primary Care Provider] - 1-2 days Patient Instructions/Handouts: Hyperemesis Gravidarum (DC) Activity/Diet/Wound Care/Special Instructions: take Prilosec once a day or twice a day if needed per Dr Abernathy. Diet as tolerated. Keep hydrated with oral fluids. Follow up with OB. Return to ER with андрей emergent needs. Discharge Disposition: HOME SELF-CARE
== END 2020-12-22 14:14 | disposition home or self-care (01) ==
LOC: EC 14:32 → 6PED 18:56
PROVIDERS: ADMIT Internal Medicine; ATTEND Internal Medicine
DX: O99.281 Endocrine, nutritional and metabolic diseases complicating pregnancy, first trimester (principal); K31.84 Gastroparesis; E86.0 Dehydration; O99.111 Other diseases of the blood and blood-forming organs and certain disorders involving the immune mechanism complicating pregnancy, first trimester; D72.829 Elevated white blood cell count, unspecified; Z3A.11 11 weeks gestation of pregnancy; O99.341 Other mental disorders complicating pregnancy, first trimester; F41.9 Anxiety disorder, unspecified; F32.9 Major depressive disorder, single episode, unspecified; O99.331 Smoking (tobacco) complicating pregnancy, first trimester; F17.200 Nicotine dependence, unspecified, uncomplicated; O99.611 Diseases of the digestive system complicating pregnancy, first trimester; O99.891 Other specified diseases and conditions complicating pregnancy; O21.0 Mild hyperemesis gravidarum; R19.7 Diarrhea, unspecified; K21.00 Gastro-esophageal reflux disease with esophagitis, without bleeding; K22.70 Barrett's esophagus without dysplasia; K64.9 Unspecified hemorrhoids; Z20.822 Contact with and (suspected) exposure to COVID-19; Z79.899 Other long term (current) drug therapy; Z91.040 Latex allergy status; Z83.3 Family history of diabetes mellitus
CPT/HCPCS: 96361 ×3; 96376 ×2; 96374; 96375; 99284; 36415; 80053; 80048; 85025 ×2; 81001; 84702; 87635; G0378 ×2; J1200 ×2; J2765; J2405

== ENCOUNTER 2021-01-12 12:02 | Observation (INO) | payer OTHER ==
[2021-01-12] MEDS ORDERED: SODIUM CHLORIDE 0.9% 2,000 ML IV STA (13:02)
--- NOTE | 2021-01-12 13:02 | ED ---
General Adult HPI - General Source: patient, RN notes reviewed Mode of arrival: ambulatory Limitations: no limitations <Guillermo Shrestha - Last Filed: 01/12/21 13:00> <Andra Cook - Last Filed: 01/12/21 16:58> <Ting Ramos - Last Filed: 01/12/21 18:23> <Sary Taveras - Last Filed: 01/14/21 01:04> - General Stated complaint: vomiting - History of Present Illness Initial comments: This a 25-year-old female presents emergency department to complaint of hyp eremesis him. Patient states that she is A0 currently [address] Naranjo at [facility]. Patient states that she was supposed had nausea in onset over but states that she never received them. She's had increasing abdominal last 2 days. Patient has a long history of hyperemesis gravidarum. Patient denies any vaginal bleeding. Patient states she feels very dehydrated, cannot keep anything down. (Guillermo Shrestha) Patient reports that she's had no fevers or chills. She denies any localized abdominal pain. (Andra Cook) - Related Data Home Medications Medication Instructions Recorded Confirmed Smf-Rqhv-Qbfyg Acid 1 cap PO DAILY 12/21/20 01/12/21 [-U Capsule (formulary)] Promethazine Suppository 25 mg RECTAL DAILY PRN 01/12/21 01/12/21 [Phenergan] Allergies Allergy/AdvReac Type Severity Reaction Status Date / Time latex Allergy Unknown Rash/Hives Verified 01/12/21 21:00 Review of Systems ROS Other: All systems not noted in ROS Statement are negative. <Guillermo Shrestha - Last Filed: 01/12/21 13:00> ROS Other: All systems not noted in ROS Statement are negative. <Andra Cook - Last Filed: 01/12/21 16:58> ROS Other: All systems not noted in ROS Statement are negative. <Ting Ramos - Last Filed: 01/12/21 18:23> ROS Other: All systems not noted in ROS Statement are negative. <Sary Taveras - Last Filed: 01/14/21 01:04> ROS Statement: Those systems with pertinent positive or pertinent negative responses have been documented in the HPI. Past Medical History Past Medical History: GERD/Reflux Additional Past Medical History / Comment(s): cyclic vomiting syndrome, gastroparesis, Cordon's esophagus, hemorrhoids. History of Any Multi-Drug Resistant Organisms: None Reported Past Surgical History: No Surgical Hx Reported Additional Past Surgical History / Comment(s): EXPLORATORY LAPAROSCOPY 2009, EGD Past Anesthesia/Blood Transfusion Reactions: No Reported Reaction Past Psychological History: Anxiety, Depression Smoking Status: Current every day smoker Past Alcohol Use History: None Reported Past Drug Use History: Marijuana - Past Family History Mother History Unknown: Yes Family Medical History: Diabetes Mellitus Additional Family Medical History / Comment(s): Pt states she does not know mother's medical hx. Father History Unknown: Yes Additional Family Medical History / Comment(s): Pt states she does not know father's medical hx. <Guillermo Shrestha - Last Filed: 01/12/21 13:00> General Exam General appearance: alert, in no apparent distress Head exam: Present: atraumatic, normocephalic, normal inspection Eye exam: Present: normal appearance, PERRL, EOMI. Absent: scleral icterus, conjunctival injection, periorbital swelling ENT exam: Present: normal exam, mucous membranes moist Neck exam: Present: normal inspection. Absent: tenderness, meningismus, lymphadenopathy Respiratory exam: Present: normal lung sounds bilaterally. Absent: respiratory distress, wheezes, rales, rhonchi, stridor Cardiovascular Exam: Present: regular rate, normal rhythm, normal heart sounds. Absent: systolic murmur, diastolic murmur, rubs, gallop, clicks GI/Abdominal exam: Present: soft, normal bowel sounds. Absent: distended, tenderness, guarding, rebound, rigid Extremities exam: Present: normal inspection, full ROM, normal capillary refill. Absent: tenderness, pedal edema, joint swelling, calf tenderness Back exam: Present: normal inspection Neurological exam: Present: alert, oriented X3, CN II-XII intact Psychiatric exam: Present: normal affect, normal mood Skin exam: Present: warm, dry, intact, normal color. Absent: rash <Andra Cook - Last Filed: 01/12/21 16:58> - General Exam Comments Initial Comments: 25-year-old female. No distress. Patient appears pale. (Andra Cook) Course Vital Signs 01/12/21 13:00 Temperature 97.5 F L Pulse Rate 59 L Respiratory 18 Rate Blood Pressure 131/76 O2 Sat by Pulse 95 Oximetry Medical Decision Making - Lab Data Result diagrams: 01/12/21 15:41 01/12/21 15:41 <Andra Cook - Last Filed: 01/12/21 16:58> - Lab Data Result diagrams: 01/12/21 15:41 01/12/21 15:41 <Ting Ramos - Last Filed: 01/12/21 18:23> - Lab Data Result diagrams: 01/12/21 15:41 01/12/21 15:41 <Sary Taveras - Last Filed: 01/14/21 01:04> - Medical Decision Making Patient is a 25 year old female who is approximately [address] Butcher. She presents with 2 days of severe nausea and vomiting. At this time Patient was given 2 L of IV fluid. She reports right leg did not help with her nausea and she will try Zofran understands risks and benefits associated with . She states that she's also having acid reflux. Was given IV Pepcid. Advised the Patient to follow-up with her primary senior windows systems engineer. She will be given a prescription for Phenergan. Urinalysis pending and will be disposed to Ting Ramos FINGERPRINTER. (Andra Cook) Took over care of patient for purposes of reviewing urinalysis. This did show 4+ ketones consistent with dehydration. No evidence for infection. Review of chart reveals that patient was given 2L normal saline and IV nausea medication. Upon re-evaluation informs me that she is not feeling any better and has continued to vomit. She reports burning in her esophagus. States she generally is admitted when her symptoms get this bad. We will admit for dehydration, hyperemesis, consult to OBGYN. My attending is Dr. Taveras. (Ting Ramos) I was available for consultation in the emergency department. The history and physical exam were done by the midlevel provider. I was consulted for this patients care. I reviewed the case with the midlevel provider and based on their presentation of the patient, I agree with the assessment, medical decision making and plan of care as documented. Chart was dictated using Veri[employer] dictation software. Attempts were made to correct any dictation errors however some typographical errors may persist. (Sary Taveras) - Lab Data Lab Results 01/12/21 01/12/21 01/12/21 Range/Units 15:41 15:41 15:41 WBC 14.5 H (3.8-10.6) k/uL RBC 3.90 (3.80-5.40) m/uL Hgb 12.3 (11.4-16.0) gm/dL Hct 36.8 (34.0-46.0) % MCV 94.5 (80.0-100.0) fL MCH 31.6 (25.0-35.0) pg MCHC 33.4 (31.0-37.0) g/dL RDW 13.8 (11.5-15.5) % Plt Count 250 (150-450) k/uL MPV 7.3 Neutrophils % 88 % Lymphocytes % 10 % Monocytes % 2 % Eosinophils % 0 % Basophils % 0 % Neutrophils # 12.8 H (1.3-7.7) k/uL Lymphocytes # 1.4 (1.0-4.8) k/uL Monocytes # 0.3 (0-1.0) k/uL Eosinophils # 0.0 (0-0.7) k/uL Basophils # 0.0 (0-0.2) k/uL Sodium 135 L (137-145) mmol/L Potassium 3.7 (3.5-5.1) mmol/L Chloride 101 (98-107) mmol/L Carbon Dioxide 22 (22-30) mmol/L Anion Gap 12 mmol/L BUN 14 (7-17) mg/dL Creatinine 0.41 L (0.52-1.04) mg/dL Est GFR (CKD-EPI)AfAm >90 (>60 ml/min/1.73 sqM) Est GFR (CKD-EPI)NonAf >90 (>60 ml/min/1.73 sqM) Glucose 138 H (74-99) mg/dL Calcium 9.2 (8.4-10.2) mg/dL Magnesium 2.1 (1.6-2.3) mg/dL Total Bilirubin 0.6 (0.2-1.3) mg/dL AST 23 (14-36) U/L ALT 14 (4-34) U/L Alkaline Phosphatase 52 (38-126) U/L Total Protein 7.4 (6.3-8.2) g/dL Albumin 4.5 (3.5-5.0) g/dL Lipase 50 (23-300) U/L Urine Color Yellow Urine Appearance Cloudy H (Clear) Urine pH 6.0 (5.0-8.0) Ur Specific [place] 1.035 (1.001-1.035) Urine Protein 2+ H (Negative) Urine Glucose (UA) Trace H (Negative) Urine Ketones 4+ H (Negative) Urine Blood Negative (Negative) Urine Nitrite Negative (Negative) Urine Bilirubin Negative (Negative) Urine Urobilinogen <2.0 (<2.0) mg/dL Ur Leukocyte Esterase Negative (Negative) Urine RBC 1 (0-5) /hpf Urine WBC 3 (0-5) /hpf Ur Squamous Epith Cells 4 (0-4) /hpf Urine Mucus Many H (None) /hpf Urine Opiates Screen (NotDetected) Ur Oxycodone Screen (NotDetected) Urine Methadone Screen (NotDetected) Ur Propoxyphene Screen (NotDetected) Ur Barbiturates Screen (NotDetected) U Tricyclic Antidepress (NotDetected) Ur Phencyclidine Scrn (NotDetected) Ur Amphetamines Screen (NotDetected) U Methamphetamines Scrn (NotDetected) U Benzodiazepines Scrn (NotDetected) Urine Cocaine Screen (NotDetected) U Marijuana (THC) Screen (NotDetected) 01/12/21 Range/Units 15:41 WBC (3.8-10.6) k/uL RBC (3.80-5.40) m/uL Hgb (11.4-16.0) gm/dL Hct (34.0-46.0) % MCV (80.0-100.0) fL MCH (25.0-35.0) pg MCHC (31.0-37.0) g/dL RDW (11.5-15.5) % Plt Count (150-450) k/uL MPV Neutrophils % % Lymphocytes % % Monocytes % % Eosinophils % % Basophils % % Neutrophils # (1.3-7.7) k/uL Lymphocytes # (1.0-4.8) k/uL Monocytes # (0-1.0) k/uL Eosinophils # (0-0.7) k/uL Basophils # (0-0.2) k/uL Sodium (137-145) mmol/L Potassium (3.5-5.1) mmol/L Chloride (98-107) mmol/L Carbon Dioxide (22-30) mmol/L Anion Gap mmol/L BUN (7-17) mg/dL Creatinine (0.52-1.04) mg/dL Est GFR (CKD-EPI)AfAm (>60 ml/min/1.73 sqM) Est GFR (CKD-EPI)NonAf (>60 ml/min/1.73 sqM) Glucose (74-99) mg/dL Calcium (8.4-10.2) mg/dL Magnesium (1.6-2.3) mg/dL Total Bilirubin (0.2-1.3) mg/dL AST (14-36) U/L ALT (4-34) U/L Alkaline Phosphatase (38-126) U/L Total Protein (6.3-8.2) g/dL Albumin (3.5-5.0) g/dL Lipase (23-300) U/L Urine Color Urine Appearance (Clear) Urine pH (5.0-8.0) Ur Specific [place] (1.001-1.035) Urine Protein (Negative) Urine Glucose (UA) (Negative) Urine Ketones (Negative) Urine Blood (Negative) Urine Nitrite (Negative) Urine Bilirubin (Negative) Urine Urobilinogen (<2.0) mg/dL Ur Leukocyte Esterase (Negative) Urine RBC (0-5) /hpf Urine WBC (0-5) /hpf Ur Squamous Epith Cells (0-4) /hpf Urine Mucus (None) /hpf Urine Opiates Screen Not Detected (NotDetected) Ur Oxycodone Screen Not Detected (NotDetected) Urine Methadone Screen Not Detected (NotDetected) Ur Propoxyphene Screen Not Detected (NotDetected) Ur Barbiturates Screen Not Detected (NotDetected) U Tricyclic Antidepress Not Detected (NotDetected) Ur Phencyclidine Scrn Not Detected (NotDetected) Ur Amphetamines Screen Not Detected (NotDetected) U Methamphetamines Scrn Not Detected (NotDetected) U Benzodiazepines Scrn Not Detected (NotDetected) Urine Cocaine Screen Not Detected (NotDetected) U Marijuana (THC) Screen Detected H (NotDetected) Disposition <Guillermo Shrestha - Last Filed: 01/12/21 13:00> Is patient prescribed a controlled substance at d/c from ED?: No Time of Disposition: 17:05 <Andra Cook - Last Filed: 01/12/21 16:58> Decision to Admit Reason: Admit from EC Decision Date: 01/12/21 Decision Time: 18:16 <Ting Ramos - Last Filed: 01/12/21 18:23> <Sary Taveras - Last Filed: 01/14/21 01:04> Clinical Impression: Dehydration, Hyperemesis gravidarum, Intractable nausea and vomiting, 14 weeks gestation of Disposition: ADMITTED IP TO THIS [facility] Condition: Stable
[2021-01-12] MEDS ORDERED: METOCLOPRAMIDE 5 MG/ML 2 ML VIAL IVP STA (15:28)
[2021-01-12 16:06] LABS: Basophils % (A) 0 %; Eosinophils % (A) 0 %; HCT 36.8 % (34.0-46.0); HGB 12.3 gm/dL (11.4-16.0); Lymphocytes # (A) 1.4 k/uL (1.0-4.8); Lymphocytes % (A) 10 %; MCH 31.6 pg (25.0-35.0); MCHC 33.4 g/dL (31.0-37.0); MCV 94.5 fL (80.0-100.0); Mean Platelet Volume 7.3; Monocytes # (A) 0.3 k/uL (0-1.0); Monocytes % (A) 2 %; Neutrophils # (A) 12.8 k/uL (1.3-7.7); Neutrophils % (A) 88 %; Platelet Count 250 k/uL (150-450); RDW 13.8 % (11.5-15.5); WBC 14.5 k/uL (3.8-10.6)
[2021-01-12 16:11] LABS: ALT 14 U/L (4-34); AST 23 U/L (14-36); African American GFR (CKD) >90 (>60 ml/min/1.73 sqM); Albumin 4.5 g/dL (3.5-5.0); Alkaline Phosphatase 52 U/L (38-126); Anion Gap 12 mmol/L; Blood Urea Nitrogen 14 mg/dL (7-17); Calcium 9.2 mg/dL (8.4-10.2); Carbon Dioxide 22 mmol/L (22-30); Chloride 101 mmol/L (98-107); Glucose 138 mg/dL (74-99); Lipase 50 U/L (23-300); Magnesium 2.1 mg/dL (1.6-2.3); Non-African American GFR(CKD) >90 (>60 ml/min/1.73 sqM); Potassium 3.7 mmol/L (3.5-5.1); Sodium 135 mmol/L (137-145); Total Bilirubin 0.6 mg/dL (0.2-1.3); Total Protein 7.4 g/dL (6.3-8.2)
[2021-01-12] MEDS ORDERED: ONDANSETRON 4 MG/2 ML VIAL IVP STA (16:30)
[2021-01-12] MEDS ORDERED: FAMOTIDINE 20 MG/2 ML VIAL IV STA (16:31)
[2021-01-12 17:45] LABS: Appearance,Urine Cloudy (Clear); Bilirubin,Urine Negative (Negative); Blood,Urine Negative (Negative); Color,Urine Yellow; Glucose,Urine (UA) Trace (Negative); Ketones,Urine 4+ (Negative); Leukocyte Esterase,Urine Negative (Negative); Mucus,Urine Many /hpf; Nitrite,Urine Negative (Negative); Protein,Urine 2+ (Negative); RBC,Urine 1 /hpf (0-5); Specific Gravity,Urine 1.035 (1.001-1.035); Squamous Epithelial Cell,Urine 4 /hpf (0-4); Urobilinogen,Urine <2.0 mg/dL (<2.0); WBC,Urine 3 /hpf (0-5)
[2021-01-12] MEDS ORDERED: PROMETHAZINE SUPPOSITORY 25 MG SUPP RECTAL STA (18:09)
[2021-01-12] MEDS ORDERED: NALOXONE 0.4 MG/ML 1 ML VIAL IV PRN (18:16)
[2021-01-12] MEDS ORDERED: ONDANSETRON 4 MG/2 ML VIAL IVP PRN (18:16)
[2021-01-12] MEDS ORDERED: PROMETHAZINE SUPPOSITORY 25 MG SUPP RECTAL PRN (18:24)
[2021-01-12 18:32] LABS: Amphetamine Screen,Urine Not Detected (NotDetected); Barbiturate Screen,Urine Not Detected (NotDetected); Benzodiazepines Screen,Urine Not Detected (NotDetected); Cocaine Screen,Urine Not Detected (NotDetected); Methadone Screen, Urine Not Detected (NotDetected); Opiate Screen,Urine Not Detected (NotDetected); Oxycodone Screen, Urine Not Detected (NotDetected); Phencyclidine Screen,Urine Not Detected (NotDetected); Tricyclic Antidepressant,Urine Not Detected (NotDetected); Urn Cannabinoid Scrn Detected (NotDetected)
[2021-01-12] MEDS: SODIUM CHLORIDE 0.9% 1,000 ML IV SCH (21:09)
[2021-01-12] MEDS: FAMOTIDINE 20 MG/2 ML VIAL IV SCH (21:21)
--- NOTE | 2021-01-12 21:43 | HP ---
HISTORY AND PHYSICAL I am covering for Dr. Freeman. CHIEF COMPLAINTS: Nausea and vomiting. HISTORY OF PRESENT ILLNESS: This 25-year-old woman with a past medical history of multiple medical problems, including GERD, cyclical vomiting syndrome, history of anxiety, depression, being followed by Dr. Freeman in the outpatient setting, is complaining of vomiting for the last 2 days. The patient currently is 14 weeks' and was unable to contact FIBER OPTICS SUPERVISOR, according to her, from [facility]. The patient was using cannabis also twice daily at least, and because of increasing difficulties, the patient came to [facility] and was admitted for further evaluation and treatment. The patient had large-volume vomitus and is unable to keep anything down. There is no history of any fever, rigor or chills at this time. PAST MEDICAL HISTORY: History of GERD, history of cyclic vomiting syndrome, anxiety, depression. MEDICATIONS: Medications prior to admission include Phenergan and vitamins. ALLERGIES: LATEX. FAMILY HISTORY: History of diabetes mellitus in the family. SOCIAL HISTORY: History of THC. History of smoking. No history of alcohol intake. REVIEW OF SYSTEMS: ENT: No diminished hearing. No diminished vision. CARDIOVASCULAR SYSTEM: No angina, palpitations. RESPIRATORY SYSTEM: No cough, hemoptysis. GI: As mentioned earlier. : As mentioned earlier. NERVOUS SYSTEM: No numbness, weakness. ALLERGY/IMMUNOLOGY: No asthma or hay fever. MUSCULOSKELETAL: As mentioned earlier. HEMATOLOGY/ONCOLOGY: No history of anemia. ENDOCRINE: No history of diabetes or hypothyroidism. CONSTITUTIONAL: As mentioned earlier. DERMATOLOGY: Negative. RHEUMATOLOGY: Negative. PSYCHIATRY: As mentioned earlier. PHYSICAL EXAMINATION: Patient alert and oriented x3. Pulse is 59, blood pressure 131/76, respiration 18, temperature 97.5, pulse ox 94% on room air. HEENT: Conjunctivae normal. Oral mucosa moist. NECK: No jugular venous distention. No carotid bruit. No lymph node enlargement. CARDIOVASCULAR: S1, S2 muffled. RESPIRATION: Breath sounds diminished at the bases. No rhonchi. No crackles. ABDOMEN: Soft, non-tender. No distention. No guarding. No rigidity. No mass palpable. Bowel sounds present. No ascites. LEGS: No edema. No swelling. NERVOUS SYSTEM: Higher functions as mentioned earlier. Moves all 4 limbs. No focal motor or sensory deficit. LYMPHATICS: No lymph node palpable in neck, axillae or groin. JOINTS: No active deforming arthropathy. LABS: WBC 14.3, hemoglobin 12.3. Sodium potassium 3.7. ASSESSMENT: 1. Recurrent vomiting, intractable nausea and vomiting; possibly acute gastritis. 2. Possible cyclical vomiting syndrome. 3. Increased white count. 4. Hyponatremia. 5. Increased random blood glucose. 6. Fourteen-week . 7. History of THC. 8. Gastroesophageal reflux disease. 9. History of gastroparesis. 10.History of Cordon's esophagus. 11.History of hemorrhoids. 12.Exploratory laparoscopy. 13.History of anxiety, depression. 14.History of nicotine dependence. 15.FULL CODE. RECOMMENDATIONS AND DISCUSSION: In this 25-year-old woman who presented with multiple complex medical issues, we will monitor the patient closely, continue the current medications. Will initiate symptomatic treatment. Prognosis is guarded because of multiple complex medical issues. Further recommendations to follow. A copy of this dictation is being forwarded to Dr. Freeman, who is the primary physician. See orders for details. FIBER OPTICS SUPERVISOR is also consulted. MMODL / IJN: [id number] / MANJULA
[2021-01-13 07:33] VITALS: RESP 17
[2021-01-13] MEDS: SODIUM CHLORIDE 0.9% 1,000 ML IV SCH (08:23)
[2021-01-13] MEDS: FAMOTIDINE 20 MG/2 ML VIAL IV SCH (08:32)
[2021-01-13] MEDS ORDERED: PRENATAL VIT-IRON-FOLIC ACID 1 EACH CAP PO SCH (09:00)
[2021-01-13 15:11] VITALS: BP 100/72; PULSE 80; TEMP 98.3
--- NOTE | 2021-01-13 16:33 | P.OBCN ---
History of Present Illness Consult date: 01/13/21 History of present illness: This is a 25-year-old white female 5 para 4004 EDC 07/11/2021 at 14 weeks gestation who presented to the emergency room with intractable nausea and vomiting for 2 days. She has a history of gastroparesis, was unable to keep any food or liquids down. She was unable to contact her primary principal technical writer for approximately 1 week and therefore presented to the emergency room. Past medical history is significant for gastroparesis. Past surgical history exploratory laparoscopy age 14, negative findings. Current medications vitamin daily, Prilosec when necessary. ALLERGIES no known medical ALLERGIES, patient reports a latex sensitivity eliciting a rash. Social history patient is from her , she is with her boyfriend who is the current father of this child. She was a tobacco smoker for approximately 15 years since age 10, quit 4 days ago. Alcohol use is denied, patient did acid and mushrooms many years ago, and does smoke marijuana almost daily. Family history significant for patient's mother with a history of cervical cancer. PURCHASE ORDER CHECKER history menarche began at the age of 9, 2080 interval, 5-7 day duration. She had chlamydia treated in 2019. Most recent cultures negative. Obstetric history significant for normal spontaneous vaginal deliveries 4, 6 lbs. 7 oz. male, 5 lbs. 6 oz. female, 6 pound female, 5 lbs. 9 oz. male, all full-term and healthy. On exam patient is 5 foot 0 inches, and 15 pounds, vital signs are stable and she is afebrile. Blood pressure 110/70, pulse 68. General physical exam is within normal limits. Chest is clear in all kelly. Extremities reveal no edema. heart tones noted with the Doppler at 150. On admission patient had 4+ ketones. At this time she has received no medication for approximate 9 hours. She is hungry and re-is requesting super. No emesis since early this morning. Impression: 14 week intrauterine , hyperemesis gravidarum on top of a history of gastroparesis, clinically improved and now requesting food. Plan we will advance to regular diet. Dietary restrictions and recommendations been reviewed. Follow-up in the office with primary principal technical writer or per patient's wishes. Review of Systems Constitutional: Reports as per HPI Past Medical History Past Medical History: GERD/Reflux Additional Past Medical History / Comment(s): cyclic vomiting syndrome, gastroparesis, Cordon's esophagus, hemorrhoids. History of Any Multi-Drug Resistant Organisms: None Reported Past Surgical History: No Surgical Hx Reported Additional Past Surgical History / Comment(s): EXPLORATORY LAPAROSCOPY 2009, EGD Past Anesthesia/Blood Transfusion Reactions: No Reported Reaction Past Psychological History: Anxiety, Depression Additional Psychological History / Comment(s): Pt resides with her 3 children ages 6,5,and 3 yrs. She is independent. Smoking Status: Former smoker Past Alcohol Use History: None Reported Past Drug Use History: Marijuana Additional Drug Use History / Comment(s): Occasional marijuana use, last use 2 days ago - Past Family History Mother History Unknown: Yes Family Medical History: Diabetes Mellitus Additional Family Medical History / Comment(s): Pt states she does not know mother's medical hx. Father History Unknown: Yes Additional Family Medical History / Comment(s): Pt states she does not know father's medical hx. Medications and Allergies Home Medications Medication Instructions Recorded Confirmed Type Bwb-Ubtg-Mmctn Acid 1 cap PO DAILY 12/21/20 01/12/21 History [-U Capsule (formulary)] Promethazine Suppository 25 mg RECTAL DAILY PRN 01/12/21 01/12/21 History [Phenergan] Allergies Allergy/AdvReac Type Severity Reaction Status Date / Time latex Allergy Unknown Rash/Hives Verified 01/12/21 21:00 Exam Vital Signs Temp Pulse Resp BP Pulse Ox 01/13/21 15:10 98.3 F 80 17 100/72 01/13/21 07:32 98.5 F 86 17 92/47 01/13/21 00:00 97.6 F 71 16 110/61 99 01/12/21 21:27 98.1 F 75 16 129/69 99 01/12/21 21:01 98.1 F 75 16 129/69 99 Intake and Output 01/13/21 01/13/21 01/13/21 06:59 14:59 22:59 Intake Total 840 Output Total 450 Balance 390 Intake: IV 600 Oral 240 Output: Urine 400 Emesis 50 Other: # Voids 1 See dictation under HPI please Results Result Diagrams: 01/12/21 15:41 01/12/21 15:41 Abnormal Lab Results - Last 24 Hours (Table) 01/12/21 01/12/21 Range/Units 15:41 15:41 Urine Appearance Cloudy H (Clear) Urine Protein 2+ H (Negative) Urine Glucose (UA) Trace H (Negative) Urine Ketones 4+ H (Negative) Urine Mucus Many H (None) /hpf U Marijuana (THC) Screen Detected H (NotDetected) Assessment and Plan Assessment: 14 week intrauterine , hyperemesis gravidarum on top of a history of gastroparesis. Clinically improved. Patient requesting food. No emesis since early this morning. No meds for 9 hours. Plan: We'll advance diet at this time. Dietary recommendations have been reviewed. Discharge home her general medical team, admitting physicians. Time with Patient: Greater than 30
--- NOTE | 2021-01-13 21:15 | DS ---
DISCHARGE SUMMARY DATE OF SERVICE: 01/13/2021. FINAL DIAGNOSES: 1. Recurrent vomiting, intractable nausea, vomiting, possible acute gastritis. 2. Cyclical vomiting syndrome. 3. Fourteen weeks . 4. Possible hyperemesis gravidarum. 5. Increased WBC. 6. Hyponatremia. 7. Increased random glucose. 8. History of THC. 9. Gastroesophageal reflux disease. 10.History of gastroparesis. 11.History of Cordon's esophagus. 12.History of hemorrhoids. 13.History of exploratory laparoscopy. 14.History of anxiety depression. 15.History of nicotine dependence. 16.FULL CODE. DISCHARGE DISPOSITION: The patient discharged in stable condition with guarded prognosis. Discharge cleared by by Dr. Munoz PATENT LITIGATION ASSOCIATE. HISTORY OF PRESENT ILLNESS: This 25 -year-old woman with a past medical history of multiple medical problems being followed by Dr. Freeman in the outpatient setting had intractable vomiting, treated symptomatically and the patient improved significantly. On exam, vitals signs stable. Cardiovascular: S1, S2. Abdomen soft. Nervous system: No focal deficits. Patient is keen on going home. Discharge in stable condition with guarded prognosis. DISCHARGE ADVICE AND MEDICATION: 1. Diet is soft as tolerated. 2. Activity limited until followup. 3. Follow up with Dr. Freeman in 2-3 days. 4. Continue with Phenergan. 5. vitamins. 6. Follow closely with PATENT LITIGATION ASSOCIATE. MARIANO / TIMOTHYN: [id number] /
== END 2021-01-13 19:05 | disposition home or self-care (01) ==
LOC: EC 12:02 → 4FBP 18:37
PROVIDERS: ADMIT Hospitalist; ATTEND Hospitalist
DX: O21.9 Vomiting of pregnancy, unspecified (principal); O99.282 Endocrine, nutritional and metabolic diseases complicating pregnancy, second trimester; E87.1 Hypo-osmolality and hyponatremia; E86.0 Dehydration; O99.332 Smoking (tobacco) complicating pregnancy, second trimester; F17.200 Nicotine dependence, unspecified, uncomplicated; O99.612 Diseases of the digestive system complicating pregnancy, second trimester; K21.9 Gastro-esophageal reflux disease without esophagitis; K22.70 Barrett's esophagus without dysplasia; K31.84 Gastroparesis; O26.891 Other specified pregnancy related conditions, first trimester; K64.9 Unspecified hemorrhoids; D72.829 Elevated white blood cell count, unspecified; O99.810 Abnormal glucose complicating pregnancy; O99.341 Other mental disorders complicating pregnancy, first trimester; F41.9 Anxiety disorder, unspecified; F32.9 Major depressive disorder, single episode, unspecified; Z3A.14 14 weeks gestation of pregnancy; Z20.822 Contact with and (suspected) exposure to COVID-19; Z91.040 Latex allergy status; Z83.3 Family history of diabetes mellitus; Z80.49 Family history of malignant neoplasm of other genital organs
CPT/HCPCS: 96376; 96374; 96375; 99284; 36415; 80053; 83690; 83735; 85025; 81001; 80306; 87635; G0378 ×2; J2765; J2405 ×2

== ENCOUNTER 2022-12-02 16:47 | Outpatient (CLI) | payer OTHER ==
[2022-12-02 18:03] VITALS: BP 131/73; PULSE 86; RESP 16; TEMP 97.7
--- NOTE | 2022-12-08 09:47 | P.MSEPDOC ---
Presenting Problems - Arrival Data Date of Arrival on Unit: 12/02/22 Time of Arrival on Unit: 16:47 Mode of Transport: Ambulatory - Complaint OB-Reason for Admission/Chief Complaint: Decreased Movement Comment: Pt states last felt movement this morning Medical History - Information : 6 Para: 5 Term: 5 : 0 Number of Living Children: 5 - Gestational Age Gestational Age by RAJ (wks/days): 36 Weeks and 3 Days - History Complications: Smoker Review of Systems - Review of Systems Constitutional: No problems Breast: No problems ENT: No problems Cardiovascular: No problems Respiratory: No problems Gastrointestinal: No problems Genitourinary: No problems Musculoskeletal: No problems Neurological: No problems Skin: No problems Vital Signs - Temperature Temperature: 97.7 F Temperature Source: Oral - Pulse Right Sitting Brachial Pulse Rate: 86 Pulse Assessment Method: Automatic Cuff - Respirations Respiratory Rate: 16 Oxygen Delivery Method: Room Air - Blood Pressure Right Arm Sitting Blood Pressure: 131/73 Blood Pressure Mean: 92 Blood Pressure Source: Automatic Cuff Medical Screen Scoring - Assessment - Baby A Baseline FHR: 120 Heart Rate - NICHD Category: Category I (Normal) NST: Reactive Physician Notification - Physician Notified Physician Notified Date: 12/02/22 Physician Notified Time: 17:40 Physician: Josiane Rausch New Order Received: Yes - Notification Comment Comment: Spk c\daniela Markham of pts arrival to triage for decreased FM, care until 20wks gestation c\Dr. Wasserman in [place], [facility]. FHT Cat 1, reactive NST, no contractions, pt denies any other concerns. Order rec'd to discharge home. Maternal Triage Index - Maternal Triage Index Presenting for scheduled procedure w/no complaint: No - Stat/Priority 1 Stat Priority 1: No - Urgent/Priority 2 Urgent Priority 2: Yes Provider Notified: Josiane Rausch Provider Notified Time: 17:45 Criteria Met for Priority 2: Decreased movement Disposition - Disposition OB Disposition: Discharge to home, Written follow up instructions reviewed Discharge Date: 12/02/22 Discharge Time: 17:50 I agree with the RN Medical Screening Exam: Yes Case reviewed; plan agreed upon as documented in EMR&OBIX.: Yes Diagnosis: decreased movement
== END 2022-12-02 17:50 | disposition home or self-care (01) ==
LOC: FBPOP 16:47
PROVIDERS: ATTEND Obstetrics & Gynecology
DX: O36.8130 Decreased fetal movements, third trimester, not applicable or unspecified (principal); O99.333 Smoking (tobacco) complicating pregnancy, third trimester; F17.200 Nicotine dependence, unspecified, uncomplicated; Z3A.36 36 weeks gestation of pregnancy; Z91.040 Latex allergy status
CPT/HCPCS: 59025; G0463; 99203

== ENCOUNTER 2023-03-11 01:09 | Emergency (ER) | payer OTHER ==
[2023-03-11 01:34] VITALS: BP 127/73; PULSE 81; RESP 18; TEMP 98.9
[2023-03-11] MEDS ORDERED: ONDANSETRON ODT 4 MG TAB PO STA (01:39)
[2023-03-11] MEDS ORDERED: metroNIDAZOLE 500 MG TAB PO STA (01:41)
[2023-03-11] MEDS ORDERED: DOXYCYCLINE 100 MG CAP PO STA (01:41)
[2023-03-11] MEDS ORDERED: cefTRIAXone 1,000 MG VIAL (IM USE) IM STA (01:41)
--- NOTE | 2023-03-11 01:47 | ED ---
Female Urogenital HPI - General Chief complaint: Urogenital Stated complaint: vaginal discharge Time Seen by Provider: 03/11/23 01:22 Source: patient, RN notes reviewed Mode of arrival: ambulatory Limitations: no limitations - History of Present Illness Initial comments: This is a 27-year-old female who presents to the emergency department for vaginal discharge. States that this is thin, watery, and yellow has been present for the last couple of days. This does not have a foul odor associated with it. She did just finish Keflex for a UTI several days ago. She has minor burning and mild associated nausea. She is sexually active and states that there is a possibility of STD exposure. Denies any fevers or chills. MD Complaint: vaginal discharge - Related Data Home Medications Medication Instructions Recorded Confirmed Izh-Bmpn-Fwaaj Acid 1 cap PO DAILY 12/21/20 12/12/22 [-U Capsule (formulary)] Previous Rx's Medication Instructions Recorded Ibuprofen [Motrin] 600 mg PO Q6HR PRN #30 tab 12/13/22 Doxycycline Hyclate 100 mg PO BID 7 Days #14 tab 03/11/23 Ondansetron Odt [Zofran Odt] 4 mg PO Q8HR PRN #15 tab 03/11/23 metroNIDAZOLE [Flagyl] 500 mg PO BID 7 Days #14 tab 03/11/23 Allergies Allergy/AdvReac Type Severity Reaction Status Date / Time latex Allergy Unknown Rash/Hives Verified 03/11/23 01:21 Review of Systems ROS Statement: Those systems with pertinent positive or pertinent negative responses have been documented in the HPI. ROS Other: All systems not noted in ROS Statement are negative. Past Medical History Past Medical History: GERD/Reflux Additional Past Medical History / Comment(s): cyclic vomiting syndrome, gastroparesis, Cordon's esophagus, hemorrhoids. History of Any Multi-Drug Resistant Organisms: None Reported Past Surgical History: No Surgical Hx Reported Additional Past Surgical History / Comment(s): EXPLORATORY LAPAROSCOPY 2009, EGD Past Anesthesia/Blood Transfusion Reactions: No Reported Reaction Past Psychological History: Anxiety, Depression Smoking Status: Current every day smoker Past Alcohol Use History: None Reported Past Drug Use History: Marijuana - Past Family History Mother History Unknown: Yes Family Medical History: Diabetes Mellitus Additional Family Medical History / Comment(s): Pt states she does not know mother's medical hx. Father History Unknown: Yes Additional Family Medical History / Comment(s): Pt states she does not know father's medical hx. General Exam Limitations: no limitations General appearance: alert, in no apparent distress Head exam: Present: atraumatic, normocephalic, normal inspection Respiratory exam: Present: normal lung sounds bilaterally. Absent: respiratory distress, wheezes, rales, rhonchi, stridor Cardiovascular Exam: Present: regular rate, normal rhythm, normal heart sounds. Absent: systolic murmur, diastolic murmur, rubs, gallop, clicks GI/Abdominal exam: Present: soft, normal bowel sounds. Absent: distended, tenderness, guarding, rebound, rigid Neurological exam: Present: alert, oriented X3, CN II-XII intact Psychiatric exam: Present: normal affect, normal mood Skin exam: Present: warm, dry, intact, normal color. Absent: rash Course Vital Signs 03/11/23 01:18 Temperature 98.9 F Pulse Rate 81 Respiratory 18 Rate Blood Pressure 127/73 O2 Sat by Pulse 97 Oximetry Medical Decision Making - Medical Decision Making This is a 27-year-old female who presents to the emergency department for vaginal discharge. Was pt. sent in by a medical professional or institution? @ -No Did you speak to anyone other than the patient for history? @ -No Did you review nursing and triage notes? @ -Yes, and I agree, it is accurate with regards to the patient's symptoms. Were old charts reviewed? @ -No Differential Diagnosis? @ -Differential Vaginal Discharge: BV, yeast infection, UTI, STI, this is not meant to be an all-inclusive list. EKG interpreted by me (3pts min.)? @ -Not obtained X-rays interpreted by me (1pt min.)? @ -Not obtained CT interpreted by me (1pt min.)? @ -Not obtained U/S interpreted by me (1pt. min.)? @ -Not obtained What testing was considered but not performed? (CT, X-rays, U/S, labs)? Why? @ -None What meds were considered but not given? Why? @ -None Did you discuss the management of the patient with other professionals? @ -No Did you reconcile home meds? @ -No Was smoking cessation discussed for >3mins.? @ -No Was critical care preformed (if so, how long)? @ -No Were there social determinants of health that impacted care today? How? (Homelessness, low income, unemployed, alcoholism, drug addiction, transportation, low edu. Level, literacy, decrease access to med. care, halfway, rehab)? @ -No Was there de-escalation of care discussed even if they declined? (Discuss DNR or withdrawal of care, Hospice)? @ -No What co-morbidities impacted this encounter? (DM, HTN, Smoking, COPD, CAD, Cancer, CVA, Hep., AIDS, mental health diagnosis, sleep apnea, morbid obesity)? @ -None Was patient admitted / discharged? @ -Discharged. Urinalysis has a large amount of leukoesterase and white blood cells present. Urine sent for culture. GC and chlamydia testing ordered off of urine as well. She was treated prophylactically for STDs given her concern, and a dose of ceftriaxone, doxycycline, and metronidazole was provided in the emergency department. Prescription for a 7 day course of metronidazole and doxycycline was provided with dosing instructions reviewed. She was also given a prescription for Zofran for any additional nausea. Undiagnosed new problem with uncertain prognosis? @ -None Drug Therapy requiring intensive monitoring for toxicity (Heparin, Nitro, Insulin, Cardizem)? @ -None Were any procedures done? @ -None Diagnosis/symptom? @ -Vaginal discharge Acute, or Chronic, or Acute on Chronic? @ -Acute Uncomplicated (without systemic symptoms) or Complicated (systemic symptoms)? @ -Uncomplicated Side effects of treatment? @ -None Exacerbation, Progression, or Severe Exacerbation] @ -Not applicable Poses a threat to life or bodily function? @ -No Return precautions reviewed in depth, the patient is instructed to return to the emergency department with any new, worsening, or concerning symptoms. Patient verbalized understanding. This case was discussed in detail with the attending ED physician, Dr. Friedman. Presentation, findings, and treatment plan discussed in detail as well. - Lab Data Lab Results 03/11/23 03/11/23 Range/Units 01:29 01:33 Urine Color Yellow Urine Appearance Slightly Cloudy H (Clear) Urine pH 6.0 (5.0-8.0) Ur Specific [place] 1.033 (1.001-1.035) Urine Protein 1+ H (Negative) Ur Protein Confirm Not Reportable Urine Glucose (UA) Negative (Negative) Urine Ketones Negative (Negative) Urine Blood Trace (Negative) Urine Nitrite Negative (Negative) Urine Bilirubin Negative (Negative) Ur Bilirubin Confirm Not Reportable Urine Urobilinogen 2.0 (<2.0) mg/dL Ur Leukocyte Esterase Large (Negative) Urine RBC 21 H (0-5) /hpf Urine WBC >182 H (0-5) /hpf Urine WBC Clumps Rare H (None) /hpf Ur Squamous Epith Cells 13 H (0-4) /hpf Urine Bacteria Rare H (None) /hpf Urine Mucus Many H (None) /hpf Urine HCG, Qual Not Detected (Not Detectd) Disposition Clinical Impression: Vaginal discharge Disposition: HOME SELF-CARE Instructions (If sedation given, give patient instructions): Vaginal Discharge (ED) Additional Instructions: Return to the emergency department with any new, worsening, or concerning symptoms. Take both antibiotics as prescribed for 7 days. Follow up with your primary care provider in 1-2 days. Prescriptions: Doxycycline Hyclate 100 mg PO BID 7 Days #14 tab metroNIDAZOLE [Flagyl] 500 mg PO BID 7 Days #14 tab Is patient prescribed a controlled substance at d/c from ED?: No Referrals: Joselito Freeman MD [Primary Care Provider] - 1-2 days
[2023-03-11 02:26] LABS: Bacteria,Urine Rare /hpf; Mucus,Urine Many /hpf; RBC,Urine 21 /hpf (0-5); Squamous Epithelial Cell,Urine 13 /hpf (0-4); WBC,Urine >182 /hpf (0-5)
[2023-03-11 02:28] LABS: Color,Urine Yellow
[2023-03-11 02:30] LABS: Appearance,Urine Slightly Cloudy (Clear); Bilirubin,Urine Negative (Negative); Blood,Urine Trace (Negative); Glucose,Urine (UA) Negative (Negative); Ketones,Urine Negative (Negative); Leukocyte Esterase,Urine Large (Negative); Nitrite,Urine Negative (Negative); Protein,Urine 1+ (Negative)
[2023-03-11 02:32] LABS: Specific Gravity,Urine 1.033 (1.001-1.035)
== END 2023-03-11 02:59 | disposition home or self-care (01) ==
LOC: EC 01:09
DX: N89.8 Other specified noninflammatory disorders of vagina (principal); F17.200 Nicotine dependence, unspecified, uncomplicated; F12.90 Cannabis use, unspecified, uncomplicated; Z91.040 Latex allergy status; Z86.59 Personal history of other mental and behavioral disorders
CPT/HCPCS: 87491; 81001; 81025; 87086; 99284; 96372; J0696

== ENCOUNTER 2023-03-21 01:56 | Observation (INO) | payer OTHER ==
[2023-03-21] MEDS ORDERED: SODIUM CHLORIDE 0.9% 2,000 ML IV STA (02:26)
[2023-03-21] MEDS ORDERED: KETOROLAC 15 MG/ML 1 ML VIAL IVP STA (02:26)
[2023-03-21] MEDS ORDERED: ONDANSETRON 4 MG/2 ML VIAL IVP STA (02:26)
[2023-03-21 03:54] LABS: Basophils # (A) 0.1 k/uL (0-0.2); Basophils % (A) 0 %; Eosinophils # (A) 0.1 k/uL (0-0.7); Eosinophils % (A) 1 %; HCT 42.7 % (34.0-46.0); HGB 14.2 gm/dL (11.4-16.0); Lymphocytes # (A) 2.7 k/uL (1.0-4.8); Lymphocytes % (A) 26 %; MCHC 33.2 g/dL (31.0-37.0); MCV 90.4 fL (80.0-100.0); Mean Platelet Volume 8.4; Monocytes # (A) 0.4 k/uL (0-1.0); Monocytes % (A) 4 %; Neutrophils % (A) 68 %; Platelet Count 249 k/uL (150-450); RBC 4.72 m/uL (3.80-5.40); RDW 14.4 % (11.5-15.5); WBC 10.3 k/uL (3.8-10.6)
[2023-03-21 04:16] LABS: ALT 13 U/L (4-34); AST 17 U/L (14-36); African American GFR (CKD) >90 (>60 ml/min/1.73 sqM); Albumin 4.7 g/dL (3.5-5.0); Alkaline Phosphatase 57 U/L (38-126); Anion Gap 12 mmol/L; Blood Urea Nitrogen 17 mg/dL (7-17); Calcium 9.9 mg/dL (8.4-10.2); Carbon Dioxide 23 mmol/L (22-30); Chloride 105 mmol/L (98-107); Glucose 124 mg/dL (74-99); Lipase 61 U/L (23-300); Non-African American GFR(CKD) >90 (>60 ml/min/1.73 sqM); Potassium 4.1 mmol/L (3.5-5.1); Sodium 140 mmol/L (137-145); Total Bilirubin 0.7 mg/dL (0.2-1.3); Total Protein 7.6 g/dL (6.3-8.2)
[2023-03-21 04:28] LABS: Appearance,Urine Cloudy (Clear); Bilirubin,Urine Negative (Negative); Blood,Urine Negative (Negative); Color,Urine Yellow; Glucose,Urine (UA) Negative (Negative); Ketones,Urine 2+ (Negative); Leukocyte Esterase,Urine Negative (Negative); Mucus,Urine Many /hpf; Nitrite,Urine Negative (Negative); Protein,Urine 2+ (Negative); RBC,Urine 3 /hpf (0-5); Specific Gravity,Urine 1.039 (1.001-1.035); Squamous Epithelial Cell,Urine 12 /hpf (0-4); WBC,Urine 9 /hpf (0-5)
[2023-03-21] MEDS ORDERED: diphenhydrAMINE 50 MG/ML 1 ML VIAL IVP STA (04:32)
[2023-03-21] MEDS ORDERED: METOCLOPRAMIDE 5 MG/ML 2 ML VIAL IVP STA (04:32)
--- NOTE | 2023-03-21 06:08 | ED ---
Abdominal Pain HPI - General Chief Complaint: Abdominal Pain Stated Complaint: Pain, vomiting Time Seen by Provider: 03/21/23 02:05 Source: patient Mode of arrival: ambulatory Limitations: no limitations - History of Present Illness Initial Comments: 27-year-old female with [place] cyclic vomiting syndrome, gastroparesis who presents emergency Department with acute nausea and vomiting. States that for the past 2 days she has been unable to hold down any food or drink due to her vomiting. She has had multiple episodes similar nature in the past and was told that she had cyclic vomiting syndrome. She states that she has since stopped smoking marijuana but continues to have symptoms. Admits to numerous episodes of nonbilious, nonbloody vomiting. No associated sick contacts. No fevers or chills. Does have generalized abdominal pain which is atypical for her previous episodes of intractable vomiting. Denies any hematemesis. No diarrhea, c onstipation, black or bloody stools. Concern for . Last menstrual cycle was 1.5 weeks ago. Denies taking any medications [id number] for her symptoms. No other alleviating, precipitating or modifying factors - Related Data Home Medications Medication Instructions Recorded Confirmed Pzw-Jawj-Vtpep Acid 1 cap PO DAILY 12/21/20 12/12/22 [-U Capsule (formulary)] Previous Rx's Medication Instructions Recorded Ibuprofen [Motrin] 600 mg PO Q6HR PRN #30 tab 12/13/22 Doxycycline Hyclate 100 mg PO BID 7 Days #14 tab 03/11/23 Ondansetron Odt [Zofran Odt] 4 mg PO Q8HR PRN #15 tab 03/11/23 metroNIDAZOLE [Flagyl] 500 mg PO BID 7 Days #14 tab 03/11/23 Allergies Allergy/AdvReac Type Severity Reaction Status Date / Time latex Allergy Unknown Rash/Hives Verified 03/21/23 01:59 Review of Systems ROS Statement: Those systems with pertinent positive or pertinent negative responses have been documented in the HPI. ROS Other: All systems not noted in ROS Statement are negative. Past Medical History Past Medical History: GERD/Reflux Additional Past Medical History / Comment(s): cyclic vomiting syndrome, gastroparesis, Cordon's esophagus, hemorrhoids. History of Any Multi-Drug Resistant Organisms: None Reported Past Surgical History: No Surgical Hx Reported Additional Past Surgical History / Comment(s): EXPLORATORY LAPAROSCOPY 2010, EGD Past Anesthesia/Blood Transfusion Reactions: No Reported Reaction Past Psychological History: Anxiety, Depression Smoking Status: Current every day smoker Past Alcohol Use History: None Reported Past Drug Use History: None Reported, Marijuana - Past Family History Mother History Unknown: Yes Family Medical History: Diabetes Mellitus Additional Family Medical History / Comment(s): Pt states she does not know mother's medical hx. Father History Unknown: Yes Additional Family Medical History / Comment(s): Pt states she does not know father's medical hx. General Exam Limitations: no limitations General appearance: alert, in no apparent distress Head exam: Present: atraumatic, normocephalic, normal inspection Eye exam: Present: normal appearance, PERRL, EOMI. Absent: scleral icterus, conjunctival injection, periorbital swelling ENT exam: Present: normal exam, mucous membranes moist Neck exam: Present: normal inspection. Absent: tenderness, meningismus, lymphadenopathy Respiratory exam: Present: normal lung sounds bilaterally. Absent: respiratory distress, wheezes, rales, rhonchi, stridor Cardiovascular Exam: Present: regular rate, normal rhythm, normal heart sounds. Absent: systolic murmur, diastolic murmur, rubs, gallop, clicks GI/Abdominal exam: Present: soft, tenderness (periumbilical), normal bowel sounds. Absent: distended, guarding, rebound, rigid Extremities exam: Present: normal inspection, full ROM, normal capillary refill. Absent: tenderness, pedal edema, joint swelling, calf tenderness Back exam: Present: normal inspection Neurological exam: Present: alert, oriented X3, CN II-XII intact Psychiatric exam: Present: normal affect, normal mood Skin exam: Present: warm, dry, intact, normal color. Absent: rash Course Vital Signs 03/21/23 03/21/23 03/21/23 02:00 04:54 06:00 Temperature 98.4 F Pulse Rate 64 66 64 Respiratory 18 18 18 Rate Blood Pressure 139/91 108/73 133/88 O2 Sat by Pulse 97 100 98 Oximetry 03/21/23 03/21/23 08:13 08:42 Temperature 97.7 F Pulse Rate 87 Respiratory 18 Rate Blood Pressure 113/60 O2 Sat by Pulse 98 Oximetry Medical Decision Making - Medical Decision Making Was pt. sent in by a medical professional or institution (, PA, HEALTH SCIENCES MANAGER, urgent care, hospital, or fdc...) When possible be specific @ -No Did you speak to anyone other than the patient for history (EMS, parent, family, police, friend...)? What history was obtained from this source @ -No Did you review nursing and triage notes (agree or disagree)? Why? @ -I reviewed and agree with nursing and triage notes Were old charts reviewed (outside hosp., previous admission, EMS record, old EKG, old radiological studies, urgent care reports/EKG's, fdc records)? Report findings @ -I reviewed her discharge from 2019 where patient was hospitalized for intractable nausea and vomiting Differential Diagnosis (chest pain, altered mental status, abdominal pain women, abdominal pain men, vaginal bleeding, weakness, fever, dyspnea, syncope, headache, dizziness, GI bleed, back pain, seizure, CVA, palpatations, mental health, musculoskeletal)? @ -Differential Abdominal Pain Women: Appendicitis, Cholecystitis, diverticulosis, ischemic bowel, pancreatitis, hepatitis, UTI, gastroenteritis, AAA, incarcerated hernia, bowel obstruction, constipation, inflammatory bowel, hepatitis, peptic ulcer disease, splenic infarction, perforated viscus, vulvitis, ovarian torsion, PID, kidney stone, placenta abruption, this is not meant to be an all-inclusive list EKG interpreted by me (3pts min.). @ -note done X-rays interpreted by me (1pt min.). @ -None done CT interpreted by me (1pt min.). @ -Yes and demonstrates possible SMA syndrome U/S interpreted by me (1pt. min.). @ -None done What testing was considered but not performed or refused? (CT, X-rays, U/S, labs)? Why? @ -None What meds were considered but not given or refused? Why? @ -None Did you discuss the management of the patient with other professionals (professionals i.e. , GUI, HEALTH SCIENCES MANAGER, lab, RT, psych nurse, clinical social work aide, photo intern, teacher, risk control officer, correctional counselor/case manager)? Give summary @ - sheet Was smoking cessation discussed for >3mins.? @ -No Was critical care preformed (if so, how long)? @ -no Were there social determinants of health that impacted care today? How? (Homelessness, low income, unemployed, alcoholism, drug addiction, transportation, low edu. Level, literacy, decrease access to med. care, usp, rehab)? @ -No Was there de-escalation of care discussed even if they declined (Discuss DNR or withdrawal of care, Hospice)? DNR status @ -No What co-morbidities impacted this encounter? (DM, HTN, Smoking, COPD, CAD, Cancer, CVA, ARF, Chemo, Hep., AIDS, mental health diagnosis, sleep apnea, morbid obesity)? @ -cyclic vomiting Was patient admitted / discharged? Hospital course, mention meds given and route, prescriptions, significant lab abnormalities, going to OR and other pertinent info. @ -Admitted. Upon arrival patient was placed into room 5. History and physical exams performed. Patient was given 2L normal saline. She was also given multiple doses of antiemetics including Zofran, Compazine, Reglan and Benadryl. Patient continues to have vomiting. Laboratory studies were conducted. Abd CT was performed just demonstrates possible narrowing of the SMA. Discussed with patient. She continues to have nausea. At this point I did recommend admission for intractable nausea and vomiting for patient was agreeable. She is aware that GI is has not on staff. Patient admitted to the floor in stable condition Undiagnosed new problem with uncertain prognosis? @ -No Drug Therapy requiring intensive monitoring for toxicity (Heparin, Nitro, Insulin, Cardizem)? @ -No Were any procedures done? @ -No Diagnosis/symptom? @ -intractable n/v, possbile sma syndrome Acute, or Chronic, or Acute on Chronic? @ acute Uncomplicated (without systemic symptoms) or Complicated (systemic symptoms)? @ -complicated Side effects of treatment? @ -No Exacerbation, Progression, or Severe Exacerbation? @ -No Poses a threat to life or bodily function? How? (Chest pain, USA, VT, pneumonia, PE, COPD, DKA, ARF, appy, cholecystitis, CVA, Diverticulitis, Homicidal, Suicidal, threat to staff... and all critical care pts) @ -No - Lab Data Result diagrams: 03/21/23 02:54 03/21/23 02:54 Lab Results 03/21/23 03/21/23 03/21/23 Range/Units 02:54 02:54 02:54 WBC 10.3 (3.8-10.6) k/uL RBC 4.72 (3.80-5.40) m/uL Hgb 14.2 (11.4-16.0) gm/dL Hct 42.7 (34.0-46.0) % MCV 90.4 (80.0-100.0) fL MCH 30.0 (25.0-35.0) pg MCHC 33.2 (31.0-37.0) g/dL RDW 14.4 (11.5-15.5) % Plt Count 249 (150-450) k/uL MPV 8.4 Neutrophils % 68 % Lymphocytes % 26 % Monocytes % 4 % Eosinophils % 1 % Basophils % 0 % Neutrophils # 7.0 (1.3-7.7) k/uL Lymphocytes # 2.7 (1.0-4.8) k/uL Monocytes # 0.4 (0-1.0) k/uL Eosinophils # 0.1 (0-0.7) k/uL Basophils # 0.1 (0-0.2) k/uL Sodium (137-145) mmol/L Potassium (3.5-5.1) mmol/L Chloride (98-107) mmol/L Carbon Dioxide (22-30) mmol/L Anion Gap mmol/L BUN (7-17) mg/dL Creatinine (0.52-1.04) mg/dL Est GFR (CKD-EPI)AfAm (>60 ml/min/1.73 sqM) Est GFR (CKD-EPI)NonAf (>60 ml/min/1.73 sqM) Glucose (74-99) mg/dL Plasma Lactic Acid Ede (0.7-2.0) mmol/L Calcium (8.4-10.2) mg/dL Total Bilirubin (0.2-1.3) mg/dL AST (14-36) U/L ALT (4-34) U/L Alkaline Phosphatase (38-126) U/L Total Protein (6.3-8.2) g/dL Albumin (3.5-5.0) g/dL Lipase (23-300) U/L HCG, Qual Urine Color Yellow Urine Appearance Cloudy H (Clear) Urine pH 6.0 (5.0-8.0) Ur Specific [place] 1.039 H (1.001-1.035) Urine Protein 2+ H (Negative) Urine Glucose (UA) Negative (Negative) Urine Ketones 2+ H (Negative) Urine Blood Negative (Negative) Urine Nitrite Negative (Negative) Urine Bilirubin Negative (Negative) Urine Urobilinogen 3.0 (<2.0) mg/dL Ur Leukocyte Esterase Negative (Negative) Urine RBC 3 (0-5) /hpf Urine WBC 9 H (0-5) /hpf Ur Squamous Epith Cells 12 H (0-4) /hpf Urine Mucus Many H (None) /hpf Urine HCG, Qual Not Detected (Not Detectd) 03/21/23 03/21/23 03/21/23 Range/Units 02:54 02:54 07:47 WBC (3.8-10.6) k/uL RBC (3.80-5.40) m/uL Hgb (11.4-16.0) gm/dL Hct (34.0-46.0) % MCV (80.0-100.0) fL MCH (25.0-35.0) pg MCHC (31.0-37.0) g/dL RDW (11.5-15.5) % Plt Count (150-450) k/uL MPV Neutrophils % % Lymphocytes % % Monocytes % % Eosinophils % % Basophils % % Neutrophils # (1.3-7.7) k/uL Lymphocytes # (1.0-4.8) k/uL Monocytes # (0-1.0) k/uL Eosinophils # (0-0.7) k/uL Basophils # (0-0.2) k/uL Sodium 140 (137-145) mmol/L Potassium 4.1 (3.5-5.1) mmol/L Chloride 105 (98-107) mmol/L Carbon Dioxide 23 (22-30) mmol/L Anion Gap 12 mmol/L BUN 17 (7-17) mg/dL Creatinine 0.64 (0.52-1.04) mg/dL Est GFR (CKD-EPI)AfAm >90 (>60 ml/min/1.73 sqM) Est GFR (CKD-EPI)NonAf >90 (>60 ml/min/1.73 sqM) Glucose 124 H (74-99) mg/dL Plasma Lactic Acid Ede 1.3 (0.7-2.0) mmol/L Calcium 9.9 (8.4-10.2) mg/dL Total Bilirubin 0.7 (0.2-1.3) mg/dL AST 17 (14-36) U/L ALT 13 (4-34) U/L Alkaline Phosphatase 57 (38-126) U/L Total Protein 7.6 (6.3-8.2) g/dL Albumin 4.7 (3.5-5.0) g/dL Lipase 61 (23-300) U/L HCG, Qual Not Detected Urine Color Urine Appearance (Clear) Urine pH (5.0-8.0) Ur Specific [place] (1.001-1.035) Urine Protein (Negative) Urine Glucose (UA) (Negative) Urine Ketones (Negative) Urine Blood (Negative) Urine Nitrite (Negative) Urine Bilirubin (Negative) Urine Urobilinogen (<2.0) mg/dL Ur Leukocyte Esterase (Negative) Urine RBC (0-5) /hpf Urine WBC (0-5) /hpf Ur Squamous Epith Cells (0-4) /hpf Urine Mucus (None) /hpf Urine HCG, Qual (Not Detectd) Disposition Clinical Impression: Intractable vomiting Disposition: [facility] Condition: Stable Is patient prescribed a controlled substance at d/c from ED?: No Time of Disposition: 08:16 Decision to Admit Reason: Admit from EC Decision Date: 03/21/23 Decision Time: 08:16
[2023-03-21] MEDS ORDERED: PROCHLORPERAZINE INJ 10 MG/2 ML VIAL IVP STA (06:20)
--- NOTE | 2023-03-21 07:20 | CT ---
EXAMINATION TYPE: CT abdomen pelvis w con CT DLP: 448 mGycm, Automated exposure control for dose reduction was used. DATE OF EXAM: 03/21/2023 4:40 AM COMPARISON: None CLINICAL INDICATION:Female, 27 years old with history of abdominal pain, peiumbilical; TECHNIQUE: Axial CT of the ;CT abdomen pelvis w con;Sagittal and coronal reformats were created on a separate workstation. Contrast used: mL of , (none if empty) Oral contrast used: (none if empty) FINDINGS: LOWER CHEST: Unremarkable ABDOMEN LIVER: Unremarkable GALLBLADDER AND BILE DUCTS: Unremarkable. PANCREAS: Unremarkable. SPLEEN: Unremarkable. ADRENAL GLANDS: Unremarkable. KIDNEYS AND URETERS: No evidence of hydronephrosis or renal calculus. The ureters are unremarkable. PELVIS BLADDER: Unremarkable REPRODUCTIVE: Enlarged uterus. The right ovary is asymmetrically enlarged measuring 4.6 x 2.9 cm and the left measuring 2.7 x 1.9 cm. With a dilated gonadal vein. ABDOMEN & PELVIS STOMACH AND BOWEL: No evidence of bowel obstruction. Small hiatal hernia. Scattered colonic diverticu la present. The appendix appears normal. PERITONEUM/RETROPERITONEUM: No evidence of pneumoperitoneum or free fluid. VASCULATURE: No evidence of aortic aneurysm. There is narrowing of the left renal vein and duodenum a s it crosses over the aorta between the superior mesenteric artery. MUSCULOSKELETAL: No acute osseous abnormalities LYMPH NODES: No gross evidence for lymphadenopathy. SOFT TISSUE/ABDOMINAL WALL: Unremarkable IMPRESSION: 1. A syndesmotic injury enlarged right ovary compared to left consider further evaluation with pelvi c ultrasound. There is dilated right gonadal vein also present. 2. 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 Correlate for SMA syndrome and nut and bolt assembler syndrome. This finding could account for patient's cyclic vomiting. 3. Small hiatal hernia. 4. No evidence for bowel obstruction.
[2023-03-21] MEDS ORDERED: ONDANSETRON 4 MG/2 ML VIAL IVP PRN (08:16)
[2023-03-21] MEDS ORDERED: NALOXONE 0.4 MG/ML 1 ML VIAL IV PRN (08:16)
[2023-03-21] MEDS ORDERED: SODIUM CHLORIDE 0.9% 1,000 ML IV SCH (08:30)
[2023-03-21] MEDS ORDERED: FAMOTIDINE 20 MG/2 ML VIAL IV ONE (08:41)
[2023-03-21] MEDS ORDERED: KETOROLAC 15 MG/ML 1 ML VIAL IVP PRN (10:58)
[2023-03-21] MEDS ORDERED: DEXTROSE 5%-0.9% NACL 1,000 ML IV SCH (11:00)
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
--- NOTE | 2023-03-21 14:17 | P.OBCN ---
"History of Present Illness Consult date: 03/21/23 Reason for consult: menorrhagia (with irregular cycle) Chief complaint: pt here for intractable N/V History of present illness: 27 year old last of which was delivered in December and all of who are in foster care. Pt presented for intractable N/V and abdominal pain. 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 This would explain the dilated gonadal veins. Her only LIBRARY CUSTOMER SERVICE CLERK complaint is that she had 2 periods this last month. She admits to being under a lot of stress and recently . Review of Systems All systems: negative Constitutional: Denies chills, Denies fever Eyes: denies blurred vision, denies pain Ears, nose, mouth and throat: Denies headache, Denies sore throat Cardiovascular: Denies chest pain, Denies shortness of breath Respiratory: Denies cough Gastrointestinal: Reports abdominal pain, Reports nausea, Reports vomiting, Denies diarrhea Genitourinary: Denies dysuria, Denies hematuria Musculoskeletal: Denies myalgias Integumentary: Denies pruritus, Denies rash Neurological: Denies numbness, Denies weakness Psychiatric: Denies anxiety, Denies depression Endocrine: Denies fatigue, Denies weight change Past Medical History Past Medical History: GERD/Reflux Additional Past Medical History / Comment(s): cyclic vomiting syndrome, gastroparesis, Cordon's esophagus, hemorrhoids. History of Any Multi-Drug Resistant Organisms: None Reported Past Surgical History: No Surgical Hx Reported Additional Past Surgical History / Comment(s): EXPLORATORY LAPAROSCOPY 2009, EGD Past Anesthesia/Blood Transfusion Reactions: No Reported Reaction Past Psychological History: Anxiety, Depression Smoking Status: Current every day smoker Past Alcohol Use History: None Reported Past Drug Use History: None Reported, Marijuana - Past Family History Mother History Unknown: Yes Family Medical History: Diabetes Mellitus Additional Family Medical History / Comment(s): Pt states she does not know mother's medical hx. Father History Unknown: Yes Additional Family Medical History / Comment(s): Pt states she does not know father's medical hx. Medications and Allergies Home Medications Medication Instructions Recorded Confirmed Type No Known Home Medications 03/21/23 03/21/23 History Allergies Allergy/AdvReac Type Severity Reaction Status Date / Time latex Allergy Unknown Rash/Hives Verified 03/21/23 10:55 Exam Osteopathic Statement: *. No significant issues noted on an osteopathic structural exam other than those noted in the History and Physical/Consult. Vital Signs Temp Pulse Pulse Resp BP BP Pulse Ox 03/21/23 09:10 98.2 F 69 16 105/62 95 03/21/23 08:42 97.7 F 03/21/23 08:13 87 18 113/60 98 03/21/23 06:00 64 18 133/88 98 03/21/23 04:54 66 18 108/73 100 03/21/23 02:00 98.4 F 64 18 139/91 97 Intake and Output 03/20/23 03/21/23 03/21/23 22:59 06:59 14:59 Other: Weight 49.895 kg 49.895 kg |Heart: Regular rate and rhythm Lungs: Clear to auscultation bilaterally Abdomen: Soft, nontender Extremities: Negative Homans sign Results Result Diagrams: 03/21/23 02:54 03/21/23 02:54 Abnormal Lab Results - Last 24 Hours (Table) 03/21/23 03/21/23 Range/Units 02:54 02:54 Glucose 124 H (74-99) mg/dL Urine Appearance Cloudy H (Clear) Ur Specific [place] 1.039 H (1.001-1.035) Urine Protein 2+ H (Negative) Urine Ketones 2+ H (Negative) Urine WBC 9 H (0-5) /hpf Ur Squamous Epith Cells 12 H (0-4) /hpf Urine Mucus Many H (None) /hpf Assessment and Plan (1) Menometrorrhagia Narrative/Plan: likely due to stress Current Visit: Yes Status: Acute Code(s): N92.1 - EXCESSIVE AND FREQUENT MENSTRUATION WITH IRREGULAR CYCLE SNOMED Code(s): 879228049 (2) Enlarged uterus Narrative/Plan: finding on CT-likely due to recent delivery and being a grand multiparous woman Current Visit: Yes Status: Acute Code(s): N85.2 - HYPERTROPHY OF UTERUS SNOMED Code(s): 478907488 Plan: 1. f/u out patient if problems with menses continue"
--- NOTE | 2023-03-21 15:54 | P.CON ---
Consult Note - . Consult date: 03/21/23 Abdominal Pain HPI - General Source: patient (This is 27 year old female who presents with nausea and vomiting. She has had this issues a few different times. She had a CT-AP which showed an enlarged ovary and possible SMA syndrome.) Mode of arrival: ambulatory Limitations: no limitations - Related Data Home Medications Medication Instructions Recorded Confirmed No Known Home Medications 03/21/23 03/21/23 Allergies Allergy/AdvReac Type Severity Reaction Status Date / Time latex Allergy Unknown Rash/Hives Verified 03/21/23 10:55 Review of Systems - Review of Systems Respiratory: Reports: as per HPI Cardiac (ROS): Reports: no symptoms reported ABD/GI: Reports: no symptoms reported, abdominal pain, nausea, vomiting : Reports: no symptoms reported Musculoskeletal: Reports: no symptoms reported Skin: Reports: no symptoms reported Neurological: Reports: no symptoms reported Hematologic/Lymphatic: Reports: no symptoms reported Physical Exam - Physical Exam Eyes, Ears, Nose, Throat Exam: PERRL/EOMI Neck: Neck Respiratory: chest non-tender Cardiovascular/Chest: normal peripheral pulses, regular rate, rhythm Gastrointestinal/Abdominal: normal bowel sounds, non tender, soft Extremity: normal range of motion, non-tender Neurological: alert, altered, oriented X3 Skin Exam: normal color Assessment and Plan (1) Intractable vomiting Narrative/Plan: 1. CT-AP reviewed. Ovary is enlarged and possible SMA syndrome 2. NPO 3. IV fluids 4. NGT to be placed if vomiting persistent 5. OB consult 6. No acute surgical intervention Current Visit: Yes Status: Acute Priority: High Code(s): R11.10 - VOMITING, UNSPECIFIED SNOMED Code(s): 952987391
[2023-03-21 17:57] VITALS: BP 114/68; PULSE 76; RESP 16; TEMP 98
[2023-03-21] MEDS ORDERED: FAMOTIDINE 20 MG/2 ML VIAL IV SCH (21:00)
[2023-03-21] MEDS ORDERED: HEPARIN SODIUM,PORCINE 5,000 UNIT/ML 1 ML VIAL SQ SCH (21:00)
--- NOTE | 2023-03-22 06:16 | P.DS ---
Providers Date of admission: 03/21/23 08:18 Attending physician: Omari Riley MD Consults: 03/21/23 10:52 Consult Physician Routine Consulting Provider: Padmaja Abernathy Consult Reason/Comments: enlarge uterus and ov and bleeding Do you want consulting provider notified?: Yes 03/21/23 10:53 Consult Physician Urgent Consulting Provider: Jon Patten Consult Reason/Comments: abd pain and vomiting Do you want consulting provider notified?: Yes Primary care physician: Joselito Freeman MD Hospital Course: Diagnoses: Recurrent nausea vomiting, intractable Possible SMA syndrome Enlarged uterus and right ovary with possible dysfunctional uterine bleeding, most likely related to recent delivery per TERRITORY ACCOUNT MANAGER Dehydration History of GERD History of gastroparesis History of Cordon's esophagus History of cyclic vomiting syndrome Please refer to H&P for more details Please note patient was not discharged but left AMA before I have a chance to see the patient or talk to her again. Based upon my evaluation patient has capacity to make medical decision Patient Condition at Discharge: Stable Plan - Discharge Summary New Discharge Prescriptions: No Action No Known Home Medications Discharge Medication List No Known Home Medications 03/21/23 [History] Follow up Appointment(s)/Referral(s): Joselito Freeman MD [Primary Care Provider] - 1-2 days Discharge Disposition: LEFT AGAINST MEDICAL ADVICE
== END 2023-03-21 17:45 | disposition left against medical advice (07) ==
LOC: EC 01:56 → 5NMEDONC 08:18
PROVIDERS: ADMIT Internal Medicine; ATTEND Internal Medicine
DX: R11.2 Nausea with vomiting, unspecified (principal); R10.84 Generalized abdominal pain; E86.0 Dehydration; N92.1 Excessive and frequent menstruation with irregular cycle; N85.2 Hypertrophy of uterus; N83.8 Other noninflammatory disorders of ovary, fallopian tube and broad ligament; K31.84 Gastroparesis; K21.9 Gastro-esophageal reflux disease without esophagitis; K22.70 Barrett's esophagus without dysplasia; K64.9 Unspecified hemorrhoids; F32.A Depression, unspecified; F41.9 Anxiety disorder, unspecified; F17.210 Nicotine dependence, cigarettes, uncomplicated; Z53.29 Procedure and treatment not carried out because of patient's decision for other reasons; Z91.040 Latex allergy status; Z91.410 Personal history of adult physical and sexual abuse; Z64.1 Problems related to multiparity; Z83.3 Family history of diabetes mellitus
CPT/HCPCS: 96376; 96375 ×2; 96361; 96374; 99285; 36415; 80053; 83605; 83690; 85025; 81001; 81025; 84703; 74177; G0378; J1200; J0780; J2765; J2405; J3490; J1885; Q9967

== ENCOUNTER 2023-05-03 09:52 | Emergency (ER) | payer OTHER ==
[2023-05-03 10:21] VITALS: RESP 18; TEMP 98.3
[2023-05-03] MEDS ORDERED: FAMOTIDINE 20 MG/2 ML VIAL IV STA (10:21)
[2023-05-03] MEDS ORDERED: SODIUM CHLORIDE 0.9% 1,000 ML IV STA (10:21)
[2023-05-03] MEDS ORDERED: METOCLOPRAMIDE 5 MG/ML 2 ML VIAL IVP STA (10:21)
--- NOTE | 2023-05-03 10:36 | ED ---
Nausea/Vomiting/Diarrhea HPI - General Chief complaint: Nausea/Vomiting/Diarrhea Stated complaint: vomiting Time Seen by Provider: 05/03/23 10:02 Source: patient, RN notes reviewed Mode of arrival: ambulatory Limitations: no limitations - History of Present Illness Initial comments: This is a 27-year-old female who presents to the emergency department for nausea and vomiting. States that this started about 3 days ago. She received some unfortunate news, and is unsure if this is related to nerves versus something else. She was told that she may have to go to care home tomorrow, which is what is stressing her out. Denies any suicidal or homicidal ideations. She has generalized abdominal discomfort from all of the vomiting, but otherwise denies any specific abdominal pain. Denies any fever/chills. She has had a few episodes of diarrhea. She took Zofran at home with no relief in symptoms. MD complaint: nausea, vomiting - Related Data Previous Rx's Medication Instructions Recorded Prochlorperazine [Compazine] 10 mg PO Q6H PRN #30 tab 05/03/23 Allergies Allergy/AdvReac Type Severity Reaction Status Date / Time latex Allergy Unknown Rash/Hives Verified 03/21/23 10:55 Review of Systems ROS Statement: Those systems with pertinent positive or pertinent negative responses have been documented in the HPI. ROS Other: All systems not noted in ROS Statement are negative. Past Medical History Past Medical History: GERD/Reflux Additional Past Medical History / Comment(s): cyclic vomiting syndrome, gastr oparesis, Cordon's esophagus, hemorrhoids. History of Any Multi-Drug Resistant Organisms: None Reported Past Surgical History: No Surgical Hx Reported Additional Past Surgical History / Comment(s): EXPLORATORY LAPAROSCOPY 2009, EGD Past Anesthesia/Blood Transfusion Reactions: No Reported Reaction Past Psychological History: Anxiety, Depression Smoking Status: Current every day smoker Past Alcohol Use History: None Reported Past Drug Use History: None Reported, Marijuana - Past Family History Mother History Unknown: Yes Family Medical History: Diabetes Mellitus Additional Family Medical History / Comment(s): Pt states she does not know mother's medical hx. Father History Unknown: Yes Additional Family Medical History / Comment(s): Pt states she does not know father's medical hx. General Exam Limitations: no limitations General appearance: alert, in no apparent distress Head exam: Present: atraumatic, normocephalic, normal inspection Respiratory exam: Present: normal lung sounds bilaterally. Absent: respiratory distress, wheezes, rales, rhonchi, stridor Cardiovascular Exam: Present: regular rate, normal rhythm, normal heart sounds. Absent: systolic murmur, diastolic murmur, rubs, gallop, clicks GI/Abdominal exam: Present: soft, normal bowel sounds. Absent: distended, tenderness, guarding, rebound, rigid Neurological exam: Present: alert, oriented X3, CN II-XII intact Psychiatric exam: Present: normal affect, normal mood Skin exam: Present: warm, dry, intact, normal color. Absent: rash Course Vital Signs 05/03/23 05/03/23 09:54 15:00 Temperature 98.3 F Pulse Rate 97 104 H Respiratory 18 18 Rate Blood Pressure 106/100 102/66 O2 Sat by Pulse 98 96 Oximetry Medical Decision Making - Medical Decision Making This is a 27 year old female who presents to the emergency department for nausea and vomiting. Was pt. sent in by a medical professional or institution? @ -No Did you speak to anyone other than the patient for history? @ -No Did you review nursing and triage notes? @ -Yes, and I agree, it is accurate with regards to the patient's symptoms. Were old charts reviewed? @ -No Differential Diagnosis? @ -Differential Nausea and Vomiting: Gastroenteritis, cholecystitis, appendicitis, pancreatitis, migraine, benign positional vertigo, food borne illness, pyelonephritis, irritable bowel syndrome, influenza, Covid, GERD, incarcerated hernia, intestinal obstruction, this is not meant to be an all-inclusive list. EKG interpreted by me (3pts min.)? @ -Not obtained X-rays interpreted by me (1pt min.)? @ -Not obtained CT interpreted by me (1pt min.)? @ -Not obtained U/S interpreted by me (1pt. min.)? @ -Not obtained What testing was considered but not performed? (CT, X-rays, U/S, labs)? Why? @ -None What meds were considered but not given? Why? @ -None Did you discuss the management of the patient with other professionals? @ -No Did you reconcile home meds? @ -No Was smoking cessation discussed for >3mins.? @ -No Was critical care preformed (if so, how long)? @ -No Were there social determinants of health that impacted care today? How? (Homelessness, low income, unemployed, alcoholism, drug addiction, transportation, low edu. Level, literacy, decrease access to med. care, [facility], rehab)? @ -No Was there de-escalation of care discussed even if they declined? (Discuss DNR or withdrawal of care, Hospice)? @ -No What co-morbidities impacted this encounter? (DM, HTN, Smoking, COPD, CAD, Cancer, CVA, Hep., AIDS, mental health diagnosis, sleep apnea, morbid obesity)? @ -Cyclic vomiting syndrome, gastroparesis, GERD Was patient admitted / discharged? @ -Discharged. Lab work obtained revealing mild leukocytosis. Patient initially treated with IV fluids, Reglan, and famotidine. She had moderate improvement in symptoms, but still had some residual nausea. Patient was also shaking due to severe anxiety and stress. She was then given a dose of Compazine and Ativan which she felt was beneficial. She was tolerating oral intake afterwards. She felt that Compazine was overall the most effective nausea medication for her. Prescription for Compazine provided with dosing instructions reviewed. Advised she slowly advance her diet as tolerated and remain well-hydrated. Patient discharged home in stable condition. Undiagnosed new problem with uncertain prognosis? @ -None Drug Therapy requiring intensive monitoring for toxicity (Heparin, Nitro, Insulin, Cardizem)? @ -None Were any procedures done? @ -None Diagnosis/symptom? @ -Nausea and vomiting Acute, or Chronic, or Acute on Chronic? @ -Acute Uncomplicated (without systemic symptoms) or Complicated (systemic symptoms)? @ -Uncomplicated Side effects of treatment? @ -None Exacerbation, Progression, or Severe Exacerbation] @ -Not applicable Poses a threat to life or bodily function? @ -No Return precautions reviewed in depth, the patient is instructed to return to the emergency department with any new, worsening, or concerning symptoms. Patient v erbalized understanding. This case was discussed in detail with the attending ED physician, Dr. Grey. Presentation, findings, and treatment plan discussed in detail as well. - Lab Data Result diagrams: 05/03/23 10:52 05/03/23 10:52 Lab Results 05/03/23 05/03/23 Range/Units 10:52 10:52 WBC 10.8 H (3.8-10.6) k/uL RBC 4.61 (3.80-5.40) m/uL Hgb 14.4 (11.4-16.0) gm/dL Hct 42.7 (34.0-46.0) % MCV 92.7 (80.0-100.0) fL MCH 31.3 (25.0-35.0) pg MCHC 33.8 (31.0-37.0) g/dL RDW 13.7 (11.5-15.5) % Plt Count 248 (150-450) k/uL MPV 8.9 Neutrophils % 73 % Lymphocytes % 22 % Monocytes % 3 % Eosinophils % 0 % Basophils % 1 % Neutrophils # 7.9 H (1.3-7.7) k/uL Lymphocytes # 2.4 (1.0-4.8) k/uL Monocytes # 0.4 (0-1.0) k/uL Eosinophils # 0.0 (0-0.7) k/uL Basophils # 0.1 (0-0.2) k/uL Sodium 139 (137-145) mmol/L Potassium 4.6 (3.5-5.1) mmol/L Chloride 106 (98-107) mmol/L Carbon Dioxide 20 L (22-30) mmol/L Anion Gap 13 mmol/L BUN 13 (7-17) mg/dL Creatinine 0.56 (0.52-1.04) mg/dL Est GFR (CKD-EPI)AfAm >90 (>60 ml/min/1.73 sqM) Est GFR (CKD-EPI)NonAf >90 (>60 ml/min/1.73 sqM) Glucose 131 H (74-99) mg/dL Calcium 10.2 (8.4-10.2) mg/dL Total Bilirubin 0.9 (0.2-1.3) mg/dL AST 21 (14-36) U/L ALT 17 (4-34) U/L Alkaline Phosphatase 53 (38-126) U/L Total Protein 8.4 H (6.3-8.2) g/dL Albumin 5.1 H (3.5-5.0) g/dL Amylase 57 (30-110) U/L Lipase 61 (23-300) U/L HCG, Qual Not Detected Disposition Clinical Impression: Nausea and vomiting Disposition: HOME SELF-CARE Instructions (If sedation given, give patient instructions): Acute Nausea and Vomiting (ED) Additional Instructions: Return to the emergency department with any new, worsening, or concerning symptoms. You can take the Compazine up to every 6 hours as needed for nausea and vomiting. You can also continue to use the Zofran if that is not effective. Slowly advance your diet as tolerated and remain well-hydrated. Follow up with your primary care provider in 1-2 days. Prescriptions: Prochlorperazine [Compazine] 10 mg PO Q6H PRN #30 tab PRN Reason: Nausea And Vomiting Is patient prescribed a controlled substance at d/c from ED?: No Referrals: Joselito Freeman MD [Primary Care Provider] - 1-2 days Time of Disposition: 14:21
[2023-05-03 11:16] LABS: Basophils # (A) 0.1 k/uL (0-0.2); Basophils % (A) 1 %; Eosinophils % (A) 0 %; HCT 42.7 % (34.0-46.0); HGB 14.4 gm/dL (11.4-16.0); Lymphocytes # (A) 2.4 k/uL (1.0-4.8); Lymphocytes % (A) 22 %; MCH 31.3 pg (25.0-35.0); MCHC 33.8 g/dL (31.0-37.0); MCV 92.7 fL (80.0-100.0); Mean Platelet Volume 8.9; Monocytes # (A) 0.4 k/uL (0-1.0); Monocytes % (A) 3 %; Neutrophils # (A) 7.9 k/uL (1.3-7.7); Neutrophils % (A) 73 %; Platelet Count 248 k/uL (150-450); RBC 4.61 m/uL (3.80-5.40); RDW 13.7 % (11.5-15.5); WBC 10.8 k/uL (3.8-10.6)
[2023-05-03 11:40] LABS: HCG,Qualitative Serum Not Detected
[2023-05-03] MEDS ORDERED: LORazepam 2 MG/ML INJ IV STA (12:05)
[2023-05-03] MEDS ORDERED: PROCHLORPERAZINE INJ 10 MG/2 ML VIAL IVP STA (12:05)
[2023-05-03 13:16] LABS: ALT 17 U/L (4-34); AST 21 U/L (14-36); African American GFR (CKD) >90 (>60 ml/min/1.73 sqM); Albumin 5.1 g/dL (3.5-5.0); Alkaline Phosphatase 53 U/L (38-126); Amylase 57 U/L (30-110); Anion Gap 13 mmol/L; Blood Urea Nitrogen 13 mg/dL (7-17); Calcium 10.2 mg/dL (8.4-10.2); Carbon Dioxide 20 mmol/L (22-30); Chloride 106 mmol/L (98-107); Glucose 131 mg/dL (74-99); Lipase 61 U/L (23-300); Non-African American GFR(CKD) >90 (>60 ml/min/1.73 sqM); Potassium 4.6 mmol/L (3.5-5.1); Sodium 139 mmol/L (137-145); Total Bilirubin 0.9 mg/dL (0.2-1.3); Total Protein 8.4 g/dL (6.3-8.2)
[2023-05-03 15:09] VITALS: BP 102/66; PULSE 104
== END 2023-05-03 15:00 | disposition home or self-care (01) ==
LOC: EC 09:52
DX: R11.2 Nausea with vomiting, unspecified (principal); F17.200 Nicotine dependence, unspecified, uncomplicated; Z91.040 Latex allergy status; Z86.59 Personal history of other mental and behavioral disorders
CPT/HCPCS: 36415; 80053; 82150; 83690; 85025; 84703; 99284; 96374; 96375 ×3; 96361; J2060; J0780; J2765; J3490

== ENCOUNTER 2023-06-03 23:25 | Emergency (ER) | payer OTHER ==
[2023-06-03 23:41] VITALS: BP 143/91; PULSE 81; RESP 20; TEMP 97.8
--- NOTE | 2023-06-04 00:26 | ED ---
ENT HPI - General Chief complaint: Dental/Oral Stated complaint: dental pain Time Seen by Provider: 06/03/23 23:38 Source: patient Mode of arrival: ambulatory Limitations: no limitations - History of Present Illness Initial comments: 27-year-old female presenting to the ED with a chief complaint of dental pain. Patient reports over the last 2 to 3 days has had pain of her lower left tooth. No fever or chills. No chest pain or shortness of breath. No other complaints at this time. - Related Data Previous Rx's Medication Instructions Recorded Prochlorperazine [Compazine] 10 mg PO Q6H PRN #30 tab 05/03/23 Acetaminophen Tab [Tylenol] 500 mg PO Q6H #60 tablet 06/04/23 Amoxic-Pot Clav 875-125Mg 1 tab PO Q12HR 7 Days #14 tab 06/04/23 [Augmentin 875-125] Ibuprofen [Motrin] 600 mg PO Q8HR PRN #30 tab 06/04/23 Allergies Allergy/AdvReac Type Severity Reaction Status Date / Time latex Allergy Unknown Rash/Hives Verified 06/03/23 23:34 Review of Systems ROS Statement: Those systems with pertinent positive or pertinent negative responses have been documented in the HPI. ROS Other: All systems not noted in ROS Statement are negative. Past Medical History Past Medical History: GERD/Reflux Additional Past Medical History / Comment(s): cyclic vomiting syndrome, gastroparesis, Cordon's esophagus, hemorrhoids. History of Any Multi-Drug Resistant Organisms: None Reported Past Surgical History: No Surgical Hx Reported Additional Past Surgical History / Comment(s): EXPLORATORY LAPAROSCOPY 2009, EGD Past Anesthesia/Blood Transfusion Reactions: No Reported Reaction Past Psychological History: Anxiety, Depression Smoking Status: Current every day smoker Past Alcohol Use History: None Reported Past Drug Use History: None Reported, Marijuana - Past Family History Mother History Unknown: Yes Family Medical History: Diabetes Mellitus Additional Family Medical History / Comment(s): Pt states she does not know mother's medical hx. Father History Unknown: Yes Additional Family Medical History / Comment(s): Pt states she does not know father's medical hx. General Exam Limitations: no limitations General appearance: alert, in no apparent distress Eye exam: Present: normal appearance ENT exam: Present: other (Does have a chipped lower left molar. No surrounding abscess. No significant oropharyngeal swelling.) Respiratory exam: Present: normal lung sounds bilaterally Cardiovascular Exam: Present: regular rate GI/Abdominal exam: Present: soft Neurological exam: Present: alert, oriented X3 Skin exam: Present: warm, dry Course Vital Signs 06/03/23 23:34 Temperature 97.8 F Pulse Rate 81 Respiratory 20 Rate Blood Pressure 143/91 O2 Sat by Pulse 99 Oximetry Medical Decision Making - Medical Decision Making Was pt. sent in by a medical professional or institution (, GUI, FERTILIZER APPLICATOR, urgent care, hospital, or shelter...) When possible be specific @ -No Did you speak to anyone other than the patient for history (EMS, parent, family, police, friend...)? What history was obtained from this source @ -No Did you review nursing and triage notes (agree or disagree)? Why? @ -I reviewed and agree with nursing and triage notes Were old charts reviewed (outside hosp., previous admission, EMS record, old EKG, old radiological studies, urgent care reports/EKG's, shelter records)? Report findings @ -No old charts were reviewed Differential Diagnosis (chest pain, altered mental status, abdominal pain women, abdominal pain men, vaginal bleeding, weakness, fever, dyspnea, syncope, headache, dizziness, GI bleed, back pain, seizure, CVA, palpatations, mental health, musculoskeletal)? @ -Ludwigs angina, ANUG, periapical abscess. This is not meant to be an all- inclusive list. EKG interpreted by me (3pts min.). @ -None X-rays interpreted by me (1pt min.). @ -None done CT interpreted by me (1pt min.). @ -None done U/S interpreted by me (1pt. min.). @ -None done What testing was considered but not performed or refused? (CT, X-rays, U/S, labs)? Why? @ -None What meds were considered but not given or refused? Why? @ -None Did you discuss the management of the patient with other professionals (professionals i.e. GUI Moses, FERTILIZER APPLICATOR, lab, RT, psych nurse, social services specialist, optimization consultant, teacher, disability hearing officer, porter sample case)? Give summary @ -No Was smoking cessation discussed for >3mins.? @ -No Was critical care preformed (if so, how long)? @ -No Were there social determinants of health that impacted care today? How? (Homelessness, low income, unemployed, alcoholism, drug addiction, transportation, low edu. Level, literacy, decrease access to med. care, residential, rehab)? @ -No Was there de-escalation of care discussed even if they declined (Discuss DNR or withdrawal of care, Hospice)? DNR status @ -No What co-morbidities impacted this encounter? (DM, HTN, Smoking, COPD, CAD, Cancer, CVA, ARF, Chemo, Hep., AIDS, mental health diagnosis, sleep apnea, morbid obesity)? @ -None Was patient admitted / discharged? Hospital course, mention meds given and rou te, prescriptions, significant lab abnormalities, going to OR and other pertinent info. @ -Discharge 27-year-old female presenting to the ED with 2 to 3 days of left lower dental pain. Exam does show a chipped/cracked lower left molar. Otherwise exam largely unremarkable. Patient discharged home with prescriptions for Motrin, Tylenol, Augmentin. Advise follow-up with her dentist. Discussed return precautions with patient verbalized agreement. Undiagnosed new problem with uncertain prognosis? @ -No Drug Therapy requiring intensive monitoring for toxicity (Heparin, Nitro, Insulin, Cardizem)? @ -No Were any procedures done? @ -No Diagnosis/symptom? @ -Dental pain Acute, or Chronic, or Acute on Chronic? @ -Acute Uncomplicated (without systemic symptoms) or Complicated (systemic symptoms)? @ -Uncomplicated Side effects of treatment? @ -No Exacerbation, Progression, or Severe Exacerbation? @ -No Poses a threat to life or bodily function? How? (Chest pain, [place], [place], pneumonia, PE, COPD, DKA, ARF, appy, cholecystitis, CVA, Diverticulitis, Homicidal, Suicidal, threat to staff... and all critical care pts) @ -No Disposition Clinical Impression: Pain, dental Disposition: HOME SELF-CARE Condition: Good Instructions (If sedation given, give patient instructions): Toothache (ED) Additional Instructions: Please return to the Emergency Department if symptoms worsen or any other concerns. Please follow-up with your dentist. Prescriptions: Amoxic-Pot Clav 875-125Mg [Augmentin 875-125] 1 tab PO Q12HR 7 Days #14 tab Ibuprofen [Motrin] 600 mg PO Q8HR PRN #30 tab PRN Reason: Pain Acetaminophen Tab [Tylenol] 500 mg PO Q6H #60 tablet Is patient prescribed a controlled substance at d/c from ED?: No Referrals: Joselito Freeman MD [Primary Care Provider] - 1-2 days Time of Disposition: 00:30
[2023-06-04] MEDS: AMOXIC-POT CLAV 875MG STARTER PACK 2 TAB BTL PO STA (00:35)
[2023-06-04] MEDS: ACET/COD 300 MG/30 MG STARTER PACK 6 TAB BTL PO STA (00:35)
== END 2023-06-04 00:41 | disposition home or self-care (01) ==
LOC: EC 23:25
DX: K03.81 Cracked tooth (principal); F17.200 Nicotine dependence, unspecified, uncomplicated; F12.90 Cannabis use, unspecified, uncomplicated; Z91.040 Latex allergy status
CPT/HCPCS: 99282

== ENCOUNTER 2023-06-25 18:59 | Emergency (ER) | payer OTHER ==
[2023-06-25 19:32] VITALS: TEMP 97.7
[2023-06-25] MEDS: SODIUM CHLORIDE 0.9% 1,000 ML IV STA (19:46)
[2023-06-25 19:48] LABS: Basophils # (A) 0.1 k/uL (0-0.2); Basophils % (A) 1 %; Eosinophils # (A) 0.1 k/uL (0-0.7); Eosinophils % (A) 2 %; HCT 37.6 % (34.0-46.0); HGB 12.4 gm/dL (11.4-16.0); Lymphocytes # (A) 3.1 k/uL (1.0-4.8); Lymphocytes % (A) 42 %; MCH 31.3 pg (25.0-35.0); MCHC 33.1 g/dL (31.0-37.0); MCV 94.5 fL (80.0-100.0); Mean Platelet Volume 8.5; Monocytes # (A) 0.4 k/uL (0-1.0); Monocytes % (A) 5 %; Neutrophils # (A) 3.6 k/uL (1.3-7.7); Neutrophils % (A) 49 %; Platelet Count 194 k/uL (150-450); RBC 3.98 m/uL (3.80-5.40); RDW 13.5 % (11.5-15.5); WBC 7.4 k/uL (3.8-10.6)
[2023-06-25 19:52] LABS: ALT 10 U/L (4-34); AST 18 U/L (14-36); African American GFR (CKD) >90 (>60 ml/min/1.73 sqM); Albumin 4.2 g/dL (3.5-5.0); Alkaline Phosphatase 47 U/L (38-126); Anion Gap 7 mmol/L; Blood Urea Nitrogen 13 mg/dL (7-17); Calcium 8.9 mg/dL (8.4-10.2); Carbon Dioxide 22 mmol/L (22-30); Chloride 111 mmol/L (98-107); Glucose 90 mg/dL (74-99); Lipase 44 U/L (23-300); Non-African American GFR(CKD) >90 (>60 ml/min/1.73 sqM); Potassium 3.8 mmol/L (3.5-5.1); Sodium 140 mmol/L (137-145); Total Bilirubin 0.6 mg/dL (0.2-1.3); Total Protein 6.8 g/dL (6.3-8.2)
[2023-06-25] MEDS: ONDANSETRON 4 MG/2 ML VIAL IVP STA (20:12)
[2023-06-25 20:29] LABS: Appearance,Urine Cloudy (Clear); Bacteria,Urine Occasional /hpf; Bilirubin,Urine Negative (Negative); Blood,Urine Negative (Negative); Color,Urine Yellow; Glucose,Urine (UA) Negative (Negative); Ketones,Urine Trace (Negative); Leukocyte Esterase,Urine Negative (Negative); Mucus,Urine Many /hpf; Nitrite,Urine Negative (Negative); Protein,Urine 2+ (Negative); RBC,Urine 2 /hpf (0-5); Specific Gravity,Urine 1.035 (1.001-1.035); Squamous Epithelial Cell,Urine 36 /hpf (0-4); WBC,Urine 2 /hpf (0-5)
[2023-06-25 20:35] VITALS: RESP 18
--- NOTE | 2023-06-25 20:43 | ED ---
Nausea/Vomiting/Diarrhea HPI - General Chief complaint: Nausea/Vomiting/Diarrhea Stated complaint: NVD Time Seen by Provider: 06/25/23 19:05 Source: patient Mode of arrival: ambulatory Limitations: no limitations - History of Present Illness Initial comments: 27-year-old female presents emergency department reporting nausea, vomiting and diarrhea. States that her symptoms started yesterday. She denies any sick contacts with similar symptoms. She does admit to myalgias and chills. No recorded fevers. She does not have anything at home to take for her symptoms. Patient unable to go into work because of her symptoms and therefore came to the emergency department. She denies concern for . No abdominal pain. Denies cough or shortness of breath. No other alleviating, precipitating or modifying factors - Related Data Home Medications Medication Instructions Recorded Confirmed Acetaminophen Tab [Tylenol] 500 - 1,000 mg PO Q6H PRN 06/25/23 06/25/23 Ibuprofen [Motrin] 600 mg PO Q8HR PRN 06/25/23 06/25/23 Sodium Citrate [Emetrol Chewable] 460 - 920 mg PO Q15M PRN MDD 5520 06/25/23 06/25/23 MG (24 tabs) Previous Rx's Medication Instructions Recorded Ondansetron Odt [Zofran Odt] 4 mg PO Q8HR PRN #20 tab 06/25/23 Allergies Allergy/AdvReac Type Severity Reaction Status Date / Time latex Allergy Unknown Rash/Hives Verified 06/25/23 20:29 Review of Systems ROS Statement: Those systems with pertinent positive or pertinent negative responses have been documented in the HPI. ROS Other: All systems not noted in ROS Statement are negative. Past Medical History Past Medical History: GERD/Reflux Additional Past Medical History / Comment(s): cyclic vomiting syndrome, gastroparesis, Cordon's esophagus, hemorrhoids. ovarian cyst History of Any Multi-Drug Resistant Organisms: None Reported Past Surgical History: No Surgical Hx Reported Additional Past Surgical History / Comment(s): EXPLORATORY LAPAROSCOPY 2009, EGD Past Anesthesia/Blood Transfusion Reactions: No Reported Reaction Past Psychological History: Anxiety, Depression Smoking Status: Current every day smoker Past Alcohol Use History: None Reported Past Drug Use History: None Reported, Marijuana - Past Family History Mother History Unknown: Yes Family Medical History: Diabetes Mellitus Additional Family Medical History / Comment(s): Pt states she does not know mother's medical hx. Father History Unknown: Yes Additional Family Medical History / Comment(s): Pt states she does not know father's medical hx. General Exam Limitations: no limitations General appearance: alert, in no apparent distress Head exam: Present: atraumatic, normocephalic, normal inspection Eye exam: Present: normal appearance, PERRL, EOMI. Absent: scleral icterus, conjunctival injection, periorbital swelling ENT exam: Present: normal exam, mucous membranes moist Neck exam: Present: normal inspection. Absent: tenderness, meningismus, lymphadenopathy Respiratory exam: Present: normal lung sounds bilaterally. Absent: respiratory distress, wheezes, rales, rhonchi, stridor Cardiovascular Exam: Present: regular rate, normal rhythm, normal heart sounds. Absent: systolic murmur, diastolic murmur, rubs, gallop, clicks GI/Abdominal exam: Present: soft, normal bowel sounds. Absent: distended, tenderness, guarding, rebound, rigid Extremities exam: Present: normal inspection, full ROM, normal capillary refill. Absent: tenderness, pedal edema, joint swelling, calf tenderness Back exam: Present: normal inspection Neurological exam: Present: alert, oriented X3, CN II-XII intact Psychiatric exam: Present: normal affect, normal mood Skin exam: Present: warm, dry, intact, normal color. Absent: rash Course Vital Signs 06/25/23 06/25/23 06/25/23 19:00 20:03 21:38 Temperature 97.7 F Pulse Rate 58 L 65 62 Respiratory 16 18 18 Rate Blood Pressure 109/70 113/77 98/60 O2 Sat by Pulse 98 98 100 Oximetry Medical Decision Making - Medical Decision Making Was pt. sent in by a medical professional or institution (, PA, DISASSEMBLER, urgent care, hospital, or senior care...) When possible be specific @ -No Did you speak to anyone other than the patient for history (EMS, parent, family, police, friend...)? What history was obtained from this source @ -No Did you review nursing and triage notes (agree or disagree)? Why? @ -I reviewed and agree with nursing and triage notes Were old charts reviewed (outside hosp., previous admission, EMS record, old EKG, old radiological studies, urgent care reports/EKG's, senior care records)? Report findings @ -No old charts were reviewed Differential Diagnosis (chest pain, altered mental status, abdominal pain women, abdominal pain men, vaginal bleeding, weakness, fever, dyspnea, syncope, headache, dizziness, GI bleed, back pain, seizure, CVA, palpatations, mental health, musculoskeletal)? @ -COVID, influenza, gastroenteritis, adenovirus EKG interpreted by me (3pts min.). @ -Not done X-rays interpreted by me (1pt min.). @ -None done CT interpreted by me (1pt min.). @ -None done U/S interpreted by me (1pt. min.). @ -None done What testing was considered but not performed or refused? (CT, X-rays, U/S, labs)? Why? @ -None What meds were considered but not given or refused? Why? @ -None Did you discuss the management of the patient with other professionals (professionals i.e. , PA, DISASSEMBLER, lab, RT, psych nurse, social service worker, window decorator, teacher, legal officer, director case)? Give summary @ -No Was smoking cessation discussed for >3mins.? @ -No Was critical care preformed (if so, how long)? @ -No Were there social determinants of health that impacted care today? How? (Homelessness, low income, unemployed, alcoholism, drug addiction, transportation, low edu. Level, literacy, decrease access to med. care, usp, rehab)? @ -No Was there de-escalation of care discussed even if they declined (Discuss DNR or withdrawal of care, Hospice)? DNR status @ -No What co-morbidities impacted this encounter? (DM, HTN, Smoking, COPD, CAD, Cancer, CVA, ARF, Chemo, Hep., AIDS, mental health diagnosis, sleep apnea, morbid obesity)? @ -None Was patient admitted / discharged? Hospital course, mention meds given and route, prescriptions, significant lab abnormalities, going to OR and other pertinent info. @ -Upon arrival patient was placed in room 19. Thorough history and physical exam was performed. IV was established. Patient administered IV fluids and Zofran. Laboratory studies are conducted. Results are discussed with the patient. She feels improved at this time. Will be discharged home with a work note. Instructed to follow-up with primary care doctor and return for any new or worsening symptoms Undiagnosed new problem with uncertain prognosis? @ -No Drug Therapy requiring intensive monitoring for toxicity (Heparin, Nitro, Insulin, Cardizem)? @ -No Were any procedures done? @ -No Diagnosis/symptom? @ -Acute nausea vomiting Acute, or Chronic, or Acute on Chronic? @ -Acute Uncomplicated (without systemic symptoms) or Complicated (systemic symptoms)? @ -Complicated Side effects of treatment? @ -No Exacerbation, Progression, or Severe Exacerbation? @ -No Poses a threat to life or bodily function? How? (Chest pain, USA, OR, pneumonia, PE, COPD, DKA, ARF, appy, cholecystitis, CVA, Diverticulitis, Homicidal, Suicidal, threat to staff... and all critical care pts) @ -No - Lab Data Result diagrams: 06/25/23 19:27 06/25/23 19:27 Lab Results 06/25/23 06/25/23 06/25/23 Range/Units 19:27 19:27 19:27 WBC 7.4 (3.8-10.6) k/uL RBC 3.98 (3.80-5.40) m/uL Hgb 12.4 (11.4-16.0) gm/dL Hct 37.6 (34.0-46.0) % MCV 94.5 (80.0-100.0) fL MCH 31.3 (25.0-35.0) pg MCHC 33.1 (31.0-37.0) g/dL RDW 13.5 (11.5-15.5) % Plt Count 194 (150-450) k/uL MPV 8.5 Neutrophils % 49 % Lymphocytes % 42 % Monocytes % 5 % Eosinophils % 2 % Basophils % 1 % Neutrophils # 3.6 (1.3-7.7) k/uL Lymphocytes # 3.1 (1.0-4.8) k/uL Monocytes # 0.4 (0-1.0) k/uL Eosinophils # 0.1 (0-0.7) k/uL Basophils # 0.1 (0-0.2) k/uL Sodium 140 (137-145) mmol/L Potassium 3.8 (3.5-5.1) mmol/L Chloride 111 H (98-107) mmol/L Carbon Dioxide 22 (22-30) mmol/L Anion Gap 7 mmol/L BUN 13 (7-17) mg/dL Creatinine 0.56 (0.52-1.04) mg/dL Est GFR (CKD-EPI)AfAm >90 (>60 ml/min/1.73 sqM) Est GFR (CKD-EPI)NonAf >90 (>60 ml/min/1.73 sqM) Glucose 90 (74-99) mg/dL Calcium 8.9 (8.4-10.2) mg/dL Total Bilirubin 0.6 (0.2-1.3) mg/dL AST 18 (14-36) U/L ALT 10 (4-34) U/L Alkaline Phosphatase 47 (38-126) U/L Total Protein 6.8 (6.3-8.2) g/dL Albumin 4.2 (3.5-5.0) g/dL Lipase 44 (23-300) U/L Urine Color Urine Appearance (Clear) Urine pH (5.0-8.0) Ur Specific [place] (1.001-1.035) Urine Protein (Negative) Urine Glucose (UA) (Negative) Urine Ketones (Negative) Urine Blood (Negative) Urine Nitrite (Negative) Urine Bilirubin (Negative) Urine Urobilinogen (<2.0) mg/dL Ur Leukocyte Esterase (Negative) Urine RBC (0-5) /hpf Urine WBC (0-5) /hpf Ur Squamous Epith Cells (0-4) /hpf Urine Bacteria (None) /hpf Urine Mucus (None) /hpf Urine HCG, Qual (Not Detectd) Influenza Type A (PCR) Not Detected (Not Detectd) Influenza Type B (PCR) Not Detected (Not Detectd) RSV (PCR) Not Detected (Not Detectd) SARS-CoV-2 (PCR) Not Detected (Not Detectd) 06/25/23 06/25/23 Range/Units 20:18 20:18 WBC (3.8-10.6) k/uL RBC (3.80-5.40) m/uL Hgb (11.4-16.0) gm/dL Hct (34.0-46.0) % MCV (80.0-100.0) fL MCH (25.0-35.0) pg MCHC (31.0-37.0) g/dL RDW (11.5-15.5) % Plt Count (150-450) k/uL MPV Neutrophils % % Lymphocytes % % Monocytes % % Eosinophils % % Basophils % % Neutrophils # (1.3-7.7) k/uL Lymphocytes # (1.0-4.8) k/uL Monocytes # (0-1.0) k/uL Eosinophils # (0-0.7) k/uL Basophils # (0-0.2) k/uL Sodium (137-145) mmol/L Potassium (3.5-5.1) mmol/L Chloride (98-107) mmol/L Carbon Dioxide (22-30) mmol/L Anion Gap mmol/L BUN (7-17) mg/dL Creatinine (0.52-1.04) mg/dL Est GFR (CKD-EPI)AfAm (>60 ml/min/1.73 sqM) Est GFR (CKD-EPI)NonAf (>60 ml/min/1.73 sqM) Glucose (74-99) mg/dL Calcium (8.4-10.2) mg/dL Total Bilirubin (0.2-1.3) mg/dL AST (14-36) U/L ALT (4-34) U/L Alkaline Phosphatase (38-126) U/L Total Protein (6.3-8.2) g/dL Albumin (3.5-5.0) g/dL Lipase (23-300) U/L Urine Color Yellow Urine Appearance Cloudy H (Clear) Urine pH 6.0 (5.0-8.0) Ur Specific [place] 1.035 (1.001-1.035) Urine Protein 2+ H (Negative) Urine Glucose (UA) Negative (Negative) Urine Ketones Trace H (Negative) Urine Blood Negative (Negative) Urine Nitrite Negative (Negative) Urine Bilirubin Negative (Negative) Urine Urobilinogen 3.0 (<2.0) mg/dL Ur Leukocyte Esterase Negative (Negative) Urine RBC 2 (0-5) /hpf Urine WBC 2 (0-5) /hpf Ur Squamous Epith Cells 36 H (0-4) /hpf Urine Bacteria Occasional H (None) /hpf Urine Mucus Many H (None) /hpf Urine HCG, Qual Not Detected (Not Detectd) Influenza Type A (PCR) (Not Detectd) Influenza Type B (PCR) (Not Detectd) RSV (PCR) (Not Detectd) SARS-CoV-2 (PCR) (Not Detectd) Disposition Clinical Impression: Nausea & vomiting Disposition: HOME SELF-CARE Condition: Stable Instructions (If sedation given, give patient instructions): Acute Nausea and Vomiting (ED) Additional Instructions: Please take the nausea medications as directed. Follow-up with your doctor and return for any new or worsening symptoms Prescriptions: Ondansetron Odt [Zofran Odt] 4 mg PO Q8HR PRN #20 tab PRN Reason: Nausea Is patient prescribed a controlled substance at d/c from ED?: No Referrals: Joselito Freeman MD [Primary Care Provider] - 1-2 days Time of Disposition: 21:17
[2023-06-25] MEDS: ONDANSETRON 4 MG ODT STARTER PACK 2 TAB BTL PO STA (21:32)
[2023-06-25 21:40] VITALS: BP 98/60; PULSE 62
== END 2023-06-25 21:39 | disposition home or self-care (01) ==
LOC: EC 18:59
DX: R11.2 Nausea with vomiting, unspecified (principal); F17.200 Nicotine dependence, unspecified, uncomplicated; F12.90 Cannabis use, unspecified, uncomplicated; Z91.040 Latex allergy status
CPT/HCPCS: 36415; 80053; 83690; 85025; 81001; 81025; 87636; 99284; 96374; 96361; J2405; S0119